=== PATIENT | male | born 1935 | race Caucasian/White ===

== ENCOUNTER 2023-04-05 10:23 | Outpatient (OUT) | payer MEDICARE, SELFPAY ==
[2023-04-05 11:46] LABS: Estimated Average Glucose 177 mg/dL; Glycohemoglobin A1C 7.8 % (4.5-6.2)
== END 2023-04-05 10:24 | disposition home or self-care (01) ==
PROVIDERS: PCP Family Medicine; Visit Provider Family Medicine
DX: E11.29 Type 2 diabetes mellitus with other diabetic kidney complication (principal); E11.65 Type 2 diabetes mellitus with hyperglycemia
CPT/HCPCS: 36415; 83036

== ENCOUNTER 2023-10-09 10:29 | Outpatient (OUT) | payer MEDICARE, SELFPAY ==
--- OUTSIDE RECORDS SUMMARY | 2023-10-09 10:48 | XMS_ITS | CCD ---
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 Name Role Phone HALINA, DR YULY Hancock Admitting Unavailable NADERER, DR YULY Hancock Attending Unavailable NADERER, DR YULY Hancock Consulting Unavailable NADERER, DR YULY Hancock Primary Care Unavailable NADERER, DR YULY Hancock Primary Care Unavailable NADERER, DR YULY Hancock Admitting Unavailable NADERER, DR YULY Hancock Attending Unavailable NADERER, DR YULY Hancock Primary Care Unavailable ADELA, MAMIE Admitting Unavailable WEST, DR MELECIO Seals Consulting Unavailable ADELA, MAMIE Attending Unavailable ADELA, MAMIE Consulting Unavailable FAWWAD, H Attending Unavailable FAWWAZhen, H Admitting Unavailable WEST, DR MELECIO Seals Consulting Unavailable NADERER, DR YULY Hancock Primary Care Unavailable FAWWAD, SHAIKH Nadeen Consulting Unavailable NADERER, DR YULY Hancock Primary Care Unavailable NADERER, DR YULY Hancock Admitting Unavailable NADERER, DR YULY Hancock Attending Unavailable NADERER, DR YULY Hancock Consulting Unavailable NADERER, YULY Attending Unavailable NADERER, YULY Attending Unavailable Problems Active Problems Problem Classification Problem Date Documented Date Episodic/Chronic Abdominal hernia (1 source) Umbilical hernia without obstruction or gangrene; Translations: [UMBILICAL HERNIA W/O OBST/GANGRENE] Onset: 09-29-2021 Episodic Abdominal pain (4 sources) Unspecified abdominal pain; Translations: [UNSPECIFIED ABDOMINAL PAIN] Onset: 09-28-2021 Episodic Biliary tract disease (1 source) Calculus of gallbladder without cholecystitis without obstruction; Translations: [CALCU GB W/O CHOLECYST W/O OBST] Onset: 09-29-2021 Episodic Diabetes mellitus with complications (4 sources) Type 2 diabetes mellitus with hyperglycemia; Translations: [TYPE 2 DM W/HYPERGLYCEMIA] Onset: 09-29-2021 Chronic Disorders of lipid metabolism (1 source) Hyperlipidemia, unspecified; Translations: [HYPERLIPIDEMIA UNSPECIFIED] Onset: 10-06-2021 Chronic Diverticulosis and diverticulitis (1 source) Diverticulosis of intestine, part unspecified, without perforation or abscess without bleeding; Translations: [DVRTCLOS PRT UNS NO PERF/ABSC NO BL] Onset: 09-29-2021 Chronic Nutritional deficiencies (1 source) Vitamin D deficiency, unspecified; Translations: [VITAMIN D DEFICIENCY UNSPECIFIED] Onset: 10-06-2021 Chronic Other aftercare (1 source) 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; Translations: [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 CURRENT USE OF ASPIRIN] Onset: 09-29-2021 Episodic Other aftercare (1 source) 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; Translations: [OTH HALF-WAY CURRENT DRUG THERAPY] Onset: 09-29-2021 Episodic Other connective tissue disease (4 sources) Pain in left leg; Translations: [PAIN IN LEFT LEG] Onset: 08-04-2021 Episodic Other connective tissue disease (1 source) Trochanteric bursitis, left hip; Translations: [TROCHANTERIC BURSITIS LEFT HIP] Onset: 08-04-2021 Episodic Other nervous system disorders (1 source) Other abnormalities of gait and mobility; Translations: [OTHER ABNORMALITIES GAIT AND MOBILITY] Onset: 08-06-2021 Episodic Other nervous system disorders (1 source) Unspecified abnormalities of gait and mobility; Translations: [UNS ABNORMALITIES GAIT AND MOBILITY] Onset: 08-06-2021 Episodic Other nutritional; endocrine; and metabolic disorders (1 source) Obesity, unspecified; Translations: [OBESITY UNSPECIFIED] Onset: 10-06-2021 Chronic Past or Other Problems Problem Classification Problem Date Documented Da te Episodic/Chronic Residual codes; unclassified (1 source) Edema, unspecified; Translations: [EDEMA UNSPECIFIED] Onset: 05-19-2021 Episodic Skin and subcutaneous tissue infections (4 sources) Cellulitis of left upper limb; Translations: [CELLULITIS OF LEFT UPPER LIMB] Onset: 05-17-2021 Episodic Results Test Name Value Interpretation Reference Range Facility GLYCOHEMOGLOBIN A1Con 2021 ADA RECOMMENDATION SEE BELOW Normal [facility] Comment on above: Result Comment: ADA RECOMMENDED LIMIT 4.0 - 6.0 ADA THERAPEUTIC TARGET < 7.0 ACTION SUGGESTED > 7.0 Performed By: #### A 1C #### [facility] [address] [place] [address] Dr. Linda Treviño Glucose [Mass/Vol] 177 mg/dL Normal [facility] Comment on above: Performed By: #### A 1C #### [facility] [address] [address] [address] Linda Treviño HbA1c (Bld) [Mass fraction] 7.8 % Critically high 4.5-6.2 [facility] Comment on above: Performed By: #### A 1C #### [facility] [address] [place] [address] Dr. Linda Treviño LIPID PROFILEon 09-29-2021 CHOL-HDL RATIO NORM SEE BELOW Normal [facility] Comment on above: Result Comment: 3.3 - 4.4 LOW RISK 4.4 - 7.1 AVERAGE RISK 7.1 - 11.0 MODERATE RISK >11.0 HIGH RISK Performed By: #### T SH, LIPID #### [facility] [address] [place] [address] Dr. Linda Treviño Cholesterol [Mass/Vol] 116 mg/dL Normal <=200 [facility] Comment on above: Performed By: #### T SH, LIPID #### [facility] [address] [place] [address] Dr. Linda Treviño Cholesterol in HDL [Mass/Vol] 42 mg/dL Normal 40-60 [facility] Comment on above: Performed By: #### T SH, LIPID #### [facility] [address] [place] [address] Dr. Linda Treviño Cholesterol in LDL [Mass/Vol] 52.4 mg/dL Normal [facility] Comment on above: Performed By: #### T SH, LIPID #### [facility] [address] [place] [address] Dr. Linda Treviño Cholesterol.total/Cho lesterol in HDL [Mass ratio] 2.8 {ratio} Normal [facility] Comment on above: Performed By: #### T SH, LIPID #### [facility] [address] [place] [address] Dr. Linda Treviño HDL NORMAL > or = 60 mg/dl - LO W CARDIOVASCULAR RISK <40 mg/dl - HIGH CARDIOVASCULAR RISK Normal [facility] Comment on above: Performed By: #### T SH, LIPID #### [facility] [address] [place] [address] Dr. Linda Treviño LDL CALC NORMAL SEE BELOW Normal [facility] Comment on above: Result Comment: <100 mg/dl OPTIMAL 100 - 129 mg/dl NEAR OR ABOVE OPTIMAL 130 - 159 mg/dl BORDERLINE HIGH 160 - 189 mg/dl HIGH >190 mg/dl VERY HIGH Performed By: #### T SH, LIPID #### [facility] [address] [place] [address] Dr. Linda Treviño Triglyceride [Mass/Vol] 108 mg/dL Normal <=150 [facility] Comment on above: Performed By: #### T SH, LIPID #### [facility] [address] [place] [address] Dr. Linda Treviño VLDL CALC 21.6 mg/dL Normal [facility] Comment on above: Performed By: #### T SH, LIPID #### [facility] [address] [place] [address] Dr. Linda Treviño MICROALBUMIN, RAND URon 06-0 mALB 4.5 mg/L Normal <=30.0 [facility] Comment on above: Performed By: #### M ALBR #### [facility] [address] [place] [address] Dr. Linda Treviño TSHon 09-29-2021 TSH 1.174 uIU/mL Normal 0.358-3.740 [facility] Comment on above: Performed By: #### T SH, LIPID #### [facility] [address] [place] [address] Dr. Linda Treviño TSH RANGE SEE BELOW Normal [facility] Comment on above: Result Comment: <0.3 4 UIU/ml HYPERTHYROID 0.34-5.60 UIU/ml EUTHYROID >5.60 UIU/ml HYPOTHYROID Performed By: #### T SH, LIPID #### [facility] [address] [place] [address] Dr. Linda Treviño VITAMIN D 25 OHon 09-29-2021 VIT D 25-OH 63.6 ng/mL Normal [facility] Comment on above: Performed By: #### V ITAD #### [facility] [address] [address] [address] Linda Treviño VIT D RANGES SEE BELOW Normal [facility] Comment on above: Result Comment: <20 ng/mL Vit D deficient 20 - <30 ng/mL Vit D insufficient 30 - 100 ng/mL Vit D sufficient >100 ng/mL Potential Toxicity Performed By: #### V ITAD #### [facility] [address] [address] [address] Linda Treviño AMYLASEon 09-28-2021 Amylase [Catalytic activity/Vol] 40 U/L Normal 25-115 [facility] Comment on above: Performed By: #### L IPA, JAXSON, CMP #### [facility] [address] [place] [address] Dr. Linda Treviño CBC AUTO DIFFon 09-28-2021 BASO # 0.0 103/ul Normal 0.0-0.1 [facility] Comment on above: Performed By: #### C BC ####[facility] [address] [address]Dr. Linda Treviño Basophils/100 WBC (Bld) 0.4 % Normal 0.2-2.0 [facility] Comment on above: Performed By: #### C BC ####[facility] [address] [address]DrAron Treviño EO # 0.2 103/ul Normal 0.0-0.7 [facility] Comment on above: Performed By: #### C BC ####[facility] [address] [address]DrAron Treviño Eosinophils/100 WBC (Bld) 1.8 % Normal 0.9-7.0 [facility] Comment on above: Performed By: #### C BC ####[facility] [address] [address]DrAron Treviño Erythrocyte distribution width (RBC) [Ratio] 12.9 % Normal 11.0-15.0 [facility] Comment on above: Performed By: #### C BC ####[facility] [address] [address]Dr. Linda Treviño Hematocrit (Bld) [Volume fraction] 43.0 % Normal 42.0-54.0 [facility] Comment on above: Performed By: #### C BC ####[facility] [address] [address]Dr. Linda Hudson Hemoglobin (Bld) [Mass/Vol] 14.4 g/dL Normal 14.0-18.0 [facility] Comment on above: Performed By: #### C BC ####[facility] [address] [address]Dr. Viviansandi Hudson IG # 0.04 10e3/ul Critically high 0.00-0.03 [facility] Comment on above: Performed By: #### C BC ####[facility] [address] [address]Dr. Linda Treviño IG % 0.5 % Normal 0.0-0.5 [facility] Comment on above: Performed By: #### C BC ####[facility] [address] [address]Dr. Linda Hudson LYMPH # 1.0 103/ul Critically low 1.2-3.8 [facility] Comment on above: Performed By: #### C BC ####[facility] [address] [address]Dr. Viviansandi Treviño Lymphocytes/100 WBC (Bld) 12.3 % Critically low 20.5-60.0 [facility] Comment on above: Performed By: #### C BC ####[facility] [address] [address]Dr. Viviansandi Treviño MANUAL DIFF REQ NO Normal [facility] Comment on above: Performed By: #### C BC ####[facility] [address] [address]DrAron Linda Hudson MCH (RBC) [Entitic mass] 30.1 pg Normal 25.9-34.0 [facility] Comment on above: Performed By: #### C BC ####[facility] [address] [place], [place] [address]Dr. Linda Treviño MCHC (RBC) [Mass/Vol] 33.5 g/dL Normal 29.9-35.2 [facility] Comment on above: Performed By: #### C BC ####[facility] [address] [address]Dr. Linda Treviño MCV (RBC) [Entitic vol] 90.0 fL Normal 80.0-94.0 [facility] Comment on above: Performed By: #### C BC ####[facility] [address] [address]Dr. Linda Treviño MONO # 0.3 103/ul Normal 0.3-0.8 [facility] Comment on above: Performed By: #### C BC ####[facility] [address] [address]Dr. Linda Hudson Monocytes/100 WBC (Bld) 3.9 % Normal 1.7-12.0 [facility] Comment on above: Performed By: #### C BC ####[facility] [address] [address]Dr. Linda Treviño NEUT # 6.6 103/ul Critically high 1.4-6.5 [facility] Comment on above: Performed By: #### C BC ####[facility] [address] [address]Dr. Linda Treviño Neutrophils/100 WBC (Bld) 81.1 % Critically high 43.0-75.0 [facility] Comment on above: Performed By: #### C BC ####[facility] [address] [address]Dr. Linda Treviño Platelet mean volume (Bld) [Entitic vol] 10.9 fL Normal 9.5-13.5 [facility] Comment on above: Performed By: #### C BC ####[facility] [address] [address]Dr. Linda Hudson PLT 232 103/ul Normal 150-450 [facility] Comment on above: Performed By: #### C BC ####[facility] [address] [place], [place] [address]Hn. Linda Treviño RBC 4.78 106/ul Normal 4.70-6.10 [facility] Comment on above: Performed By: #### C BC ####[facility] [address] [place], [place] [address]WaAron Treviño WBC 8.1 103/ul Normal 4.0-11.0 [facility] Comment on above: Performed By: #### C BC ####[facility] [address] [place], [place] [address]Ij. Linda Treviño CT ABD/PELVIS WO CONon 09-28 CT ABD/PELVIS WO CON EXAMINATION: CT ABD/PELVIS WO CON, 09/28/2021 10:48 AM EDT HISTORY: Flank pain COMPARISON: None. TECHNIQUE: CT scan of the abdomen and pelvis was performed without IV contrast. CT dose reduction technique was used, including Automated Exposure Control. FINDINGS: LUNG BASES: Cardiomegaly. Coronary atherosclerosis and aortic calcifications LIVER: No enlargement, atrophy, abnormal density, or significant focal lesion. BILIARY: Cholelithiasis without CT evidence of acute cholecystitis PANCREAS: No lesion, fluid collection, ductal dilatation, or atrophy. SPLEEN: No enlargement or focal lesion. ADRENALS: No mass or enlargement. KIDNEYS: Bilateral atrophy. Bilateral cortical hypodensities, cysts are suspected. Bilateral nonobstructing nephrolithiasis. No hydronephrosis. BOWEL/MESENTERY: Extensive colonic diverticulosis without evidence of acute diverticulitis. Perceived thickening of the sigmoid colon possibly related to underlying diverticular disease and nondistention. Normal appendix. Overall nonobstructive bowel gas pattern. AORTA/VASCULAR: No aortic aneurysm. Moderate atherosclerosis. RETROPERITONEUM: No mass or adenopathy. LYMPH NODES: No adenopathy. URINARY BLADDER: Nondistended urinary bladder PELVIC ORGANS: No visible mass. Pelvic organs appropriate for patient age. ABDOMINAL WALL: 3.9 cm umbilical hernia containing mesentery BONES: Degenerative changes OTHER: Negative. IMPRESSION: Cholelithiasis without evidence of acute cholecystitis Bilateral renal atrophy. Nonobstructing nephrolithiasis. No obstructive uropathy Extensive colonic diverticulosis without evidence of acute diverticulitis 4 cm umbilical hernia containing mesenteric fat Electronically authenticated by: MELECIO RAMIREZ Date: 2021-09-28 11:27 Normal [facility] LIPASEon 09-28-2021 Lipase [Catalytic activity/Vol] 72.0 U/L Critically low 73.0-393.0 [facility] Comment on above: Performed By: #### L IPA JAXSON, CMP #### [facility] [address] [address] [address] Linda Treviño PROF 14(COMP METB)on 022 Albumin [Mass/Vol] 4.1 g/dL Normal 3.4-5.0 [facility] Comment on above: Performed By: #### L IPA JAXSON, CMP #### [facility] [address] [address] [address] Linda Treviño Albumin/Globulin [Mass ratio] 1.1 {ratio} Normal [facility] Comment on above: Performed By: #### L OSCAR JAXSON, CMP #### [facility] [address] [address] [address] Linda Treviño ALP [Catalytic activity/Vol] 56 U/L Normal 46-116 [facility] Comment on above: Performed By: #### L IPA JAXSON, CMP #### [facility] [address] [address] [address] Linda Treviño ALT [Catalytic activity/Vol] 33 U/L Normal 16-63 [facility] Comment on above: Performed By: #### L IPA JAXSON, CMP #### [facility] [address] [address] [address] Linda Treviño Anion gap [Moles/Vol] 12.2 mmol/L Normal [facility] Comment on above: Performed By: #### L IPA, JAXSON, CMP #### [facility] [address] [address] [address] Linda Treviño AST [Catalytic activity/Vol] 22 U/L Normal 15-37 [facility] Comment on above: Performed By: #### L IPA, JAXSON, CMP #### [facility] [address] [address] [address] Linda Treviño Bilirubin [Mass/Vol] 0.7 mg/dL Normal 0.2-1.0 [facility] Comment on above: Performed By: #### L IPA JAXSON, CMP #### [facility] [address] [address] [address] Linda Treviño Calcium [Mass/Vol] 9.4 mg/dL Normal 8.5-10.1 [facility] Comment on above: Performed By: #### L IPA JAXSON, CMP #### [facility] [address] [address] [address] Linda Treviño Chloride [Moles/Vol] 102 mmol/L Normal 98-107 [facility] Comment on above: Performed By: #### L IPA JAXSON, CMP #### [facility] [address] [place] [address] Dr. Linda Treviño CO2 [Moles/Vol] 25.7 mmol/L Normal 21.0-32.0 [facility] Comment on above: Performed By: #### L IPA JAXSON, CMP #### [facility] [address] [place] [address] Dr. Linda Treviño Creatinine [Mass/Vol] 1.74 mg/dL Critically high 0.70-1.30 [facility] Comment on above: Performed By: #### L OSCAR JAXSON, CMP #### [facility] [address] [place] [address] Dr. Linda Treviño EGFR-AF [place] 45 mL/min/1.73m2 Critically low >=60 [facility] Comment on above: Performed By: #### L OSCAR JAXSON, CMP #### [facility] [address] [place] [address] Dr. Linda Treviño EGFR-NON AF [place] 37 mL/min/1.73m2 Critically low >=60 [facility] Comment on above: Performed By: #### L IPA JAXSON, CMP #### [facility] [address] [place] [address] Dr. Linda Treviño Globulin (S) [Mass/Vol] 3.7 g/dL Normal [facility] Comment on above: Performed By: #### L IPA JAXSON, CMP #### [facility] [address] [place] [address] Dr. Linda Treviño Glucose [Mass/Vol] 225 mg/dL Critically high 74-106 [facility] Comment on above: Performed By: #### L JAXSON MOORE, CMP #### [facility] [address] [place] [address] Dr. Linda Treviño Potassium [Moles/Vol] 3.9 mmol/L Normal 3.5-5.1 [facility] Comment on above: Performed By: #### L JAXSON MOORE, CMP #### [facility] [address] [place] [address] Dr. Linda Treviño Protein [Mass/Vol] 7.8 g/dL Normal 6.4-8.2 [facility] Comment on above: Performed By: #### L JAXSON MOORE, CMP #### [facility] [address] [place] [address] Dr. Linda Treviño Sodium [Moles/Vol] 136 mmol/L Normal 136-145 [facility] Comment on above: Performed By: #### L JAXSON MOORE, CMP #### [facility] [address] [place] [address] Dr. Linda Treviño Urea nitrogen [Mass/Vol] 30.0 mg/dL Critically high 7.0-18.0 [facility] Comment on above: Performed By: #### L JAXSON MOORE, CMP #### [facility] [address] [place] [address] Dr. Linda Treviño Urea nitrogen/Creatinine [Mass ratio] 17.2 mg/mg Normal [facility] Comment on above: Performed By: #### L JAXSON MOORE, CMP #### [facility] [address] [place] [address] Dr. Linda Treviño US EXT NON VASC LIMITED LTon 05-17-2021 US EXT NON VASC LIMITED LT EXAMINATION: US EXT NON VASC LIMITED LT HISTORY: Cellulitis of left upper limb COMPARISON: No relevant comparison available. FINDINGS: Ultrasound in the area the patient's patchy spots and swelling demonstrate moderate subcutaneous edema. No focal ultrasound mass. No evidence of a hematoma. IMPRESSION: Subcutaneous edema corresponding to the patient's swelling. No focal mass Electronically authenticated by: MELECIO RAMIREZ Date: 2021-05-17 11:01 Normal [facility] GLYCOHEMOGLOBIN A1Con 2020 ADA RECOMMENDATION ADA THERAPEUTIC TARGET 6.0 - 7.0 ACTION SUGGESTED > 7.0 Normal [facility] Comment on above: Performed By: #### A 1C ####[facility] [address] [place], [place] [address]Hn. Linda Treviño Glucose [Mass/Vol] 174 mg/dL Normal [facility] Comment on above: Performed By: #### A 1C ####[facility] [address] [place], [place] [address]Co. Linda Treviño HbA1c (Bld) [Mass fraction] 7.7 % Critically high <=6.0 [facility] Comment on above: Performed By: #### A 1C ####[facility] [address] [place], [place] [address]Ai. Linda Treviño Encounters Encounter Date Encounter Type Care Provider Facility Start: 10-05-2023 End: 10-05-2023 ambulatory YULY MEADE Not Available Start: 04-05-2023 End: 04-05-2023 ambulatory YULY MEADE Not Available Start: 09-29-2021 End: 09-30-[address] YULY MEADE Facility:[facility] Start: 09-28-2021 End: 09-28-[address] YULY MEADE Facility:[facility] Start: 08-04-2021 End: 08-12-[address] YULY MEADE Facility:[facility] Start: 05-17-2021 End: 05-18-2021 ambulatory SHAIKH Nadeen OQUENDO Facility:[facility] Start: 03-30-2021 End: 03-31-[address] YULY MEADE Facility:[facility] Payers Date Payer Category Payer Medicare [id number] 1958 Unknown [id number] 1935 Unknown [id number] 2.16.84 [id number] 1936 Unknown [id number] 2.16.84 [id number] 1936 Unknown [id number] 2.16.84 [id number] 1936 Unknown [id number] 2.16.84 [id number] 1936 Unknown [id number] 2.16.84 [id number] 1936 Unknown [id number] 2.16.84 [id number] 1936 Unknown [id number] Summary Purpose Family History No Family History Records FoundNo Family History Records Found Advance Directives No Advanced Directives Records FoundNo Advanced Directives Records Found Additional Source Comments (unrecognized sect ion and content) No Status Records FoundNo Status Records Found INFORMATION SOURCE (unrecogn ized section and content) DATE CREATED AUTHOR 10/07/2021 [facility] DATE CREATED AUTHOR AUTHOR'S BLUIZ ATION 10/06/2023 [facility] FOR RECORDS PERTAINING TO PATIENTS WHO ARE OR HAVE BEEN ENROLLED IN A CHEMICAL DEPENDENCY/SUBSTANCEABUSE PROGRAM, SOME INFORMATION MAY BE OMITTED. This clinical summary was aggregated from multiple sources. Caution should be exercised in using it in the provision of clinical care. This summary normalizes information from multiple sources, and as a consequence, information in this document may materially change the coding, format and clinical context of patient data. In addition, data may be omitted in some cases. CLINICAL DECISIONS SHOULD BE BASED ON THE PRIMARY CLINICAL RECORDS. [facility] [employer] provides no warranty or guarantee of the accuracy or completeness of information in this document.
[2023-10-09 11:01] LABS: Basophils Percent Auto 0.6 % (0.2-2.0); Eosinophils Absolute Auto 0.3 10^3/uL (0.0-0.7); Eosinophils Percent Auto 5.3 % (0.9-7.0); Hematocrit 41.7 % (42.0-54.0); Hemoglobin 13.7 g/dL (14.0-18.0); Immature Granulocytes Abs Auto 0.02 10^3/uL (0.00-0.03); Immature Granulocytes Pct Auto 0.3 % (0.0-0.5); Lymphocytes Absolute Auto 1.4 10^3/uL (1.2-3.8); Lymphocytes Percent Auto 21.5 % (20.5-60.0); Mean Corpuscular HGB Conc 32.9 g/dL (29.9-35.2); Mean Corpuscular Hemoglobin 29.2 pg (25.9-34.0); Mean Corpuscular Volume 88.9 fL (80.0-94.0); Mean Platelet Volume 10.9 fL (9.5-13.5); Monocytes Absolute Auto 0.4 10^3/uL (0.3-0.8); Monocytes Percent Auto 6.4 % (1.7-12.0); Neutrophils Absolute Auto 4.2 10^3/uL (1.4-6.5); Neutrophils Percent Auto 65.9 % (43.0-75.0); Platelet Count 181 10^3/uL (150-450); Red Blood Count 4.69 10^6/uL (4.70-6.10); Red Cell Distribution Width 13.4 % (11.0-15.0); White Blood Count 6.4 10^3/uL (4.0-11.0)
[2023-10-09 11:17] LABS: Estimated Average Glucose 169 mg/dL; Glycohemoglobin A1C 7.5 % (4.5-6.2)
[2023-10-09 11:22] LABS: Microalbumin Urine Random <1.3 mg/dL (<=30.0)
[2023-10-09 12:17] LABS: Alanine Aminotransferase 32 U/L (16-63); Albumin Level 3.6 g/dL (3.4-5.0); Alkaline Phosphatase 63 U/L (46-116); Anion Gap 12.3; Aspartate Amino Transferase 23 U/L (15-37); BUN Creatinine Ratio 13.3; Bilirubin Direct 0.2 mg/dL (0.0-0.2); Bilirubin Total 0.6 mg/dL (0.2-1.0); Calcium 8.9 mg/dL (8.5-10.1); Carbon Dioxide 30.3 mmol/L (21.0-32.0); Chloride 102 mmol/L (98-107); Chol HDL Ratio 2.5; Cholesterol 123 mg/dL (<=200); Estimated GFR (African America 48 (>=60); Estimated GFR (Non-African Ame 40 (>=60); Globulin 3.5 g/dL; Glucose 244 mg/dL (74-106); HDL Cholesterol 50 mg/dL (40-60); Potassium 3.6 mmol/L (3.5-5.1); Sodium 141 mmol/L (136-145); Total Protein 7.1 g/dL (6.4-8.2); Triglycerides 100 mg/dL (<=150)
== END 2023-10-09 10:30 | disposition home or self-care (01) ==
LOC: LAB 10:32
PROVIDERS: PCP Family Medicine; Visit Provider Family Medicine
DX: E11.65 Type 2 diabetes mellitus with hyperglycemia (principal); N18.32 Chronic kidney disease, stage 3b; Z79.899 Other long term (current) drug therapy; E78.5 Hyperlipidemia, unspecified; E66.9 Obesity, unspecified; I12.9 Hypertensive chronic kidney disease with stage 1 through stage 4 chronic kidney disease, or unspecified chronic kidney disease
CPT/HCPCS: 36415; 80048; 80061; 80076; 82043; 82306; 83036; 84443; 85025

== ENCOUNTER 2023-12-11 12:19 | Outpatient (RCR) | payer MEDICARE, SELFPAY | END 2023-12-29 13:10 | disposition home or self-care (01) | LOC: PT 12:19 | PROVIDERS: PCP Family Medicine; Visit Provider Family Medicine | DX: R42 Dizziness and giddiness (principal) | CPT/HCPCS: 95992; 97110; 97112; 97162; 97530 ==

== ENCOUNTER 2024-01-27 11:52 | Emergency (ER) | payer MEDICARE, SELFPAY ==
[2024-01-27 11:56] VITALS: BP 121/70; PULSE 79; TEMP 36.5; O2SAT 96; BMI 31.9
--- NOTE | 2024-01-27 12:03 | XR_ITS ---
The [address] [address] Patient Name: MELECIO BARRERA MRN: [id number] date: 1935 Sex: M Assigned Patient Location: ER Current Patient Location: ER Accession/Order Number: [id number] Exam Date: 01/27/2024 12:40 Report Date: 01/27/2024 13:39 At the request of: HARDY ANDERSON Procedure: XR wrist LT min 3V HISTORY: Pain in the left wrist and forearm after a fall. Swelling. XR forearm LT 2V, XR wrist LT min 3V: 01/27/2024 12:40 PM EDT COMPARISON: None. FINDINGS: Left forearm: No fracture or dislocation is seen. There are mild degenerative changes of the ulnotrochlear joint. Left wrist: There is soft tissue swelling along the volar aspect of the wrist. No acute fracture or dislocation is seen. There are severe degenerative changes of the first carpometacarpal joint and there appear to be at least moderate to severe degenerative changes of the radiocarpal joint. There are mild degenerative changes of the distal radial ulnar joint. XR/XR wrist LT min 3V IMPRESSION: 1. No acute fracture or dislocation of the left forearm or wrist is seen. 2. Soft tissue swelling along the volar aspect of the wrist. 3. 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 Electronically authenticated by: WILLIAMS MCCRAY Date: 01/27/2024 13:39
--- NOTE | 2024-01-27 12:03 | XR_ITS ---
The [address] [address] Patient Name: MELECIO BARRERA MRN: [id number] date: 1935 Sex: M Assigned Patient Location: ER Current Patient Location: Accession/Order Number: [id number] Exam Date: 01/27/2024 12:40 Report Date: 01/27/2024 13:39 At the request of: HARDY ANDERSON Procedure: XR forearm LT 2V HISTORY: Pain in the left wrist and forearm after a fall. Swelling. XR forearm LT 2V, XR wrist LT min 3V: 01/27/2024 12:40 PM EDT COMPARISON: None. FINDINGS: Left forearm: No fracture or dislocation is seen. There are mild degenerative changes of the ulnotrochlear joint. Left wrist: There is soft tissue swelling along the volar aspect of the wrist. No acute fracture or dislocation is seen. There are severe degenerative changes of the first carpometacarpal joint and there appear to be at least moderate to severe degenerative changes of the radiocarpal joint. There are mild degenerative changes of the distal radial ulnar joint. XR/XR forearm LT 2V IMPRESSION: 1. No acute fracture or dislocation of the left forearm or wrist is seen. 2. Soft tissue swelling along the volar aspect of the wrist. 3. 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 Electronically authenticated by: WILLIAMS MCCRAY Date: 01/27/2024 13:39
--- OUTSIDE RECORDS SUMMARY | 2024-01-27 12:03 | XMS_ITS | CCD ---
Author Organization [facility] Care Team Providers Care Hospice Art Therapist Name Role Phone HALINA, DR YULY Hancock [...] Attending Unavailable ADELA, MAMIE Consulting Unavailable FAWWAD, SHAIKH Nadeen Attending Unavailable FAWWAZhen, H Admitting Unavailable WEST, DR MELECIO Seals Consulting Unavailable NADERER, DR YULY Hancock Primary Care Unavailable FAWWAD, SHAIKH Nadeen Consulting Unavailable NADERER, DR YULY Hancock Primary Care Unavailable NADERER, DR YULY Hancock Admitting Unavailable NADERER, DR YULY Hancock Attending Unavailable NADERER, DR YULY Hancock Consulting Unavailable RICKETTS, NIMISHA Castaneda Attending Unavailable NADERER, YULY Referring Unavailable NADERER, YULY Primary Care Unavailable NADERER, YULY Attending Unavailable NADERER, YULY Attending Unavailable NADERER, YULY Attending Unavailable RICKETTSNIMISHA Referring Unavailable NADERER, YULY Primary Care Unavailable RICKETTS, NIMISHA Castaneda Referring Unavailable NADERER, YULY Primary Care Unavailable NADERER, YULY Referring Unavailable NADERER, YULY Primary Care Unavailable Allergies Allergy Classification Reported Allergen(s) Allergy Type Date of Onset Reaction(s) Facility (2 sources) HYMENOPTERA ALLERGENIC EXTRACT; Translations: [HYMENOPTERA ALLERGENIC EXTRACT] Drug Allergy 04-05-2016 [facility] Rep[facility] Problems Active Problems Problem Classification Problem Date [...] [TYPE 2 DM W/HYPERGLYCEMIA] Onset: 09-29-2021 Chronic Diabetes mellitus without complication (1 source) Type 2 diabetes mellitus without complications; Translations: [Type 2 diabetes mellitus without complications] Onset: 12-20-2023 Chronic Disorders of lipid metabolism (1 source) Hyperlipidemia, unspecified; Translations: [HYPERLIPIDEMIA UNSPECIFIED] Onset: 10-06-2021 Chronic Diverticulosis and diverticulitis (1 source) Diverticulosis of intestine, part unspecified, without perforation or abscess without bleeding; Translations: [DVRTCLOS PRT UNS NO PERF/ABSC NO BL] Onset: 09-29-2021 Chronic Essential hypertension (1 source) Essential (primary) hypertension; Translations: [Essential (primary) hypertension] Onset: 12-20-2023 Chronic Nutritional deficiencies (1 source) Vitamin D deficiency, unspecified; Translations: [VITAMIN D DEFICIENCY UNSPECIFIED] Onset: 10-06-2021 Chronic Other 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 (1 source) 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; Translations: [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 CURRENT USE OF ASPIRIN] Onset: 09-29-2021 Episodic Other aftercare (1 source) Other 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 therapy; Translations: [OTH HEAD WORKER CURRENT DRUG THERAPY] Onset: 09-29-2021 Episodic Other connective tissue disease (4 sources) Pain in left leg; Translations: [PAIN IN LEFT LEG] Onset: 08-04-2021 Episodic Other connective tissue disease (1 source) Trochanteric bursitis, left hip; Translations: [TROCHANTERIC BURSITIS LEFT HIP] Onset: 08-04-2021 Episodic Other male genital disorders (2 sources) Encysted hydrocele; Translations: [Encysted hydrocele] Onset: 10-18-2023 Episodic Other nervous system disorders (1 source) Other abnormalities of gait and mobility; Translations: [OTHER ABNORMALITIES GAIT AND MOBILITY] Onset: 08-06-2021 Episodic Other nervous system disorders (1 source) Unspecified abnormalities of gait and mobility; Translations: [UNS ABNORMALITIES GAIT AND MOBILITY] Onset: 08-06-2021 Episodic Other nutritional; endocrine; and metabolic disorders (1 source) Obesity, unspecified; Translations: [OBESITY UNSPECIFIED] Onset: 10-06-2021 Chronic Urinary tract infections (1 source) Urinary tract infection, site not specified; Translations: [Urinary tract infection, site not specified] Onset: 12-20-2023 Episodic Past or Other Problems Problem Classification Problem Date Documented Da te Episodic/Chronic Residual codes; unclassified (1 source) Edema, unspecified; Translations: [EDEMA UNSPECIFIED] Onset: 05-19-2021 Episodic Skin and subcutaneous tissue infections (4 sources) Cellulitis of left upper limb; Translations: [CELLULITIS OF LEFT UPPER LIMB] Onset: 05-17-2021 Episodic Results Test Name Value Interpretation Reference Range Facility BASIC METABOLIC PANLon 12-19 Anion gap [Moles/Vol] 12 mmol/L Normal 5-15 [facility] Comment on above: Performed By: #### B MP #### [facility] ([id number]) [address], [address] [place] [address] Calcium [Mass/Vol] 9.6 mg/dL Normal 8.5-10.5 [facility] Comment on above: Performed By: #### B MP #### [facility] ([id number]) [address], [address] [place] [address] Chloride [Moles/Vol] 103 mmol/L Normal 98-109 [facility] Comment on above: Performed By: #### B MP #### [facility] ([id number]) [address], [address] [place] [address] CO2 [Moles/Vol] 26 mmol/L Normal 22-32 [facility] Comment on above: Performed By: #### B MP #### [facility] ([id number]) [address], [address] [place] [address] Creatinine [Mass/Vol] 1.51 mg/dL High 0.60-1.30 [facility] Comment on above: Result Comment: METH OD TRACEABLE TO IDMS STANDARD Performed By: #### B MP #### [facility] ([id number]) [address], [address] [place] [address] GFR/1.73 sq M.predicted among non-blacks MDRD (S/P/Bld) [Vol rate/Area] 44 mL/min/{1.73_m2} Low >59 [facility] Comment on above: Result Comment: Reported eGFR is based on the CKD-EPI 2020 equation that does not use a race coefficient. Performed By: #### B MP #### [facility] ([id number]) [address], [address] [place] [address] Glucose [Mass/Vol] 141 mg/dL High 65-99 [facility] Comment on above: Performed By: #### B MP #### [facility] ([id number]) [address], [address] [place] [address] Potassium [Moles/Vol] 4.3 mmol/L Normal 3.5-5.0 [facility] Comment on above: Performed By: #### B MP #### [facility] ([id number]) [address] [place] [address] Sodium [Moles/Vol] 141 mmol/L Normal 134-146 [facility] Comment on above: Performed By: #### B MP #### [facility] ([id number]) [address], [address] [place] [address] Urea nitrogen [Mass/Vol] 22 mg/dL Normal 5-27 [facility] Comment on above: Performed By: #### B MP #### [facility] ([id number]) [address], [address] [place] [address] URINALYSISon 12-20-2023 Bilirubin Ql (U) Negative Normal NEG [facility] Comment on above: Performed By: #### U A #### [facility] ([id number]) [address], [address] [place] [address] BLOOD/HGB Negative Normal NEG [facility] Comment on above: Performed By: #### U A #### [facility] ([id number]) [address], [address] [place] [address] Color (U) YELLOW Normal YELLOW [facility] Comment on above: Performed By: #### U A #### [facility] ([id number]) [address], [address] [place] [address] Glucose Ql (U) Negative Normal NEG [facility] Comment on above: Performed By: #### U A #### [facility] ([id number]) [address], [address] [place] [address] Ketones Ql (U) Negative Normal NEG [facility] Comment on above: Performed By: #### U A #### [facility] ([id number]) [address] [place] [address] Leukocyte esterase Test strip Ql (U) Negative Normal NEG [facility] Comment on above: Performed By: #### U A #### [facility] ([id number]) [address], [address] [place] [address] Nitrite Ql (U) Negative Normal NEG [facility] Comment on above: Performed By: #### U A #### [facility] ([id number]) [address], [address] [place] [address] pH (U) 5.5 [pH] Normal 5.0-8.5 [facility] Comment on above: Performed By: #### U A #### [facility] ([id number]) [address], [address] [place] [address] Protein Ql (U) Negative Normal NEG [facility] Comment on above: Performed By: #### U A #### [facility] ([id number]) [address], [address] [place] [address] Specific gravity (U) [Rel density] 1.015 Normal 1.003-1.035 [facility] Comment on above: Performed By: #### U A #### [facility] ([id number]) [address], [address] [place] [address] TURBIDITY CLEAR Normal CLEAR [facility] Comment on above: Performed By: #### U A #### [facility] ([id number]) [address], [address] [place] [address] Urobilinogen (U) [Mass/Vol] mg/dL Normal <1.1 [facility] Comment on above: Performed By: #### U A #### [facility] ([id number]) [address], [address] [place] [address] URINE CULTUREon 12-20-2023 Bacteria identified Cx Nom (U) CULTURE RESULTS NO GROWTH AT <1000 CFU/mL Normal [facility] Comment on above: Performed By: #### 6 30-4 #### [facility] ([id number]) [address], [address] [place] [address] GLYCOHEMOGLOBIN A1Con 2021 ADA RECOMMENDATION SEE BELOW Normal [facility] Comment on above: Result Comment: ADA RECOMMENDED LIMIT 4.0 - 6.0 ADA THERAPEUTIC TARGET < 7.0 ACTION SUGGESTED > 7.0 Performed By: #### A 1C #### [facility] [address] [address] [address] Linda Treviño Glucose [Mass/Vol] 177 mg/dL Normal [facility] Comment on above: Performed By: #### A 1C #### [facility] [address] [address] [address] Linda Treviño HbA1c (Bld) [Mass fraction] 7.8 % Critically high 4.5-6.2 [facility] Comment on above: Performed By: #### A 1C #### [facility] [address] [address] [address] Linda Treviño LIPID PROFILEon 09-29-2021 CHOL-HDL RATIO NORM SEE BELOW Normal [facility] Comment on above: Result Comment: 3.3 - 4.4 LOW RISK 4.4 - 7.1 AVERAGE RISK 7.1 - 11.0 MODERATE RISK >11.0 HIGH RISK Performed By: #### T SH, LIPID #### [facility] [address] [address] [address] Linda Treviño Cholesterol [Mass/Vol] 116 mg/dL Normal <=200 [facility] Comment on above: Performed By: #### T SH, LIPID #### [facility] [address] [address] [address] Linda Treviño Cholesterol in HDL [Mass/Vol] 42 mg/dL Normal 40-60 [facility] Comment on above: Performed By: #### T SH, LIPID #### [facility] [address] [address] [address] Linda Treviño Cholesterol in LDL [Mass/Vol] 52.4 mg/dL Normal [facility] Comment on above: Performed By: #### T SH, LIPID #### [facility] [address] [address] [address] Linda Treviño Cholesterol.total/Cho lesterol in HDL [Mass ratio] 2.8 {ratio} Normal [facility] Comment on above: Performed By: #### T SH, LIPID #### [facility] [address] [address] [address] Linda Treviño HDL NORMAL > or = 60 mg/dl - LOW CARDIOVASCULAR RISK <40 mg/dl - HIGH CARDIOVASCULAR RISK Normal [facility] Comment on above: Performed By: #### T SH, LIPID #### [facility] [address] [address] [address] Linda Treviño LDL CALC NORMAL SEE BELOW Normal [facility] Comment on above: Result Comment: <100 mg/dl OPTIMAL 100 - 129 mg/dl NEAR OR ABOVE OPTIMAL 130 - 159 mg/dl BORDERLINE HIGH 160 - 189 mg/dl HIGH >190 mg/dl VERY HIGH Performed By: #### T SH, LIPID #### [facility] [address] [place] [address] Dr. Linda Treviño Triglyceride [Mass/Vol] 108 mg/dL Normal <=150 [facility] Comment on above: Performed By: #### T SH, LIPID #### [facility] [address] [place] [address] Dr. Linda Treviño VLDL CALC 21.6 mg/dL Normal [facility] Comment on above: Performed By: #### T SH, LIPID #### [facility] [address] [place] [address] Dr. Linda Treviño MICROALBUMIN, RAND URon 06-0 mALB 4.5 mg/L Normal <=30.0 [facility] Comment on above: Performed By: #### M ALBR #### [facility] [address] [place] [address] Dr. Linda Treviño TSHon 09-29-2021 TSH 1.174 uIU/mL Normal 0.358-3.740 [facility] Comment on above: Performed By: #### T SH, LIPID #### [facility] [address] [place] [address] Dr. Linda Treviño TSH RANGE SEE BELOW Normal [facility] Comment on above: Result Comment: <0.3 4 UIU/ml HYPERTHYROID 0.34-5.60 UIU/ml EUTHYROID >5.60 UIU/ml HYPOTHYROID Performed By: #### T SH, LIPID #### [facility] [address] [place] [address] Dr. Linda Treviño VITAMIN D 25 OHon 09-29-2021 VIT D 25-OH 63.6 ng/mL Normal [facility] Comment on above: Performed By: #### V ITAD #### [facility] [address] [place] [address] Dr. Linda Treviño VIT D RANGES SEE BELOW Normal [facility] Comment on above: Result Comment: <20 ng/mL Vit D deficient 20 - <30 ng/mL Vit D insufficient 30 - 100 ng/mL Vit D sufficient >100 ng/mL Potential Toxicity Performed By: #### V ITAD #### [facility] [address] [address] [address] Linda Treviño AMYLASEon 09-28-2021 Amylase [Catalytic activity/Vol] 40 U/L Normal 25-115 [facility] Comment on above: Performed By: #### L IPA, JAXSON, CMP #### [facility] [address] [address] [address] Linda Treviño CBC AUTO DIFFon 09-28-2021 BASO # 0.0 103/ul Normal 0.0-0.1 [facility] Comment on above: Performed By: #### C BC ####[facility] [address] [address]DrAron Treviño Basophils/100 WBC (Bld) 0.4 % Normal 0.2-2.0 [facility] Comment on above: Performed By: #### C BC ####[facility] [address] [place], [place] [address]Dr. Linda Treviño EO # 0.2 103/ul Normal 0.0-0.7 [facility] Comment on above: Performed By: #### C BC ####[facility] [address] [place], [place] [address]Dr. Linda Trevioñ Eosinophils/100 WBC (Bld) 1.8 % Normal 0.9-7.0 [facility] Comment on above: Performed By: #### C BC ####[facility] [address] [address]DrAron Treviño Erythrocyte distribution width (RBC) [Ratio] 12.9 % Normal 11.0-15.0 [facility] Comment on above: Performed By: #### C BC ####[facility] [address] [address]DrAron Treviño Hematocrit (Bld) [Volume fraction] 43.0 % Normal 42.0-54.0 [facility] Comment on above: Performed By: #### C BC ####[facility] [address] [address]Dr. Linda Treviño Hemoglobin (Bld) [Mass/Vol] 14.4 g/dL Normal 14.0-18.0 [facility] Comment on above: Performed By: #### C BC ####[facility] [address] [address]DrAron Treviño IG # 0.04 10e3/ul Critically high 0.00-0.03 [facility] Comment on above: Performed By: #### C BC ####[facility] [address] [address]DrAron Treviño IG % 0.5 % Normal 0.0-0.5 [facility] Comment on above: Performed By: #### C BC ####[facility] [address] [place], [place] [address]DrAron Treviño LYMPH # 1.0 103/ul Critically low 1.2-3.8 [facility] Comment on above: Performed By: #### C BC ####[facility] [address] [place], [place] [address]DrAron Treviño Lymphocytes/100 WBC (Bld) 12.3 % Critically low 20.5-60.0 [facility] Comment on above: Performed By: #### C BC ####[facility] [address] [place], [place] [address]DrAron Treviño MANUAL DIFF REQ NO Normal [facility] Comment on above: Performed By: #### C BC ####[facility] [address] [address]DrAron Treviño MCH (RBC) [Entitic mass] 30.1 pg Normal 25.9-34.0 [facility] Comment on above: Performed By: #### C BC ####[facility] [address] [place], [place] [address]DrAron Treviño MCHC (RBC) [Mass/Vol] 33.5 g/dL Normal 29.9-35.2 [facility] Comment on above: Performed By: #### C BC ####[facility] [address] [place], [place] [address]DrAron Treviño MCV (RBC) [Entitic vol] 90.0 fL Normal 80.0-94.0 [facility] Comment on above: Performed By: #### C BC ####[facility] [address] [place], [place] [address]Dr. Linda Treviño MONO # 0.3 103/ul Normal 0.3-0.8 [facility] Comment on above: Performed By: #### C BC ####[facility] [address] [place], [place] [address]Dr. Linda Hudson Monocytes/100 WBC (Bld) 3.9 % Normal 1.7-12.0 [facility] Comment on above: Performed By: #### C BC ####[facility] [address] [place], [place] [address]Dr. Linda Treviño NEUT # 6.6 103/ul Critically high 1.4-6.5 [facility] Comment on above: Performed By: #### C BC ####[facility] [address] [place], [place] [address]Dr. Linda Hudson Neutrophils/100 WBC (Bld) 81.1 % Critically high 43.0-75.0 [facility] Comment on above: Performed By: #### C BC ####[facility] [address] [place], [place] [address]Dr. Linda Hudson Platelet mean volume (Bld) [Entitic vol] 10.9 fL Normal 9.5-13.5 [facility] Comment on above: Performed By: #### C BC ####[facility] [address] [place], [place] [address]Dr. Linda Hudson PLT 232 103/ul Normal 150-450 [facility] Comment on above: Performed By: #### C BC ####[facility] [address] [place], [place] [address]Dr. Linda Hudson RBC 4.78 106/ul Normal 4.70-6.10 [facility] Comment on above: Performed By: #### C BC ####[facility] [address] [place], [place] [address]Dr. Linda Treviño WBC 8.1 103/ul Normal 4.0-11.0 [facility] Comment on above: Performed By: #### C BC ####[facility] [address] [address]. Linda Treviño CT ABD/PELVIS WO CONon 09-28 [...] by: MELECIO RAMIREZ Date: 2021-09-28 11:27 Normal [facility] LIPASEon 09-28-2021 Lipase [Catalytic activity/Vol] 72.0 U/L Critically low 73.0-393.0 [facility] Comment on above: Performed By: #### L IPA, JAXSON, CMP #### [facility] [address] [address] [address] Linda Treviño PROF 14(COMP METB)on 022 Albumin [Mass/Vol] 4.1 g/dL Normal 3.4-5.0 [facility] Comment on above: Performed By: #### L JAXSON MOORE, CMP #### [facility] [address] [address] [address] Linda Treviño Albumin/Globulin [Mass ratio] 1.1 {ratio} Normal [facility] Comment on above: Performed By: #### L JAXSON MOORE, CMP #### [facility] [address] [address] [address] Linda Treviño ALP [Catalytic activity/Vol] 56 U/L Normal 46-116 [facility] Comment on above: Performed By: #### L JAXSON MOORE, CMP #### [facility] [address] [address] [address] Linda Treviño ALT [Catalytic activity/Vol] 33 U/L Normal 16-63 [facility] Comment on above: Performed By: #### L JAXSON MOORE, CMP #### [facility] [address] [address] [address] Linda Treviño Anion gap [Moles/Vol] 12.2 mmol/L Normal [facility] Comment on above: Performed By: #### L JAXSON MOORE, CMP #### [facility] [address] [address] [address] Linda Treviño AST [Catalytic activity/Vol] 22 U/L Normal 15-37 [facility] Comment on above: Performed By: #### L JAXSON MOORE, CMP #### [facility] [address] [address] [address] Linda Treviño Bilirubin [Mass/Vol] 0.7 mg/dL Normal 0.2-1.0 [facility] Comment on above: Performed By: #### L JAXSON MOORE, CMP #### [facility] [address] [address] [address] Linda Treviño Calcium [Mass/Vol] 9.4 mg/dL Normal 8.5-10.1 [facility] Comment on above: Performed By: #### L IPA, JAXSON, CMP #### [facility] [address] [address] [address] Linda Treviño Chloride [Moles/Vol] 102 mmol/L Normal 98-107 [facility] Comment on above: Performed By: #### L IPA, JAXSON, CMP #### [facility] [address] [address] [address] Linda Treviño CO2 [Moles/Vol] 25.7 mmol/L Normal 21.0-32.0 [facility] Comment on above: Performed By: #### L IPA JAXSON, CMP #### [facility] [address] [address] [address] Linda Treviño Creatinine [Mass/Vol] 1.74 mg/dL Critically high 0.70-1.30 [facility] Comment on above: Performed By: #### L IPA JAXSON, CMP #### [facility] [address] [place] [address] Dr. Linda Treviño EGFR-AF TURKS AND [place] ISLANDER 45 mL/min/1.73m2 Critically low >=60 [facility] Comment on above: Performed By: #### L IPA JAXSON, CMP #### [facility] [address] [address] [address] Linda Trveiño EGFR-NON AF TURKS AND [place] IS[place]ER 37 mL/min/1.73m2 Critically low >=60 [facility] Comment on above: Performed By: #### L OSCAR JAXSON, CMP #### [facility] [address] [address] [address] Linda Treviño Globulin (S) [Mass/Vol] 3.7 g/dL Normal [facility] Comment on above: Performed By: #### L IPA JAXSON, CMP #### [facility] [address] [address] [address] Linda Treviño Glucose [Mass/Vol] 225 mg/dL Critically high 74-106 [facility] Comment on above: Performed By: #### L IPA JAXSON, CMP #### [facility] [address] [address] [address] Linda Treviño Potassium [Moles/Vol] 3.9 mmol/L Normal 3.5-5.1 [facility] Comment on above: Performed By: #### L JAXSON MOORE, CMP #### [facility] [address] [place] [address] Dr. Linda Treviño Protein [Mass/Vol] 7.8 g/dL Normal 6.4-8.2 [facility] Comment on above: Performed By: #### L JAXSON MOORE, CMP #### [facility] [address] [place] [address] Dr. Linda Treviño Sodium [Moles/Vol] 136 mmol/L Normal 136-145 [facility] Comment on above: Performed By: #### L JAXSON MOORE, CMP #### [facility] [address] [place] [address] Dr. Linda Treviño Urea nitrogen [Mass/Vol] 30.0 mg/dL Critically high 7.0-18.0 [facility] Comment on above: Performed By: #### L JAXSON MOORE, CMP #### [facility] [address] [place] [address] Dr. Linda Treviño Urea nitrogen/Creatinine [Mass ratio] 17.2 mg/mg Normal [facility] Comment on above: Performed By: #### L JAXSON MOORE, CMP #### [facility] [address] [place] [address] Dr. Linda Treviño US EXT NON VASC [...] by: MELECIO RAMIREZ Date: 2021-05-17 11:01 Normal [facility] GLYCOHEMOGLOBIN A1Con 2020 ADA RECOMMENDATION ADA THERAPEUTIC TARGET 6.0 - 7.0 ACTION SUGGESTED > 7.0 Normal [facility] Comment on above: Performed By: #### A 1C ####[facility] [address] [address]Dr. Linda Treviño Glucose [Mass/Vol] 174 mg/dL Normal [facility] Comment on above: Performed By: #### A 1C ####[facility] [id number] [place], [place] [address]Pe. Linda Treviño HbA1c (Bld) [Mass fraction] 7.7 % Critically high <=6.0 [facility] Comment on above: Performed By: #### A 1C ####[facility] [id number] [place], [place] [address]Ck. Linda Treviño Encounters Encounter Date Encounter Type Care Provider Facility Start: 12-20-2023 End: 12-20-2023 ambulatory YULY MEADE [facility] Start: 12-20-2023 Encounter for other preprocedural examination [facility] Start: 12-07-2023 End: 12-07-2023 ambulatory YULY MEADE Not Available Start: 10-18-2023 End: 10-18-2023 ambulatory NIMISHA RICKETTS [facility] Start: 10-05-2023 End: 10-05-2023 ambulatory YULY MEADE Not Available Start: 04-05-2023 End: 04-05-2023 ambulatory YULY MEADE Not Available Start: 09-29-2021 End: 09-30-[address] YULY MEADE Facility:[facility] Start: 09-28-2021 End: 09-28-[address] YULY MEADE Facility:[facility] Start: 08-04-2021 End: 08-12-[address] YULY MEADE Facility:[facility] Start: 05-17-2021 End: 05-18-2021 ambulatory SHAIKH Nadeen OQUENDO Facility:[facility] Start: 03-30-2021 End: 03-31-[address] YULY MEADE Facility:[facility] Procedures Date Procedure Procedure Detail Performing Clinician Start: 10-18-2023 Follow-up visit Follow-up NIMISHA RICKETTS Payers Date Payer Category Payer Medicare [id number] 1958 Unknown [id number] 1936 Unknown [id number] 2.16.84 [id number] 1936 Unknown [id number] 2.16.84 [id number] 1936 Unknown [id number] 2.16.84 0.1.605384.3.579.2.593 1936 Unknown [id number] 2.16.84 0.1.979483.3.579.2.593 1936 Unknown [id number] 2.16.84 0.1.104622.3.579.2.593 1936 Unknown [id number] 2.16.8 40.1.966007.3.579.2.1286 1936 Unknown [id number] 2.16.84 0.1.614241.3.579.2.1259 1936 Unknown [id number] 2.16.84 0.1.868219.3.579.2.1259 1936 Unknown [id number] 2.16.840 .1.990651.3.579.2.1259 1936 Unknown [id number] 2.16.8 40.1.384196.3.579.2.1286 1936 Unknown [id number] 2.16.8 40.1.493758.3.579.2.1286 1936 Unknown [id number] 2.16.8 [id number] Summary Purpose Family History No Family History Records FoundNo Family History Records FoundNo Family History Records FoundNo Family History Records Found Advance Directives No Advanced Directives Records FoundNo Advanced Directives Records FoundNo Advanced Directives Records FoundNo Advanced Directives Records Found Additional Source Comments (unrecognized sect ion and content) No Status Records FoundNo Status Records FoundNo Status Records FoundNo Status Records Found INFORMATION SOURCE (unrecogn ized section and content) DATE CREATED AUTHOR 10/07/2021 [facility] DATE CREATED AUTHOR AUTHOR'S ORGANIZ ATION 10/20/2023 [facility] DATE CREATED AUTHOR AUTHOR'S ORGANIZ ATION 12/09/2023 [facility] [place] [facility] DATE CREATED AUTHOR AUTHOR'S MIN ATION 12/22/2023 [facility] FOR RECORDS PERTAINING TO PATIENTS WHO ARE [...] BE BASED ON THE PRIMARY CLINICAL RECORDS. [employer] provides no warranty or guarantee of the accuracy or completeness of information in this document.
[2024-01-27] MEDS: KETOROLAC TROMETHAMINE 30 MG/ML VIAL 15 MG IM (12:24)
--- NOTE | 2024-01-27 13:57 | ED.GENADUL1 ---
HPI HPI - General Adult General Chief complaint: Extremity Injury, Upper Stated complaint: UPPER EXTREMITY INJURY, LEFT, FALL Time Seen by Provider: 01/27/24 12:01 Source: patient Mode of arrival: walk-in Limitations: no limitations History of Present Illness HPI narrative: The patient presented to us with a left wrist pain that started after he fell down over his hand while tripping over the dog leash almost to 2 days ago, the patient denies any other injuries he mentioned that the pain has been getting worse for the last few days He denies any other injuries including no head trauma or loss of consciousness Related Data Previous Rx's ?Medication ?Instructions ?Recorded tramadol 50 mg tablet 50 mg PO Q12H PRN pain 3 days #6 01/27/24 tabs Allergies Allergy/AdvReac Type Severity Reaction Status Date / Time bee venom protein (honey bee) Allergy Intermediate Anaphylaxis Verified 01/27/24 12:00 Opioid HPI Opioid Management Most Recent Opioid Data: Last Pain Scale 8 01/27/24 12:24 Last MAR Pain Assessment 01/27/24 12:24 Review of Systems ROS Status of ROS 10 or more systems reviewed and unremarkable except as noted in history and below PFSH PFSH Social History Little interest or pleasure in doing things: not at all Feeling down, depressed, or hopeless: not at all Exam Narrative Exam Narrative: Nurses notes and vital signs reviewed and patient is not hypoxic. Left arm examination: The patient have a significant swelling in the wrist area with tenderness along the radial aspect, the patient have also tenderness upon movement of the thumb General: Well-appearing and in no apparent distress. Skin: Warm, dry, no pallor noted. No rash. Head: Normocephalic, atraumatic. Neck: Supple, non-tender. Eye: Pupils are equal, round and EOMI. No scleral icterus. Ears, Nose, Mouth, and Throat: TM are clear, no nasal mucosal hypertrophy. Oral mucosa is moist, no posterior oropharynx erythema, uvula is mid-line Cardiovascular: Regular Rate and Rhythm without murmur, gallop or rub. Respiratory: No accessory muscle use or respiratory distress. Lungs are clear to auscultation, no wheezing, rales or rhonchi Chest Wall: no tenderness Back: No midline thoracic or lumbar vertebral tenderness. No CVA tenderness GI: Abdomen is soft, non-distended. Normal bowel sounds. No masses appreciated. No tenderness to palpation. No rebound, guarding, or rigidity noted. Neurological: A&O x4. No cranial nerve dysfunction observed. No truncal ataxia. Moves all extremities. Sensation intact. Psychiatric: Cooperative and interactive. Normal mood and affect. Constitutional Vital Signs, click to edit/add: Last Vital Signs Temp 97.7 F 01/27/24 11:56 Pulse 79 01/27/24 11:56 Resp 16 01/27/24 11:56 BP 121/70 01/27/24 11:56 Pulse Ox 96 01/27/24 11:56 O2 Del Method Room Air 01/27/24 11:56 Course Vital Signs Vital signs: Vital Signs Temperature 97.7 F 01/27/24 11:56 Pulse Rate 79 01/27/24 11:56 Respiratory Rate 16 01/27/24 11:56 Blood Pressure 121/70 01/27/24 11:56 Pulse Oximetry 96 01/27/24 11:56 Oxygen Delivery Method Room Air 01/27/24 11:56 Temperature 97.7 F 01/27/24 11:56 Pulse Rate 79 01/27/24 11:56 Respiratory Rate 16 01/27/24 11:56 Blood Pressure 121/70 01/27/24 11:56 Pulse Oximetry 96 01/27/24 11:56 Oxygen Delivery Method Room Air 01/27/24 11:56 Medical Decision Making [facility] Narrative Medical decision making narrative: Right now the patient x-ray of the wrist as well as the forearm showed no acute pathology But with his presentation there could be a possibility of a scaphoid fracture and that while he was placed in a thumb spica splint to keep at least for a week and then repeat x-ray again and follow-up with his primary care Patient provided with tramadol for the pain The patient is to follow up with primary care physician in next 2-3 days or to return to the emergency department should any of the signs or symptoms worsen or new symptoms develop. The patient agrees with the following Diagnosis and Treatment plan and the patient will be discharged home. Discharge Plan Discharge Chief Complaint: Extremity Injury, Upper Clinical Impression: Contusion of left wrist Patient Disposition: Home, Self-Care Time of Disposition Decision: 13:58 Condition: Good Prescriptions / Home Meds: New tramadol 50 mg tablet 50 mg PO Q12H PRN (Reason: pain) 3 Days Qty: 6 0RF Print Language: Welsh Instructions: Contusion in Adults (ED) Referrals: Dillon Yadav MD [Primary Care Provider] - 1 week Jace Hamm MD [Physician] - 1 week
[2024-01-27] MEDS: TRAMADOL HCL 50 MG TABLET PO (14:16)
== END 2024-01-27 14:22 | disposition home or self-care (01) ==
PROVIDERS: Emergency Provider Emergency Medicine; PCP Family Medicine
DX: S60.212A Contusion of left wrist, initial encounter (principal); W19.XXXA Unspecified fall, initial encounter
CPT/HCPCS: 73090; 73110; 96372; 99284; J1885

== ENCOUNTER 2024-07-03 13:50 | Outpatient (OUT) | payer MEDICARE, SELFPAY ==
--- NOTE | 2024-07-03 15:19 | NUTR.NU ---
Pt and in for diet education. Pt has been diabetic for years but current HgbA1c level of 7.4 shows upward trend; previous A1c was 7.1, per pt. 24-hour recall obtained; pt enjoys cooking and eating at restaurants. Discussed portion sizes and limiting sweets, snack foods, and soda pop. Also discussed dietary sodium and fat d/t pt takes medications for HTN and cholesterol. Provided handouts dietitian contact info for further questions or concerns. Mason Villafana showed pt how to use new glucometer and recommended taking BS readings 4x daily (FBS + before each meal), taking the BS log to his appointment next week w/Dr. Yadav.
== END 2024-07-03 13:51 | disposition home or self-care (01) ==
LOC: MN 13:51
PROVIDERS: PCP Family Medicine
DX: E11.8 Type 2 diabetes mellitus with unspecified complications (principal)
CPT/HCPCS: 97802

== ENCOUNTER 2024-11-27 07:43 | Outpatient (OUT) | payer MEDICARE, SELFPAY ==
--- OUTSIDE RECORDS SUMMARY | 2024-11-27 07:46 | XMS_ITS | Encounter Summary ---
Author Organization [facility] Address [address] [place] [address] Care Team Providers Care Restaurant Area Manager Name Role Phone Dillon Yadav MD Primary Care Provider [phone] Encounter Details Date Type Department Care Team ([facility] Contact Info) Description 01/29/2024 Orders Only [facility] [address] [place] [phone] Dillon Yadav MD [address] [place] [address] Social History Tobacco Use Types Packs/Day Years Used Date Smoking Tobacco: Never Smokeless Tobacco: Never Alcohol Use Standard Drinks/Week Comments Never 0 (1 standard drink = 0.6 oz pur e alcohol) Sex and Gender Information Value Date Recorded Sex Assigned at Not on file Legal Sex Male 1:16 PM EDT Gender Identity Not on file Sexual Orientation Not on file documented as of this encounter Plan of Treatment Upcoming Encounters Date Type Department Care Team (Late Contact Info) Description 04/10/2025 10:30 AM EST Office Visit [facility] [address] [place] [address] Dillon Yadav MD [address] [place] [address] documented as of this encounter Procedures Procedure Name Priority Date/Time Associated Diagnosis Comments XR FOREARM 2 VIEWS LEFT Routine 01/27/2024 11:21 AM EDT XR WRIST LT MIN 3V Routine 01/27/2024 11:19 AM EDT documented in this encounter Results * XR forearm 2 views left (01/27/2024 11:21 AM EDT) Anatomical Region Laterality Modality Upper Extremities, Forearm Left Radio graphic Imaging us Dillon Yadav MD IMTonya XR PROCEDURES Final Result * XR WRIST LT MIN 3V (01/27/2024 11:19 AM EDT) Anatomical Region Laterality Modality Radiographic Susan ging us Dillon TONY XR PROCEDURES Final Result documented in this encounter Visit Diagnoses Not on filedocumented in this encounter Care Teams Restaurant Area Manager Relationship Specialty Start Date End Date Dillon Yadav MD [address] [place] [address] PCP - General Family Medicine 10/05/23 documented as of this encounter
--- OUTSIDE RECORDS SUMMARY | 2024-11-27 07:46 | XMS_ITS | Encounter Summary ---
Author Organization [facility] Address [address] [place] [address] Care Team Providers Care Typewriters Functional Tester Name Role Phone Dillon Yadav MD Primary Care Provider [phone] Reason for Visit * Reason Comments Med Refill Encounter Details Date Type Department Care Team (Late Contact Info) Description 07/17/2024 Refill [facility] [address] [place] [phone] Dillon Yadav MD [address] [place] [address] Benign prostatic hyperplasia with urinary obstruction Social History Tobacco Use Types Packs/Day Years Used Date Smoking Tobacco: Never Smokeless Tobacco: Never Alcohol Use Standard Drinks/Week Comments Never 0 (1 standard drink = 0.6 oz pur e alcohol) PHQ-2 Answer Date Recorded Patient Health Questionnaire-2 Score 0 07/09/2024 Sex and Gender Information Value Date Recorded Sex Assigned at Not on file Legal Sex Male 1:16 PM EDT Gender Identity Not on file Sexual Orientation Not on file documented as of this encounter Miscellaneous Notes * Telephone Encounter - ZAY YIP - 07/17/2024 9:28 AM EDT MEDICATION SENT TO [place] documented in this encounter Plan of Treatment Upcoming Encounters Date Type Department Care Team (Late Contact Info) Description 04/10/2025 10:30 AM EST Office Visit [facility] [address] [place] [phone] Dillon Yadav MD [address] [place] [phone] documented as of this encounter Visit Diagnoses Diagnosis Benign prostatic hyperplasia with urinary obstruction documented in this encounter Additional Health Concerns Assessment Noted Time PHQ-9 Depression Total Score: 1 07/10/19 25 2:00 PM EDT documented as of this encounter Care Teams Typewriters Functional Tester Relationship Specialty Start Date End Date Dillon Yadav MD [address] [place] [phone] PCP - General Family Medicine 10/05/23 documented as of this encounter
--- OUTSIDE RECORDS SUMMARY | 2024-11-27 07:46 | XMS_ITS | Encounter Summary ---
Author Organization [facility] Address [address] [place] [address] Care Team Providers Care Histology Aide Name Role Phone Dillon Yadav MD Primary Care Provider [phone] Dillon Yadav MD Primary Care Provider [phone] Encounter Details Date Type Department Care Team ([facility] Contact Info) Description 08/29/2023 Orders Only [facility] [address] [place] [address] Dillon Yadav MD [address] [place] [address] Social History Tobacco Use Types [...] 04/10/2025 10:30 AM EST Office Visit [facility] [address] [place] [address] Dillon Yadav MD [address] [place] [address] documented as of this encounter Visit Diagnoses Not on filedocumented in this encounter Care Teams Histology Aide Relationship Specialty Start Date End Date Dillon Yadav MD PCP - General Family Medicine 12/02/22 10/04/23 Dillon Yadav MD [address] [place] [address] PCP - General Family Medicine 10/05/23 documented as of this encounter
--- OUTSIDE RECORDS SUMMARY | 2024-11-27 07:46 | XMS_ITS | Encounter Summary ---
Author Organization [email or web address] Address [id number] [address] [place] [address] Care Team Providers Care Milk Deliverer Name Role Phone Dillon Yadav MD Primary Care Provider [phone] Encounter Details Date Type Department Care Team (Late st Contact Info) Description 11/26/2024 [facility]phone [facility] [address] [place] [address] [place] [address] [place] [phone] Ervin Brown MD [address] [place] [address] Social History Tobacco Use Types Packs/Day Years Used Date Smoking Tobacco: Former Cigars Smokeless Tobacco: Never Comments:quit Alcohol Use Standard Drinks/Week Comments Yes 0 (1 standard drink = 0.6 oz pur e alcohol) rare Childcare Answer Date Recorded Childcare Unknown 10/10/2018 Employment Answer Date Recorded Employment Unknown 10/10/2018 Hunger Screening Answer Date Recorded Within the past 12 months we worried whether our food would run out before we got money to buy more. Never True 03/25/2024 Within the past 12 months th e food we bought just didn't last and we didn't have money to get more. Never True 03/25/2024 Purpose - Life Answer Date Recorded Purpose and direction in life Unknown Sex and Gender Information Value Date Recorded Sex Assigned at Not on file Legal Sex Male 11:34 AM EDT Gender Identity Not on file Sexual Orientation Not on file documented as of this encounter Miscellaneous Notes * Telephone Encounter - Ginny Bryant - 11/26/2024 8:36 AM EDT 11-26-24 called and spoke with pt and he is ok with 04-02-25 appt r/s 03-24-25 appt anay documented in this encounter Plan of Treatment Upcoming Encounters Date Type Department Care Team (Late st Contact Info) Description 12/11/2024 11:15 AM EDT Office Visit [facility] [address] [place] [phone] Tiera Montgomery MD [address] [place], [place] [phone] Vern Senior MD [address] [place] [address] 04/02/2025 2:15 PM EST Office Visit [facility] [address] [place] [address] [place] [address] [phone] Ervin Brown MD [address] [place] [address] documented as of this encounter Visit Diagnoses Not on filedocumented in this encounter Care Teams Milk Deliverer Relationship Specialty Start Date End Date Dillon Yadav MD PCP - General Family Medicine 10/22/24 documented as of this encounter
--- OUTSIDE RECORDS SUMMARY | 2024-11-27 07:46 | XMS_ITS | Clinical Summary ---
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 Medications dupilumab (Dupixent) 200 MG/1.14ML injection Inject 200 mg under the skin every 14 (fourteen) days Active meclizine (Antivert) 25 MG tabletIndication s:Vertigo Take 1 tablet (25 mg) by mouth 4 (four) times a day as needed for dizziness 60 tablet 2 4 Active hydroCHLOROthiaz angel (HYDRODiuril) 25 MG tabletIndication s:Essential hypertension, benign TAKE 1 TABLET DAILY 90 tablet 3 4 Active losartan (Cozaar) 100 MG tabletIndication s:Essential hypertension, benign TAKE 1 TABLET DAILY 90 tablet 3 4 Active tamsulosin (Flomax) 0.4 MG 24 hr capsuleIndicatio ns:Benign prostatic hyperplasia with urinary obstruction TAKE 1 CAPSULE DAILY 90 capsule 3 5 Active simvastatin (Zocor) 20 MG tabletIndication s:Benign prostatic hyperplasia with urinary obstruction TAKE 1 TABLET AT BEDTIME 90 tablet 3 5 Active apixaban (Eliquis) 2.5 MG tabletIndication s:Paroxysmal atrial fibrillation (HCC) Take 1 tablet (2.5 mg) by mouth in the morning and 1 tablet (2.5 mg) before bedtime. 60 tablet 5 5 Active empagliflozin (Jardiance) 10 MGIndications:CK D (chronic kidney disease) stage 4, GFR 15-29 ml/min (HCC),Type 2 diabetes mellitus with hyperglycemia, without long-term current use of insulin ([facility]) Take 1 tablet (10 mg) by mouth Daily 90 tablet 3 5 Active empagliflozin (Jardiance) 10 MGIndications:CK D (chronic kidney disease) stage 4, GFR 15-29 ml/min ([facility]),Type 2 diabetes mellitus with hyperglycemia, without long-term current use of insulin ([facility]) Take 1 tablet (10 mg) by mouth Daily 30 tablet 5 5 11/15/19 25 Discontin ued(Reord er) Active Problems Problem Noted Date Diagnosed Date Encounter for long-term (current) use of medicat ions 10/09/2024 Medicare annual wellness visit, subsequent 07/09 Assessment & Plan (07/09/2024 2:27 PM EDT): Will be due for labs next visit. Discussed proper diet and regular aerobic exercise. Need aerobic exercise 5-6 days a week for 30 minutes at a time. Smaller portions and limit total calories. Tetanus every 10 years. Advised not to smoke. Type 2 diabetes mellitus wit h stage 3b chronic kidney disease, without long-term current use of insulin 07/09/2024 Paroxysmal atrial fibrillation 04/05/2024 Assessment & Plan (10/09/2024 10:34 AM EDT): In afib and continue Eliquis. Assessment & Plan (06/17/2024 2:03 PM EST): In afib and continue Eliquis. Assessment & Plan (04/05/2024 9:50 AM EST): In afib and add coreg for rate control. Continue Eliquis. Chronic HFrEF (heart failure with reduced ejection fraction) 04/05/2024 Assessment & Plan (10/09/2024 10:34 AM EDT): No edema and monitor. Follow up with cardiology. Assessment & Plan (06/17/2024 2:03 PM EST): No edema and monitor. Follow up with cardiology and will have repeat echo in few months. Assessment & Plan (04/05/2024 9:47 AM EST): Recent Echo showed low EF. Add coreg and continue losartan. Follow up with cardiology and will have repeat echo in few months. Vertigo 12/07/2023 Assessment & Plan (12/07/2023 10:55 AM EDT): C/o worsening vertigo and affecting activity. Start vestibular rehab. Try meclizine PRN. If no improvement may need to stop dupixant. Class 1 obesity due to exces s calories with serious comorbidity and body mass index (BMI) of 30.0 to 30.9 in adult 10/05/2023 Essential hypertension, benign 04/05/2023 Assessment & Plan (10/09/2024 10:34 AM EDT): BP low and stop norvasc. Monitor BP PRN. Assessment & Plan (06/17/2024 2:03 PM EST): BP controlled and monitor PRN. Assessment & Plan (04/05/2024 9:48 AM EST): BP controlled and monitor PRN. Assessment & Plan (10/05/2023 9:59 AM EDT): BP controlled and monitor PRN. Assessment & Plan (04/05/2023 9:50 AM EST): BP controlled and monitor PRN. Bilateral hearing loss 04/05/2023 DDD (degenerative disc disease), lumbar 04/05/20 23 Assessment & Plan (10/05/2023 9:59 AM EDT): Pain stable and use OTC PRN. Assessment & Plan (04/05/2023 9:50 AM EST): Pain stable and use OTC PRN. Dyslipidemia 04/05/2023 Hydrocele, unspecified 04/05/2023 Assessment & Plan (10/05/2023 10:00 AM EDT): Causing discomfort and wants surgery. Able to proceed with upcoming surgery at low risk for complications. DM and HTN controlled with medication. No CAD. Not having chest pain or SOB. Primary osteoarthritis of both knees 04/05/2023 Assessment & Plan (10/05/2023 10:00 AM EDT): Pain stable and use OTC PRN. Assessment & Plan (04/05/2023 9:50 AM EST): Pain stable and use OTC PRN. CKD (chronic kidney disease) stage 4, GFR 15-29 ml/min 04/05/2023 Type 2 diabetes mellitus wit h hyperglycemia, without long-term current use of insulin 04/05/2023 Assessment & Plan (10/09/2024 10:35 AM EDT): Reports BS controlled and due for A1C. Stick to ADA diet and limit carbs. Assessment & Plan (06/17/2024 2:03 PM EST): Not checking BS and due for A1C. Stick to ADA diet and limit carbs. Assessment & Plan (04/05/2024 9:50 AM EST): Not checking BS and due for A1C. Stick to ADA diet and limit carbs. Assessment & Plan (10/05/2023 10:00 AM EDT): Not checking BS and due for A1C. Stick to ADA diet and limit carbs. Assessment & Plan (04/05/2023 9:50 AM EST): Not checking BS and due for A1C. Stick to ADA diet and limit carbs. Encysted hydrocele 03/09/2022 Overview (12/19/2022): ==== 03/09/2022 ==== New problem, additional workup planned. Newer onset hydrocele right side. Full in nature. Cannot palpate testis. Plan: This does not bother patient will get a scrotal ultrasound orders to characterize. Benign prostatic hyperplasia with urinary obstru ction 04/12/2016 Overview (12/19/2022): ==== 03/09/2022 ==== voiding well AUA SS 0/0 ==== 02/26/2020 ==== voiding well. AUA SS 0/0 ==== 05/27/2019 ==== voiding very well. AUA Symptom Score 0/0 +++++++++ 04/12/2016 ALLSCRIPTS SUMMARY +++++++++++ November 2014 and urinary retention after knee replacement. Workup consistent with bladder outlet obstruction delayed sensation and large maximum capacity. Historically patient a granados of urine. ^^^^^^ March 2015 TURP--Path incidental low risk /low volume prostate cancer Post urinating well. May high isc needed. ==== 04/13/2016 ==== PVR 200cc patient did have large volumes prior anyway. This is acceptable. Will monitor. ==== 05/23/2018 ==== PVR less than 200 cc. AUA symptom score excellent 0/0. ==== 11/21/2018 ==== voiding well. A UA symptom score 0/0. Postvoid residual 46 cc. Doing very well. On tamsulosin. May call for refill. Last Assessment & Plan: Prescription drug management performed during today's office visit May refill when necessary Assessment & Plan (04/05/2023 9:49 AM EST): Symptoms controlled with flomax and continue. Follow up with urology. History of prostate cancer 04/12/2016 Overview (12/19/2022): ==== 03/09/2022 ==== psa 0.09 doing well. BENITA is negative. psa in one year ==== 02/22/2021 ==== still voiding well. PSA 0.19. AUA Symptom Score 0/0. Rectal exam benign. PSA 1 year ==== 02/26/2020 ==== PSA 0.11. Digital rectal exam benign feeling prostate. PSA 1 year ==== 05/27/2019 ==== PSA 0.12. Doing well. PSA 1 year +++++++++ 04/12/2016 ALLSCRIPTS SUMMARY +++++++++++ Diagnosis March 2015 incidental Parul 3 + 3 equal 6 2/157 chips from TURP. Less than 5%. PSA August 2015 0.1. Patient comfortable with watchful waiting. PSA 0.11 and 0.12 ==== 11/21/2018 ==== PSA excellent 0.10. BENITA negative. Will continue monitor. PSA 9 months. Last Assessment & Plan: He has done well. No real indication for any surveillance biopsy given patient's advanced age low risk disease as well. Comorbidities Assessment & Plan (10/05/2023 9:59 AM EDT): PSA monitored by urology and follow up as scheduled. Assessment & Plan (04/05/2023 9:50 AM EST): PSA monitored by urology and follow up as scheduled. Encounters Date Type Department Care Team Description 11/14/2024 Refill [facility] [address] [place] [address] Dillon Yadav MD CKD (chronic kidney disease) stage 4, GFR 15-29 ml/min ([facility]); Type 2 diabetes mellitus with hyperglycemia, without long-term current use of insulin ([facility]) 10/23/2024 Telephone [facility] [address] [place] [phone] Dillon Yadav MD 10/22/2024 Results Follow-Up [facility] [address] [place] [address] Dillon Yadav MD CKD (chronic kidney disease) stage 4, GFR 15-29 ml/min ([facility]) (Primary Dx); Type 2 diabetes mellitus with hyperglycemia, without long-term current use of insulin ([facility]) 10/09/2024 10:00 AM EDT Office Visit [facility] [address] [place] [phone] Dillon Yadav MD Type 2 diabetes mellitus with hyperglycemia, without long-term current use of insulin ([facility]) (Primary Dx); Essential hypertension, benign ; Chronic HFrEF (heart failure with reduced ejection fraction) ([facility]); Paroxysmal atrial fibrillation ([facility]); Chronic kidney disease (CKD) stage G3b/A1, moderately decreased glomerular filtration rate (GFR) between 30-44 mL/min/1.73 square meter and albuminuria creatinine ratio less than 30 mg/g (H* ([facility]); Dyslipidemia ; Class 1 obesity due to excess calories with serious comorbidity and body mass index (BMI) of 30.0 to 30.9 in adult; Encounter for long-term (current) use of medications 10/09/2024 Bamboo flowsheet [facility] [address] [address] Dillon Yadav MD 08/30/2024 [facility] [address] [place] [phone] Dillon Yadav MD Essential hypertension, benign from Last 3 Months Immunizations Immunization Administration Dates Next Due Influenza Whole 02/10/2010 Influenza, High Dose Seasonal, Preservative Free 02/15/2019,02/06/2017 Influenza, High-dose Seasona l, Quadrivalent, Preservative Free 02/18/2020 Influenza, Seasonal, Quadrivalent, Adjuvanted Influenza, trivalent, adjuvanted 02/09/2018 Moderna Bivalent Booster Vaccination 01/31/2022 Pneumococcal Conjugate PCV 13 09/05/2014 Zoster, live 09/05/2014 Family History Relation Name Status Comments Father Mother Social History Tobacco Use Types Packs/Day Years Used Date Smoking Tobacco: Never Smokeless Tobacco: Never Tobacco Cessation:Counseling Given: Not Answered Alcohol Use Standard Drinks/Week Comments Never 0 (1 standard drink = 0.6 oz pur e alcohol) PHQ-2 Answer Date Recorded Patient Health Questionnaire-2 Score 0 07/09/2024 Sex and Gender Information Value Date Recorded Sex Assigned at Not on file Legal Sex Male 1:16 PM EDT Gender Identity Not on file Sexual Orientation Not on file Last Filed Vital Signs Vital Sign Reading Time Taken Comments Blood Pressure 92/54 10/09/2024 10:08 AM EDT Pulse 83 10/09/2024 10:08 AM EDT Temperature 36.2 C (97.1 F) 10/09/2024 10:08 AM EDT Respiratory Rate 18 10/09/2024 10:08 AM EDT Oxygen Saturation 97% 10/09/2024 10:08 AM EDT Inhaled Oxygen Concentration - - Weight 91.2 kg (201 lb) 10/09/2024 10:08 AM EDT Height 172.7 cm (5' 8 ) 10/09/2024 10:08 AM EDT Body Mass Index 30.56 10/09/2024 10:08 AM EDT Plan of Treatment Upcoming Encounters Date Type Department Care Team (Late st Contact Info) Description 04/10/2025 10:30 AM EST Office Visit [facility] [address] [place] [address] Dillon Yadav MD [address] [place] [address] Health Maintenance Due Date Last Done Comments Pneumococcal Vaccine: 65+ Ye ars (2 of 2 - PPSV23) 10/31/2014 09/05/2014 Influenza Vaccine (#1) 2024 4, 04/05/2023, 02/23/2021, Additional history exists Diabetes: Hemoglobin A1C 04/23/20252 025, 10/22/2024, 06/18/2024, Additional history exists Medicare Annual Wellness (AWV) 07/09/2025 07/09/2024 Diabetes: Urine Protein Screening 10/22/2025 10/22/2024, 10/22/2024, 10/22/2024, Additional history exists Diabetes: Retinopathy Screening 12/11/2025 4, 01/02/2023 Procedures Procedure Name Priority Date/Time Associated Diagnosis Comments MICROALBUMIN / CREATININE URINE RATIO Routine 10/22/2024 9:41 AM EDT HEPATIC FUNCTION PANEL Routine 10/22/2024 9:41 AM EDT LIPID PANEL Routine 10/22/2024 9:41 AM EDT BASIC METABOLIC PANEL Routine 10/22/2024 9:41 AM EDT HEMOGLOBIN A1C Routine 10/22/2024 9:41 AM EDT TSH ([facility]) Routine 10/22/2024 9:41 AM EDT CBC WITH AUTO DIFFERENTIAL Routine 10/22/2024 9:41 AM EDT from Last 3 Months Results * TSH ([facility]) (10/22/2024 9:41 AM EDT) TSH 1.80 0.49 - 4.67 uIU/mL [facility] Comment: PERFORMED AT [facility] [address],[place] [address] 10/22/2024 9:41 AM EDT 10/22/2024 1:14 PM EDT us Dillon Yadav MD LAB BLOOD ORDERABLES Final Resul t [facility] * CBC auto differential (10/22/2024 9:41 AM EDT) WHITE BLOOD CELL COUNT, WBC 6.6 4 - 11 x10E9/L [facility] RED BLOOD CELL COUNT, RBC 4.36 4.1 - 5.7 X10E12/L [facility] HEMOGLOBIN 13.1 13 - 17 g/dL [facility] HEMATOCRIT 39.2 39 - 50 % [facility] MEAN CELL VOLUME, MCV 90 80 - 100 fL [facility] MEAN CELL HEMOGLOBIN, MCH 30.1 27 - 34 pg [facility] MEAN CELL HEMOGLOGIN CONCENTRATION, MCHC 33.5 32 - 36 g/dL [facility] RED CELL DISTRIBUTION WIDTH, RDW 13.4 11.5 - 15 % [facility] PLATELET COUNT 199 150 - 450 X10E9/L [facility] MEAN PLATELET VOLUME, MPV 9.9 7 - 12 fL [facility] % NEUTROPHILS 69.8 % [facility] % LYMPHOCYTES 19.4 % [facility] % MONOCYTES 5.9 % [facility] % EOSINOPHILS 3.9 % [facility] % BASOPHILS 1.0 % [facility] ABSOLUTE NEUTROPHIL 4.6 1.5 - 6.6 10*3/uL [facility] ABSOLUTE LYMPHOCYTE 1.3 1.0 - 3.5 10*3/uL [facility] ABSOLUTE MONOCYTE 0.4 0.0 - 0.9 10*3/uL [facility] ABSOLUTE EOSINOPHIL 0.3 0.0 - 0.4 10*3/uL [facility] ABSOLUTE BASOPHIL 0.1 0.0 - 0.2 10*3/uL [facility] DIFFERENTIAL TYPE AUTOMATED DIFFERENTIAL [facility] Comment: PERFORMED AT [address], [place] [address] 10/22/2024 9:41 AM EDT 10/22/2024 1:14 PM EDT us Dillon Yadav MD LAB BLOOD ORDERABLES Final Resul t [facility] * Microalbumin / creatinine urine ratio (10/22/2024 9:41 AM EDT) [facility] URINE CREATININE, RDM 94.47 mg/dL [facility] MALB/CREAT RATIO 8.5 0.0 - 30.0 mg/g [facility] MICROALBUMIN, URINE 0.8 0.0 - 1.9 mg/dL [facility] Comment: PERFORMED AT [address], [place] [address] 10/22/2024 9:41 AM EDT 10/22/2024 1:14 PM EDT us Dillon Yadav MD LAB URINE ORDERABLES Final Resul t [facility] * (ABNORMAL) Hemoglobin A1c (10/22/2024 9:41 AM EDT) HEMOGLOBIN A1C 7.5(H) 4.4 - 5.6 % [facility] Comment: ADA Guidelines Result HgbA1c Normal : less than 5.7 % Prediabetes : 5.7 % to 6.4 % Diabetes : > 6.4 % Use with caution in patients with abnormal hemoglobin variants as the half-life of red blood cells and in vivo glycation rates are affected. AVERAGE GLUCOSE 169 mg/dL [facility] Comment: PERFORMED AT [address], [place] [address] 10/22/2024 9:41 AM EDT 10/22/2024 1:14 PM EDT Dillon Yadav MD LAB BLOOD ORDERABLES Final Resul t Performing Organization Address [facility] Co de Phone Number [facility] * Hepatic function panel (10/22/2024 9:41 AM EDT) TOTAL PROTEIN 6.8 6.0 - 8.0 g/dL [facility] ALBUMIN 4.1 3.2 - 5.3 g/dL [facility] TOTAL BILIRUBIN 0.7 0.3 - 1.2 mg/dL [facility] ALKALINE PHOSPHATASE 60 39 - 130 U/L [facility] AST 19 <=41 U/L [facility] ALT 15 <=40 U/L [facility] BILIRUBIN, DIRECT 0.2 <=0.4 mg/dL [facility] Comment: PERFORMED AT [address], [place] [address] 10/22/2024 9:41 AM EDT 10/22/2024 1:14 PM EDT Dillon Yadav MD LAB BLOOD ORDERABLES Final Resul t Performing Organization Address City/[facility] Co de Phone Number [facility] * (ABNORMAL) Lipid panel (10/22/2024 9:41 AM EDT) CHOLESTEROL 120(L) 150 - 200 mg/dL [facility] TRIGLYCERIDE 152(H) 27 - 150 mg/dL [facility] HDL CHOLESTEROL 41 >39 mg/dL [facility] Comment: HDL <40 mg/dL - High Risk HDL > or = 40mg/dL- Desirable HDL >60 mg/dL - Negative Risk LDL (CALC) 49 <130 mg/dL [facility] Comment: LDL <100 mg/dL - Desirable LDL >160 mg/dL - High Risk CHOLESTEROL:HDL 2.9 1.0 - 5.0 NA [facility] VERY LOW LIPOPROTEIN 30 0 - 30 mg/dL [facility] Comment: PERFORMED AT [place] [address],[place] [address] 10/22/2024 9:41 AM EDT 10/22/2024 1:14 PM EDT us Dillon Yadav MD LAB BLOOD ORDERABLES Final Resul t [facility] * (ABNORMAL) Basic metabolic panel (10/22/2024 9:41 AM EDT) [facility] Signature Sodium 140 134 - 146 mmol/L [facility] Potassium, Bld 4.2 3.5 - 5.0 mmol/L [facility] Chloride 107 98 - 109 mmol/L [facility] Carbon Dioxide 23 22 - 32 mmol/L [facility] Anion Gap 10 5 - 15 mmol/L [facility] BUN 39(H) 5 - 27 mg/dL [facility] Creatinine 2.35(H) 0.60 - 1.30 mg/dL [facility] Comment:METHOD TRACEABLE TO IDMS STANDARD Glucose 151(H) 65 - 99 mg/dL [facility] Calcium 9.5 8.5 - 10.5 mg/dL [facility] EGFR 26(L) >=60 ml/min/1.7 3sq.m [facility] Comment: Reported eGFR is based on the CKD-EPI 2020 equation that does not use a race coefficient. PERFORMED AT [address],[place] [address] 10/22/2024 9:41 AM EDT 10/22/2024 1:14 PM EDT Dillon Yadav MD LAB BLOOD ORDERABLES Final Resul t [facility] from Last 3 Months Insurance MEDICARE [facility] Care Teams Pattern Storage Clerk Relationship Specialty Start Date End Date Dillon Yadav MD [address] [place] [address] PCP - General Family Medicine 10/05/23
--- OUTSIDE RECORDS SUMMARY | 2024-11-27 07:46 | XMS_ITS | Encounter Summary ---
Author Organization [facility] Address [address] [place] [address] Care Team Providers Care Oracle Fusion Middleware Architect Name Role Phone Dillon Yadav MD Primary Care Provider Reason for Visit * Reason Onset Date Comments Med Refill 11/14/2024 Encounter Details Date Type Department Care Team (Late st Contact Info) Description 11/14/2024 [facility] [address] [place] [address] Dillon Yadav MD [address] [place] [address] CKD (chronic kidney disease) stage 4, GFR 15-29 ml/min ([facility]); Type 2 diabetes mellitus with hyperglycemia, without long-term current use of insulin ([facility]) Social History Tobacco Use Types Packs/Day Years [...] encounter Miscellaneous Notes * Telephone Encounter - Yoly Russ - 11/14/2024 1:10 PM EDT Insurance is asking for 90 day supply. documented in this encounter Plan of Treatment Upcoming Encounters Date Type Department Care Team (Late st Contact Info) Description 04/10/2025 10:30 AM EST Office Visit [facility] [address] [place] [address] Dillon Yadav MD [address] [place] [phone] documented as of this encounter Visit Diagnoses Diagnosis CKD (chronic kidney disease) stage 4, GFR 15-29 ml/min (HCC) Chronic kidney disease, Stage IV (severe) Type 2 diabetes mellitus with hyperglycemia, without long-term current use of insulin ([facility]) documented in this encounter Additional Health Concerns Assessment Noted Time PHQ-9 Depression Total Score: 1 07/10/19 25 2:00 PM EDT documented as of this encounter Care Teams Oracle Fusion Middleware Architect Relationship Specialty Start Date End Date Dillon Yadav MD [address] [place] [phone] PCP - General Family Medicine 10/05/23 documented as of this encounter
--- OUTSIDE RECORDS SUMMARY | 2024-11-27 07:46 | XMS_ITS | Clinical Summary ---
Author Organization [facility] Address [id number] [address] [place] [address] Care Team Providers Care Fern Gatherer Name Role Phone Dillon Yadav MD Primary Care Provider [phone] Allergies Active Allergy Reactions Criticality Noted Date Comments Bee Venom Protein (Honey Bee) Anaphylaxis High 02/13 Medications amLODIPine (NORVASC) 5 mg tablet Take 1 tablet (5 mg total) by mouth in the morning. Active simvastatin (ZOCOR) 20 mg tablet Take 1 tablet (20 mg total) by mouth nightly. Active tamsulosin (FLOMAX) 0.4 mg capsule,extende d release 24hr Take 1 capsule (0.4 mg total) by mouth nightly. Active cholecalciferol , vitamin D3, 5,000 units tablet Take 1 tablet (5,000 Units total) by mouth in the morning. Active dupilumab (DUPIXENT SYRINGE) 300 mg/2 mL syringe SUBQ injection Inject under the skin every 14 (fourteen) days. Active apixaban (ELIQUIS) 2.5 mg tablet Take 1 tablet (2.5 mg total) by mouth in the morning and 1 tablet (2.5 mg total) before bedtime. 90 tablet 3 02/09/2024 Active hydroCHLOROthia zide (HYDRODIURIL) 25 mg tablet Take 1 tablet (25 mg total) by mouth daily. 01/24/2024 Active losartan (COZAAR) 100 mg tablet Take 1 tablet (100 mg total) by mouth in the morning. 01/27/2024 Active traMADoL (ULTRAM) 50 mg tablet Take 1 tablet (50 mg total) by mouth every 12 (twelve) hours as needed for pain. 01/29/2024 Active metFORMIN XR (GLUCOPHAGE XR) 500 mg 24 hr tablet Take 1 tablet (500 mg total) by mouth in the morning and 1 tablet (500 mg total) before bedtime. Active meclizine (ANTIVERT) 25 mg tablet Take 1 tablet (25 mg total) by mouth 4 (four) times a day as needed for dizziness. 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 About a month ago. Doing well. All swelling is resolved basically accept for typical post surgical changes. This should get better as time goes on. His pathology was benign. ====03/05/2024==== right hydrocelectomy 02/26/2024. Has some moderate right testicular swelling, erythematous and warm to the touch. We will give extended course of Keflex. Return as scheduled with Dr. Brown 03/25/24 ==== 10/18/2023 ==== hydrocele not the point that it has bothersome for the patient not substantially changed but gets in the way. He did have a left hydrocele repair in the past. Examination consistent with hydrocele. Plan: Right hydrocelectomy. Hold ASA ==== 03/13/2023 ==== does have a large right hydrocele based on ultrasound examination today confirm such as well. At this point not yet about the for the patient but certainly conceptually I can see where that could become the case in the future given his size. ==== 03/09/2022 ==== New problem, additional workup planned. Newer onset hydrocele right side. Full in nature. Cannot palpate testis. Plan: This does not bother patient will get a scrotal ultrasound orders to characterize. Assessment & Plan (03/13/2023 2:15 PM EST): Hydroceles unchanged from last year per the patient Prostate cancer 04/12/2016 Overview (03/25/2024): ==== 03/25/2024 ==== PSA looks great 0.10. ==== 03/09/2022 ==== psa 0.09 doing well. [...] negative. Will continue monitor. PSA 9 months. Assessment & Plan (03/25/2024 1:18 PM EST): PSA 1 year Assessment & Plan (02/22/2021 3:22 PM EDT): He has done well. No real indication for any surveillance biopsy given patient's advanced age low risk disease as well. Comorbidities Assessment & Plan (05/23/2018 2:20 PM EST): The the PSA 0.10. Good number. Continue monitor. Assessment & Plan (11/20/2017 1:42 PM EDT): PSA 0.10. Great number. Assessment & Plan (05/22/2017 4:27 PM EST): PSA 0.09 BENITA negative PLAN: PSA 6 months Assessment & Plan (10/12/2016 1:57 PM EDT): PSA 0.12. Essentially the same. 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 On tamsulosin. May call for refill. Assessment & Plan (02/26/2020 1:03 PM EDT): Prescription drug management performed during today's office visit May refill when necessary Assessment & Plan (11/20/2017 1:43 PM EDT): Voiding well. No complaints. Assessment & Plan (05/22/2017 4:26 PM EST): AUA symptom score 0/0 Assessment & Plan (10/12/2016 1:58 PM EDT): Excellent urination. Continue watchful waiting. No need to catheterize. PVR great. Assessment & Plan (04/13/2016 11:26 AM EST): Has not had intermittent catheterize. Doing extremely well. Postvoid residual acceptable. Patient happy. Plan: PSA 6 months Encounters Date Type Department Care Team Description 11/26/2024 Telephone [facility] [address] [place] [address] Ervin Brown MD 10/21/2024 Travel 10/15/2024 9:30 AM EDT - 10/15/2024 11:59 PM EDT Hospital Encounter [facility] - Cardi[facility] [address] [place] [address] Jermaine Katz MD Paroxysmal atrial fibrillation ([facility]) Discharge Disposition: Home 10/15/2024 Travel from Last 3 Months Family History Medical History Relation Name Comments Heart disease Father Hyperlipidemia Father Hypertension Father Heart disease Mother Hyperlipidemia Mother Hypertension Mother Relation Name Status Comments Father Mother Social [...] Sign Reading Time Taken Comments Blood Pressure 113/80 03/25/2024 1:05 PM EST Pulse 46 03/25/2024 1:05 PM EST Temperature 36.5 C (97.7 F) 02/26/2024 6:42 AM EDT Respiratory Rate 15 02/26/2024 10:20 AM EDT Oxygen Saturation 92% 02/26/2024 10:20 AM EDT Inhaled Oxygen Concentration - - Weight 92.5 kg (204 lb) 03/25/2024 1:05 PM EST Height 170.2 cm (5' 7 ) 03/25/2024 1:05 PM EST Body Mass Index 31.95 03/25/2024 1:05 PM EST Plan of Treatment Upcoming Encounters Date Type Department Care Team (Late st Contact Info) Description 12/11/2024 11:15 AM EDT Office Visit [facility] [address] [place] [phone] Tiera Montgomery MD [address] [place], [place] [phone] Vern Senior MD [address] [place], [place] [phone] 04/02/2025 2:15 PM EST Office Visit [facility] [address] [place] [phone] Ervin Brown MD [address], [place] [phone] Health Maintenance Due Date Last Done Comments Depression Screening 1947 DTaP,Tdap and Td Vaccines (1 - Tdap) 01[birth year]03/1954 Fall Risk Screening 01/03/2001 Zoster (Shingles) Vaccine (1 of 2) 10/31/2014 09/05/2014 COVID-19 Vaccine ( - 2023-2 5 season) 2023 01/31/2022, 01/25/2021, 06/11/2020, Additional history exists Influenza Vaccine 12/30/2024 02/05/2024, , 02/23/2021, Additional history exists Tobacco Screening 03/25/2025 03/25/2024 Medical Devices Not on file Procedures Procedure Name Priority Date/Time Associated Diagnosis Comments TSH Routine 10/22/2024 9:41 AM EDT Type 2 diabetes mellitus with hyperglycemia (CMS-HCC) Chronic kidney disease, stage 3b (CMS-HCC) 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 Hyperlipidemia, unspecified Obesity, class 1 Other obesity due to excess calories Body mass index (BMI) 30.0-30.9, adult LIPID PROFILE Routine 10/22/2024 9:41 AM EDT Type 2 diabetes mellitus with hyperglycemia (CMS-HCC) Chronic kidney disease, stage 3b (CMS-HCC) Other intermediate (current) drug therapy Hyperlipidemia, unspecified Obesity, class 1 Other obesity due to excess calories Body mass index (BMI) 30.0-30.9, adult LIVER PANEL Routine 10/22/2024 9:41 AM EDT Type 2 diabetes mellitus with hyperglycemia (CMS-HCC) Chronic kidney disease, stage 3b (CMS-HCC) Other intermediate (current) drug therapy Hyperlipidemia, unspecified Obesity, class 1 Other obesity due to excess calories Body mass index (BMI) 30.0-30.9, adult CBC WITH AUTO DIFFERENTIAL Routine 10/22/2024 9:41 AM EDT Type 2 diabetes mellitus with hyperglycemia (CMS-HCC) Chronic kidney disease, stage 3b (CMS-HCC) 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 Hyperlipidemia, unspecified Obesity, class 1 Other obesity due to excess calories Body mass index (BMI) 30.0-30.9, adult BASIC METABOLIC PANEL Routine 10/22/2024 9:41 AM EDT Type 2 diabetes mellitus with hyperglycemia (CMS-HCC) Chronic kidney disease, stage 3b (CMS-HCC) Other intermediate (current) drug therapy Hyperlipidemia, unspecified Obesity, class 1 Other obesity due to excess calories Body mass index (BMI) 30.0-30.9, adult HEMOGLOBIN A1C Routine 10/22/2024 9:41 AM EDT Type 2 diabetes mellitus with hyperglycemia (CMS-HCC) Chronic kidney disease, stage 3b (CMS-HCC) 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 Hyperlipidemia, unspecified Obesity, class 1 Other obesity due to excess calories Body mass index (BMI) 30.0-30.9, adult MICROALBUMIN / CREATININE URINE RATIO Routine 10/22/2024 9:41 AM EDT Type 2 diabetes mellitus with hyperglycemia ([facility]) Chronic kidney disease, stage 3b ([facility]) Other intermediate (current) drug therapy Hyperlipidemia, unspecified Obesity, class 1 Other obesity due to excess calories Body mass index (BMI) 30.0-30.9, adult ECHO LIMITED WITHOUT CONTRAST Routine 10/15/2024 10:07 AM EDT Paroxysmal atrial fibrillation ([facility]) from Last 3 Months Results * CBC auto differential (10/22/2024 9:41 AM EDT) WBC 6.6 4 - 11 x10E9/L 10/22/2024 1:36 PM EDT [facility] RBC Count 4.36 4.1 - 5.7 X10E12/L 10/22/2024 1:36 PM EDT [facility] Hemoglobin 13.1 13 - 17 g/dL 10/22/2024 1:36 PM EDT [facility] Hematocrit 39.2 39 - 50 % 10/22/2024 1:36 PM EDT [facility] MCV 90 80 - 100 fL 10/22/2024 1:36 PM EDT [facility] MCH 30.1 27 - 34 pg 10/22/2024 1:36 PM EDT [facility] MCHC 33.5 32 - 36 g/dL 10/22/2024 1:36 PM EDT [facility] RDW 13.4 11.5 - 15 % 10/22/2024 1:36 PM EDT [facility] Platelet Count 199 150 - 450 X10E9/L 10/22/2024 1:36 PM EDT [facility] MPV 9.9 7 - 12 fL 10/22/2024 1:36 PM EDT [facility] Neutrophils % 69.8 % 10/22/2024 1:36 PM EDT [facility] Lymphocytes % 19.4 % 10/22/2024 1:36 PM EDT [facility] Monocytes % 5.9 % 10/22/2024 1:36 PM EDT [facility] Eosinophils % 3.9 % 10/22/2024 1:36 PM EDT [facility] Basophils % 1.0 % 10/22/2024 1:36 PM EDT [facility] Neutrophils Absolute (A) 4.6 1.5 - 6.6 10*3/uL 10/22/2024 1:36 PM EDT [facility] Lymphocytes Absolute 1.3 1.0 - 3.5 10*3/uL 10/22/2024 1:36 PM EDT [facility] Monocytes Absolute 0.4 0.0 - 0.9 10*3/uL 10/22/2024 1:36 PM EDT [facility] Eosinophils Absolute 0.3 0.0 - 0.4 10*3/uL 10/22/2024 1:36 PM EDT [facility] Basophils Absolute 0.1 0.0 - 0.2 10*3/uL 10/22/2024 1:36 PM EDT [facility] Differential Type AUTOMATED DIFFERENTIAL 10/22/2024 1:36 PM EDT [facility] Blood Venous blood / Unknown Venipuncture / Unknown 10/22/2024 9:41 AM EDT 10/22/2024 9:41 AM EDT us Dillon Yadav MD LAB BLOOD ORDERABLES Final Resul t [facility] [address] [place] [address], [place] [phone] * Microalbumin - Albumin: Creatinine Urine Ratio (10/22/2024 9:41 AM EDT) URINE CREATININE,RDM 94.47 mg/dL 10/22/2024 2:28 PM EDT [facility] MALB/CREAT RATIO 8.5 0.0 - 30.0 mg/g 10/22/2024 2:28 PM EDT [facility] MICROALBUMIN, URINE 0.8 0.0 - 1.9 mg/dL 10/22/2024 2:28 PM EDT [facility] Urine Urine specimen collection, clean catch / Unknown Collection / Unknown 10/22/2024 9:41 AM EDT 10/22/2024 9:41 AM EDT us Dillon Yadav MD URINE ORDERABLES Final Result Performing Organization Address City/[facility]/ZIP Co de Phone Number [facility] [address] [place] [address], * TSH (10/22/2024 9:41 AM EDT) TSH 1.80 0.49 - 4.67 uIU/mL 10/22/2024 1:59 PM EDT [facility] Blood Venous blood / Unknown Venipuncture / Unknown 10/22/2024 9:41 AM EDT 10/22/2024 9:41 AM EDT us Dillon Yadav MD LAB BLOOD ORDERABLES Final Resul t Performing Organization Address City/[facility] Co de Phone Number [facility] [address] [place] [address], * (ABNORMAL) Hemoglobin A1c (10/22/2024 9:41 AM EDT) HEMOGLOBIN A1C 7.5(H) 4.4 - 5.6 % 10/22/2024 2:02 PM EDT [facility] Comment: ADA Guidelines Result HgbA1c Normal : less than 5.7 % Prediabetes : 5.7 % to 6.4 % Diabetes : > 6.4 % Use with caution in patients with abnormal hemoglobin variants as the half-life of red blood cells and in vivo glycation rates are affected. EST. AVERAGE GLUCOSE 169 mg/dL 10/22/2024 2:02 PM EDT [facility] Blood Venous blood / Unknown Venipuncture / Unknown 10/22/2024 9:41 AM EDT 10/22/2024 9:41 AM EDT us Dillon Yadav MD LAB BLOOD ORDERABLES Final Resul t Performing Organization Address City/[facility]/ZIP Co de Phone Number [facility] [address] [place] [address], * Liver panel (10/22/2024 9:41 AM EDT) TOTAL PROTEIN 6.8 6.0 - 8.0 g/dL 10/22/2024 2:10 PM EDT [facility] ALBUMIN 4.1 3.2 - 5.3 g/dL 10/22/2024 2:10 PM EDT [facility] BILIRUBIN,TOTAL 0.7 0.3 - 1.2 mg/dL 10/22/2024 2:10 PM EDT [facility] ALKALINE PHOSPHATASE 60 39 - 130 U/L 10/22/2024 2:10 PM EDT [facility] AST 19 <=41 U/L 10/22/2024 2:10 PM EDT [facility] ALT 15 <=40 U/L 10/22/2024 2:10 PM EDT [facility] BILIRUBIN,DIRECT 0.2 <=0.4 mg/dL 10/22/2024 2:10 PM EDT [facility] Blood Venous blood / Unknown Venipuncture / Unknown 10/22/2024 9:41 AM EDT 10/22/2024 9:41 AM EDT us Dillon Yadav MD LAB BLOOD ORDERABLES Final Resul t [facility] [address] [place] [address], * (ABNORMAL) Lipid profile (10/22/2024 9:41 AM EDT) CHOLESTEROL 120(L) 150 - 200 mg/dL 10/22/2024 2:10 PM EDT [facility] TRIGLYCERIDE 152(H) 27 - 150 mg/dL 10/22/2024 2:10 PM EDT [facility] HDL CHOLESTEROL 41 >39 mg/dL 2:10 PM EDT [facility] Comment: HDL <40 mg/dL - High Risk HDL > or = 40mg/dL- Desirable HDL >60 mg/dL - Negative Risk LDL (CALC) 49 <130 mg/dL 10/22/2024 2:10 PM EDT [facility] Comment: LDL <100 mg/dL - Desirable LDL >160 mg/dL - High Risk CHOLESTEROL:HDL 2.9 1.0 - 5.0 2:10 PM EDT [facility] VERY LOW LIPOPROTEIN 30 0 - 30 mg/dL 10/22/2024 2:10 PM EDT [facility] Blood Venous blood / Unknown Venipuncture / Unknown 10/22/2024 9:41 AM EDT 10/22/2024 9:41 AM EDT us Dillon Yadav MD LAB BLOOD ORDERABLES Final Resul t [facility] [address] [place] [address], [place] [phone] * (ABNORMAL) Basic Metabolic Panel (10/22/2024 9:41 AM EDT) SODIUM 140 134 - 146 mmol/L 10/22/2024 2:10 PM EDT [facility] POTASSIUM 4.2 3.5 - 5.0 mmol/L 10/22/2024 2:10 PM EDT [facility] CHLORIDE 107 98 - 109 mmol/L 10/22/2024 2:10 PM EDT [facility] CARBON DIOXIDE 23 22 - 32 mmol/L 10/22/2024 2:10 PM EDT [facility] ANION GAP 10 5 - 15 mmol/L 10/22/2024 2:10 PM EDT [facility] BLOOD UREA NITROGEN 39(H) 5 - 27 mg/dL 10/22/2024 2:10 PM EDT [facility] CREATININE 2.35(H) 0.60 - 1.30 mg/dL 10/22/2024 2:10 PM EDT [facility] Comment:METHOD TRACEABLE TO IDMS STANDARD GLUCOSE 151(H) 65 - 99 mg/dL 10/22/2024 2:10 PM EDT [facility] CALCIUM 9.5 8.5 - 10.5 mg/dL 10/22/2024 2:10 PM EDT [facility] EGFR Non-Race Dependent 26(L) >=60 ml/min/1.7 3sq.m 10/22/2024 2:10 PM EDT [facility] Comment: Reported eGFR is based on the CKD-EPI 2020 equation that does not use a race coefficient. Blood Venous blood / Unknown Venipuncture / Unknown 10/22/2024 9:41 AM EDT 10/22/2024 9:41 AM EDT us Dillon Yadav MD LAB BLOOD ORDERABLES Final Resul t [facility] [address] [place] [address], [place] [phone] * Echo limited W/O contrast (10/15/2024 10:07 AM EDT) LV Systolic Volume 55.50 mL XCELERA EF 47 % XCELERA FS 10 28 - 44 % XCELERA LV Diastolic Volume 104.00 mL XCELERA LVIDd 5.10 cm XCELERA LVIDs 4.60 cm XCELERA IVS 1.50 0.6 - 1.1 cm XCELERA PW 1.60 0.6 - 1.1 cm XCELERA RVID d 3.6 cm XCELERA LV RWT 2D 62.75 XCELERA Echo EF Estimated 47 % XCELERA Left Ventricle Mass 348.00378 [id number] 5 g XCELERA Interventricular Septum Diastolic Thickness by 2D 15 cm XCELERA Anatomical Region Laterality Modality Chest N/A Ultrasound Narrative 10/15/2024 5:23 PM EDT Left Ventricle: Left ventricle appears normal in size. There is moderate increased wall thickness/hypertrophy. Systolic function is mildly to moderately decreased with an ejection fraction of 40-45%. See wall score diagram for wall motion abnormalities. Difficult to assess wall motion due to Afib. Pericardium: There is a pytbt-em-dptmbwzr fibrinous pericardial effusion with fluid. Left Ventricle Left ventricle appears normal in size. There is moderate increased wall thickness/hypertrophy. Systolic function is mildly to moderately decreased with an ejection fraction of 40-45%. See wall score diagram for wall motion abnormalities. Difficult to assess wall motion due to Afib. Unable to assess diastolic function due to atrial fibrillation/flutter. Pericardium There is a lvzlk-bn-swftfnux fibrinous pericardial effusion with fluid. Study Details A limited echo was performed using limited 2D and limited left ventricle function/wall motion. Overall the study quality was adequate. Wall Scoring Baseline Score Index: 1.35 The following segments are hypokinetic: basal anteroseptal, basal inferoseptal, basal inferior, mid anteroseptal, mid inferoseptal and mid inferior. All other segments are normal. Difficult to assess due to Afib Jermaine Katz MD CV ECHO ORDERABLES Final Resu lt from Last 3 Months Insurance [facility] MEDICARE Care Teams Fern Gatherer Relationship Specialty Start Date End Date Dillon Yadav MD PCP - General Family Medicine 10/22/24
--- OUTSIDE RECORDS SUMMARY | 2024-11-27 07:46 | XMS_ITS | Encounter Summary ---
Author Organization [facility] Address [address] [place] [address] Care Team Providers Care Building Construction Supervisor Name Role Phone Dillon Yadav MD Primary Care Provider [phone] Dillon Yadav MD Primary Care Provider [phone] Encounter Details Date Type Department Care Team ([facility] Contact Info) Description 04/05/2023 Abstract [facility] [address] [place] [address] Dillon Yadav MD [address] [place] [address] Social History Tobacco Use Types [...] 04/10/2025 10:30 AM EST Office Visit [facility] [address] [place] [address] Dillon Yadav MD [address] [place] [address] documented as of this encounter Visit Diagnoses Not on filedocumented in this encounter Care Teams Building Construction Supervisor Relationship Specialty Start Date End Date Dillon Yadav MD PCP - General Family Medicine 12/02/22 10/04/23 Dillon Yadav MD [address] [place] [address] PCP - General Family Medicine 10/05/23 documented as of this encounter
--- OUTSIDE RECORDS SUMMARY | 2024-11-27 07:46 | XMS_ITS | Encounter Summary ---
Author Organization [facility] Address [address] [place] [address] Care Team Providers Care Manager Of Revenue Name Role Phone Dillon Yadav MD Primary Care Provider [phone] Reason for Referral * Consultation (Routine) - Authorized Specialty Diagnoses / Procedures Referred By Contac t Referred To Contact Nephrology Diagnoses CKD (chronic kidney disease) stage 4, GFR 15-29 ml/min (HCC) Procedures NC OFFICE/OUTPATIENT NEW HIGH MDM 60 MINUTES Dillon Yadav MD [address] [place] [address] Phone: tel: fax: Brittany Breaux MD [facility] [address] Phone: tel: fax: Referral ID Status Reason Start Date Expiration Date Visits Requested Visits Authorized [id number] Authorized Specialty Services Required 10/22/2024 04/20/2025 1 1 Encounter Details Date Type Department Care Team (Late st Contact Info) Description 10/22/2024 Results [facility] [address] [place] [address] Dillon Yadav MD [address] [place] [phone] CKD (chronic kidney disease) stage 4, GFR 15-29 ml/min (HCC) (Primary Dx); Type 2 diabetes mellitus with hyperglycemia, without long-term current use of insulin (HCC) Social History Tobacco Use Types Packs/Day Years [...] Office Visit [facility] [address] [place] [address] Dillon Yadav MD [address] [place] [address] Scheduled Referrals Name Type Priority Associated Diagnoses Order Schedule Ambulatory referral to Nephrology Outpatient Referral Routine CKD (chronic kidney disease) stage 4, GFR 15-29 ml/min (HCC) Expected: 10/22/2024 (Approximate), Expires: 04/23/2025 documented as of this encounter Visit Diagnoses Diagnosis CKD (chronic kidney disease) stage 4, GFR 15-29 ml/min (HCC)- Primary Chronic kidney disease, Stage IV (severe) Type 2 diabetes mellitus with hyperglycemia, without long-term current use of insulin (HCC) documented in this encounter Additional Health Concerns Assessment Noted Time PHQ-9 Depression Total Score: 1 07/10/19 25 2:00 PM EDT documented as of this encounter Care Teams Manager Of Revenue Relationship Specialty Start Date End Date Dillon Yadav MD [address] [place] [phone] PCP - General Family Medicine 10/05/23 documented as of this encounter
--- NOTE | 2024-11-27 07:47 | US_ITS ---
The [address] [address] Patient Name: MELECIO BARRERA MRN: [id number] date: 1935 Sex: M Assigned Patient Location: [place] Current Patient Location: [place] Accession/Order Number: [id number] Exam Date: 11/27/2024 09:24 Report Date: 11/27/2024 09:25 At the request of: MISHEL PEREZ Procedure: US renal BI BILATERAL RENAL AND BLADDER ULTRASOUND CLINICAL HISTORY: Stage 4 chronic kidney disease COMPARISON: None FINDINGS: Estimation of renal size is approximately 9.4 cm on the right and 9.1 cm on the left. Bilateral renal calculi largest measuring 8 mm involving the left kidney and 7 mm involving the right kidney. No hydronephrosis. Cystic changes left kidney. The urinary bladder is partially distended with a volume of 687 ml. No shadowing stone or focal lesion. US/US renal BI IMPRESSION: BILATERAL NEPHROLITHIASIS. NO HYDRONEPHROSIS. Impression dictated by: Michael Sears Jr., D.O. 11/27/2024 9:25 AM Dictation Location: [place] [address] Electronically authenticated by: [id number] Y Date: 11/27/2024 09:25
--- OUTSIDE RECORDS SUMMARY | 2024-11-27 07:47 | XMS_ITS | CCD ---
Author Organization [facility] CliniSyil Care Team Providers Care Supervisor [employer] Name Role Phone HALINA, DR DILLON Hancock Admitting Unavailable NADERER, DR DILLON Hancock Attending Unavailable NADERER, DR DILLON Hancock Consulting Unavailable NADERER, DR DILLON Hancock Primary Care Unavailable NADERER, DR DILLON Hancock Primary Care Unavailable NADERER, DR DILLON Hancock Admitting Unavailable NADERER, DR DILLON Hancock Attending Unavailable NADERER, DR DILLON Hancock Primary Care Unavailable ADELA, MAMIE Admitting Unavailable WEST, DR MELECIO Seals Consulting Unavailable ADELA, MAMIE Attending Unavailable ADELA, MAMIE Consulting Unavailable FAWJOSE, SHAIKH Nadeen Attending Unavailable FAWJOSE, SHAIKH Nadeen Admitting Unavailable WEST, DR MELECIO Seals Consulting Unavailable NADERER, DR DILLON Hancock Primary Care Unavailable FAWWAZhen, SHAIKH Nadeen Consulting Unavailable NADERER, DR DILLON Hancock Primary Care Unavailable NADERER, DR DILLON Hancock Admitting Unavailable NADERER, DR DILLON Hancock Attending Unavailable NADERER, DR DILLON Hancock Consulting Unavailable Naderer , Dillon Primary Care Provider JOSELINE OLEARY Referring Unavailable NADEREAria, DILLON Primary Care Unavailable HIPOLITO DOMINGO JR Attending Unavailable NADEREAria, DILLON Referring Unavailable NADEREAria, DILLON Primary Care Unavailable CARLA TORRES Attending Unavailable NADERER, DILLON Referring Unavailable NADERER, DILLON Primary Care Unavailable NIMISHA RICKETTS Attending Unavailable NADEREAria, DILLON Referring Unavailable NADEREAria, DILLON Primary Care Unavailable NIMISHA RICKETTS Attending Unavailable NADEREAria, DILLON Referring Unavailable NADEREAria, DILLON Primary Care Unavailable Halina GALARZA, Dillon Primary Care Provider Dillon Meade MD Primary Care Provider DILLON MEADE Attending Unavailable NILSAEREAria, DILLON Attending Unavailable NADEREAria, DILLON Attending Unavailable NADEREAria, DILLON Attending Unavailable DEON ROTH Attending Unavailable DEON ROTH Referring Unavailable DEON ROTH Attending Unavailable NADERER, DILLON Attending Unavailable NIMISHA RICKETTS G. Referring Unavailable NADERER, DILLON Primary Care Unavailable RICKETTSNIMISHA MUNOZ G. Referring Unavailable NADERER, DILLON Primary Care Unavailable NADERER, DILLON Referring Unavailable NADERER, DILLON Primary Care Unavailable JOSELINE OLEARY Attending Unavailable NIMISHA RICKETTS GAron Referring Unavailable NADERER, DILLON Primary Care Unavailable RICKETTSNIMISHA G. Referring Unavailable NADERER, DILLON Primary Care Unavailable RICKETTS, NIMISHA G. Referring Unavailable NADERER, DILLON Primary Care Unavailable ABISAI KATZ Attending Unavailable NADERER, DILLON Referring Unavailable NADERER, DILLON Primary Care Unavailable RICKETTS, NIMISHA G. Admitting Unavailable RICKETTSNIMISHA MUNOZ G. Attending Unavailable NADERER, DILLON Primary Care Unavailable VITA ANDERSON Attending Unavailable NADERER, DILLON Primary Care Unavailable RICKETTS, NIMISHA G. Referring Unavailable NADERER, DILLON Primary Care Unavailable NADERER, DILLON Referring Unavailable NADERER, DILLON Primary Care Unavailable ABISAI KATZ Attending Unavailable ABISAI KATZ Referring Unavailable NADERER, DILLON Primary Care Unavailable NADERER, DILLON Referring Unavailable NADERER, DILLON Primary Care Unavailable NADERER, DILLON Referring Unavailable NADERER, DILLON Primary Care Unavailable Saeid GALARZA, Brittany Attending Provider [phone] Dillon Meade MD Primary Care Provider Dillon Meade MD Primary Care Provider Allergies Allergy Classification Reported Allergen(s) Allergy Type Date of Onset Reaction(s) Facility (20 sources) wasp venom Propensity to adverse reactions 6 [facility] Work Phone: (15 sources) BEE VENOM PROTEIN (HONEY BEE); Translations: [BEE VENOM PROTEIN (HONEY BEE)] Propensity to adverse reactions to drug (disorder) 4 Anaphylaxis [facility] (9 sources) HYMENOPTERA ALLERGENIC EXTRACT; Translations: [HYMENOPTERA ALLERGENIC EXTRACT] Drug Allergy 6 [facility] Medications Current Medications Medication Drug Class(es) Dates Sig (Normalized) Sig (Original) amLODIPine 5 mg oral tablet (20 sources) Dihydropyridine Calcium Channel Camelia Start: 07-21-2025 take 1 tablet by mouth once daily Amlodipine 5 mg tablet Active 5 MG PO Daily November 18, 2024 12:00am Complies with drug therapy Start: 09-02-2024 End: 10-09-2024 amLODIPine (Norvasc) 5 MG ta blet Indications: Essential hypertension, benign (CMS/HCC) TAKE 1 TABLET DAILY 90 tablet 3 09/02/2024 10/09/2024 Discontinued Start: 09-12-2023 amLODIPine (No rvasc) 5 MG tablet Indications: Essential hypertension, benign (CMS/HCC) TAKE 1 TABLET DAILY 90 tablet 3 09/12/2023 Active apixaban 2.5 mg oral tablet (20 sources) Factor Xa Inhibitor Start: 11-18-2024 take 1 tablet by mouth twice daily Apixaban (Eliquis) 2.5 mg tablet Active 2.5 MG PO Twice daily November 18, 2024 12:00am Complies with drug therapy Start: 02-09-2024 take 1 tablet by blayne th in the morning apixaban (Eliquis) 2.5 MG tablet Indications: Paroxysmal atrial fibrillation (HCC) Take 1 tablet (2.5 mg) by mouth in the morning and 1 tablet (2.5 mg) before bedtime. 60 tablet 5 08/13/2024 Active aspirin 81 mg delayed release oral tablet (16 sources) Platelet Aggregation Inhibitor, Nonsteroidal Anti-inflammatory Drug End: 04-05-2024 take 1 tablet by mouth once daily aspirin 81 MG EC tablet Take 81 mg by mouth Daily 04/05/2024 Discontinued End: 02-09-2024 aspirin 81 mg chewable table t Chew 1 tablet (81 mg total) and swallow in the morning. 02/09/2024 Discontinued cephalexin 500 mg oral capsule (2 sources) Cephalosporin Antibacterial Start: 03-05-2024 End: 03-19-2024 take 1 capsule by mouth three times daily CEPHalexin (KEFLEX) 500 mg capsule Indications: Encysted hydrocele Take 1 capsule (500 mg total) by mouth 3 (three) times a day for 14 days. 42 capsule 03/05/2024 03/19/2024 Active cholecalciferol 0.125 mg oral tablet (18 sources) Vitamin D take 1 tablet by mouth in the morning cholecalciferol, vitamin D3, 5,000 units tablet Take 1 tablet (5,000 Units total) by mouth in the morning. Active 2 ml dupilumab 150 mg/ml prefilled syringe (18 sources) Interleukin-4 Receptor alpha Antagonist dupilumab (DUPIXENT SYRINGE) 300 mg/2 mL syringe SUBQ injection Inject under the skin every 14 (fourteen) days. Active Dupilumab (1 source) Start: 11-18-2024 Dupilumab (Dupixent Pen) 200 mg/1.14 mL pen injector Active 200 MG SUBCUT EVERY 2 WEEKS November 18, 2024 12:00am Complies with drug therapy dupilumab (Dupixent) 200 MG/1.14ML injection (20 sources) dupilumab (Dupixent) 200 MG/1.14ML injection Inject 200 mg under the skin every 14 (fourteen) days Active empagliflozin 10 mg oral tablet (3 sources) Sodium-Glucose Cotransporter 2 Inhibitor Start: 11-18-2024 take 1 tablet by mouth once daily Empagliflozin (Jardiance) 10 mg tablet Active 10 MG PO Daily November 18, 2024 12:00am Complies with drug therapy Start: 10-22-2024 End: 11-14-2024 empagliflozin (Jardiance) 10 MG Indications: CKD (chronic kidney disease) stage 4, GFR 15-29 ml/min ([facility]) , Type 2 diabetes mellitus with hyperglycemia, without long-term current use of insulin ([facility]) Take 1 tablet (10 mg) by mouth Daily 90 tablet 3 11/14/2024 Active hydroCHLOROthiazide 25 mg oral tablet (20 sources) Thiazide Diuretic Start: 01-24-2024 take 1 tablet by mouth once daily hydroCHLOROthiazide (HYDRODIURIL) 25 mg tablet Take 1 tablet (25 mg total) by mouth daily. 01/24/2024 Active losartan potassium 100 mg oral tablet (20 sources) Angiotensin 2 Receptor Camelia Start: 11-18-2024 take 1 tablet by mouth once daily Losartan 100 mg tablet Active 100 MG PO Daily November 18, 2024 12:00am Complies with drug therapy Start: 05-02-2023 losartan (Coza ar) 100 MG tablet Indications: Essential hypertension, benign TAKE 1 TABLET DAILY 90 tablet 3 04/22/2024 Active meclizine hydrochloride 25 mg oral tablet (20 sources) Antiemetic Start: 12-07-2023 take 1 tablet by mouth four times daily as needed for dizziness meclizine (Antivert) 25 MG tablet Indications: Vertigo Take 1 tablet (25 mg) by mouth 4 (four) times a day as needed for dizziness 60 tablet 2 12/07/2023 Active End: 02-14-2024 meclizine (ANTIVERT) 25 mg t ablet Chew 1 tablet (25 mg total) and swallow 3 (three) times a day as needed for dizziness. 02/14/2024 Discontinued 24 hr metFORMIN hydrochloride 500 mg extended release oral tablet (20 sources) Biguanide Start: 04-25-2024 take 1 tablet by mouth every twenty-four hours in the morning, then take 1 tablet by mouth at bedtime metFORMIN XR (Glucophage-XR) 500 MG 24 hr tablet Indications: Type 2 diabetes mellitus with hyperglycemia, without long-term current use of insulin (CMS/HCC) TAKE 1 TABLET BY MOUTH IN THE MORNING AND 1 AT BEDTIME (DO NOT CRUSH CHEW OR SPLIT) 180 tablet 04/25/2024 Active Start: 10-23-2023 metFORMIN XR ( Glucophage-XR) 500 MG 24 hr tablet Indications: Type 2 diabetes mellitus with hyperglycemia, without long-term current use of insulin (CMS/HCC) TAKE 1 TABLET DAILY 90 tablet 3 10/23/2023 Active End: 02-14-2024 take 1 tablet by mouth three times daily metFORMIN (GLUCOPHAGE) 500 mg tablet Take 1 tablet (500 mg total) by mouth 3 (three) times a day. 02/14/2024 Discontinued simvastatin 20 mg oral tablet (20 sources) HMG-CoA Reductase Inhibitor Start: 11-18-2024 take 1 tablet by mouth once daily Simvastatin 20 mg tablet Active 20 MG PO Daily November 18, 2024 12:00am Complies with drug therapy Start: 07-17-2024 simvastatin (Z ocor) 20 MG tablet Indications: Benign prostatic hyperplasia with urinary obstruction TAKE 1 TABLET AT BEDTIME 90 tablet 3 07/17/2024 Active Start: 07-28-2023 simvastatin (Z ocor) 20 MG tablet Indications: Benign prostatic hyperplasia with urinary obstruction TAKE 1 TABLET AT BEDTIME 90 tablet 3 07/28/2023 Active tamsulosin hydrochloride 0.4 mg oral capsule (20 sources) alpha-Adrenergic Camelia Start: 07-17-2024 tamsu losin (Flomax) 0.4 MG 24 hr capsule Indications: Benign prostatic hyperplasia with urinary obstruction TAKE 1 CAPSULE DAILY 90 capsule 3 07/17/2024 Active Start: 07-28-2023 tamsulosin (Fl omax) 0.4 MG 24 hr capsule Indications: Benign prostatic hyperplasia with urinary obstruction TAKE 1 CAPSULE DAILY 90 capsule 3 07/28/2023 Active traMADol hydrochloride 50 mg oral tablet (11 sources) Opioid Agonist Start: 01-29-2024 take 1 tablet by mouth every twelve hours as needed for pain traMADoL (ULTRAM) 50 mg tablet Take 1 tablet (50 mg total) by mouth every 12 (twelve) hours as needed for pain. 01/29/2024 Active Completed/Discontinued Medications Medication Drug Class(es) Dates Sig (Normalized) Sig (Original) carvedilol 3.125 mg oral tablet (5 sources) alpha-Adrenergic Camelia, beta-Adrenergic Camelia Start: 04-05-2024 End: 06-17-2024 take 1 tablet by mouth in the morning carvedilol (Coreg) 3.125 MG tablet Indications: Chronic HFrEF (heart failure with reduced ejection fraction) (CMS/HCC) , Paroxysmal atrial fibrillation (CMS/HCC) Take 1 tablet (3.125 mg) by mouth in the morning and 1 tablet (3.125 mg) in the evening. Take with meals. 60 tablet 3 04/05/2024 06/17/2024 Discontinued hydroCHLOROthiazide 12.5 mg / lisinopril 10 mg oral tablet (8 sources) Thiazide Diuretic, Angiotensin Converting Enzyme Inhibitor End: 02-14-2024 take 10-12.5 mg by mouth once in the morning lisinopril-hydroc hlorothiazide (PRINZIDE,ZESTORE TIC) 10-12.5 mg per tablet Take 1 tablet by mouth in the morning. 02/14/2024 Discontinued hydroCHLOROthiazide 25 mg / losartan potassium 100 mg oral tablet (8 sources) Thiazide Diuretic, Angiotensin 2 Receptor Camelia Start: 01-18-2016 End: 02-14-2024 take 1 tablet by mouth once in the morning losartan-hydrochl orothiazide (HYZAAR) 100-25 mg per tablet Take 1 tablet by mouth in the morning. 01/18/2016 02/14/2024 Discontinued Problems Active Problems Problem Classification Problem Date Documented Date Episodic/Chronic Abdominal hernia (1 source) Umbilical hernia without obstruction or gangrene; Translations: [UMBILICAL HERNIA W/O OBST/GANGRENE] Onset: 2 Episodic Abdominal pain (4 sources) Unspecified abdominal pain; Translations: [UNSPECIFIED ABDOMINAL PAIN] Onset: 2 Episodic Biliary tract disease (1 source) Calculus of gallbladder without cholecystitis without obstruction; Translations: [CALCU GB W/O CHOLECYST W/O OBST] Onset: 2 Episodic Cancer of prostate (20 sources) Malignant neoplasm of prostate; Translations: [Malignant tumor of prostate] Onset: 6 03-13-2023 Chronic Cardiac dysrhythmias (20 sources) Unspecified atrial fibrillation; Translations: [Paroxysmal atrial fibrillation] Onset: 4 04-05-2024 Chronic Chronic kidney disease (20 sources) Chronic kidney disease stage 3; Translations: [Chronic kidney disease (CKD) stage G3b/A1, moderately decreased glomerular filtration rate (GFR) between 30-44 mL/min/1.73 square meter and albuminuria creatinine ratio less than 30 mg/g (H*] Onset: 3 04-05-2023 Chronic Chronic kidney disease (1 source) Chronic kidney disease; Translations: [Chronic kidney disease, stage 3b] Onset: 5 Congestive heart failure; nonhypertensive (20 sources) Chronic systolic heart failure; Translations: [Chronic systolic (congestive) heart failure] Onset: 4 04-05-2024 Chronic Diabetes mellitus with complications (20 sources) Type 2 diabetes mellitus with hyperglycemia; Translations: [Hyperglycemia due to type 2 diabetes mellitus] Onset: 2 Chronic Diabetes mellitus without complication (3 sources) Type 2 diabetes mellitus without complication; Translations: [Type 2 diabetes mellitus without complications] Onset: 4 12-14-2023 Chronic Disorders of lipid metabolism (20 sources) Hyperlipidemia, unspecified; Translations: [Dyslipidemia] Onset: 2 04-05-2023 Chronic Diverticulosis and diverticulitis (1 source) Diverticulosis of intestine, part unspecified, without perforation or abscess without bleeding; Translations: [DVRTCLOS PRT UNS NO PERF/ABSC NO BL] Onset: 2 Chronic Essential hypertension (20 sources) Benign essential hypertension; Translations: [Essential (primary) hypertension] Onset: 3 04-05-2023 Chronic Hyperplasia of prostate (20 sources) Benign prostatic hypertrophy with outflow obstruction; Translations: [Benign prostatic hyperplasia with lower urinary tract symptoms] Onset: 6 12-19-2022 Chronic Hypertension with complications and secondary hypertension (2 sources) Chronic kidney disease due to hypertension; Translations: [Hypertensive chronic kidney disease with stage 1 through stage 4 chronic kidney disease, or unspecified chronic kidney disease] 11-18-2024 Chronic Nutritional deficiencies (1 source) Vitamin D deficiency, unspecified; Translations: [VITAMIN D DEFICIENCY UNSPECIFIED] Onset: 2 Chronic Osteoarthritis (20 sources) Primary gonarthrosis, bilateral; Translations: [Bilateral primary osteoarthritis of knee] Onset: 3 04-05-2023 Chronic Other aftercare (1 source) 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; Translations: [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] Onset: 2 Episodic Other aftercare (2 sources) Other snf (current) drug therapy; Translations: [OTH DEVELOPMENTAL ELECTRONICS ASSEMBLER CURRENT DRUG THERAPY] Onset: 2 Episodic Other aftercare (5 sources) Long-term current use of drug therapy; Translations: [Other snf (current) drug therapy] Onset: 5 10-09-2024 Episodic Other connective tissue disease (4 sources) Pain in left leg; Translations: [PAIN IN LEFT LEG] Onset: 2 Episodic Other connective tissue disease (1 source) Trochanteric bursitis, left hip; Translations: [TROCHANTERIC BURSITIS LEFT HIP] Onset: 2 Episodic Other diseases of kidney and ureters (2 sources) Secondary hyperparathyroidism; Translations: [Secondary hyperparathyroidism of renal origin] 11-18-2024 Chronic Other ear and sense organ disorders (20 sources) Bilateral hearing loss; Translations: [Unspecified hearing loss, bilateral] Onset: 3 04-05-2023 Chronic Other nervous system disorders (1 source) Other abnormalities of gait and mobility; Translations: [OTHER ABNORMALITIES GAIT AND MOBILITY] Onset: 2 Episodic Other nervous system disorders (1 source) Unspecified abnormalities of gait and mobility; Translations: [UNS ABNORMALITIES GAIT AND MOBILITY] Onset: 2 Episodic Other non-traumatic joint disorders (4 sources) Pain in wrist; Translations: [Pain in left wrist] 01-31-2024 Episodic Other nutritional; endocrine; and metabolic disorders (1 source) Obesity, unspecified; Translations: [OBESITY UNSPECIFIED] Onset: 2 Chronic Other nutritional; endocrine; and metabolic disorders (17 sources) Body mass index 30+ - obesity; Translations: [Obesity, unspecified] Onset: 4 10-05-2023 Chronic Other nutritional; endocrine; and metabolic disorders (5 sources) Obesity caused by energy imbalance; Translations: [Class 1 obesity due to excess calories with serious comorbidity and body mass index (BMI) of 30.0 to 30.9 in adult] Onset: 4 10-09-2024 Chronic Other nutritional; endocrine; and metabolic disorders (1 source) Other obesity due to excess calories; Translations: [Other obesity due to excess calories] Onset: 5 Chronic Other nutritional; endocrine; and metabolic disorders (1 source) Body mass index (BMI) 30.0-30.9, adult; Translations: [Body mass index (BMI) 30.0-30.9, adult] Onset: 5 Chronic Spondylosis; intervertebral disc disorders; other back problems (20 sources) Degeneration of lumbar intervertebral disc; Translations: [DDD (degenerative disc disease), lumbar] Onset: 3 04-05-2023 Chronic Sprains and strains (4 sources) Sprain of left wrist; Translations: [Unspecified sprain of left wrist, initial encounter] 01-31-2024 Episodic Unclassified (1 source) Obesity, class 1; Translations: [Obesity, class 1] Onset: 5 Unclassified (1 source) Pre-op Exam Onset: 4 Unclassified (1 source) New Patient Onset: 4 Past or Other Problems Problem Classification Problem Date Documented Date Episodic/Chronic Cancer of prostate (20 sources) History of malignant neoplasm of prostate; Translations: [Personal history of malignant neoplasm of prostate] Onset: 04-12-2016 04-05-2023 Episodic Conditions associated with dizziness or vertigo (20 sources) Vertigo; Translations: [Dizziness and giddiness] Onset: 12-07-2023 12-07-2023 Episodic Genitourinary symptoms and ill-defined conditions (2 sources) Increased frequency of urination; Translations: [Frequency of micturition] Onset: 02-14-2024 01-15-2024 Episodic Mood disorders (6 sources) Mood disorders Onset: 07-09-2024 07-09-2024 Other male genital disorders (20 sources) Encysted hydrocele of spermatic cord; Translations: [Encysted hydrocele] Onset: 03-09-2022 12-19-2022 Episodic Other male genital disorders (20 sources) Disorder of male genital organ; Translations: [Hydrocele, unspecified] Onset: 04-05-2023 04-05-2023 Episodic Other male genital disorders (3 sources) Encysted hydrocele; Translations: [Encysted hydrocele] Onset: 10-30-2023 Episodic Other male genital disorders (1 source) Encysted hydrocele Onset: 02-26-2024 Episodic Other screening for suspected conditions (not mental disorders or infectious disease) (3 sources) Abnormal electrocardiogram [ECG] [EKG]; Translations: [Electrocardiogram abnormal] Onset: 02-09-2024 02-09-2024 Episodic Residual codes; unclassified (1 source) Edema, unspecified; Translations: [EDEMA UNSPECIFIED] Onset: 05-19-2021 Episodic Skin and subcutaneous tissue infections (4 sources) Cellulitis of left upper limb; Translations: [CELLULITIS OF LEFT UPPER LIMB] Onset: 05-17-2021 Episodic Urinary tract infections (1 source) Urinary tract infection, site not specified; Translations: [Urinary tract infection, site not specified] Onset: 12-20-2023 Episodic Results Test Name Value Interpretation Reference Range Facility BASIC METABOLIC PANELon 09-30 Anion gap [Moles/Vol] 10 mmol/L Normal 5-15 [facility] Comment on above: Performed By: #### B MP #### [facility] ([id number]) [address] [place] [address], [address] [place] [address] Calcium [Mass/Vol] 9.5 mg/dL Normal 8.5-10.5 [facility] Comment on above: Performed By: #### B MP #### [facility] ([id number]) [address] [place] [address], [address] [facility] [address] Chloride [Moles/Vol] 107 mmol/L Normal 98-109 [facility] Comment on above: Performed By: #### B MP #### [facility] ([id number]) [address], [address] [place] [address] CO2 [Moles/Vol] 23 mmol/L Normal 22-32 [facility] Comment on above: Performed By: #### B MP #### [facility] ([id number]) [address] [address] [place] [address] Creatinine [Mass/Vol] 2.35 mg/dL High 0.60-1.30 [facility] Comment on above: Result Comment: METH OD TRACEABLE TO IDMS STANDARD Performed By: #### B MP #### [facility] ([id number]) [address] [address] [place] [address] GFR/1.73 sq M.predicted among non-blacks MDRD (S/P/Bld) [Vol rate/Area] 26 mL/min/{1.73_m2} Low >=60 [facility] Comment on above: Result Comment: Repo rt eGFR is based on the CKD-EPI 2020 equation that does not use a race coefficient. Performed By: #### B MP #### [facility] ([id number]) [address] [address] [place] [address] Glucose [Mass/Vol] 151 mg/dL High 65-99 [facility] Comment on above: Performed By: #### B MP #### [facility] ([id number]) [address] [address] [place] [address] Potassium [Moles/Vol] 4.2 mmol/L Normal 3.5-5.0 [facility] Comment on above: Performed By: #### B MP #### [facility] ([id number]) [address] [address] [place] [address] Sodium [Moles/Vol] 140 mmol/L Normal 134-146 [facility] Comment on above: Performed By: #### B MP #### [facility] ([id number]) [address] [place] [address] Urea nitrogen [Mass/Vol] 39 mg/dL High 5-27 [facility] Comment on above: Performed By: #### B MP #### [facility] ([id number]) [address] [place] [address] CBC WITH AUTO DIFFERENTIALon 10-22-2024 BASOPHILS ABSOLUTE COUNT (10*3/UL) BY AUTOMATED COUNT 0.1 10*3/uL Normal 0.0-0.2 [facility] Comment on above: Performed By: #### C BCA #### [facility] ([facility]) [address] [place] [address] VIR BASOPHILS RELATIVE PERCENT BY AUTOMATED COUNT 1.0 % Normal [facility] Comment on above: Performed By: #### C BCA #### [facility] ([facility]) [address] [place] [address] VIR CELLAVISION DIFFERENTIAL TYPE AUTOMATED DIFFERENTIAL Normal [facility] Comment on above: Performed By: #### C BCA #### [facility] ([facility]) [address] [place] [address] VIR Eosinophils (Bld) [#/Vol] 0.3 10*3/uL Normal 0.0-0.4 [facility] Comment on above: Performed By: #### C BCA #### [facility] ([facility]) [address] [place] [address] VIR EOSINOPHILS RELATIVE PERCENT BY AUTOMATED COUNT 3.9 % Normal [facility] Comment on above: Performed By: #### C BCA #### [facility] ([facility]) [address] [place] [address] VIR Erythrocyte distribution width (RBC) [Ratio] 13.4 % Normal 11.5-15 [facility] Comment on above: Performed By: #### C BCA #### [facility] ([facility]) [address] [place] [address] VIR Hematocrit (Bld) [Volume fraction] 39.2 % Normal 39-50 [facility] Comment on above: Performed By: #### C BCA #### [facility] ([facility]) [address] [place] [address] VIR Hemoglobin (Bld) [Mass/Vol] 13.1 g/dL Normal 13-17 [facility] Comment on above: Performed By: #### C BCA #### [facility] ([facility]) [address] [place] [address] VIR LYMPHOCYTES ABSOLUTE COUNT (10*3/UL) BY AUTOMATED COUNT 1.3 10*3/uL Normal 1.0-3.5 [facility] Comment on above: Performed By: #### C BCA #### [facility] ([facility]) [address] [place] [address] VIR LYMPHOCYTES RELATIVE PERCENT BY AUTOMATED COUNT 19.4 % Normal [facility] Comment on above: Performed By: #### C BCA #### [facility] ([facility]) [address] [place] [address] VIR MCH (RBC) [Entitic mass] 30.1 pg Normal 27-34 [facility] Comment on above: Performed By: #### C BCA #### [facility] ([facility]) [address] [place] [address] VIR MCHC (RBC) [Mass/Vol] 33.5 g/dL Normal 32-36 [facility] Comment on above: Performed By: #### C BCA #### [facility] ([facility]) [address] [place] [address] VIR MCV (RBC) [Entitic vol] 90 fL Normal 80-100 [facility] Comment on above: Performed By: #### C BCA #### [facility] ([facility]) [address] [place] [address] VIR MONOCYTES ABSOLUTE COUNT (10*3/UL) BY AUTOMATED COUNT 0.4 10*3/uL Normal 0.0-0.9 [facility] Comment on above: Performed By: #### C BCA #### [facility] ([facility]) [address] [place] [address] VIR MONOCYTES RELATIVE PERCENT BY AUTOMATED COUNT 5.9 % Normal [facility] Comment on above: Performed By: #### C BCA #### [facility] ([facility]) [address] [place] [address] VIR NEUTROPHILS ABSOLUTE COUNT BY AUTOMATED COUNT 4.6 10*3/uL Normal 1.5-6.6 [facility] Comment on above: Performed By: #### C BCA #### [facility] ([facility]) [address] [place] [address] VIR NEUTROPHILS RELATIVE PERCENT BY AUTOMATED COUNT 69.8 % Normal [facility] Comment on above: Performed By: #### C BCA #### [facility] ([facility]) [address] [place] [address] VIR Platelet mean volume (Bld) [Entitic vol] 9.9 fL Normal 7-12 [facility] Comment on above: Performed By: #### C BCA #### [facility] ([facility]) [address] [place] [address] VIR Platelets (Bld) [#/Vol] 199 10*3/uL Normal 150-450 [facility] Comment on above: Performed By: #### C BCA #### [facility] ([facility]) [address] [place] [address] VIR RBC COUNT 4.36 X10E12/L Normal 4.1-5.7 [facility] Comment on above: Performed By: #### C BCA #### [facility] ([facility]) [address] [place] [address] VIR WBC (Bld) [#/Vol] 6.6 10*3/uL Normal 4-11 [facility] Comment on above: Performed By: #### C BCA #### [facility] ([facility]) [address] [place] [address] VIR HEMOGLOBIN A1Con 10-22-2024 Glucose [Mass/Vol] 169 mg/dL Normal [facility] Comment on above: Performed By: #### B MP #### [facility] ([id number]) [address] [place] [address] HbA1c (Bld) [Mass fraction] 7.5 % High 4.4-5.6 [facility] Comment on above: Result Comment: ADA Guidelines Result HgbA1c Normal : less than 5.7 % Prediabetes : 5.7 % to 6.4 % Diabetes : > 6.4 % Use with caution in patients with abnormal hemoglobin variants as the half-life of red blood cells and in vivo glycation rates are affected. Performed By: #### B MP #### [facility] ([id number]) [address] [place] [address] LIPID PROFILEon 10-22-2024 Cholesterol [Mass/Vol] 120 mg/dL Low 150-200 [facility] Comment on above: Performed By: #### B MP #### [facility] ([id number]) [address] [place] [address] Cholesterol in HDL [Mass/Vol] 41 mg/dL Normal >39 [facility] Comment on above: Result Comment: HDL <40 mg/dL - High Risk HDL > or = 40mg/dL- Desirable HDL >60 mg/dL - Negative Risk Performed By: #### B MP #### [facility] ([id number]) [address] [place] [address] Cholesterol in LDL [Mass/Vol] 49 mg/dL Normal <130 [facility] Comment on above: Result Comment: LDL <100 mg/dL - Desirable LDL >160 mg/dL - High Risk Performed By: #### B MP #### [facility] ([id number]) [address] [place] [address] CHOLESTEROL:HDL 2.9 Normal 1.0-5.0 [facility] Comment on above: Performed By: #### B MP #### [facility] ([id number]) [address] [place] [address] Triglyceride [Mass/Vol] 152 mg/dL High 27-150 [facility] Comment on above: Performed By: #### B MP #### [facility] ([id number]) [address] [place] [address] VERY LOW LIPOPROTEIN 30 mg/dL Normal 0-30 [facility] Comment on above: Performed By: #### B MP #### [facility] ([id number]) [address] [place] [address] LIVER PANELon 10-22-2024 Albumin [Mass/Vol] 4.1 g/dL Normal 3.2-5.3 [facility] Comment on above: Performed By: #### B MP #### [facility] ([id number]) [address] [place] [address] ALP [Catalytic activity/Vol] 60 U/L Normal 39-130 [facility] Comment on above: Performed By: #### B MP #### [facility] ([id number]) [address] [place] [address] ALT [Catalytic activity/Vol] 15 U/L Normal <=40 [facility] Comment on above: Performed By: #### B MP #### [facility] ([id number]) [address] [place] [address] AST [Catalytic activity/Vol] 19 U/L Normal <=41 [facility] Comment on above: Performed By: #### B MP #### [facility] ([id number]) [address], [address] [place] [address] Bilirubin [Mass/Vol] 0.7 mg/dL Normal 0.3-1.2 [facility] Comment on above: Performed By: #### B MP #### [facility] ([id number]) [address], [address] [place] [address] Bilirubin.indirect [Mass/Vol] 0.2 mg/dL Normal <=0.4 [facility] Comment on above: Performed By: #### B MP #### [facility] ([id number]) [address], [address] [place] [address] Protein [Mass/Vol] 6.8 g/dL Normal 6.0-8.0 [facility] Comment on above: Performed By: #### B MP #### [facility] ([id number]) [address], [address] [place] [address] MICROALBUMIN / CREATININE UR INE RATIOon 10-22-2024 Albumin DL <= 20 mg/L (U) [Mass/Vol] 0.8 mg/dL Normal 0.0-1.9 [facility] Comment on above: Performed By: #### B MP #### [facility] ([id number]) [address], [address] [place] [address] MALB/CREAT RATIO 8.5 mg/g Normal 0.0-30.0 [facility] Comment on above: Performed By: #### B MP #### [facility] ([id number]) [address], [address] [place] [address] URINE CREATININE,RDM 94.47 mg/dL Normal [facility] Comment on above: Performed By: #### B MP #### [facility] ([id number]) [address] [address] TSHon 10-22-2024 TSH 1.80 uIU/mL Normal 0.49-4.67 [facility] Comment on above: Performed By: #### B MP #### [facility] ([id number]) [facility] [address] [address] HGB A1C (GLYCO-HGB)on 2024 Glucose [Mass/Vol] 166 mg/dL Normal [facility] Comment on above: Performed By: #### H A1C #### [facility] ([id number]) [facility] [address] [address] HbA1c (Bld) [Mass fraction] 7.4 % High 4.4-5.6 [facility] Comment on above: Result Comment: NOTE ADA Guidelines Result HgbA1c Normal : less than 5.7 % Prediabetes : 5.7 % to 6.4 % Diabetes : > 6.4 % Use with caution in patients with abnormal hemoglobin variants as the half-life of red blood cells and in vivo glycation rates are affected. Performed By: #### H A1C #### [facility] ([id number]) [address] [address] HbA1c (Bld) [Mass fraction]o n 06-18-2024 Average glucose Estimated from glycated hemoglobin (Bld) [Mass/Vol] 166 mg/dL [facility] Comment on above: PERFORMED AT [address] [address] Interpretation and review of laboratory results Abnormal [facility] Hemoglobin A1con 06-18-2024 HbA1c (Bld) [Mass fraction] 7.4 % High 4.4 - 5.6 % [facility] Comment on above: NOTE ADA Guidelines Result HgbA1c Normal : less than 5.7 % Prediabetes : 5.7 % to 6.4 % Diabetes : > 6.4 % Use with caution in patients with abnormal hemoglobin variants as the half-life of red blood cells and in vivo glycation rates are affected. Prostate specific Ag [Mass/V ol]on 03-22-2024 PROSTATIC SPEC ANT 0.10 ng/mL Normal 0.00-4.00 [facility] Comment on above: Result Comment: The method used for this test is Silvana Corous360 DXI chemiluminescent immunoassay. Values obtained by different assay methods cannot be used interchangeably. Performed By: #### 2 857-1 #### [facility] ([id number]) [address] [place] [address] [address] [place] [address] Surgical Pathologyon 024 Surgical Pathology Normal [facility] Comment on above: Result Comment: [facility] [address] [place] [address] Surgical Pathology Consultation Patient Name:MELECIO JACKSON:1935 (Age: 89)Gender:MTaken:02/26/2024eported:03/01/2024hysician(s):Nimisha Ricketts M.D. ([phone])Copy To: Rec. #:[id number]: #[id number] Final Pathologic Diagnosis Right hydrocele sac; hydrocelectomy: Membranous fibrovascular tissue consistent with hydrocele sac, with portion of epididymis. Report Electronically Signed Out wahugo/03/01/2024Edmund Card MD [place] [address], License number: [id number]. 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 Gross Description Received in formalin labeled, BRUCE, right hydrocele sac are 3 durant-galo portions of membranous tissue 2.5 x 2 x 0.4 cm, 3.5 x 1.7 x 0.4 cm, and 6.5 x 3 x 0.2 cm. The portions are each serially sectioned and exhibits a durant-galo uniform grossly unremarkable cut surface. Chief Of Surgery sections are submitted in a single cassette. (1, ss, [id number], m1) [facility]/02/27/2024GR Specimen(s) Received Right hydrocele sac Fee Codes(s): 1; 39373 Bacteria identified Cx Nom ( U)on 02-15-2024 Service comment (Unsp spec) [Interp] <10,000 ORGANISMS/ML NORMAL URO GENITAL VLAD [facility] BASIC METABOLIC PANLon 02-13 Anion gap [Moles/Vol] 11 mmol/L Normal 5-15 [facility] Comment on above: Performed By: #### B MP #### [facility] ([id number]) [address] [place] [address] Calcium [Mass/Vol] 9.4 mg/dL Normal 8.5-10.5 [facility] Comment on above: Performed By: #### B MP #### [facility] ([id number]) [address] [place] [address] Chloride [Moles/Vol] 100 mmol/L Normal 98-109 [facility] Comment on above: Performed By: #### B MP #### [facility] ([id number]) [address] [place] [address] CO2 [Moles/Vol] 28 mmol/L Normal 22-32 [facility] Comment on above: Performed By: #### B MP #### [facility] ([id number]) [address] [place] [address] Creatinine [Mass/Vol] 1.60 mg/dL High 0.60-1.30 [facility] Comment on above: Result Comment: METH OD TRACEABLE TO IDMS STANDARD Performed By: #### B MP #### [facility] ([id number]) [address] [place] [address] GFR/1.73 sq M.predicted among non-blacks MDRD (S/P/Bld) [Vol rate/Area] 41 mL/min/{1.73_m2} Low >59 [facility] Comment on above: Result Comment: Reported eGFR is based on the CKD-EPI 2020 equation that does not use a race coefficient. Performed By: #### B MP #### [facility] ([id number]) [address] [place] [address] Glucose [Mass/Vol] 155 mg/dL High 65-99 [facility] Comment on above: Performed By: #### B MP #### [facility] ([id number]) [address] [address] [place] [address] Potassium [Moles/Vol] 4.0 mmol/L Normal 3.5-5.0 [facility] Comment on above: Performed By: #### B MP #### [facility] ([id number]) [address] [address] [place] [address] Sodium [Moles/Vol] 139 mmol/L Normal 134-146 [facility] Comment on above: Performed By: #### B MP #### [facility] ([id number]) [address] [address] [place] [address] Urea nitrogen [Mass/Vol] 27 mg/dL Normal 5-27 [facility] Comment on above: Performed By: #### B MP #### [facility] ([id number]) [address] [address] [place] [address] Basic Metabolic Panelon 10- Anion gap [Moles/Vol] 11 mmol/L 5 - 15 mmol/L [facility] Calcium [Mass/Vol] 9.4 mg/dL 8.5 - 10. 5 mg/dL [facility] Chloride [Moles/Vol] 100 mmol/L 98 - 109 mmol/L [facility] CO2 [Moles/Vol] 28 mmol/L 22 - 32 mmol/L [facility] Creatinine [Mass/Vol] 1.6 mg/dL High 0.60 - 1.30 mg/dL [facility] Comment on above: METHOD TRACEABLE TO [facility] STANDARD eGFR (CKD-EPI)non-race dependent 41 Low - PINF [facility] Comment on above: Reported eGFR is based on the CKD-EPI 2020 equation that does not use a race coefficient. Glucose [Mass/Vol] 155 mg/dL High 65 - 99 mg/dL [facility] Interpretation and review of laboratory results Abnormal [facility] Potassium [Moles/Vol] 4 mmol/L 3.5 - 5.0 mmol/L [facility] Sodium [Moles/Vol] 139 mmol/L 134 - 146 mmol/L [facility] Urea nitrogen [Mass/Vol] 27 mg/dL 5 - 27 mg/dL [facility] URINALYSISon 02-14-2024 Bilirubin Ql (U) Negative Normal NEG [facility] Comment on above: Performed By: #### U A #### [facility] ([id number]) [address] [place] [address] BLOOD/HGB Negative Normal NEG [facility] Comment on above: Performed By: #### U A #### [facility] ([id number]) [address] [place] [address] Color (U) YELLOW Normal YELLOW [facility] Comment on above: Performed By: #### U A #### [facility] ([id number]) [address] [place] [address] Glucose Ql (U) Negative Normal NEG [facility] Comment on above: Performed By: #### U A #### [facility] ([id number]) [address] [place] [address] Ketones Ql (U) Negative Normal NEG [facility] Comment on above: Performed By: #### U A #### [facility] ([id number]) [address] [place] [address] Leukocyte esterase Test strip Ql (U) Negative Normal NEG [facility] Comment on above: Performed By: #### U A #### [facility] ([id number]) [address] [place] [address] Nitrite Ql (U) Negative Normal NEG [facility] Comment on above: Performed By: #### U A #### [facility] ([id number]) [address] [place] [address] pH (U) 6.0 [pH] Normal 5.0-8.5 [facility] Comment on above: Performed By: #### U A #### [facility] ([id number]) [address] [place] [address] Protein Ql (U) Negative Normal NEG [facility] Comment on above: Performed By: #### U A #### [facility] ([id number]) [address] [place] [address] Specific gravity (U) [Rel density] 1.016 Normal 1.003-1.035 [facility] Comment on above: Performed By: #### U A #### [facility] ([id number]) [address] [place] [address] TURBIDITY CLEAR Normal CLEAR [facility] Comment on above: Performed By: #### U A #### [facility] ([id number]) [address] [place] [address] Urobilinogen (U) [Mass/Vol] mg/dL Normal <1.1 [facility] Comment on above: Performed By: #### U A #### [facility] ([id number]) [address] [place] [address] URINE CULTUREon 02-14-2024 Bacteria identified Cx Nom (U) CULTURE RESULTS <10,000 ORGANISMS/ML NORMAL URO GENITAL VLAD Normal [facility] Comment on above: Performed By: #### 6 30-4 #### [facility] ([id number]) [address] [place] [address] Urinalysison 02-14-2024 Bilirubin Ql (U) Negative Negative^Ne ga tive [facility] Color (U) YELLOW YELLOW^YELLOW [facility] Glucose (U) [Mass/Vol] Negative Negative^Nega tive mg/dL [facility] Hemoglobin Auto test strip Ql (U) Negative Negative^Nega tive [facility] Ketones (U) [Mass/Vol] Negative Negative^Nega tive mg/dL [facility] Leukocyte esterase Auto test strip Ql (U) Negative Negative^Nega tive [facility] Nitrite Auto test strip Ql (U) Negative Negative^Nega tive [facility] pH (U) 6 [pH] 5.0 - 8.5 [facility] Protein (U) [Mass/Vol] Negative Negative^Nega tive mg/dL [facility] Specific gravity Refractometry automated (U) [Rel density] 1.016 1.003 - 1.035 [facility] Turbidity Ql (U) CLEAR CLEAR^CLEAR [facility] Urobilinogen Qn (U) NINF [facility] POCT EKGon 02-09-2024 [facility] BASIC METABOLIC PANLon 12-19 Anion gap [Moles/Vol] 12 mmol/L Normal 5-15 [facility] Comment on above: Performed By: #### B MP #### [facility] ([id number]) [address] [place] [address] Calcium [Mass/Vol] 9.6 mg/dL Normal 8.5-10.5 [facility] Comment on above: Performed By: #### B MP #### [facility] ([id number]) [address] [place] [address] Chloride [Moles/Vol] 103 mmol/L Normal 98-109 [facility] Comment on above: Performed By: #### B MP #### [facility] ([id number]) [address] [place] [address] CO2 [Moles/Vol] 26 mmol/L Normal 22-32 [facility] Comment on above: Performed By: #### B MP #### [facility] ([id number]) [address] [place] [address] Creatinine [Mass/Vol] 1.51 mg/dL High 0.60-1.30 [facility] Comment on above: Result Comment: METH OD TRACEABLE TO IDMS STANDARD Performed By: #### B MP #### [facility] ([id number]) [address] [place] [address] GFR/1.73 sq M.predicted among non-blacks MDRD (S/P/Bld) [Vol rate/Area] 44 mL/min/{1.73_m2} Low >59 [facility] Comment on above: Result Comment: Reported eGFR is based on the CKD-EPI 2020 equation that does not use a race coefficient. Performed By: #### B MP #### [facility] ([id number]) [address] [place] [address] Glucose [Mass/Vol] 141 mg/dL High 65-99 [facility] Comment on above: Performed By: #### B MP #### [facility] ([id number]) [address] [address] [place] [address] Potassium [Moles/Vol] 4.3 mmol/L Normal 3.5-5.0 [facility] Comment on above: Performed By: #### B MP #### [facility] ([id number]) [address] [place] [address] Sodium [Moles/Vol] 141 mmol/L Normal 134-146 [facility] Comment on above: Performed By: #### B MP #### [facility] ([id number]) [address] [place] [address] Urea nitrogen [Mass/Vol] 22 mg/dL Normal 5-27 [facility] Comment on above: Performed By: #### B MP #### [facility] ([id number]) [address] [place] [address] Basic Metabolic Panelon 11-30 Anion gap [Moles/Vol] 12 mmol/L 5 - 15 mmol/L [facility] Calcium [Mass/Vol] 9.6 mg/dL 8.5 - 10. 5 mg/dL [facility] Chloride [Moles/Vol] 103 mmol/L 98 - 109 mmol/L [facility] CO2 [Moles/Vol] 26 mmol/L 22 - 32 mmol/L [facility] Creatinine [Mass/Vol] 1.51 mg/dL High 0.60 - 1.30 mg/dL [facility] Comment on above: METHOD TRACEABLE TO [facility] STANDARD eGFR (CKD-EPI)non-race dependent 44 Low - PINF [facility] Comment on above: Reported eGFR is based on the CKD-EPI 2020 equation that does not use a race coefficient. Glucose [Mass/Vol] 141 mg/dL High 65 - 99 mg/dL [facility] Interpretation and review of laboratory results Abnormal [facility] Potassium [Moles/Vol] 4.3 mmol/L 3.5 - 5.0 mmol/L [facility] Sodium [Moles/Vol] 141 mmol/L 134 - 146 mmol/L [facility] Urea nitrogen [Mass/Vol] 22 mg/dL 5 - 27 mg/dL [facility] ECG 12 leadon 12-20-2023 TRACEMASTERVUE [facility] URINALYSISon 12-20-2023 Bilirubin Ql (U) Negative Normal NEG [facility] Comment on above: Performed By: #### U A #### [facility] ([id number]) [address] [place] [address] BLOOD/HGB Negative Normal NEG [facility] [facility] Comment on above: Performed By: #### U A #### [facility] ([id number]) [address], [address] [place] [address] Color (U) YELLOW Normal YELLOW [facility] Comment on above: Performed By: #### U A #### [facility] ([id number]) [address] [place] [address] Glucose Ql (U) Negative Normal NEG [facility] Comment on above: Performed By: #### U A #### [facility] ([id number]) [address] [place] [address] Ketones Ql (U) Negative Normal NEG [facility] Comment on above: Performed By: #### U A #### [facility] ([id number]) [address], [address] [place] [address] Leukocyte esterase Test strip Ql (U) Negative Normal NEG [facility] Comment on above: Performed By: #### U A #### [facility] ([id number]) [address] [place] [address] Nitrite Ql (U) Negative Normal NEG [facility] Comment on above: Performed By: #### U A #### [facility] ([id number]) [address] [place] [address] pH (U) 5.5 [pH] Normal 5.0-8.5 [facility] Comment on above: Performed By: #### U A #### [facility] ([id number]) [address] [place] [address] Protein Ql (U) Negative Normal NEG [facility] Comment on above: Performed By: #### U A #### [facility] ([id number]) [address] [place] [address] Specific gravity (U) [Rel density] 1.015 Normal 1.003-1.035 [facility] Comment on above: Performed By: #### U A #### [facility] ([id number]) [address], [facility] [address] [place] [address] TURBIDITY CLEAR Normal CLEAR [facility] Comment on above: Performed By: #### U A #### [facility] ([id number]) [address] [place] [address] Urobilinogen (U) [Mass/Vol] mg/dL Normal <1.1 [facility] Comment on above: Performed By: #### U A #### [facility] ([id number]) [address], [facility] [address] [place] [address] URINE CULTUREon 12-20-2023 Bacteria identified Cx Nom (U) CULTURE RESULTS NO GROWTH AT <1000 CFU/mL Normal [facility] Comment on above: Performed By: #### 6 30-4 #### [facility] ([id number]) [address] [place] [address] GLYCOHEMOGLOBIN A1Con 2021 ADA RECOMMENDATION SEE BELOW Normal [facility] Comment on above: Result Comment: ADA RECOMMENDED LIMIT 4.0 - 6.0 ADA THERAPEUTIC TARGET < 7.0 ACTION SUGGESTED > 7.0 Performed By: #### A 1C #### [facility] [address] [place] [address] Dr. Linda Treviño Glucose [Mass/Vol] 177 mg/dL Normal [facility] Comment on above: Performed By: #### A 1C #### [facility] [address] [address] [address] Linda Treviño HbA1c (Bld) [Mass fraction] 7.8 % Critically high 4.5-6.2 [facility] Comment on above: Performed By: #### A 1C #### [facility] [address] [address] [address] Linda Treviño LIPID PROFILEon 09-29-2021 CHOL-HDL RATIO NORM SEE BELOW Normal [facility] Comment on above: Result Comment: 3.3 - 4.4 LOW RISK 4.4 - 7.1 AVERAGE RISK 7.1 - 11.0 MODERATE RISK >11.0 HIGH RISK Performed By: #### T SH, LIPID #### [facility] [address] [place], [place] [address] Dr. Linda Treviño Cholesterol [Mass/Vol] 116 mg/dL Normal <=200 [facility] Comment on above: Performed By: #### T SH, LIPID #### [facility] [address] [address] [address] Linda Treviño Cholesterol in HDL [Mass/Vol] 42 mg/dL Normal 40-60 [facility] Comment on above: Performed By: #### T SH, LIPID #### [facility] [address] [place], [place] [address] Dr. Linda Treviño Cholesterol in LDL [Mass/Vol] 52.4 mg/dL Normal [facility] Comment on above: Performed By: #### T SH, LIPID #### [facility] [address] [place], [place] [address] Dr. Linda Treviño Cholesterol.total/C holesterol in HDL [Mass ratio] 2.8 {ratio} Normal [facility] Comment on above: Performed By: #### T SH, LIPID #### [facility] [address] [place], [place] [address] Dr. Linda Treviño HDL NORMAL > or = 60 mg/dl - LOW CARDIOVASCULAR RISK <40 mg/dl - HIGH CARDIOVASCULAR RISK Normal [facility] Comment on above: Performed By: #### T SH, LIPID #### [facility] [address] [place], [place] [address] Dr. Linda Treviño LDL CALC NORMAL SEE BELOW Normal [facility] Comment on above: Result Comment: <100 mg/dl OPTIMAL 100 - 129 mg/dl NEAR OR ABOVE OPTIMAL 130 - 159 mg/dl BORDERLINE HIGH 160 - 189 mg/dl HIGH >190 mg/dl VERY HIGH Performed By: #### T SH, LIPID #### [facility] [address] [place] [address] Dr. Linda Treviño Triglyceride [Mass/Vol] 108 mg/dL Normal <=150 [facility] Comment on above: Performed By: #### T SH, LIPID #### [facility] [address] [place] [address] Dr. Linda Treviño VLDL CALC 21.6 mg/dL Normal [facility] Comment on above: Performed By: #### T SH, LIPID #### [facility] [address] [place] [address] Dr. Linda Treviño MICROALBUMIN, RAND URon 06-0 mALB 4.5 mg/L Normal <=30.0 [facility] Comment on above: Performed By: #### M ALBR #### [facility] [address] [place] [address] Dr. Linda Treviño TSHon 09-29-2021 TSH 1.174 uIU/mL Normal 0.358-3.740 [facility] Comment on above: Performed By: #### T SH, LIPID #### [facility] [address] [place] [address] Dr. Linda Treviño TSH RANGE SEE BELOW Normal [facility] Comment on above: Result Comment: <0.3 4 UIU/ml HYPERTHYROID 0.34-5.60 UIU/ml EUTHYROID >5.60 UIU/ml HYPOTHYROID Performed By: #### T SH, LIPID #### [facility] [address] [place] [address] Dr. Linda Treviño VITAMIN D 25 OHon 09-29-2021 VIT D 25-OH 63.6 ng/mL Normal [facility] Comment on above: Performed By: #### V ITAD #### [facility] [address] [place] [address] Dr. Linda Treviño VIT D RANGES SEE BELOW Normal [facility] Comment on above: Result Comment: <20 ng/mL Vit D deficient 20 - <30 ng/mL Vit D insufficient 30 - 100 ng/mL Vit D sufficient >100 ng/mL Potential Toxicity Performed By: #### V ITAD #### [facility] [address] [place] [address] Dr. Linda Treviño AMYLASEon 09-28-2021 Amylase [Catalytic activity/Vol] 40 U/L Normal 25-115 [facility] Comment on above: Performed By: #### L IPA, JAXSON, CMP #### [facility] [address] [place] [address] Dr. Linda Treviño CBC AUTO DIFFon 09-28-2021 BASO # 0.0 103/ul Normal 0.0-0.1 [facility] Comment on above: Performed By: #### C BC ####[facility] [address] [address]DrAron Treviño Basophils/100 WBC (Bld) 0.4 % Normal 0.2-2.0 [facility] Comment on above: Performed By: #### C BC ####[facility] [address] [place], [place] [address]DrAron Treviño EO # 0.2 103/ul Normal 0.0-0.7 [facility] Comment on above: Performed By: #### C BC ####[facility] [address] [address]DrAron Treviño Eosinophils/100 WBC (Bld) 1.8 % Normal 0.9-7.0 [facility] Comment on above: Performed By: #### C BC ####[facility] [address] [address]DrAron Treviño Erythrocyte distribution width (RBC) [Ratio] 12.9 % Normal 11.0-15.0 [facility] Comment on above: Performed By: #### C BC ####[facility] [address] [address]DrAron Treviño Hematocrit (Bld) [Volume fraction] 43.0 % Normal 42.0-54.0 [facility] Comment on above: Performed By: #### C BC ####[facility] [address] [address]Dr. Linda Treviño Hemoglobin (Bld) [Mass/Vol] 14.4 g/dL Normal 14.0-18.0 [facility] Comment on above: Performed By: #### C BC ####[facility] [address] [address]Dr. Linda Treviño IG # 0.04 10e3/ul Critically high 0.00-0.03 [facility] Comment on above: Performed By: #### C BC ####[facility] [address] [address]Dr. Linda Treviño IG % 0.5 % Normal 0.0-0.5 [facility] Comment on above: Performed By: #### C BC ####[facility] [address] [address]Dr. Linda Treviño LYMPH # 1.0 103/ul Critically low 1.2-3.8 [facility] Comment on above: Performed By: #### C BC ####[facility] [address] [address]Dr. Linda Treviño Lymphocytes/100 WBC (Bld) 12.3 % Critically low 20.5-60.0 [facility] Comment on above: Performed By: #### C BC ####[facility] [address] [address]Dr. Linda Treviño MANUAL DIFF REQ NO Normal [facility] Comment on above: Performed By: #### C BC ####[facility] [address] [address]Dr. Linda Treviño MCH (RBC) [Entitic mass] 30.1 pg Normal 25.9-34.0 [facility] Comment on above: Performed By: #### C BC ####[facility] [address] [place], [place] [address]Dr. Linda Treviño MCHC (RBC) [Mass/Vol] 33.5 g/dL Normal 29.9-35.2 [facility] Comment on above: Performed By: #### C BC ####[facility] [address] [address]Dr. Linda Treviño MCV (RBC) [Entitic vol] 90.0 fL Normal 80.0-94.0 [facility] Comment on above: Performed By: #### C BC ####[facility] [address] [address]Dr. Linda Treviño MONO # 0.3 103/ul Normal 0.3-0.8 [facility] Comment on above: Performed By: #### C BC ####[facility] [address] [address]Dr. Linda Treviño Monocytes/100 WBC (Bld) 3.9 % Normal 1.7-12.0 [facility] Comment on above: Performed By: #### C BC ####[facility] [address] [address]Dr. Linda Treviño NEUT # 6.6 103/ul Critically high 1.4-6.5 [facility] Comment on above: Performed By: #### C BC ####[facility] [address] [place], [place] [address]Dr. Linda Treviño Neutrophils/100 WBC (Bld) 81.1 % Critically high 43.0-75.0 [facility] Comment on above: Performed By: #### C BC ####[facility] [address] [place], [place] [address]Dr. Linda Treviño Platelet mean volume (Bld) [Entitic vol] 10.9 fL Normal 9.5-13.5 [facility] Comment on above: Performed By: #### C BC ####[facility] [address] [place], [place] [address]Dr. Linda Hudson PLT 232 103/ul Normal 150-450 [facility] Comment on above: Performed By: #### C BC ####[facility] [address] [place], [place] [address]Dr. Linda Hudson RBC 4.78 106/ul Normal 4.70-6.10 [facility] Comment on above: Performed By: #### C BC ####[facility] [address] [place], [place] [address]DrAron Treviño WBC 8.1 103/ul Normal 4.0-11.0 [facility] Comment on above: Performed By: #### C BC ####[facility] [address] [place], [place] [address]Ov[address] Tre[address]ño CT ABD/PELVIS WO CONon 09-28 CT [...] MELECIO RAMIREZ Date: 2021-09-28 11:27 Normal [facility] LIPASEon 09-28-2021 Lipase [Catalytic activity/Vol] 72.0 U/L Critically low 73.0-393.0 [facility] Comment on above: Performed By: #### L IPA, JAXSON, CMP #### [facility] [address] [address] [address] Linda Treviño PROF 14(COMP METB)on 022 Albumin [Mass/Vol] 4.1 g/dL Normal 3.4-5.[address] [facility] Comment on above: Performed By: #### L IPA, JAXSON, CMP #### [facility] [address] [address] [address] Linda Treviño Albumin/Globulin [Mass ratio] 1.1 {ratio} Normal [facility] Comment on above: Performed By: #### L IPA, JAXSON, CMP #### [facility] [address] [address] [address] Linda Treviño ALP [Catalytic activity/Vol] 56 U/L Normal 46-116 [facility] Comment on above: Performed By: #### L IPA, JAXSON, CMP #### [facility] [address] [address] [address] Linda Treviño ALT [Catalytic activity/Vol] 33 U/L Normal 16-63 [facility] Comment on above: Performed By: #### L IPA, JAXSON, CMP #### [facility] [address] [address] [address] Linda Treviño Anion gap [Moles/Vol] 12.2 mmol/L Normal [facility] Comment on above: Performed By: #### L IPA, JAXSON, CMP #### [facility] [address] [address] [address] Linda Treviño AST [Catalytic activity/Vol] 22 U/L Normal 15-37 [facility] Comment on above: Performed By: #### L IPA, JAXSON, CMP #### [facility] [address] [address] [address] Linda Treviño Bilirubin [Mass/Vol] 0.7 mg/dL Normal 0.2-1.0 [facility] Comment on above: Performed By: #### L IPA, JAXSON, CMP #### [facility] [address] [address] [address] Linda Treviño Calcium [Mass/Vol] 9.4 mg/dL Normal 8.5-10.[address] [facility] Comment on above: Performed By: #### L IPA JAXSON, CMP #### [facility] [address] [address] [address] Linda Treviño Chloride [Moles/Vol] 102 mmol/L Normal 98-107 [facility] Comment on above: Performed By: #### L IPA JAXSON, CMP #### [facility] [address] [place] [address] Dr. Linda Treviño CO2 [Moles/Vol] 25.7 mmol/L Normal 21.0-32.0 [facility] Comment on above: Performed By: #### L IPA JAXSON, CMP #### [facility] [address] [place] [address] Dr. Linda Treviño Creatinine [Mass/Vol] 1.74 mg/dL Critically high 0.70-1.30 [facility] Comment on above: Performed By: #### L OSCAR JAXSON, CMP #### [facility] [address] [place] [address] Dr. Linda Treviño EGFR-AF VINCENTIAN 45 mL/min/1.73m2 Critically low >=60 [facility] Comment on above: Performed By: #### L JAXSON MOORE, CMP #### [facility] [address] [place] [address] Dr. Linda Treviño EGFR-NON AF VINCENTIAN 37 mL/min/1.73m2 Critically low >=60 [facility] Comment on above: Performed By: #### L OSCAR JAXSON, CMP #### [facility] [address] [place] [address] Dr. Linda Treviño Globulin (S) [Mass/Vol] 3.7 g/dL Normal [facility] Comment on above: Performed By: #### L IPA JAXSON, CMP #### [facility] [address] [place] [address] Dr. Linda Treviño Glucose [Mass/Vol] 225 mg/dL Critically high 74-106 T [facility] Comment on above: Performed By: #### L IPA JAXSON, CMP #### [facility] [address] [place] [address] Dr. Linda Treviño Potassium [Moles/Vol] 3.9 mmol/L Normal 3.5-5.1 [facility] Comment on above: Performed By: #### L JAXSON MOORE, CMP #### [facility] [address] [address] [address] Linda Treviño Protein [Mass/Vol] 7.8 g/dL Normal 6.4-8.[address] [facility] Comment on above: Performed By: #### L JAXSON MOORE, CMP #### [facility] [address] [address] [address] Linda Treviño Sodium [Moles/Vol] 136 mmol/L Normal 136-[address] [facility] Comment on above: Performed By: #### L JAXSON MOORE, CMP #### [facility] [address] [address] [address] Linda Treviño Urea nitrogen [Mass/Vol] 30.0 mg/dL Critically high 7.0-18.0 [facility] Comment on above: Performed By: #### L JAXSON MOORE, CMP #### [facility] [address] [address] [address] Linda Treviño Urea nitrogen/Creatinine [Mass ratio] 17.2 mg/mg Normal [facility] Comment on above: Performed By: #### L JAXSON MOORE, CMP #### [facility] [address] [place] [address] Dr. Linda Treviño Superficial Wound Cultureon 05-18-2021 Superficial Wound Culture LEG AND TRUNK, IMPETIGO No Growth 2 Days PERFORMED BY: [place] [address] PATHOLOGIST SALES OFFICER EMILEE ROD M.D. Normal [facility] Comment on above: Performed By: #### C USUP #### [address] US EXT NON VASC LIMITED LTon 05-17-2021 [...] MELECIO RAMIREZ Date: 2021-05-17 11:01 Normal [facility] GLYCOHEMOGLOBIN A1Con 2020 ADA RECOMMENDATION ADA THERAPEUTIC TARGET 6.0 - 7.0 ACTION SUGGESTED > 7.0 Normal [facility] Comment on above: Performed By: #### A 1C ####[facility] [address] [place] [address]Dr. Linda Treviño Glucose [Mass/Vol] 174 mg/dL Normal [facility] Comment on above: Performed By: #### A 1C ####[facility] [address] [place] [address]Dr. Linda Treviño HbA1c (Bld) [Mass fraction] 7.7 % Critically high <=6.0 [facility] Comment on above: Performed By: #### A 1C ####[facility] [address] [place] [address]Dr. Linda Treviño Vital Signs Date Time Vital Sign Value Performing Clinician Facility 11-18-2024 08:50-0400 Body height 172.72 cm Dillon Meade MD Work Phone: [facility] 11-18-2024 08:50-0400 Body mass index (BMI) [Ratio] 29.9 kg/m2 Dillon Meade MD Work Phone: [facility] 11-18-2024 08:50-0400 Body weight 89.52 kg Dillon Meade MD Work Phone: [facility] 11-18-2024 08:50-0400 Diastolic blood pressure 85 mm[Hg] Dillon Meade MD Work Phone: [facility] 11-18-2024 08:50-0400 Heart rate 72 /min Dillon Meade MD Work Phone: [facility] 11-18-2024 08:50-0400 Respiratory rate 16 /min Dillon Meade MD Work Phone: [facility] 11-18-2024 08:50-0400 SaO2% (BldA) [Mass fraction] 96 % Dillon Meade MD Work Phone: [facility] 11-18-2024 08:50-0400 Systolic blood pressure 127 mm[Hg] Dillon Meade MD Work Phone: [facility] 10-09-2024 10:08-0400 Body height 172.7 cm Dillon Meade MD Work Phone: [facility] 10-09-2024 10:08-0400 Body mass index (BMI) [Ratio] 30.56 kg/m2 Dillon Meade MD Work Phone: [facility] 10-09-2024 10:08-0400 Body temperature 97.11 [degF] Dillon Meade MD Work Phone: [facility] 10-09-2024 10:08-0400 Body weight 91.17 kg Dillon Meade MD Work Phone: [facility] 10-09-2024 10:08-0400 Diastolic blood pressure 54 mm[Hg] Dillon Meade MD Work Phone: [facility] 10-09-2024 10:08-0400 Heart rate 83 /min Dillon Meade MD Work Phone: [facility] 10-09-2024 10:08-0400 Respiratory rate 18 /min Dillon Meade MD Work Phone: [facility] 10-09-2024 10:08-0400 SaO2% (BldA) [Mass fraction] 97 % Dillon Meade MD Work Phone: [facility] 10-09-2024 10:08-0400 Systolic blood pressure 92 mm[Hg] Dillon Meade MD Work Phone: [facility] 07-09-2024 13:58-0400 Body height 172.7 cm Dillon Meade MD Work Phone: [facility] 03-11-2025 13:58-0400 Body mass index (BMI) [Ratio] 30.41 kg/m2 Dillon Meade MD Work Phone: [facility] 07-09-2024 13:58-0400 Body temperature 97.11 [degF] Dillon Meade MD Work Phone: [facility] 07-09-2024 13:58-0400 Body weight 90.72 kg Dillon Meade MD Work Phone: [facility] 07-09-2024 13:58-0400 Diastolic blood pressure 92 mm[Hg] Dillon Meade MD Work Phone: [facility] 07-09-2024 13:58-0400 Heart rate 80 /min Dillon Meade MD Work Phone: [facility] 07-09-2024 13:58-0400 Respiratory rate 18 /min Dillon Meade MD Work Phone: [facility] 07-09-2024 13:58-0400 SaO2% (BldA) [Mass fraction] 97 % Dillon Meade MD Work Phone: [facility] 07-09-2024 13:58-0400 Systolic blood pressure 140 mm[Hg] Dillon Meade MD Work Phone: [facility] 06-17-2024 13:28-0500 Body height 172.7 cm Dillon Meade MD Work Phone: [facility] 06-17-2024 13:28-0500 Body mass index (BMI) [Ratio] 31.02 kg/m2 Dillon Meade MD Work Phone: [facility] 06-17-2024 13:28-0500 Body temperature 97.11 [degF] Dillon Meade MD Work Phone: [facility] 06-17-2024 13:28-0500 Body weight 92.53 kg Dillon Meade MD Work Phone: [facility] 06-17-2024 13:28-0500 Diastolic blood pressure 56 mm[Hg] Dillon Meade MD Work Phone: [facility] 06-17-2024 13:28-0500 Heart rate 84 /min Dillon Meade MD Work Phone: [facility] 06-17-2024 13:28-0500 Respiratory rate 18 /min Dillon Meade MD Work Phone: [facility] 06-17-2024 13:28-0500 SaO2% (BldA) [Mass fraction] 97 % Dillon Meade MD Work Phone: [facility] 06-17-2024 13:28-0500 Systolic blood pressure 104 mm[Hg] Dillon Meade MD Work Phone: [facility] 04-05-2024 09:10-0500 Body height 172.7 cm Dillon Meade MD Work Phone: [facility] 04-05-2024 09:10-0500 Body mass index (BMI) [Ratio] 29.65 kg/m2 Dillon Meade MD Work Phone: [facility] 04-05-2024 09:10-0500 Body temperature 97.11 [degF] Dillon Meade MD Work Phone: [facility] 04-05-2024 09:10-0500 Body weight 88.45 kg Dillon Meade MD Work Phone: [facility] 04-05-2024 09:10-0500 Diastolic blood pressure 62 mm[Hg] Dillon Meade MD Work Phone: [facility] 04-05-2024 09:10-0500 Heart rate 71 /min Dillon Meade MD Work Phone: [facility] 04-05-2024 09:10-0500 Respiratory rate 18 /min Dillon Meade MD Work Phone: [facility] 04-05-2024 09:10-0500 SaO2% (BldA) [Mass fraction] 99 % Dillon Meade MD Work Phone: [facility] 04-05-2024 09:10-0500 Systolic blood pressure 118 mm[Hg] Dillon Meade MD Work Phone: [facility] 03-25-2024 13:05-0500 Body height 170.2 cm Nimisha Ricketts MD Work Phone: [facility] 03-25-2024 13:05-0500 Body mass index (BMI) [Ratio] 31.95 kg/m2 Nimisha Ricketts MD Work Phone: [facility] 03-25-2024 13:05-0500 Body weight 92.53 kg Nimisha Ricketts MD Work Phone: [facility] 03-25-2024 13:05-0500 Diastolic blood pressure 80 mm[Hg] Nimisha Ricketts MD Work Phone: [facility] 03-25-2024 13:05-0500 Heart rate 46 /min Nimisha Ricketts MD Work Phone: [facility] 03-25-2024 13:05-0500 Systolic blood pressure 113 mm[Hg] Nimisha Ricketts MD Work Phone: [facility] 03-05-2024 11:32-0500 Body height 170.2 cm 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 Work Phone: [facility] 03-05-2024 11:32-0500 Body mass index (BMI) [Ratio] 31.94 kg/m2 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 Work Phone: [facility] 03-05-2024 11:32-0500 Body weight 92.53 kg 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 Work Phone: [facility] 03-05-2024 11:32-0500 Diastolic blood pressure 71 mm[Hg] 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 Work Phone: [facility] 03-05-2024 11:32-0500 Heart rate 87 /min 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 Work Phone: [facility] 03-05-2024 11:32-0500 Systolic blood pressure 116 mm[Hg] 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 OSMAR Work Phone: [facility] 02-23-2024 09:22-0400 Body height 170.2 cm Abisai Katz MD Work Phone: [facility] 02-23-2024 09:22-0400 Body mass index (BMI) [Ratio] 31.98 kg/m2 Abisai Katz MD Work Phone: [facility] 02-23-2024 09:22-0400 Body weight 92.63 kg Abisai Katz MD Work Phone: [facility] 02-23-2024 09:22-0400 Diastolic blood pressure 96 mm[Hg] Abisai Katz MD Work Phone: [facility] 02-23-2024 09:22-0400 Heart rate 70 /min Abisai Katz MD Work Phone: [facility] 02-23-2024 09:22-0400 SaO2% (BldA) [Mass fraction] 99 % Abisai Katz MD Work Phone: [facility] 02-23-2024 09:22-0400 Systolic blood pressure 140 mm[Hg] Abisai Katz MD Work Phone: [facility] 02-14-2024 08:52-0400 Body height 170.2 cm P[facility] 1 [facility] 02-14-2024 08:52-0400 Body mass index (BMI) [Ratio] 32.11 kg/m2 P[facility] 1 [facility] 02-14-2024 08:52-0400 Body weight 92.99 kg Pmh 1 [facility] 02-09-2024 13:32-0400 Heart rate 90 /min Joseline Oleary MD Work Phone: [facility] 02-09-2024 13:32-0400 SaO2% (BldA) [Mass fraction] 98 % Joseline Oleary MD Work Phone: [facility] 02-09-2024 13:23-0400 Body height 172.7 cm Joseline Oleary MD Work Phone: [facility] 02-09-2024 13:23-0400 Body mass index (BMI) [Ratio] 31.18 kg/m2 Joseline Oleary MD Work Phone: [facility] 02-09-2024 13:23-0400 Body weight 92.99 kg Joseline Oleary MD Work Phone: [facility] 02-09-2024 13:23-0400 Diastolic blood pressure 82 mm[Hg] Joseline Oleary MD Work Phone: [facility] 02-09-2024 13:23-0400 Systolic blood pressure 132 mm[Hg] Joseline Oleary MD Work Phone: [facility] 01-31-2024 09:47-0400 Body height 172.7 cm Deon RODRIGUEZ Work Phone: [facility] 01-31-2024 09:47-0400 Body mass index (BMI) [Ratio] 31.93 kg/m2 Deon RODRIGUEZ Work Phone: [facility] 01-31-2024 09:47-0400 Body weight 95.25 kg Deon RODRIGUEZ Work Phone: [facility] 12-20-2023 09:59-0400 Body height 172.7 cm Pmh 2 [facility] 12-20-2023 09:59-0400 Body mass index (BMI) [Ratio] 31.17 kg/m2 Pmh 2 [facility] 12-20-2023 09:59-0400 Body weight 92.99 kg Pmh 2 [facility] 10-18-2023 12:48-0400 Body height 172.7 cm Nimisha Ricketts MD Work Phone: [facility] 10-18-2023 12:48-0400 Body mass index (BMI) [Ratio] 31.63 kg/m2 Nimisha Ricketts MD Work Phone: [facility] 10-18-2023 12:48-0400 Body weight 94.35 kg Nimisha Ricketts MD Work Phone: [facility] 10-18-2023 12:48-0400 Diastolic blood pressure 74 mm[Hg] Nimisha Ricketts MD Work Phone: [facility] 10-18-2023 12:48-0400 Heart rate 48 /min Nimisha Ricketts MD Work Phone: [facility] 10-18-2023 12:48-0400 Systolic blood pressure 105 mm[Hg] Nimisha Ricketts MD Work Phone: [facility] Encounters Encounter Date Encounter Type Care Provider Facility Start: 11-26-2024 End: 11-26-2024 Telephone encounter Nimisha Ricketts MD Work Phone: [facility] Start: 11-18-2024 End: 11-18-2024 ambulatory Dillon Meade MD Work Phone: [facility] Work Phone: Start: 11-18-2024 End: 11-18-2024 Patient encounter procedure Brittany Breaux MD -[facility] Work Phone: Start: 11-14-2024 End: 11-14-2024 Refill Dillon Meade MD Work Phone: [facility] Comment on above: CKD (chronic kidney disease) stage 4, GFR 15-29 ml/min ([facility]); Type 2 diabetes mellitus with hyperglycemia, without long-term current use of insulin ([facility]) Start: 10-22-2024 ambulatory DILLON MEADE [facility] Start: 10-21-2024 ambulatory DILLON MEADE [facility] Start: 10-15-2024 End: 10-15-2024 ambulatory ABISAI KATZ [facility] Start: 10-09-2024 End: 10-09-2024 Bamboo flowsheet Dillon Meade MD Work Phone: [facility] Start: 10-09-2024 End: 10-09-2024 Bamboo flowsheet Dillon Meade MD Work Phone: [facility] Start: 10-09-2024 End: 10-09-2024 Office outpatient visit 25 minutes Dillon Meade MD Work Phone: [facility] Comment on above: Type 2 diabetes lalitha itus with hyperglycemia, without long-term current use of insulin (CMS/HCC) (Primary Dx); Essential hypertension, benign (CMS/HCC); Chronic HFrEF (heart failure with reduced ejection fraction) (CMS/HCC); Paroxysmal atrial fibrillation (CMS/HCC); Chronic kidney disease (CKD) stage G3b/A1, moderately decreased glomerular filtration rate (GFR) between 30-44 mL/min/1.73 square meter and albuminuria creatinine ratio less than 30 mg/g (H*; Dyslipidemia (CMS/HCC); Class 1 obesity due to excess calories with serious comorbidity and body mass index (BMI) of 30.0 to 30.9 in adult; Encounter for long-term (current) use of medications Start: 10-09-2024 End: 10-09-2024 ambulatory DILLON MEADE Not Available Start: 07-09-2024 End: 07-09-2024 Bamboo flowsheet Dillon Meade MD Work Phone: [facility] Start: 07-09-2024 End: 07-09-2024 Bamboo flowsheet Dillon Meade MD Work Phone: [facility] Start: 07-09-2024 End: 07-09-2024 Patient encounter procedure Dillon Meade MD Work Phone: [facility] Work Phone: Start: 07-09-2024 End: 07-09-2024 Postop follow up visit related to original px Dillon Meade MD Work Phone: [facility] Comment on above: Medicare annual well ness visit, subsequent (Primary Dx); Type 2 diabetes mellitus with stage 3b chronic kidney disease, without long-term current use of insulin (HCC) (CMS/HCC); Chronic kidney disease (CKD) stage G3b/A1, moderately decreased glomerular filtration rate (GFR) between 30-44 mL/min/1.73 square meter and albuminuria creatinine ratio less than 30 mg/g (H* (CMS/HCC) Start: 07-09-2024 End: 07-09-2024 ambulatory DILLON MEADE Not Available Start: 06-18-2024 End: 06-18-2024 External Result Encounter Dillon Meade MD Work Phone: [facility] Unsolicited Start: 06-18-2024 End: 06-18-2024 External Result Encounter Dillon Meade MD Work Phone: [facility] Unsolicited Start: 06-18-2024 End: 06-18-2024 ambulatory DILLON MEADE [facility] Start: 06-17-2024 End: 06-17-2024 Bamboo flowsheet Dillon Meade MD Work Phone: [facility] Start: 06-17-2024 End: 06-17-2024 Bamboo flowsheet Dillon Meade MD Work Phone: [facility] Start: 06-17-2024 End: 06-17-2024 Office outpatient visit 25 minutes Dillon Meade MD Work Phone: [facility] Comment on above: Type 2 diabetes lalitha itus with hyperglycemia, without long-term current use of insulin (CMS/HCC) (Primary Dx); Essential hypertension, benign (CMS/HCC); Paroxysmal atrial fibrillation (CMS/HCC); Chronic HFrEF (heart failure with reduced ejection fraction) (CMS/HCC) Start: 06-17-2024 End: 06-17-2024 ambulatory DILLON MEADE Not Available Start: 04-05-2024 End: 04-05-2024 Bamboo flowsheet Dillon Meade MD Work Phone: [facility] Start: 04-05-2024 End: 04-05-2024 Bamboo flowsheet Dillon Meade MD Work Phone: [facility] Start: 04-05-2024 End: 04-05-2024 Office outpatient visit 25 minutes Dillon Meade MD Work Phone: [facility] Comment on above: Type 2 diabetes lalitha itus with hyperglycemia, without long-term current use of insulin (CMS/HCC) (Primary Dx); Essential hypertension, benign ([facility]/HCC); Chronic HFrEF (heart failure with reduced ejection fraction) ([facility]/HCC); Paroxysmal atrial fibrillation ([facility]/HCC) Start: 04-05-2024 End: 04-05-2024 ambulatory DILLON MEADE Not Available Start: 03-25-2024 End: 03-25-2024 Postop follow up visit related to original px Nimisha Ricketts MD Work Phone: [facility] Comment on above: Encysted hydrocele ( Primary Dx); Prostate cancer ([facility]-HCC) Start: 03-25-2024 End: 03-25-2024 [facility] Start: 03-22-2024 End: 03-22-2024 ambulatory NIMISHA Forman [facility] Start: 03-22-2024 End: 03-22-2024 Telephone encounter Rachel Harkins LPN [facility] Start: 03-05-2024 End: 03-05-2024 Telephone encounter 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 APRN-CALEB Work Phone: [facility] Start: 03-05-2024 End: 03-06-2024 Postop follow up visit related to original px 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 [facility] Comment on above: Encysted hydrocele ( Primary Dx) Start: 03-05-2024 End: 03-06-2024 ambulatory CARLA L [facility] Start: 03-04-2024 End: 03-04-2024 Telephone encounter Cedrick Martines CMA [facility] Start: 02-29-2024 End: 02-29-2024 Clinical Support Hipolito Domingo MD Work Phone: [facility] Comment on above: Encysted hydrocele ( Primary Dx) Start: 02-29-2024 End: 02-29-2024 ambulatory HIPOLITO DOMNIGO [facility] Start: 02-26-2024 End: 02-26-2024 Telephone encounter Nimisha Ricketts MD Work Phone: [facility] Start: 02-26-2024 End: 02-26-2024 Evaluation and management of inpatient VITA Zhen ANDERSON [facility] Start: 02-26-2024 End: 02-26-2024 Evaluation and management of inpatient NIMISHA RICKETTS [facility] Start: 02-23-2024 End: 02-23-2024 Office outpatient visit 15 minutes Bar Noble MD Work Phone: [facility] Comment on above: Prostate cancer (CMS -HCC) (Primary Dx); Paroxysmal atrial fibrillation (CMS-HCC) Start: 02-23-2024 End: 02-23-2024 ambulatory ABISAI Parrish [facility] Start: 02-22-2024 End: 02-22-2024 Telephone encounter Mahnaz Sky RN [facility] Start: 02-22-2024 End: 02-22-2024 ambulatory [facility] Start: 02-22-2024 Encounter for preprocedural cardiovascular examination [facility] Start: 02-16-2024 End: 02-16-2024 Bamboo flowsheet Deon RODRIGUEZ Work Phone: [facility] Start: 02-16-2024 End: 02-16-2024 Bamboo flowsheet Deon RODRIGUEZ Work Phone: [facility] Start: 02-16-2024 End: 02-16-2024 Office outpatient visit 10 minutes Deon RODRIGUEZ Work Phone: [facility] Comment on above: Acute pain of left w rist (Primary Dx); Sprain of left wrist, subsequent encounter Start: 02-16-2024 End: 02-16-2024 ambulatory DEON ROTH Not Available Start: 02-14-2024 End: 02-14-2024 Patient encounter procedure [facility] Pre-Admission Testing 1 [facility] Comment on above: Preop examination (P rimary Dx); Hypertension, unspecified type; Type 2 diabetes mellitus without complication, without long-term current use of insulin (CMS-HCC); Urinary frequency Start: 02-14-2024 End: 02-14-2024 Preprocedural examination done [facility] 1 [facility] Start: 02-14-2024 End: 02-14-2024 ambulatory NIMISHA RICKETTS [facility] Start: 02-09-2024 End: 02-09-2024 Office outpatient new 45 minutes Nimisha Ricketts MD Work Phone: [facility] Comment on above: Encounter for pre-op erative cardiovascular clearance (Primary Dx); Atrial fibrillation, unspecified type ([facility]-HCC); Primary hypertension; Hyperlipidemia, unspecified hyperlipidemia type; Abnormal EKG Start: 02-09-2024 End: 02-09-2024 Preoperative state Nimisha Ricketts MD Work Phone: [facility] Work Phone: Start: 02-09-2024 End: 02-09-2024 ambulatory [facility] Start: 02-09-2024 Encounter for preprocedural cardiovascular examination [facility] Start: 02-08-2024 End: 02-08-2024 Telephone encounter Yoly Gama CMA [facility] Start: 02-02-2024 End: 02-02-2024 Chart abstracting Joseline Oleary MD Work Phone: [facility] Start: 01-31-2024 End: 01-31-2024 Bamboo flowsheet Deon Roth PA Work Phone: [facility] Start: 01-31-2024 End: 01-31-2024 Bamboo flowsheet Deon RODRIGUEZ Work Phone: [facility] Start: 01-31-2024 End: 01-31-2024 Office outpatient new 30 minutes Deon RODRIGUEZ Work Phone: [facility] Comment on above: Acute pain of left w rist (Primary Dx); Left wrist sprain, initial encounter; Arthritis of left wrist Start: 01-31-2024 End: 01-31-2024 ambulatory DEON ROTH Not Available Start: 12-21-2023 End: 12-21-2023 Telephone encounter Kareen Browne [facility] Start: 12-20-2023 End: 12-20-2023 Patient encounter procedure [facility] Pre-Admission Testing 2 [facility] Comment on above: Preop examination (P rimary Dx); Hypertension, unspecified type; Type 2 diabetes mellitus without complication, without long-term current use of insulin ([facility]) Start: 12-20-2023 End: 12-20-2023 Preprocedural examination done [facility] 2 [facility] Start: 12-20-2023 End: 12-20-2023 ambulatory DILLON MEADE [facility] Start: 12-20-2023 Encounter for other preprocedural examination [facility] Start: 12-07-2023 End: 12-07-2023 ambulatory DILLON MEADE Not Available Start: 10-18-2023 End: 10-18-2023 Telephone encounter Nimisha Ricketts MD Work Phone: [facility] Start: 10-18-2023 End: 10-18-2023 Office outpatient visit 15 minutes Nimisha Ricketts MD Work Phone: [facility] Comment on above: Encysted hydrocele ( Primary Dx) Start: 10-18-2023 End: 10-18-2023 ambulatory NIMISHA RICKETTS [facility] Start: 09-29-2021 End: 09-30-[address] DILLON MEADE Facility:[facility] Start: 09-28-2021 End: 09-28-[address] DILLON MEADE Facility:[facility] Start: 08-04-2021 End: 08-12-[address] DILLON MEADE Facility:[facility] Start: 05-17-2021 End: 05-18-2021 ambulatory SHAIKH Nadeen OQUENDO Facility:[facility] Start: 03-30-2021 End: 03-31-[address] DILLON MEADE Facility:[facility] Procedures Date Procedure Procedure Detail Performing Clinician Start: 06-18-2024 Hemoglobin glycosyla willard a1c Dillon Meade MD Work Phone: Start: 03-05-2024 Follow-up visit Follow-up CARLA Maty TORRES Start: 02-09-2024 Ecg routine ecg w/le ast 12 lds w/i&r Joseline Oleary MD Work Phone: Start: 02-09-2024 Follow-up visit Follow-up COLLIN OLEARY Start: 10-18-2023 Follow-up visit Follow-up NIMISHA RICKETTS Plan of Treatment Date Care Activity Detail Author Start: 12-11-2025 Glaucoma screening Diabetes: Retinopathy Screening [facility] Start: 10-22-2025 Urine screening for protein Diabetes: Urine Protein Screening [facility] Start: 07-09-2025 Medicare Annual Wellness (AWV) Medicare Annual Wellness (AWV) [facility] Start: 04-23-2025 Hemoglobin A1c measurement Diabetes: Hemoglobin A1C [facility] Start: 04-10-2025 End: 04-10-2025 Patient encounter procedure 04/10/2025 10:30 AM EST Office Visit [facility] [address] [place] [address] Dillon Meade MD [address] [place] [phone] [facility] Start: 04-02-2025 End: 04-02-2025 Patient encounter procedure 04/02/2025 2:15 PM EST Office Visit [facility] [address] [place], [place] [address], [place] [phone] Nimisha Ricketts MD [address] [place] [address] [facility] Start: 03-25-2025 Tobacco Screening Tobacco Screening [facility] Start: 03-24-2025 End: 03-24-2025 Patient encounter procedure 03/24/2025 1:15 PM EST Office Visit [facility] [address] [place] [address] [address] [facility] [place] [phone] Nimisha Ricketts MD [address] [place] [address] [facility] Start: 03-05-2025 Tobacco Screening Tobacco Screening [facility] Start: 02-25-2025 Adult BMI Screening Adult BMI Screening [facility] Start: 02-25-2025 Tobacco Screening Tobacco Screening [facility] Start: 02-22-2025 Adult BMI Screening Adult BMI Screening [facility] Start: 02-22-2025 Tobacco Screening Tobacco Screening [facility] Start: 02-21-2025 Adult BMI Screening Adult BMI Screening [facility] Start: 02-13-2025 Adult BMI Screening Adult BMI Screening [facility] Start: 02-13-2025 Tobacco Screening Tobacco Screening [facility] Start: 02-08-2025 Adult BMI Screening Adult BMI Screening [facility] Start: 02-08-2025 Tobacco Screening Tobacco Screening [facility] Start: 01-24-2025 Tobacco Screening Tobacco Screening [facility] Start: 12-30-2024 Influenza vaccination [facility] Start: 12-19-2024 Adult BMI Screening Adult BMI Screening [facility] Start: 12-19-2024 Tobacco Screening Tobacco Screening [facility] Start: 12-16-2024 Hemoglobin A1c measurement Diabetes: Hemoglobin A1C [facility] Start: 12-11-2024 End: 12-11-2024 Patient encounter procedure 12/11/2024 11:15 AM EDT Office Visit [facility] [address] [place] [phone] Tiera Montgomery MD [address] [place] [address] Vern Senior MD [address] [place] [address] [facility] Start: 10-17-2024 Adult BMI Screening Adult BMI Screening [facility] Start: 10-17-2024 Tobacco Screening Tobacco Screening [facility] Start: 10-09-2024 End: 10-09-2025 Basic metabolic 1998 panel - Serum or Plasma Basic metabolic panel Lab Routine Chronic kidney disease (CKD) stage G3b/A1, moderately decreased glomerular filtration rate (GFR) between 30-44 mL/min/1.73 square meter and albuminuria creatinine ratio less than 30 mg/g (H* Expected: 10/09/2024 (Approximate), Expires: 10/09/2025 [facility] Comment on above: Expected: 10/09/2024 (Approximate), Expi res: 10/09/2025 Start: 10-09-2024 End: 10-09-2025 CBC W Auto Differential panel - Blood CBC and differential Lab Routine Encounter for long-term (current) use of medications Expected: 10/09/2024 (Approximate), Expires: 10/09/2025 [facility] Comment on above: Expected: 10/09/2024 (Approximate), Expi res: 10/09/2025 Start: 10-09-2024 End: 10-09-2025 Hemoglobin A1c/Hemoglobin.total in Blood Hemoglobin A1c Lab Routine Type 2 diabetes mellitus with hyperglycemia, without long-term current use of insulin ([facility]) Expected: 10/09/2024 (Approximate), Expires: 10/09/2025 [facility] Comment on above: Expected: 10/09/2024 (Approximate), Expi res: 10/09/2025 Start: 10-09-2024 End: 10-09-2025 Hepatic function 2000 panel - Serum or Plasma Hepatic function panel Lab Routine Encounter for long-term (current) use of medications Expected: 10/09/2024 (Approximate), Expires: 10/09/2025 [facility] Healthcare Comment on above: Expected: 10/09/2024 (Approximate), Expi res: 10/09/2025 Start: 10-09-2024 End: 10-09-2025 Lipid 1996 panel - Serum or Plasma Lipid panel Lab Routine Dyslipidemia ([facility]) Expected: 10/09/2024 (Approximate), Expires: 10/09/2025 [facility] Comment on above: Expected: 10/09/2024 (Approximate), Expi res: 10/09/2025 Start: 10-09-2024 End: 10-09-2025 Microalbumin/Creatinine panel in random Urine Microalbumin / creatinine, urine ratio Lab Routine Type 2 diabetes mellitus with hyperglycemia, without long-term current use of insulin ([facility]) Expected: 10/09/2024 (Approximate), Expires: 10/09/2025 [facility] Work Phone: Comment on above: Expected: 10/09/2024 (Approximate), Expi res: 10/09/2025 Start: 10-09-2024 End: 10-09-2025 Thyrotropin [Units/volume] in Serum or Plasma TSH Lab Routine Class 1 obesity due to excess calories with serious comorbidity and body mass index (BMI) of 30.0 to 30.9 in adult Expected: 10/09/2024 (Approximate), Expires: 10/09/2025 [facility] Comment on above: Expected: 10/09/2024 (Approximate), Expi res: 10/09/2025 Start: 10-09-2024 End: 10-09-2024 Patient encounter procedure [facility] Comment on above: Arrived Start: 10-08-2024 Urine screening for protein Diabetes: Urine Protein Screening [facility] Start: 07-09-2024 End: 07-09-2024 Patient encounter procedure [facility] Comment on above: Arrived Start: 07-08-2024 End: 07-08-2024 Patient encounter procedure 07/08/2024 11:30 AM EDT Office Visit [facility] [address] [place] [phone] Dillon Meade MD [address] [place] [phone] [facility] Start: 06-17-2024 End: 06-17-2024 Patient encounter procedure 06/17/2024 1:15 PM EST Office Visit [facility] [address] [place] [phone] Dillon Meade MD [address] [place] [phone] Arrived [facility] Comment on above: Arrived Start: 05-27-2024 End: 05-27-2024 Patient encounter procedure 05/27/2024 9:30 AM EST Appointment [facility] [address] [place] [address] Abisai Katz MD [address] [place] [facility] [place] [phone] [facility] Start: 05-25-2024 End: 02-22-2025 Echo limited W/O contrast Echo limited W/O contrast Echocardiography Routine Paroxysmal atrial fibrillation ([facility]-HCC) Expected: 05/25/2024 (Approximate), Expires: 02/22/2025 [facility] Work Phone: Comment on above: Expected: 05/25/2024 (Approximate), Expi res: 02/22/2025 Start: 04-09-2024 Hemoglobin A1c measurement Diabetes: Hemoglobin A1C [facility] Start: 04-05-2024 End: 04-05-2025 Hemoglobin A1c/Hemoglobin.total in Blood Hemoglobin A1c Lab Routine Type 2 diabetes mellitus with hyperglycemia, without long-term current use of insulin ([facility]) Expected: 04/05/2024 (Approximate), Expires: 04/05/2025 [facility] Work Phone: Comment on above: Expected: 04/05/2024 (Approximate), Expi res: 04/05/2025 Start: 04-05-2024 End: 04-05-2024 Patient encounter procedure [facility] Comment on above: Arrived Start: 03-25-2024 End: 03-25-2024 Patient encounter procedure 03/25/2024 1:00 PM EST Office Visit [facility] [address] [place] [phone] Nimisha Ricketts MD [address] [place] [phone] [facility] Start: 03-20-2024 End: 03-20-2024 Patient encounter procedure 03/20/2024 1:45 PM EST Office Visit [facility] [address] [place] [phone] Nimisha Ricketts MD [address] [place] [phone] [facility] Start: 03-05-2024 End: 03-05-2024 Patient encounter procedure 03/05/2024 11:30 AM EST Office Visit [facility] [address] [place] [phone] 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, 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[employer] [address] [place] [phone] [facility] Start: 02-26-2024 End: 02-26-2024 Admission to same day surgery center 02/26/2024 8:30 AM EDT - 02/26/2024 10:00 AM EDT Surgery [facility] - Surgery [address] [place] [phone] Nimisha Ricketts MD [address] [place] [id number] [facility]DROCE[facility]OMY [facility] Comment on above: HYDROCELECTOMY Start: 02-26-2024 End: 02-26-2024 Anesthesia consultation 02/26/2024 8:30 AM EDT Anesthesia Event [facility] [address] [place] [phone] Vita Anderson, DO [address] [place] [address] [facility] Start: 02-26-2024 Subsequent hospital visit by physician 02/26/2024 8:30 AM EDT Hospital Encounter [facility] [address] [facility] [place] [phone] Nimisha Ricketts MD [address] [place] [phone] [facility] Start: 02-26-2024 End: 02-26-2024 HYDROCELECTOMY [facility] Start: 02-23-2024 End: 02-23-2024 Patient encounter procedure 02/23/2024 1:15 PM EDT Office Visit [facility] [address] [place] [phone] Bar Noble MD [address] [place], [place] [phone] [facility] Start: 02-22-2024 End: 02-22-2024 Patient encounter procedure 02/22/2024 9:00 AM EDT Appointment [facility] [address] [place] [phone] [facility] Start: 02-16-2024 End: 02-16-2024 Patient encounter procedure [facility] Comment on above: Acute pain of left wrist (Primary Dx); Sprain of left wrist, subsequent encounter Start: 02-14-2024 End: 02-14-2024 Patient encounter procedure 02/14/2024 9:00 AM EDT Procedure visit [facility] - Pre Admit [address] [place] [phone] [facility] - Pre Admit Start: 02-09-2024 End: 02-08-2025 Echo complete W/O contrast Echo complete W/O contrast Echocardiography Routine Encounter for pre-operative cardiovascular clearance Atrial fibrillation, unspecified type ([facility]-HCC) Primary hypertension Abnormal EKG Expected: 02/09/2024, Expires: 02/08/2025 [facility] Work Phone: Comment on above: Expected: 02/09/2024, Expires: Start: 02-09-2024 End: 02-09-2024 Patient encounter procedure 02/09/2024 1:30 PM EDT Office Visit [facility] [address] [place] [phone] Nimisha Ricketts MD [address] [place] [address] Joseline Oleary MD [address] [place] [address] [facility] Start: 01-31-2024 End: 01-31-2024 Patient encounter procedure 01/31/2024 10:00 AM EDT Office Visit [facility] [address] [place] [phone] Deon Roth PA [address] [place] [address] Acute pain of left wrist (Primary Dx) [facility] Comment on above: Acute pain of left wrist (Primary Dx) Start: 12-31-2023 COVID-19 Vaccine () COVID-19 Vaccine () [facility] Start: 12-31-2023 COVID-19 Vaccine ( season) COVID-19 Vaccine () [facility] Start: 12-31-2023 Influenza vaccination [facility] Start: 10-01-2023 Urine screening for protein Diabetes: Urine Protein Screening [facility] Start: 12-30-2022 COVID-19 Vaccine ( season) COVID-19 Vaccine ( season) [facility] Start: 10-31-2014 Administration of varicella zoster vaccine Zoster (Shingles) Vaccine (1 of 2) [facility] Start: 10-31-2014 Pneumococcal Vaccine: 65+ Years (2 of 2 - PPSV23 or PCV20) Pneumococcal Vaccine: 65+ Years (2 of 2 - PPSV23 or PCV20) [facility] Start: 10-31-2014 Pneumococcal Vaccine: 65+ Years (2 of 2 - PPSV23) Pneumococcal Vaccine: 65+ Years (2 of 2 - PPSV23) [facility] Start: 01-03-2001 Fall Risk Screening Fall Risk Screening [facility] Start: 01-03-1955 DTaP,Tdap and Td Vaccines (1 - Tdap) DTaP,Tdap and Td Vaccines (1 - Tdap) [facility] Start: 01-03-1954 Adult BMI Follow Up Plan Adult BMI Follow Up Plan [facility] Start: 1948 Depression Screening Depression Screening [facility] Start: 1936 Hemoglobin A1c measurement Diabetes: Hemoglobin A1C [facility] Start: 1936 Medicare Annual Wellness (AWV) Medicare Annual Wellness (AWV) [facility] Start: 1936 Medicare Annual Wellness Visit Medicare Annual Wellness Visit [facility] Renal function 2000 panel - Serum or Plasma [facility] US Kidney - bilateral [facility] XR Wrist - left 3 Views XR wrist 3+ views left Imaging Routine Acute pain of left wrist 01/31/2024 10:02 AM EDT [facility] Work Phone: [facility] Immunizations Immunization Date Immunization Notes Care Provider Fa cililanden 02-05-2024 influenza virus vaccine, unspecified formulation Deon RODRIGUEZ Work Phone: [facility] 04-05-2023 influenza virus vaccine, unspecified formulation Nimisha Ricketts MD Work Phone: [facility] 01-31-2022 Moderna Bivalent Booster Vaccination Deon Roth PA Work Phone: [facility] 02-23-2021 Influenza, Seasonal, Quadrivalent, Adjuvanted Deon RODRIGUEZ Work Phone: [facility] 02-18-2020 Influenza, High-dose Seasonal, Quadrivalent, Preservative Free Deon Roth PA Work Phone: [facility] 02-15-2019 influenza, high dose seasonal, preservative-free Deon Roth PA Work Phone: [facility] 02-09-2018 Seasonal trivalent influenza vaccine, adjuvanted, preservative free Deon RODRIGUEZ Work Phone: [facility] 02-06-2017 influenza, high dose seasonal, preservative-free Deon Roth PA Work Phone: [facility] 09-05-2014 pneumococcal conjuga te vaccine, 13 valent Deon RODRIGUEZ Work Phone: [facility] 09-05-2014 zoster vaccine, live Deon RODRIGUEZ Work Phone: [facility] 09-05-2014 zoster vaccine, unspecified formulation Nimisha Ricketts MD Work Phone: [facility] 02-10-2010 influenza virus vaccine, whole virus Deon RODRIGUEZ Work Phone: [facility] Payers Date Payer Category Payer Unknown AARP AARP [phone] [id number]- [address] [place] [address] [id number] 2015 Managed Care Other (unspecified) [facility] [id number] 2015 Private Health Insurance [id number] .[id number] 2000 Medicare [id number]. 1.13.693.2 .[id number] 1959 Medicare [id number] 1959 Unknown [id number] 1936 Unknown [id number] 2.16.840.1.429849.3.579.2 .593 1936 Unknown [id number] 2.16.840.1.265236.3.579.2 .593 1936 Unknown [id number] 2.16.840.1.567284.3.579.2 .593 1936 Unknown [id number] 2.16.840.1.341779.3.579.2 .593 1936 Unknown [id number] 2.16.840.1.436579.3.579.2 .593 1936 Unknown [id number] 2.16.840.1.087753.3.579.2 .1286 1936 Unknown [id number] 2.16.840.1.076756.3.579.2 .128 1936 Unknown [id number] 2.16.840.1.310212.3.579.2 .1286 1936 Unknown [id number] 2.16.840.1.213856.3.579.2 .128 1936 Unknown [id number] 2.16.840.1.790584.3.579.2 .1285 1936 Unknown [id number] 2.16.840.1.511329.3.579.2 .1258 1936 Unknown [id number] 2.16.840.1.307841.3.579.2 .1258 1936 Unknown [id number] 2.16.840.1.290295.3.579.2 .1258 1936 Unknown [id number] 2.16.840.1.553127.3.579.2 .1258 1936 Unknown [id number] 2.16.840.1.206500.3.579.2 .1258 1936 Unknown [id number] 2.16.840.1.617354.3.579.2 .1258 1936 Unknown [id number] 2.16.840.1.850288.3.579.2 .1258 1936 Unknown [id number] 2.16.840.1.954785.3.579.2 .1258 1936 Unknown [id number] 2.16.840.1.350399.3.579.2 .1285 1936 Unknown [id number] 2.16.840.1.208026.3.579.2 .1285 1936 Unknown [id number] 2.16.840.1.750811.3.579.2 .1285 1936 Unknown [id number] 2.16.840.1.172888.3.579.2 .1285 1936 Unknown [id number] 2.16.840.1.171568.3.579.2 .1285 1936 Unknown [id number] 2.16.840.1.872776.3.579.2 .1285 1936 Unknown [id number] 2.16.840.1.509845.3.579.2 .1285 1936 Unknown [id number] 2.16.840.1.436664.3.579.2 .1285 1936 Unknown [id number] 2.16.840.1.866188.3.579.2 .1285 1936 Unknown [id number] 2.16.840.1.916142.3.579.2 .1285 1936 Unknown [id number] 2.16.840.1.676180.3.579.2 .1285 1936 Unknown [id number] 2.16.840.1.629185.3.579.2 .1285 1936 Unknown [id number] 2.16840.1.177621.3.579.2 .1285 1936 Unknown [id number] 2.16840.1.612039.3.579.2 .1285 1936 Unknown [id number] 2.16.840.1.968137.3.579.2 .1286 Social History Date Type Detail Facility Start: 04-05-2023 Tobacco smoking stat us IDIS Never smoked tobacco [facility] Start: 04-05-2023 End: 10-18-2023 Tobacco use and exposure Smokeless tobacco non-user [facility] Start: 12-07-2023 End: 10-09-2024 Alcoholic beverage intake Lifetime non-drinker (finding) [facility] Start: 06-11-2020 End: 12-07-2023 History of Social function [facility] Start: 06-11-2020 End: 12-07-2023 Tobacco use panel [facility] Start: 1935 Sex assigned at Not on file [facility] Start: 10-18-2023 End: 11-18-2024 Tobacco smoking status IDIS Ex-smoker [facility] History of tobacco use Current smoker [facility] History of tobacco use Cigar Smoker [facility] Start: 10-18-2023 End: 03-25-2024 Alcoholic beverage intake Current drinker of alcohol (finding) [facility] Childcare Unknown [facility] Start: 10-18-2023 Tobacco Comment quit [facility] Start: 05-22-2017 Alcohol Comment rare [facility] Start: 12-04-2014 Sex Male (finding) [facility] Start: 1935 Sex Assigned At Male F [facility] Clinical Notes 10-18-2023 to 11-26-2024 Telephone Encounter - Ginny Bryant - 11/26/2024 8:36 AM EDTTelephone Encounter - Ginny Bryant - 11/26/2024 8:36 AM EDTTelephone Encounter - Yoly Russ - 11/14/2024 1:10 PM EDTPatient Instructions Note Date & Type Note Facility 11-26-2024 Miscellaneous Notes 11-26-24 called and spoke with pt and he is ok with 04-02-25 appt r/s 03-24-25 appt anay documented in this encounter [facility] 11-26-2024 Telephone encounter Note 11-26-24 called and spoke with pt and he is ok with 04-02-25 appt r/s 03-24-25 appt anay [facility] 11-14-2024 Telephone encounter Note Insurance is asking for 90 day supply. [facility] 11-14-2024 Miscellaneous Notes Insurance is asking for 90 day supply. documented in this encounter [facility] 10-09-2024 History of Presen t illness Narrative Associated Problem(s): Type 2 diabetes mellitus with hyperglycemia, without long-term current use of insulin (CMS/HCC) Reports BS controlled and due for A1C. Stick to ADA diet and limit carbs. Associated Problem(s): Paroxysmal atrial fibrillation (CMS/HCC) In afib and continue Eliquis. Associated Problem(s): Essential hypertension, benign (CMS/HCC) BP low and stop norvasc. Monitor BP PRN. Associated Problem(s): Chronic HFrEF (heart failure with reduced ejection fraction) ([facility]) No edema and monitor. Follow up with cardiology. Images from the original note were not included. Subjective Patient ID: Melecio Jackson is a 89 y.o. male who presents for Follow-up (3 m). Follow up DM, HTN, CHF, and afib. Reports BS controlled around 110-120. Tries to eat well and stick to ADA diet. Denies signs of elevated BS such as polyuria, polyphagia or polydipsia. Checking BP PRN and typically controlled. BP low today. Taking medication daily but starting to feel lightheaded when up and moving. Edema controlled with medication. Mild swelling at end of day and if on feet a lot. Edema improved in am and with elevation. Afib stable. No palpitations or heart racing. Not lightheaded or dizzy. Review of Systems Constitutional: Negative for fatigue. Respiratory: Negative for cough, shortness of breath and wheezing. Cardiovascular: Negative for chest pain and palpitations. Gastrointestinal: Negative for abdominal pain, diarrhea, nausea and vomiting. Genitourinary: Negative for dysuria. Objective Physical Exam Constitutional: General: He is not in acute distress. Appearance: Normal appearance. HENT: Head: Normocephalic. Right Ear: Tympanic membrane and ear canal normal. Left Ear: Tympanic membrane and ear canal normal. Eyes: Extraocular Movements: Extraocular movements intact. Pupils: Pupils are equal, round, and reactive to light. Cardiovascular: Rate and Rhythm: Normal rate and regular rhythm. Heart sounds: No murmur heard. No friction rub. No gallop. Pulmonary: Breath sounds: Normal breath sounds. No wheezing, rhonchi or rales. Abdominal: General: Bowel sounds are normal. There is no distension. Palpations: Abdomen is soft. Tenderness: There is no abdominal tenderness. There is no guarding or rebound. Musculoskeletal: Left lower leg: No edema. Neurological: Mental Status: He is alert. Assessment/Plan Problem List Items Addressed This Visit Essential hypertension, benign (CMS/HCC) BP low and stop norvasc. Monitor BP PRN. Dyslipidemia ([facility]/HCC) Relevant Orders Lipid panel Chronic kidney disease (CKD) stage G3b/A1, moderately decreased glomerular filtration rate (GFR) between 30-44 mL/min/1.73 square meter and albuminuria creatinine ratio less than 30 mg/g (H* Relevant Orders Basic metabolic panel Type 2 diabetes mellitus with hyperglycemia, without long-term current use of insulin (CMS/HCC) - Primary Reports BS controlled and due for A1C. Stick to ADA diet and limit carbs. Relevant Orders Microalbumin / creatinine, urine ratio Hemoglobin A1c Class 1 obesity due to excess calories with serious comorbidity and body mass index (BMI) of 30.0 to 30.9 in adult Relevant Orders TSH Paroxysmal atrial fibrillation (CMS/HCC) In afib and continue Eliquis. Chronic HFrEF (heart failure with reduced ejection fraction) (CMS/HCC) No edema and monitor. Follow up with cardiology. Encounter for long-term (current) use of medications Relevant Orders CBC and differential Hepatic function panel documented in this encounter [facility] 07-09-2024 History of Presen t illness Narrative Associated Problem(s): Medicare annual wellness visit, subsequent Will be due for labs next visit. Discussed proper diet and regular aerobic exercise. Need aerobic exercise 5-6 days a week for 30 minutes at a time. Smaller portions and limit total calories. Tetanus every 10 years. Advised not to smoke. Images from the original note were not included. Subjective Patient ID: Melecio Jackson is a 89 y.o. male who presents for Medicare Annual Wellness Visit Subsequent (wellness). Presents for medicare annual wellness visit. Patient feels well today. Weight unchanged over the past year. Tries to stay active around house but no regular exercise. Tries to watch diet and eat healthy. Increased fruits and vegetables. Smaller portions and limits snacking. Tries to limit total daily calories. Review of Systems Constitutional: Negative for fatigue. Respiratory: Negative for cough, shortness of breath and wheezing. Cardiovascular: Negative for chest pain and palpitations. Gastrointestinal: Negative for abdominal pain, diarrhea, nausea and vomiting. Genitourinary: Negative for dysuria. Objective Physical Exam Constitutional: General: He is not in acute distress. Appearance: Normal appearance. HENT: Head: Normocephalic. Right Ear: Tympanic membrane and ear canal normal. Left Ear: Tympanic membrane and ear canal normal. Eyes: Extraocular Movements: Extraocular movements intact. Pupils: Pupils are equal, round, and reactive to light. Cardiovascular: Rate and Rhythm: Normal rate and regular rhythm. Heart sounds: No murmur heard. No friction rub. No gallop. Pulmonary: Breath sounds: Normal breath sounds. No wheezing, rhonchi or rales. Abdominal: General: Bowel sounds are normal. There is no distension. Palpations: Abdomen is soft. Tenderness: There is no abdominal tenderness. There is no guarding or rebound. Musculoskeletal: Left lower leg: No edema. Neurological: Mental Status: He is alert. Assessment/Plan Problem List Items Addressed This Visit Chronic kidney disease (CKD) stage G3b/A1, moderately decreased glomerular filtration rate (GFR) between 30-44 mL/min/1.73 square meter and albuminuria creatinine ratio less than 30 mg/g (H* ([facility]) Medicare annual wellness visit, subsequent - Primary Will be due for labs next visit. Discussed proper diet and regular aerobic exercise. Need aerobic exercise 5-6 days a week for 30 minutes at a time. Smaller portions and limit total calories. Tetanus every 10 years. Advised not to smoke. Type 2 diabetes mellitus with stage 3b chronic kidney disease, without long-term current use of insulin (HCC) (CMS/HCC) documented in this encounter [facility] 06-17-2024 History of Presen t illness Narrative Associated Problem(s): Type 2 diabetes mellitus with hyperglycemia, without long-term current use of insulin (CMS/HCC) Not checking BS and due for A1C. Stick to ADA diet and limit carbs. Associated Problem(s): Paroxysmal atrial fibrillation (CMS/HCC) In afib and continue Eliquis. Associated Problem(s): Essential hypertension, benign (CMS/HCC) BP controlled and monitor PRN. Associated Problem(s): Chronic HFrEF (heart failure with reduced ejection fraction) (CMS/HCC) No edema and monitor. Follow up with cardiology and will have repeat echo in few months. Images from the original note were not included. Subjective Patient ID: Melecio Jackson is a 89 y.o. male who presents for Follow-up (Medication questions). Follow up DM, HTN, CHF, and afib. Not checking BS away from office and did not have A1C. Tries to eat well and stick to ADA diet. Denies signs of elevated BS such as polyuria, polyphagia or polydipsia. Checking BP PRN and typically controlled. BP normal today. Taking medication daily and tolerating without side effects. Edema controlled with medication. Mild swelling at end of day and if on feet a lot. Edema improved in am and with elevation. Afib stable. No palpitations or heart racing. Not lightheaded or dizzy. Review of Systems Constitutional: Negative for fatigue. Respiratory: Negative for cough, shortness of breath and wheezing. Cardiovascular: Negative for chest pain and palpitations. Gastrointestinal: Negative for abdominal pain, diarrhea, nausea and vomiting. Genitourinary: Negative for dysuria. Objective Physical Exam Constitutional: General: He is not in acute distress. Appearance: Normal appearance. HENT: Head: Normocephalic. Right Ear: Tympanic membrane and ear canal normal. Left Ear: Tympanic membrane and ear canal normal. Eyes: Extraocular Movements: Extraocular movements intact. Pupils: Pupils are equal, round, and reactive to light. Cardiovascular: Rate and Rhythm: Normal rate. Rhythm irregular. Heart sounds: No murmur heard. No friction rub. No gallop. Pulmonary: Breath sounds: Normal breath sounds. No wheezing, rhonchi or rales. Abdominal: General: Bowel sounds are normal. There is no distension. Palpations: Abdomen is soft. Tenderness: There is no abdominal tenderness. There is no guarding or rebound. Musculoskeletal: Left lower leg: No edema. Neurological: Mental Status: He is alert. Assessment/Plan Problem List Items Addressed This Visit Essential hypertension, benign (CMS/HCC) BP controlled and monitor PRN. Type 2 diabetes mellitus with hyperglycemia, without long-term current use of insulin (CMS/HCC) - Primary Not checking BS and due for A1C. Stick to ADA diet and limit carbs. Paroxysmal atrial fibrillation (CMS/HCC) In afib and continue Eliquis. Chronic HFrEF (heart failure with reduced ejection fraction) (CMS/HCC) No edema and monitor. Follow up with cardiology and will have repeat echo in few months. documented in this encounter [facility] 04-05-2024 History of Presen t illness Narrative Associated Problem(s): Type 2 diabetes mellitus with hyperglycemia, without long-term current use of insulin (CMS/HCC) Not checking BS and due for A1C. Stick to ADA diet and limit carbs. Associated Problem(s): Paroxysmal atrial fibrillation (CMS/HCC) In afib and add coreg for rate control. Continue Eliquis. Associated Problem(s): Essential hypertension, benign (CMS/HCC) BP controlled and monitor PRN. Associated Problem(s): Chronic HFrEF (heart failure with reduced ejection fraction) (CMS/HCC) Recent Echo showed low EF. Add coreg and continue losartan. Follow up with cardiology and will have repeat echo in few months. Images from the original note were not included. Subjective Patient ID: Melecio Jackson is a 89 y.o. male who presents for Follow-up (6m f/u). Follow up DM, HTN, CHF, afib, and back pain. Patient feels well today. Diagnosed with afib several months ago. Seen by cardiology and added Eliquis. Not on medication for rate. No palpitations or heart racing. Not lightheaded or dizzy. Echo showed EF 25-30%. Cardiology reviewed and felt more like 45-50%. No additional medication added and remains on ARB. Denies swelling of feet or ankles. Not checking BS away from office and due for A1C. Tries to eat well and stick to ADA diet but reports occasional splurges. Denies signs of elevated BS such as polyuria, polyphagia or polydipsia. Checking BP PRN and typically controlled. BP normal today. Taking medication daily and tolerating without side effects. Back pain stable. Mild pain in low back and across top hips. Pain worse with walking and standing. Using OTC PRN and helps. Review of Systems Constitutional: Negative for fatigue. Respiratory: Negative for cough, shortness of breath and wheezing. Cardiovascular: Negative for chest pain and palpitations. Gastrointestinal: Negative for abdominal pain, diarrhea, nausea and vomiting. Genitourinary: Negative for dysuria. Objective Physical Exam Constitutional: General: He is not in acute distress. Appearance: Normal appearance. HENT: Head: Normocephalic. Right Ear: Tympanic membrane and ear canal normal. Left Ear: Tympanic membrane and ear canal normal. Eyes: Extraocular Movements: Extraocular movements intact. Pupils: Pupils are equal, round, and reactive to light. Cardiovascular: Rate and Rhythm: Normal rate. Rhythm irregular. Heart sounds: No murmur heard. No friction rub. No gallop. Pulmonary: Breath sounds: Normal breath sounds. No wheezing, rhonchi or rales. Abdominal: General: Bowel sounds are normal. There is no distension. Palpations: Abdomen is soft. Tenderness: There is no abdominal tenderness. There is no guarding or rebound. Musculoskeletal: Left lower leg: No edema. Neurological: Mental Status: He is alert. Assessment/Plan Problem List Items Addressed This Visit Essential hypertension, benign ([facility]/HCC) BP controlled and monitor PRN. Type 2 diabetes mellitus with hyperglycemia, without long-term current use of insulin ([facility]) - Primary Not checking BS and due for A1C. Stick to ADA diet and limit carbs. Relevant Orders Hemoglobin A1c Paroxysmal atrial fibrillation ([facility]) In afib and add coreg for rate control. Continue Eliquis. Relevant Medications carvedilol (Coreg) 3.125 MG tablet Chronic HFrEF (heart failure with reduced ejection fraction) (CMS/HCC) Recent Echo showed low EF. Add coreg and continue losartan. Follow up with cardiology and will have repeat echo in few months. Relevant Medications carvedilol (Coreg) 3.125 MG tablet documented in this encounter [facility] 03-25-2024 Evaluation + Plan note Associated Problem(s): Prostate cancer (CMS-HCC) PSA 1 year [facility] 03-25-2024 Miscellaneous Notes Associated Problem(s): Prostate cancer ([facility]-HCC) PSA 1 year documented in this encounter [facility] 03-25-2024 History of Presen t illness Narrative Images from the original note were not included. [address] [place] [address] [address] [facility] [id number] Patient: Melecio Jackson Date of : 1935 Encounter Date: 03/25/2024 History of Present Illness: The patient is a 89 y.o. male, an established patient, and is here for status post right hydrocelectomy. Doing well. So my mid level provider. Took a course of antibiotics. All the swelling or concern has resolved. Physical exam as below. Still has some typical post hydrocelectomy changes. Pathology benign. PSA looks very good 0.10.. Urinalysis today: No results for input(s): EXTPOCURCO , EXTPOCURCH , EXTPOCAPP , EXTPOCURBS , EXTPOCURBIL , EXTPOCUKET , EXTPOCUSPG , EXTPOCUHGB , EXTPOCUPRO , EXTPOCUURO , EXTPOCULEU , EXTPOCUNIT , EXTPOCUWBC , EXTPOCUBLD , EXTPOCURBC , EXTPOCUCRY , EXTPOCUBAC , EXTPOCUTREP , EXTPOCUPH in the last 72 hours. Last BUN and creatinine: Lab Results Component Value Date BUN 27 02/14/2024 Lab Results Component Value Date CREATININE 1.60 (H) 02/14/2024 Last PSA: Lab Results Component Value Date PSA 0.10 03/22/2024 PSA 0.07 03/09/2023 PSA 0.09 03/08/2022 PSA 0.19 02/17/2021 PSA 0.11 02/24/2020 No results found for: PROSTATICSP Past Medical, Family, and Social History Update: The following portions of the patient's history were reviewed and updated as appropriate: allergies, current medications, past family history, past medical history, past social history, past surgical history and problem list. Past Medical History: Diagnosis Date Atrial fibrillation ([facility]) Cataract Dental disease upper and lower partials Diabetes mellitus type 2, controlled ([facility]) Dizziness Eczema HL (hearing loss) bilateral aids Hydrocele Hyperlipidemia Hypertension Obesity Prostate cancer ([facility]) Urinary frequency Visual impairment Past Surgical History: Procedure Laterality Date FINGER AMPUTATION Left HYDROCELECTOMY Left HYDROCELECTOMY Right 02/26/2024 Performed by Nimisha Ricketts MD at [facility] Bilateral knee TRANSURETHRAL RESECTION OF PROSTATE 03/23/2015 Family History Problem Relation Age of Onset Hypertension Mother Hyperlipidemia Mother Heart disease Mother Hypertension Father Hyperlipidemia Father Heart disease Father Current Outpatient Medications Medication Sig Dispense Refill amLODIPine (NORVASC) 5 mg tablet Take 1 tablet (5 mg total) by mouth in the morning. apixaban (ELIQUIS) 2.5 mg tablet Take 1 tablet (2.5 mg total) by mouth in the morning and 1 tablet (2.5 mg total) before bedtime. 90 tablet 3 cholecalciferol, vitamin D3, 5,000 units tablet Take 1 tablet (5,000 Units total) by mouth in the morning. dupilumab (DUPIXENT SYRINGE) 300 mg/2 mL syringe SUBQ injection Inject under the skin every 14 (fourteen) days. hydroCHLOROthiazide (HYDRODIURIL) 25 mg tablet Take 1 tablet (25 mg total) by mouth daily. losartan (COZAAR) 100 mg tablet Take 1 tablet (100 mg total) by mouth in the morning. meclizine (ANTIVERT) 25 mg tablet Take 1 tablet (25 mg total) by mouth 4 (four) times a day as needed for dizziness. metFORMIN XR (GLUCOPHAGE XR) 500 mg 24 hr tablet Take 1 tablet (500 mg total) by mouth in the morning and 1 tablet (500 mg total) before bedtime. simvastatin (ZOCOR) 20 mg tablet Take 1 tablet (20 mg total) by mouth nightly. tamsulosin (FLOMAX) 0.4 mg capsule,extended release 24hr Take 1 capsule (0.4 mg total) by mouth nightly. traMADoL (ULTRAM) 50 mg tablet Take 1 tablet (50 mg total) by mouth every 12 (twelve) hours as needed for pain. No current facility-administered medications for this visit. (All medications reviewed and updated by provider since last office visit or hospitalization) Allergies: Bee venom protein (honey bee) Tobacco History: Social History Tobacco Use Smoking Status Former Types: Cigars Smokeless Tobacco Never Tobacco Comments quit (If patient a smoker, smoking cessation counseling offered) Social History: Social History Substance and Sexual Activity Alcohol Use Yes Comment: rare Review of Systems: General: Negative for chills and fever. Cardiovascular: Negative for chest pain and shortness of breath. Gastrointestinal: Negative for constipation, diarrhea, nausea, and vomitting. Physical Exam: BP 113/80 Pulse (!) 46 Ht 170.2 cm (5' 7 ) Wt 92.5 kg (204 lb) BMI 31.95 kg/m General Alert., Cooperative. Not in acute distress. Non-toxic. Orientation - Oriented X3. Head and Neck Normocephalic, atraumatic with no lesions. No abnormal movements. Trachea - midline. Integumentary Normal coloration of skin. Skin Moisture - normal skin moisture. Chest and Lung Exam Quiet, even and easy respiratory effort with no use of accessory muscles. Neurologic NON-focal Standard right hemiscrotal swelling after hydrocelectomy. No evidence of any cellulitis. Lower extremities no calf pain edema or tenderness. Incisions clean dry and intact. Assessment and Plan: Melecio was seen today for follow-up. Diagnoses and all orders for this visit: Encysted hydrocele Prostate cancer ([facility]) Problem List High Prostate cancer ([facility]) Overview ==== 03/25/2024 ==== PSA looks great 0.10. [...] ALLSCRIPTS SUMMARY +++++++++++ Diagnosis March 2015 incidental [place] 3 + 3 equal 6 2/157 chips from TURP. Less than 5%. PSA August 2015 0.1. Patient comfortable with watchful waiting. PSA 0.11 and 0.12 ==== 11/21/2018 ==== PSA excellent 0.10. BENITA negative. Will continue monitor. PSA 9 months. Current Assessment & Plan PSA 1 year Encysted hydrocele - Primary Overview ==== 03/25/2024 ==== ##### status post hydrocelectomy. [...] of Keflex. Return as scheduled with Dr. Ricketts 03/25/24 ==== 10/18/2023 ==== hydrocele not the [...] get a scrotal ultrasound orders to characterize. Follow-up: Return clinic 1 year with psa Nimisha Ricketts MD This note was created with the assistance of a speech recognition program. While intending to generate a timely document that accurately reflects the content of the visit, no guarantee can be provided that every grammatical or spelling mistake has been or will be identified or corrected. Thank you for your understanding. documented in this encounter [facility] 03-22-2024 Miscellaneous Notes Pt. Was contacted to remind him to get his PSA drawn for his appt on Monday with Dr Ana MD. Pt. Stated he would go get it done right now. Nothing more at this time. documented in this encounter [facility] 03-22-2024 Telephone encounter Note Pt. Was contacted to remind him to get his PSA drawn for his appt on Monday with Dr Ana MD. Pt. Stated he would go get it done right now. Nothing more at this time. [facility] 03-05-2024 Miscellaneous Notes Just wanted to follow up with you. I saw him today (right hydrocelectomy 02/26/24) He does have some significant swelling to right side of scrotum. No pain. No fevers. No drainage from incision. Was slightly erythematous and warm to the touch. I did put him on an extended course of Keflex. He restarted Eliquis day after surgery. He is already scheduled with you 03/25. Anything additional? Nothing additional documented in this encounter [facility] 03-05-2024 Telephone encounter Note Just wanted to follow up with you. I saw him today (right hydrocelectomy 02/26/24) He does have some significant swelling to right side of scrotum. No pain. No fevers. No drainage from incision. Was slightly erythematous and warm to the touch. I did put him on an extended course of Keflex. He restarted Eliquis day after surgery. He is already scheduled with you 03/25. Anything additional? [facility] 03-05-2024 Telephone encounter Note Nothing additional [facility] 03-05-2024 History of Presen t illness Narrative Images from the original note were not included. [id number] [facility] [place] [id number] Patient: Melecio Jackson Date of : 1935 Encounter Date: 03/05/2024 History of Present Illness: The patient is a 89 y.o. male, an established patient, and is here for testicle swelling. Patient has history of right hydrocelectomy on 02/26/[address] Ricketts. To notice increasing testicular swelling a few days ago. He states he has not very minimal pain. He has required Tylenol 2 times since surgery. He is icing and elevating scrotum. He stopped wearing the jockstrap yesterday. He is currently on Eliquis for AFib which he restarted the day after surgery. On exam, he has some moderate right testicular swelling with erythema. It is warm to the touch. Incision intact. Minimal serosanguineous drainage. Summary of old records: Reviewed operative note 02/26/2024 Urinalysis today: No results for input(s): EXTPOCURCO , EXTPOCURCH , EXTPOCAPP , EXTPOCURBS , EXTPOCURBIL , EXTPOCUKET , EXTPOCUSPG , EXTPOCUHGB , EXTPOCUPRO , EXTPOCUURO , EXTPOCULEU , EXTPOCUNIT , EXTPOCUWBC , EXTPOCUBLD , EXTPOCURBC , EXTPOCUCRY , EXTPOCUBAC , EXTPOCUTREP , EXTPOCUPH in the last 72 hours. Last BUN and creatinine: Lab Results Component Value Date BUN 27 02/14/2024 Lab Results Component Value Date CREATININE 1.60 (H) 02/14/2024 Last PSA: Lab Results Component Value Date PSA 0.07 03/09/2023 PSA 0.09 03/08/2022 PSA 0.19 02/17/2021 PSA 0.11 02/24/2020 PSA 0.12 05/23/2019 No results found for: PROSTATICSP Additional Lab/Culture results: None Imaging Reviewed during this Office Visit: None (Results were independently reviewed by physician and radiology report verified) Past Medical, Family, and Social History Update: The following portions of the patient's history were reviewed and updated as appropriate: allergies, current medications, past family history, past medical history, past social history, past surgical history and problem list. Past Medical History: Diagnosis Date Atrial fibrillation ([facility]) Cataract Dental disease upper and lower partials Diabetes mellitus type 2, controlled ([facility]) Dizziness Eczema HL (hearing loss) bilateral aids Hydrocele Hyperlipidemia Hypertension Obesity Prostate cancer ([facility]) Urinary frequency Visual impairment Past Surgical History: Procedure Laterality Date FINGER AMPUTATION Left HYDROCELECTOMY Left HYDROCELECTOMY Right 02/26/2024 Performed by Nimisha Ricketts MD at [facility] Bilateral knee TRANSURETHRAL RESECTION OF PROSTATE 03/23/2015 Family History Problem Relation Age of Onset Hypertension Mother Hyperlipidemia Mother Heart disease Mother Hypertension Father Hyperlipidemia Father Heart disease Father Current Outpatient Medications Medication Sig Dispense Refill amLODIPine (NORVASC) 5 mg tablet Take 1 tablet (5 mg total) by mouth in the morning. apixaban (ELIQUIS) 2.5 mg tablet Take 1 tablet (2.5 mg total) by mouth in the morning and 1 tablet (2.5 mg total) before bedtime. 90 tablet 3 cholecalciferol, vitamin D3, 5,000 units tablet Take 1 tablet (5,000 Units total) by mouth in the morning. dupilumab (DUPIXENT SYRINGE) 300 mg/2 mL syringe SUBQ injection Inject under the skin every 14 (fourteen) days. hydroCHLOROthiazide (HYDRODIURIL) 25 mg tablet Take 1 tablet (25 mg total) by mouth daily. losartan (COZAAR) 100 mg tablet Take 1 tablet (100 mg total) by mouth in the morning. meclizine (ANTIVERT) 25 mg tablet Take 1 tablet (25 mg total) by mouth 4 (four) times a day as needed for dizziness. metFORMIN XR (GLUCOPHAGE XR) 500 mg 24 hr tablet Take 1 tablet (500 mg total) by mouth in the morning and 1 tablet (500 mg total) before bedtime. simvastatin (ZOCOR) 20 mg tablet Take 1 tablet (20 mg total) by mouth nightly. tamsulosin (FLOMAX) 0.4 mg capsule,extended release 24hr Take 1 capsule (0.4 mg total) by mouth nightly. traMADoL (ULTRAM) 50 mg tablet Take 1 tablet (50 mg total) by mouth every 12 (twelve) hours as needed for pain. CEPHalexin (KEFLEX) 500 mg capsule Take 1 capsule (500 mg total) by mouth 3 (three) times a day for 14 days. 42 capsule 0 No current facility-administered medications for this visit. (All medications reviewed and updated by provider since last office visit or hospitalization) Allergies: Bee venom protein (honey bee) Tobacco History: Social History Tobacco Use Smoking Status Former Types: Cigars Smokeless Tobacco Never Tobacco Comments quit (If patient a smoker, smoking cessation counseling offered) Social History: Social History Substance and Sexual Activity Alcohol Use Yes Comment: rare Review of Systems: General: Negative for chills and fever. Cardiovascular: Negative for chest pain and shortness of breath. Gastrointestinal: Negative for constipation, diarrhea, nausea, and vomitting. Physical Exam: BP 116/71 (BP Site: Left Arm, BP Postition: Sitting) Pulse 87 Ht 170.2 cm (5' 7.01 ) Wt 92.5 kg (204 lb) BMI 31.94 kg/m Constitutional: He appears well-developed. No distress. Pulmonary/Chest: Effort normal. No respiratory distress. Neurological: He is alert and oriented for age. Gait normal. Nursing note and vitals reviewed. Assessment and Plan: Melecio was seen today for follow-up. Diagnoses and all orders for this visit: Encysted hydrocele - CEPHalexin (KEFLEX) 500 mg capsule; Take 1 capsule (500 mg total) by mouth 3 (three) times a day for 14 days. Problem List Encysted hydrocele - Primary Overview ====03/05/2024==== right hydrocelectomy 02/26/2024. Has some moderate right testicular swelling, erythematous and warm to the touch. We will give extended course of Keflex. Return as scheduled with Dr. Ricketts 03/25/24 ==== 10/18/2023 ==== hydrocele not the [...] get a scrotal ultrasound orders to characterize. Relevant Medications CEPHalexin (KEFLEX) 500 mg capsule Follow-up: OSMAR SPAIN This note was created with the assistance of a speech recognition program. While intending to generate a timely document that accurately reflects the content of the visit, no guarantee can be provided that every grammatical or spelling mistake has been or will be identified or corrected. Thank you for your understanding. OSM[facility] Leo 03/06/24 1035 documented in this encounter [facility] 03-04-2024 Miscellaneous Notes Patient said he had procedure on 02/25 and he said today that he is having horrible swelling in his testicles and surrounding area. He said everything is just bad and he does not know what to do? Please advise Midlevel provider appointment or patient go to urgent care Patient is scheduled for tomorrow documented in this encounter [facility] 03-04-2024 Telephone encounter Note Patient said he had procedure on 02/25 and he said today that he is having horrible swelling in his testicles and surrounding area. He said everything is just bad and he does not know what to do? Please advise [facility] 03-04-2024 Telephone encounter Note Midlevel provider appointment or patient go to urgent care [facility] 03-04-2024 Telephone encounter Note Patient is scheduled for tomorrow [facility] 02-29-2024 History of Presen t illness Narrative Pt. Arrives at this office for a post-op drain removal. Pt. States he is sore, but doing good. This nurse had the Pt. Lay on the treatment bed. A single suture was cut and the pen reginaldo drain. After the drain was removed, the incision was measured at aproximately 1 cm long. Incision is clean, dry and shows no signs of infection - no redness, swelling or drainage. Incision did not bleed after removal. No gauze needed to be placed on the incision. No other questions or concerns at this time. Pt. Was informed to call if he did have any before his follow up appointment. Rachel Harkins LPN Ordering Physician: Dr Ana MD Supervising Physician: Dr. Thelma MD documented in this encounter [facility] 02-26-2024 Miscellaneous Notes Have patient return to [facility] on Monday or for drain removal hemiscrotum. And then in 3 weeks follow up with midlevel provider. documented in this encounter [facility] 02-26-2024 Telephone encounter Note Have patient return to [facility] on Monday or for drain removal hemiscrotum. And then in 3 weeks follow up with midlevel provider. [facility] 02-23-2024 History of Presen t illness Narrative Melecio Jackson Date of visit: 02/23/2024 Date of : 1935 Age: 89 y.o. 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 apixaban (ELIQUIS) 2.5 mg tablet Take 1 tablet (2.5 mg total) by mouth in the morning and 1 tablet (2.5 mg total) before bedtime. 90 tablet 3 cholecalciferol, vitamin D3, 5,000 units tablet Take 1 tablet (5,000 Units total) by mouth in the morning. dupilumab (DUPIXENT SYRINGE) 300 mg/2 mL syringe SUBQ injection Inject under the skin every 14 (fourteen) days. hydroCHLOROthiazide (HYDRODIURIL) 25 mg tablet Take 1 tablet (25 mg total) by mouth daily. losartan (COZAAR) 100 mg tablet Take 1 tablet (100 mg total) by mouth in the morning. meclizine (ANTIVERT) 25 mg tablet Take 1 tablet (25 mg total) by mouth 4 (four) times a day as needed for dizziness. metFORMIN XR (GLUCOPHAGE XR) 500 mg 24 hr tablet Take 1 tablet (500 mg total) by mouth in the morning and 1 tablet (500 mg total) before bedtime. simvastatin (ZOCOR) 20 mg tablet Take 1 tablet (20 mg total) by mouth nightly. tamsulosin (FLOMAX) 0.4 mg capsule,extended release 24hr Take 1 capsule (0.4 mg total) by mouth nightly. traMADoL (ULTRAM) 50 mg tablet Take 1 tablet (50 mg total) by mouth every 12 (twelve) hours as needed for pain. No current facility-administered medications for this visit. Chief Complaint Patient presents with Pre-op Exam EST PT F/U EARLY PRE OP W/ DR RICKETTS FAX [phone] ECHO DONE SCHED W/P History of Present Illness Patient presents for follow-up for his echocardiogram. He was recently diagnosed with atrial fibrillation. The echo report says his EF is 25-30%. I reviewed the port I do not agree with this. To my eye the EF appears to be 45-50% he has no pericardial effusion no major valvular disease. I think he continues to be cleared for his hydrocele of his left testicle and I would continue with the surgery at this point at [id number] risk as was graded before Past Medical History: Diagnosis Date Atrial fibrillation ([facility]) Cataract Dental disease upper and lower partials Diabetes mellitus type 2, controlled ([facility]) Dizziness Eczema HL (hearing loss) bilateral aids Hydrocele Hyperlipidemia Hypertension Obesity Prostate cancer ([facility]) Urinary frequency Visual impairment No data recorded No data recorded No data recorded Past Surgical History: Procedure Laterality Date FINGER AMPUTATION Left HYDROCELECTOMY Left JOINT REPLACEMENT Bilateral knee TRANSURETHRAL RESECTION OF PROSTATE 03/23/2015 Family History Problem Relation Age of Onset Hypertension Mother Hyperlipidemia Mother Heart disease Mother Hypertension Father Hyperlipidemia Father Heart disease Father Social History Socioeconomic History Marital status: Spouse name: Not on file Number of children: Not on file Years of education: Not on file Highest education level: Not on file Occupational History Not on file Tobacco Use Smoking status: Former Types: Cigars Smokeless tobacco: Never Tobacco comments: quit Vaping Use Vaping status: Never Used Substance and Sexual Activity Alcohol use: Yes Comment: rare Drug use: No Sexual activity: Defer Partners: Female Other Topics Concern Caffeine Use Yes Social History Narrative Not on file Social Drivers of Health Financial Resource Strain: Not on file Food Insecurity: No Food Insecurity (02/23/2024) Hunger Screening Food Insecurity - Worry: Never True Food Insecurity - Inability: Never True Transportation Needs: Not on file Physical Activity: Not on file Stress: Not on file Social Connections: Not on file Interpersonal Safety: Not on file Housing Instability: Not on file Review of Systems Review of Systems Constitutional: Negative. HENT: Negative. Eyes: Negative. Cardiovascular: Negative. Respiratory: Negative. Endocrine: Negative. Hematologic/Lymphatic: Negative. Skin: Negative. Musculoskeletal: Negative. Gastrointestinal: Negative. Genitourinary: Negative. Neurological: Negative. Psychiatric/Behavioral: Negative. Allergic/Immunologic: Negative. Vascular: Negative. CARDIOVASCULAR: Please review HPI. Physical Examination General appearance: Alert, oriented and cooperative. In no acute distress. Skin: Warm and dry to touch. Head: Normocephalic, without obvious abnormality, atraumatic. Ears, Nose, Mouth, Throat: Throat clear without erythema or exudate. Dentition intact. Eyes: Conjunctivae unremarkable, EOM intact. Neck: No JVD, No carotid bruit. Neck supple, trachea midline. Respiratory: Clear to auscultation bilaterally, no use of accessory muscles. Cardiovascular: RRR with normal S1 and S2 with no murmurs. Gastrointestinal: Soft, non-tender. Bowel sounds normal. Musculoskeletal: No peripheral edema. Neurologic: Oriented to time, person and place, affect appropriate. No focal/major motor defects noted. Psychiatric: Appropriate mood, memory and judgement. VITAL SIGNS: BP (!) 140/96 (BP Site: Left Arm, BP Postition: Sitting) Pulse 70 Ht 170.2 cm (5' 7 ) Wt 92.6 kg (204 lb 3.2 oz) SpO2 99% BMI 31.98 kg/m No orders of the defined types were placed in this encounter. There are no discontinued medications. IMPRESSIONS/PLAN There are no diagnoses linked to this encounter. Preoperative cardiovascular risk assessment Atrial fibrillation Hypertension Hyperlipidemia - 09/2022: Total cholesterol 117, HDL 37, LDL 50, triglycerides 144 Diabetes mellitus CKD Echo shows LV dysfunction by do not agree with the interpretation I think the EF is closer to mildly reduced and will recheck the echo in 3 months when he comes back but I would proceed with the surgery given the need at this time without further cardiac workup TODAYS ORDERS No orders of the defined types were placed in this encounter. FOLLOW UP No follow-ups on file. PCP: DILLON MEADE MD Referring Physician: Dillon Meade MD [address] [place] [facility] [place] [address] documented in this encounter [facility] 02-22-2024 Miscellaneous Notes ----- Message from Dr. Joseline Oleary MD sent at 02/22/2024 3:04 PM EDT ----- Reviewed. Patient at moderate risk for perioperative cardiovascular complications. Risk non prohibitive undergoing low risk procedure hydrocelectomy. Needs to come in his soon as possible to discuss results, optimizing GDMT. Thank you Results called to pt. Appt available in [place] tomorrow but not again for several weeks. Pt agreeable to be seen in [place] office. documented in this encounter [facility] 02-22-2024 Telephone encounter Note ----- Message from Dr. Joseline Oleary MD sent at 02/22/2024 3:04 PM EDT ----- Reviewed. Patient at moderate risk for perioperative cardiovascular complications. Risk non prohibitive undergoing low risk procedure hydrocelectomy. Needs to come in his soon as possible to discuss results, optimizing GDMT. Thank you [facility] 02-22-2024 Telephone encounter Note Results called to pt. Appt available in [place] tomorrow but not again for several weeks. Pt agreeable to be seen in [place] office. [facility] 02-16-2024 History of Presen t illness Narrative Images from the original note were not included. HISTORY OF PRESENT ILLNESS: EST PT Melecio Jackson is an 89 y.o. @ male. 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- NO PAIN MEDS- DISCONTINUED SPLINT- NO COMPLAINTS MELISSA: PT FELL OVER HIS DOG WHILE MOVING A BED PT RECENTLY STARTED ELIQUIS ALLERGIES: Allergies Allergen Reactions Wasp Venom Protein HOME MEDICATIONS: Current Outpatient Medications Medication Instructions amLODIPine (NORVASC) 5 mg, Oral, Daily apixaban (ELIQUIS) 2.5 mg, Oral, 2 times daily aspirin 81 mg, Oral, Daily dupilumab (DUPIXENT) 200 mg, Subcutaneous, Every 14 days hydroCHLOROthiazide (HYDRODIURIL) 25 mg, Oral, Daily losartan (COZAAR) 100 mg, Oral, Daily meclizine (ANTIVERT) 25 mg, Oral, 4 times daily PRN metFORMIN XR (GLUCOPHAGE-XR) 500 mg, Oral, Daily simvastatin (ZOCOR) 20 mg, Oral, Nightly tamsulosin (FLOMAX) 0.4 mg, Oral, Daily PHYSICAL EXAM: Hand/Wrist Musculoskeletal Exam Inspection Left Left hand/wrist inspection is normal. Erythema: none Ecchymosis: none Edema: none (mild effusion) Deformity: mild Palpation Left Left wrist palpation is normal. Wrist tenderness to palpation comment: DENIES PAIN TO SNUFF BOX OR SCAPHO-LUNATE. Range of Motion Left Wrist Left wrist range of motion is normal. Active Extension: 70 Passive Extension: 70 Active Flexion: 70 Passive Flexion: 70 Active Pronation: 90 Passive Pronation: 90 Active Supination: 90 Passive Supination: 90 Strength Left Hand Left hand strength is normal. Left Wrist Left wrist strength is normal. Extension: 5/5. Flexion: 5/5. Radial deviation: 5/5. Ulnar deviation: 5/5. Pronation: 5/5. Supination: 5/5. Neurovascular Left Left neurovascular exam is normal. Radial pulse: normal and 2+ Capillary refill: brisk and <3 sec Ulnar nerve sensory distribution: normal Median nerve sensory distribution: normal Superficial radial nerve sensory distribution: normal Special Tests Left DRUJ instability: negative CMC grind test: negative TFCC load test: negative General Constitutional: appears stated age Labored breathing: no Neurological: alert and oriented x3 Skin: intact Lymphadenopathy: none Vitals: There is no height or weight on file to calculate BMI. Tobacco Use: Low Risk (02/16/2024) Patient History Smoking Tobacco Use: Never Smokeless Tobacco Use: Never Passive Exposure: Not on file Recent Concern: Tobacco Use - Medium Risk (02/14/2024) Received from [employer] Patient History Smoking Tobacco Use: Former Smokeless Tobacco Use: Never Passive Exposure: Not on file Alcohol Use: Not on file IMAGING: Procedures No orders of the defined types were placed in this encounter. ASSESSMENT: ICD-10-CM 1. Acute pain of left wrist M25.532 2. 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 Minimal swelling. Consider IA Injection if symptoms worsen. Pt functioning too well for Injection. Questions answered in laymen terms at the bedside. The diagnosis, home exercise plan and any ongoing restrictions/ recommendations reviewed. If unable to be reached in office, I recommend evaluation at nearest Emergency Room if any symptoms worsened or new symptoms develop for requiring urgent evaluation. documented in this encounter [facility] 02-14-2024 Instructions Mariah Duval RN - 02/14/2024 9:00 AM EDT Preoperative Education Checklist- General Surgery date: 02/26/24 Surgery time: 830a Arrival time: 630a 1. Bring a photo ID and your insurance card with you the day of surgery. You will check in at the main lobby of the [facility]- registration desk is straight ahead as soon as you walk in. Tell them you are here for surgery. 2. If you have a Living Will/Durable Power of Foaming Machine Operator for Health Care that is not on file here, please bring a copy the day of surgery. 3. Please shower/bathe the night before surgery with the provided soap or wipes. Do not shower the morning of surgery- you will do use wipes when you arrive here at the hospital before getting into your surgical gown. Do not shave the area of your procedure for 2 days prior to your surgery. 4. NO powder, lotion, perfume/cologne, aftershave, make-up, deodorant, or hair products after you have bathed. 5. NO nail bruneian/acrylic on at least one finger. If you are having a hand, wrist or foot surgery then all nail bruneian and artificial/acrylic nails must be removed from that hand or foot. 6. Avoid ALL Aspirin and non-steroidal anti-inflammatory drugs and certain vitamins (Ibuprofen, Advil, Aleve, Excedrin, Meloxicam, Celebrex, fish/krill oil, etc.) for 7 days prior to surgery as instructed by your surgeon and/or your prescribing doctor. Tylenol IS ALLOWED. If you are on Ticlid, Xarelto, Eliquis, Pradaxa, Plavix or Coumadin, please check with your prescribing doctor for instructions for when to stop them. 7. If you use an inhaler, continue to use it routinely. 8. Nothing to eat or drink (not even water, gum, mints, or hard candy!) AFTER midnight prior to your surgery. 9. Take only medications that you are instructed to on the morning of surgery with a TINY SIP OF WATER. 10. Choose a responsible adult that will be able to drive you home when you are discharged from your hospital stay for your surgery and can stay with you in your home for 24 hours after your procedure. You must NOT drive any vehicle or operate any machinery for 24 hours after surgery. 11. When you dress for your appointment, please wear loose fitting clothing that is appropriate to accommodate your surgical area procedure. BRING WITH YOU ANY DEVICES YOU MAY NEED: WILLARD hose, ice machine, sling/swath, brace or special shoe, oversized zip-up or button up shirt, CPAP machine if staying overnight. 12. Do NOT wear jewelry, watches, or any piercings or metal for surgery- leave these valuables and money at home. 13. Do NOT wear contact lenses for surgery- glasses are okay if needed. 14. The anesthesiologist will talk with you the day of surgery and will ask you to sign a Consent Form. 15. Refrain from smoking or any type of tobacco use for at least 8 hours and marijuana for 24 hours prior to arrival for your surgery. 16. If a GREEN BLOOD band is given to you, please bring it with you for the day of surgery. 17. Notify your surgeon if you develop any illness before your surgery. 18. If you are staying overnight, please DO NOT BRING your home medications with you. 19. If you have any questions prior to surgery, please call the [facility] office at [phone], Mon.-Fri. 7 a.m.-3 p.m. Leave a voicemail if needed. Pre-Surgery Instructions: Medication Instructions hydroCHLOROthiazide (HYDRODIURIL) 25 mg tablet Stop taking 0 days prior to procedure losartan (COZAAR) 100 mg tablet Take morning of procedure traMADoL (ULTRAM) 50 mg tablet Stop taking 0 days prior to procedure amLODIPine (NORVASC) 5 mg tablet Take morning of procedure apixaban (ELIQUIS) 2.5 mg tablet Check with prescribing doctor for instructions cholecalciferol, vitamin D3, 5,000 units tablet Stop taking 0 days prior to procedure dupilumab (DUPIXENT SYRINGE) 300 mg/2 mL syringe SUBQ injection Stop taking 0 days prior to procedure meclizine (ANTIVERT) 25 mg tablet Stop taking 0 days prior to procedure metFORMIN XR (GLUCOPHAGE XR) 500 mg 24 hr tablet Stop taking 0 days prior to procedure simvastatin (ZOCOR) 20 mg tablet Stop taking 0 days prior to procedure tamsulosin (FLOMAX) 0.4 mg capsule,extended release 24hr Stop taking 0 days prior to procedure How to Avoid an Infection after Your Surgery Your doctor will give you specific instructions, but remember: -ALWAYS wash hands before caring for your catheter and/or after using the restroom. -ALWAYS wipe from front to back. -No make creams, lotion, powder, rubbing alcohol or hydrogen peroxide on surgical area (can harm the tissue and slow healing). -Your doctor will give you specific instructions for what type of dressing or equipment you will need and how often it will need changed for infection purposes. -Do not allow anyone to touch your surgical area unless they are cleaning, checking, or redressing it (be sure they wash their hands first). -No contact of your surgical area with pets or pet hair; avoid sleeping with pets. -Take full course of antibiotic if prescribed for you after surgery- do not stop unless directed to by your physician. You may also be given an antibiotic prior to your surgery to help prevent surgical site infections. -Eat a healthy and varied diet including proteins, fruits, and vegetables to help promote wound healing and keep blood sugars under control if you are diabetic. -Smoking slows the healing process by decreasing the amount of oxygen in your blood that is needed for tissue healing. Try to avoid or stop smoking if possible. CALL your doctor if you notice any of the following: -Increased redness or hardening around the surgical area. -Increased pain or increased blood in your urine. -If urine becomes increasingly cloudy, you notice sediment or particles in your urine, or you notice a foul odor or yellow or green discharge. -Fever higher than 101 degrees Fahrenheit for more than 4 hours. If you have a question, call your doctor s office. Go to the follow-up appointment with your doctor. documented in this encounter [facility] 02-09-2024 History of Presen t illness Narrative Melecio Jackson Date of visit: 02/09/2024 Date of : 1935 Age: 89 y.o. 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 aspirin 81 mg chewable tablet Chew 1 tablet (81 mg total) and swallow in the morning. cholecalciferol, vitamin D3, 5,000 units tablet Take 1 tablet (5,000 Units total) by mouth in the morning. dupilumab (DUPIXENT SYRINGE) 300 mg/2 mL syringe SUBQ injection Inject under the skin every 14 (fourteen) days. lisinopril-hydrochlorothiazide (PRINZIDE,ZESTORETIC) 10-12.5 mg per tablet Take 1 tablet by mouth in the morning. losartan-hydrochlorothiazide (HYZAAR) 100-25 mg per tablet meclizine (ANTIVERT) 25 mg tablet Chew 1 tablet (25 mg total) and swallow 3 (three) times a day as needed for dizziness. metFORMIN (GLUCOPHAGE) 500 mg tablet Take 1 tablet (500 mg total) by mouth 3 (three) times a day. simvastatin (ZOCOR) 20 mg tablet Take 1 tablet (20 mg total) by mouth nightly. tamsulosin (FLOMAX) 0.4 mg capsule,extended release 24hr Take 1 capsule (0.4 mg total) by mouth nightly. No current facility-administered medications for this visit. No chief complaint on file. History of Present Illness 89 year old with history of atrial fibrillation, hypertension, hyperlipidemia, type 2 diabetes mellitus. New to our practice. Here for preoperative cardiovascular risk, planned hydrocelectomy procedure. Patient stated that he has been feeling well. Active at home. No solid exercise routine. Stated that he can pushes lawn more for half an hour with no difficulty. Denies any episodes of chest pain or shortness of breath or palpitations or orthopnea, or edema. Reported occasional lightheadedness. No syncope or presyncope. Patient stated that he is not aware that he is in atrial fibrillation. Denied any previous cardiac problems. Monitor his blood pressure and heart rate at home regularly. No issues. Denied any stroke or stroke-like symptoms. 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 Tobacco: Former smoker. Quit 10 yrs ago, smoked cigars for about 30 years, average 2 cigars per day, did not inhale. Alcohol: Occasional 1-2 glass of wine per week. Recreational drugs: None. EKG 12/20/23: Atrial fibrillation. EKG in the office today showing patient in atrial fibrillation. Rate controlled. Past Medical History: Diagnosis Date Cataract Dental disease upper and lower partials Diabetes mellitus ([facility]) Diabetes mellitus type 2, controlled ([facility]) Dizziness Eczema HL (hearing loss) bilateral aids Hydrocele Hyperlipidemia Hypertension Obesity Prostate cancer ([facility]) Urinary frequency Visual impairment No data recorded No data recorded No data recorded Past Surgical History: Procedure Laterality Date FINGER AMPUTATION Left HYDROCELECTOMY JOINT REPLACEMENT Bilateral knee TRANSURETHRAL RESECTION OF PROSTATE 03/23/2015 Family History Problem Relation Age of Onset Hypertension Mother Hyperlipidemia Mother Heart disease Mother Hypertension Father Hyperlipidemia Father Heart disease Father Social History Socioeconomic History Marital status: Spouse name: Not on file Number of children: Not on file Years of education: Not on file Highest education level: Not on file Occupational History Not on file Tobacco Use Smoking status: Former Types: Cigars Smokeless tobacco: Never Tobacco comments: quit Vaping Use Vaping status: Never Used Substance and Sexual Activity Alcohol use: Yes Comment: rare Drug use: No Sexual activity: Defer Partners: Female Other Topics Concern Not on file Social History Narrative Not on file Social Determinants of Health Financial Resource Strain: Not on file Food Insecurity: No Food Insecurity (10/18/2023) Hunger Screening Food Insecurity - Worry: Never True Food Insecurity - Inability: Never True Transportation Needs: Not on file Physical Activity: Not on file Stress: Not on file Social Connections: Not on file Interpersonal Safety: Not on file Housing Instability: Not on file Review of Systems Review of Systems Respiratory: Negative for cough, hemoptysis and wheezing. Gastrointestinal: Negative for abdominal pain, change in bowel habit and hematochezia. Genitourinary: Negative for dysuria and hematuria. Neurological: Negative for focal weakness, headaches and paresthesias. CARDIOVASCULAR: Please review HPI. Physical Examination General appearance: Alert, oriented and cooperative. In no acute distress. Skin: Warm and dry to touch. Head: Normocephalic, without obvious abnormality, atraumatic. Ears, Nose, Mouth, Throat: Throat clear without erythema or exudate. Dentition intact. Eyes: Conjunctivae unremarkable, EOM intact. Neck: No JVD, No carotid bruit. Neck supple, trachea midline. Respiratory: Clear to auscultation bilaterally, no use of accessory muscles. Cardiovascular: RRR with normal S1 and S2 with no murmurs. Gastrointestinal: Soft, non-tender. Bowel sounds normal. Musculoskeletal: No peripheral edema. Neurologic: Oriented to time, person and place, affect appropriate. No focal/major motor defects noted. Psychiatric: Appropriate mood, memory and judgement. VITAL SIGNS: There were no vitals taken for this visit. No orders of the defined types were placed in this encounter. There are no discontinued medications. IMPRESSIONS/PLAN 1. Encounter for pre-operative cardiovascular clearance 2. Atrial fibrillation, unspecified type (CMS-HCC) 3. Primary hypertension 4. Hyperlipidemia, unspecified hyperlipidemia type Previous cardiac related labs and test results were reviewed and discussed with the patient. Preoperative cardiovascular risk assessment Atrial fibrillation Hypertension Hyperlipidemia - 09/2022: Total cholesterol 117, HDL 37, LDL 50, triglycerides 144 Diabetes mellitus CKD Patient new to our practice. Here for preoperative cardiovascular risk assessment for planned hydrocelectomy. Patient at low to moderate risk for perioperative cardiovascular complications although will obtain echocardiogram to assess baseline cardiac function prior to final clearance. Patient in atrial fibrillation, not known to him. I started him on Eliquis 2.5 mg b.i.d. given his renal failure and age. When cleared, can hold Eliquis for 2-3 days prior to procedure and resume when cleared afterwards. Patient will continue to monitor blood pressure at home and heart rate and let us know if any issues. Will discontinued baby aspirin. No change in his made in the rest of his cardiac meds. Follow-up in 6 months or sooner if needed. Patient to call us with any cardiac questions or concerns. TODAYS ORDERS No orders of the defined types were placed in this encounter. FOLLOW UP No follow-ups on file. PCP: DILLON MEADE MD Referring Physician: Nimisha Ricketts MD [address] [place] [address] [facility] Miscellaneous Notes Called patient to remind them to bring their most current copy of their medication list with them to their appt. Patient verbalizes understanding. [facility] [facility] Telephone encounter Note Called patient to remind them to bring their most current copy of their medication list with them to their appt. Patient verbalizes understanding. [facility] History of Presen t illness Narrative Images from the original note were not included. HISTORY OF PRESENT ILLNESS: EST PT Melecio Jackson is an 89 y.o. @ male. EST PT WITH NEW C/O LT WRIST INJURY SUSTAINED 6DAYS AGO (01/25/24)- PT FELL OVER HIS DOG WHILE MOVING A BED- PT WENT TO [facility] ER TX; XRAY/TRAMADOL XRAY LT WRIST WITH SCAPHOID TODAY EPIC 01/31/24 XRAY LT WRIST/LT FOREARM 01/27/24 [facility] (PUSHED THRU TO CHANGE) PT STATES HE HAD SWELLING AND PAIN RADIAL ASPECT- PT DOES HAVE A WOUND ULNAR ASPECT FROM HIS WATCH- PT STATES SYMPTOM HAVE RESOLVED ALLERGIES: Allergies Allergen Reactions Wasp Venom Protein HOME MEDICATIONS: Current Outpatient Medications Medication Instructions amLODIPine (NORVASC) 5 mg, Oral, Daily aspirin 81 mg, Oral, Daily dupilumab (DUPIXENT) 200 mg, Subcutaneous, Every 14 days hydroCHLOROthiazide (HYDRODIURIL) 25 mg, Oral, Daily losartan (COZAAR) 100 mg, Oral, Daily meclizine (ANTIVERT) 25 mg, Oral, 4 times daily PRN metFORMIN XR (GLUCOPHAGE-XR) 500 mg, Oral, Daily simvastatin (ZOCOR) 20 mg, Oral, Nightly tamsulosin (FLOMAX) 0.4 mg, Oral, Daily PHYSICAL EXAM: Hand/Wrist Musculoskeletal Exam Inspection Left Erythema: none Ecchymosis: none Edema: mild Palpation Left Wrist tenderness to palpation: radial snuffbox Wrist tenderness to palpation comment: + tenderness distal radius, compartments soft Range of Motion Right Wrist Active Extension: 70 Passive Extension: 70 Left Wrist Active Extension: 30 Passive Extension: 70 Active Flexion: 80 Passive Flexion: 80 Range of motion additional comments: + PAIN WITH MOTION , Mostly wrist extension. NO EVIDENCE OF WRIST DROP, MAKES FULL FIST Strength Left Wrist Left wrist strength is normal. Extension is affected by pain. Strength additional comments: MOTORS HAND AND WRIST Neurovascular Left Left neurovascular exam is normal. Radial pulse: normal and 2+ Capillary refill: brisk and <3 sec Neurovascular additional comments: NO FOCAL DEFICITS Special Tests Left DRUJ instability: negative TFCC load test: negative General Constitutional: appears stated age Labored breathing: no Neurological: alert and oriented x3 Skin: intact Lymphadenopathy: none Vitals: Body mass index is 31.93 kg/m . Tobacco Use: Low Risk (01/31/2024) Patient History Smoking Tobacco Use: Never Smokeless Tobacco Use: Never Passive Exposure: Not on file Recent Concern: Tobacco Use - Medium Risk (01/25/2024) Received from [employer] Patient History Smoking Tobacco Use: Former Smokeless Tobacco Use: Never Passive Exposure: Not on file Alcohol Use: Not on file IMAGING: Procedures Orders Placed This Encounter Procedures XR wrist 3+ views left Order Specific Question: Reason for exam: Answer: PAIN ASSESSMENT: ICD-10-CM 1. Acute pain of left wrist M25.532 XR wrist 3+ views left 2. Left wrist sprain, initial encounter S63.502A 3. 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 + DJD at wrist more appreciated. Pt reports remote fall of [employer] building during working years.. ? Rom my be chronically limited.. 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 May remove to shower, gentle rom.. recheck in 2 wks. Questions answered in laymen terms at the bedside. The diagnosis, home exercise plan and any ongoing restrictions/ recommendations reviewed. If unable to be reached in office, I recommend evaluation at nearest Emergency Room if any symptoms worsened or new symptoms develop for requiring urgent evaluation. documented in this encounter [facility] 12-21-2023 Miscellaneous Notes LMOM for the patient to call and schedule their new pt appointment with [facility]. documented in this encounter [facility] 12-21-2023 Telephone encounter Note LMOM for the patient to call and schedule their new pt appointment with [facility]. [facility] 12-20-2023 Instructions Josi Miranda RN - 12/20/2023 9:45 AM EDT Preoperative Education Checklist- General Surgery date: 01/03/24 Surgery time: 0830 a.m. Arrival time: 0630 a.m. 1. Bring a photo ID and your insurance card with you the day of surgery. You will check in at the main lobby of the [facility]- registration desk is straight ahead as soon as you walk in. Tell them you are here for surgery. 2. If you have a Living Will/Durable Power of Foaming Machine Operator for Health Care that is not on file here, please bring a copy the day of surgery. 3. Please shower/bathe the night before surgery with the provided soap or wipes. Do not shower the morning of surgery- you will do use wipes when you arrive here at the hospital before getting into your surgical gown. Do not shave the area of your procedure for 2 days prior to your surgery. 4. NO powder, lotion, perfume/cologne, aftershave, make-up, deodorant, or hair products after you have bathed. 5. NO nail bruneian/acrylic on at least one finger. If you are having a hand, wrist or foot surgery then all nail bruneian and artificial/acrylic nails must be removed from that hand or foot. 6. Avoid ALL Aspirin and non-steroidal anti-inflammatory drugs and certain vitamins (Ibuprofen, Advil, Aleve, Excedrin, Meloxicam, Celebrex, fish/krill oil, etc.) for 7 days prior to surgery as instructed by your surgeon and/or your prescribing doctor. Tylenol IS ALLOWED. If you are on Ticlid, Xarelto, Eliquis, Pradaxa, Plavix or Coumadin, please check with your prescribing doctor for instructions for when to stop them. 7. If you use an inhaler, continue to use it routinely. 8. Nothing to eat or drink (not even water, gum, mints, or hard candy!) AFTER midnight prior to your surgery. 9. Take only medications that you are instructed to on the morning of surgery with a TINY SIP OF WATER. 10. Choose a responsible adult that will be able to drive you home when you are discharged from your hospital stay for your surgery and can stay with you in your home for 24 hours after your procedure. You must NOT drive any vehicle or operate any machinery for 24 hours after surgery. 11. When you dress for your appointment, please wear loose fitting clothing that is appropriate to accommodate your surgical area procedure. BRING WITH YOU ANY DEVICES YOU MAY NEED: WILLARD hose, ice machine, sling/swath, brace or special shoe, oversized zip-up or button up shirt, CPAP machine if staying overnight. 12. Do NOT wear jewelry, watches, or any piercings or metal for surgery- leave these valuables and money at home. 13. Do NOT wear contact lenses for surgery- glasses are okay if needed. 14. The anesthesiologist will talk with you the day of surgery and will ask you to sign a Consent Form. 15. Refrain from smoking or any type of tobacco use for at least 8 hours and marijuana for 24 hours prior to arrival for your surgery. 16. If a GREEN BLOOD band is given to you, please bring it with you for the day of surgery. 17. Notify your surgeon if you develop any illness before your surgery. 18. If you are staying overnight, please DO NOT BRING your home medications with you. 19. If you have any questions prior to surgery, please call the Preadmission Testing office at [phone], Mon.-Fri. 7 a.m.-3 p.m. Leave a voicemail if needed. Pre-Surgery Instructions: Medication Instructions amLODIPine (NORVASC) 5 mg tablet Stop taking 0 days prior to procedure aspirin 81 mg chewable tablet Stop taking 1 week prior to procedure cholecalciferol, vitamin D3, 5,000 units tablet Stop taking 0 days prior to procedure dupilumab (DUPIXENT SYRINGE) 300 mg/2 mL syringe SUBQ injection Stop taking 0 days prior to procedure lisinopril-hydrochlorothiazide (PRINZIDE,ZESTORETIC) 10-12.5 mg per tablet Stop taking 0 days prior to procedure losartan-hydrochlorothiazide (HYZAAR) 100-25 mg per tablet Stop taking 0 days prior to procedure meclizine (ANTIVERT) 25 mg tablet Stop taking 0 days prior to procedure metFORMIN (GLUCOPHAGE) 500 mg tablet Stop taking 0 days prior to procedure simvastatin (ZOCOR) 20 mg tablet Stop taking 0 days prior to procedure tamsulosin (FLOMAX) 0.4 mg capsule,extended release 24hr Stop taking 0 days prior to procedure How to Avoid an Infection after Your Surgery Your doctor will give you specific instructions, but remember: -ALWAYS wash hands before caring for your catheter and/or after using the restroom. -ALWAYS wipe from front to back. -No make creams, lotion, powder, rubbing alcohol or hydrogen peroxide on surgical area (can harm the tissue and slow healing). -Your doctor will give you specific instructions for what type of dressing or equipment you will need and how often it will need changed for infection purposes. -Do not allow anyone to touch your surgical area unless they are cleaning, checking, or redressing it (be sure they wash their hands first). -No contact of your surgical area with pets or pet hair; avoid sleeping with pets. -Take full course of antibiotic if prescribed for you after surgery- do not stop unless directed to by your physician. You may also be given an antibiotic prior to your surgery to help prevent surgical site infections. -Eat a healthy and varied diet including proteins, fruits, and vegetables to help promote wound healing and keep blood sugars under control if you are diabetic. -Smoking slows the healing process by decreasing the amount of oxygen in your blood that is needed for tissue healing. Try to avoid or stop smoking if possible. CALL your doctor if you notice any of the following: -Increased redness or hardening around the surgical area. -Increased pain or increased blood in your urine. -If urine becomes increasingly cloudy, you notice sediment or particles in your urine, or you notice a foul odor or yellow or green discharge. -Fever higher than 101 degrees Fahrenheit for more than 4 hours. If you have a question, call your doctor s office. Go to the follow-up appointment with your doctor. [facility] Miscellaneous Notes Preoperative Education Checklist- General Surgery date: 01/03/24 Surgery time: 0830 a.m. Arrival time: 0630 a.m. 1. Bring a photo ID and your insurance card with you the day of surgery. You will check in at the main lobby of the [facility]- registration desk is straight ahead as soon as you walk in. Tell them you are here for surgery. 2. If you have a Living Will/Durable Power of Foaming Machine Operator for Health Care that is not on file here, please bring a copy the day of surgery. 3. Please shower/bathe the night before surgery with the provided soap or wipes. Do not shower the morning of surgery- you will do use wipes when you arrive here at the hospital before getting into your surgical gown. Do not shave the area of your procedure for 2 days prior to your surgery. 4. NO powder, lotion, perfume/cologne, aftershave, make-up, deodorant, or hair products after you have bathed. 5. NO nail bruneian/acrylic on at least one finger. If you are having a hand, wrist or foot surgery then all nail bruneian and artificial/acrylic nails must be removed from that hand or foot. 6. Avoid ALL Aspirin and non-steroidal anti-inflammatory drugs and certain vitamins (Ibuprofen, Advil, Aleve, Excedrin, Meloxicam, Celebrex, fish/krill oil, etc.) for 7 days prior to surgery as instructed by your surgeon and/or your prescribing doctor. Tylenol IS ALLOWED. If you are on Ticlid, Xarelto, Eliquis, Pradaxa, Plavix or Coumadin, please check with your prescribing doctor for instructions for when to stop them. 7. If you use an inhaler, continue to use it routinely. 8. Nothing to eat or drink (not even water, gum, mints, or hard candy!) AFTER midnight prior to your surgery. 9. Take only medications that you are instructed to on the morning of surgery with a TINY SIP OF WATER. 10. Choose a responsible adult that will be able to drive you home when you are discharged from your hospital stay for your surgery and can stay with you in your home for 24 hours after your procedure. You must NOT drive any vehicle or operate any machinery for 24 hours after surgery. 11. When you dress for your appointment, please wear loose fitting clothing that is appropriate to accommodate your surgical area procedure. BRING WITH YOU ANY DEVICES YOU MAY NEED: WILLARD hose, ice machine, sling/swath, brace or special shoe, oversized zip-up or button up shirt, CPAP machine if staying overnight. 12. Do NOT wear jewelry, watches, or any piercings or metal for surgery- leave these valuables and money at home. 13. Do NOT wear contact lenses for surgery- glasses are okay if needed. 14. The anesthesiologist will talk with you the day of surgery and will ask you to sign a Consent Form. 15. Refrain from smoking or any type of tobacco use for at least 8 hours and marijuana for 24 hours prior to arrival for your surgery. 16. If a GREEN BLOOD band is given to you, please bring it with you for the day of surgery. 17. Notify your surgeon if you develop any illness before your surgery. 18. If you are staying overnight, please DO NOT BRING your home medications with you. 19. If you have any questions prior to surgery, please call the Preadmission Testing office at [phone], Mon.-Fri. 7 a.m.-3 p.m. Leave a voicemail if needed. Pre-Surgery Instructions: Medication Instructions amLODIPine (NORVASC) 5 mg tablet Stop taking 0 days prior to procedure aspirin 81 mg chewable tablet Stop taking 1 week prior to procedure cholecalciferol, vitamin D3, 5,000 units tablet Stop taking 0 days prior to procedure dupilumab (DUPIXENT SYRINGE) 300 mg/2 mL syringe SUBQ injection Stop taking 0 days prior to procedure lisinopril-hydrochlorothiazide (PRINZIDE,ZESTORETIC) 10-12.5 mg per tablet Stop taking 0 days prior to procedure losartan-hydrochlorothiazide (HYZAAR) 100-25 mg per tablet Stop taking 0 days prior to procedure meclizine (ANTIVERT) 25 mg tablet Stop taking 0 days prior to procedure metFORMIN (GLUCOPHAGE) 500 mg tablet Stop taking 0 days prior to procedure simvastatin (ZOCOR) 20 mg tablet Stop taking 0 days prior to procedure tamsulosin (FLOMAX) 0.4 mg capsule,extended release 24hr Stop taking 0 days prior to procedure How to Avoid an Infection after Your Surgery Your doctor will give you specific instructions, but remember: -ALWAYS wash hands before caring for your catheter and/or after using the restroom. -ALWAYS wipe from front to back. -No make creams, lotion, powder, rubbing alcohol or hydrogen peroxide on surgical area (can harm the tissue and slow healing). -Your doctor will give you specific instructions for what type of dressing or equipment you will need and how often it will need changed for infection purposes. -Do not allow anyone to touch your surgical area unless they are cleaning, checking, or redressing it (be sure they wash their hands first). -No contact of your surgical area with pets or pet hair; avoid sleeping with pets. -Take full course of antibiotic if prescribed for you after surgery- do not stop unless directed to by your physician. You may also be given an antibiotic prior to your surgery to help prevent surgical site infections. -Eat a healthy and varied diet including proteins, fruits, and vegetables to help promote wound healing and keep blood sugars under control if you are diabetic. -Smoking slows the healing process by decreasing the amount of oxygen in your blood that is needed for tissue healing. Try to avoid or stop smoking if possible. CALL your doctor if you notice any of the following: -Increased redness or hardening around the surgical area. -Increased pain or increased blood in your urine. -If urine becomes increasingly cloudy, you notice sediment or particles in your urine, or you notice a foul odor or yellow or green discharge. -Fever higher than 101 degrees Fahrenheit for more than 4 hours. If you have a question, call your doctor s office. Go to the follow-up appointment with your doctor. Surgical instructions reviewed. Patient verbalized understanding. Preliminary EKG shows new onset Afib. Gilda at Dr Ricketts's office notified that patient will need cardio clearance if confirmed as Afib once read by physician. documented in this encounter [facility] 12-20-2023 Nurse Note Preoperative Education Checklist- General Surgery date: 01/03/24 Surgery time: 0830 a.m. Arrival time: 0630 a.m. 1. Bring a photo ID and your insurance card with you the day of surgery. You will check in at the main lobby of the [facility]- registration desk is straight ahead as soon as you walk in. Tell them you are here for surgery. 2. If you have a Living Will/Durable Power of Foaming Machine Operator for Health Care that is not on file here, please bring a copy the day of surgery. 3. Please shower/bathe the night before surgery with the provided soap or wipes. Do not shower the morning of surgery- you will do use wipes when you arrive here at the hospital before getting into your surgical gown. Do not shave the area of your procedure for 2 days prior to your surgery. 4. NO powder, lotion, perfume/cologne, aftershave, make-up, deodorant, or hair products after you have bathed. 5. NO nail bruneian/acrylic on at least one finger. If you are having a hand, wrist or foot surgery then all nail bruneian and artificial/acrylic nails must be removed from that hand or foot. 6. Avoid ALL Aspirin and non-steroidal anti-inflammatory drugs and certain vitamins (Ibuprofen, Advil, Aleve, Excedrin, Meloxicam, Celebrex, fish/krill oil, etc.) for 7 days prior to surgery as instructed by your surgeon and/or your prescribing doctor. Tylenol IS ALLOWED. If you are on Ticlid, Xarelto, Eliquis, Pradaxa, Plavix or Coumadin, please check with your prescribing doctor for instructions for when to stop them. 7. If you use an inhaler, continue to use it routinely. 8. Nothing to eat or drink (not even water, gum, mints, or hard candy!) AFTER midnight prior to your surgery. 9. Take only medications that you are instructed to on the morning of surgery with a TINY SIP OF WATER. 10. Choose a responsible adult that will be able to drive you home when you are discharged from your hospital stay for your surgery and can stay with you in your home for 24 hours after your procedure. You must NOT drive any vehicle or operate any machinery for 24 hours after surgery. 11. When you dress for your appointment, please wear loose fitting clothing that is appropriate to accommodate your surgical area procedure. BRING WITH YOU ANY DEVICES YOU MAY NEED: WILLARD hose, ice machine, sling/swath, brace or special shoe, oversized zip-up or button up shirt, CPAP machine if staying overnight. 12. Do NOT wear jewelry, watches, or any piercings or metal for surgery- leave these valuables and money at home. 13. Do NOT wear contact lenses for surgery- glasses are okay if needed. 14. The anesthesiologist will talk with you the day of surgery and will ask you to sign a Consent Form. 15. Refrain from smoking or any type of tobacco use for at least 8 hours and marijuana for 24 hours prior to arrival for your surgery. 16. If a GREEN BLOOD band is given to you, please bring it with you for the day of surgery. 17. Notify your surgeon if you develop any illness before your surgery. 18. If you are staying overnight, please DO NOT BRING your home medications with you. 19. If you have any questions prior to surgery, please call the Preadmission Testing office at [phone], Mon.-Fri. 7 a.m.-3 p.m. Leave a voicemail if needed. Pre-Surgery Instructions: Medication Instructions amLODIPine (NORVASC) 5 mg tablet Stop taking 0 days prior to procedure aspirin 81 mg chewable tablet Stop taking 1 week prior to procedure cholecalciferol, vitamin D3, 5,000 units tablet Stop taking 0 days prior to procedure dupilumab (DUPIXENT SYRINGE) 300 mg/2 mL syringe SUBQ injection Stop taking 0 days prior to procedure lisinopril-hydrochlorothiazide (PRINZIDE,ZESTORETIC) 10-12.5 mg per tablet Stop taking 0 days prior to procedure losartan-hydrochlorothiazide (HYZAAR) 100-25 mg per tablet Stop taking 0 days prior to procedure meclizine (ANTIVERT) 25 mg tablet Stop taking 0 days prior to procedure metFORMIN (GLUCOPHAGE) 500 mg tablet Stop taking 0 days prior to procedure simvastatin (ZOCOR) 20 mg tablet Stop taking 0 days prior to procedure tamsulosin (FLOMAX) 0.4 mg capsule,extended release 24hr Stop taking 0 days prior to procedure How to Avoid an Infection after Your Surgery Your doctor will give you specific instructions, but remember: -ALWAYS wash hands before caring for your catheter and/or after using the restroom. -ALWAYS wipe from front to back. -No make creams, lotion, powder, rubbing alcohol or hydrogen peroxide on surgical area (can harm the tissue and slow healing). -Your doctor will give you specific instructions for what type of dressing or equipment you will need and how often it will need changed for infection purposes. -Do not allow anyone to touch your surgical area unless they are cleaning, checking, or redressing it (be sure they wash their hands first). -No contact of your surgical area with pets or pet hair; avoid sleeping with pets. -Take full course of antibiotic if prescribed for you after surgery- do not stop unless directed to by your physician. You may also be given an antibiotic prior to your surgery to help prevent surgical site infections. -Eat a healthy and varied diet including proteins, fruits, and vegetables to help promote wound healing and keep blood sugars under control if you are diabetic. -Smoking slows the healing process by decreasing the amount of oxygen in your blood that is needed for tissue healing. Try to avoid or stop smoking if possible. CALL your doctor if you notice any of the following: -Increased redness or hardening around the surgical area. -Increased pain or increased blood in your urine. -If urine becomes increasingly cloudy, you notice sediment or particles in your urine, or you notice a foul odor or yellow or green discharge. -Fever higher than 101 degrees Fahrenheit for more than 4 hours. If you have a question, call your doctor s office. Go to the follow-up appointment with your doctor. [facility] 12-20-2023 Nurse Note Surgical instructions reviewed. Patient verbalized understanding. Preliminary EKG shows new onset Afib. Gilda at Dr Ricketts's office notified that patient will need cardio clearance if confirmed as Afib once read by physician. [facility] 10-18-2023 Miscellaneous Notes Right hydrocelectomy. Hold his aspirin. General anesthesia. Oliver. Diagnosis bothersome right hydrocele. documented in this encounter [facility] 10-18-2023 Telephone encounter Note Right hydrocelectomy. Hold his aspirin. General anesthesia. Oliver. Diagnosis bothersome right hydrocele. [facility] 10-18-2023 History of Presen t illness Narrative Images from the original note were not included. [address] [place] [address] A [facility] [address] Patient: Melecio Jackson Date of : 1935 Encounter Date: 10/18/2023 History of Present Illness: The patient is a 88 y.o. male, an established patient, and is here for hydrocele. Right side. Bothersome enough for the patient now to pursue treatment. Has not substantially change since last imaging study that confirmed normal testicles in right-sided hydrocele. Full discussion of the procedures talked patient. He did have a left hydrocelectomy in the past.. Summary of old records: Urinalysis today: No results for input(s): EXTPOCURCO , EXTPOCURCH , EXTPOCAPP , EXTPOCURBS , EXTPOCURBIL , EXTPOCUKET , EXTPOCUSPG , EXTPOCUHGB , EXTPOCUPRO , EXTPOCUURO , EXTPOCULEU , EXTPOCUNIT , EXTPOCUWBC , EXTPOCUBLD , EXTPOCURBC , EXTPOCUCRY , EXTPOCUBAC , EXTPOCUTREP , EXTPOCUPH , EXTPOCULEE in the last 72 hours. Last BUN and creatinine: Lab Results Component Value Date BUN 31 (H) 09/30/2022 Lab Results Component Value Date CREATININE 1.61 (H) 09/30/2022 Last PSA: Lab Results Component Value Date PSA 0.07 03/09/2023 PSA 0.09 03/08/2022 PSA 0.19 02/17/2021 PSA 0.11 02/24/2020 PSA 0.12 05/23/2019 No results found for: PROSTATICSP Past Medical, Family, and Social History Update: The following portions of the patient's history were reviewed and updated as appropriate: allergies, current medications, past family history, past medical history, past social history, past surgical history and problem list. 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 No pertinent family history. Current Outpatient Medications Medication Sig Dispense Refill amLODIPine (NORVASC) 5 mg tablet Take 1 tablet (5 mg total) by mouth in the morning. aspirin 81 mg chewable tablet Chew 1 tablet (81 mg total) and swallow in the morning. losartan-hydrochlorothiazide (HYZAAR) 100-25 mg per tablet metFORMIN (GLUCOPHAGE) 500 mg tablet Take 1 tablet (500 mg total) by mouth 3 (three) times a day. simvastatin (ZOCOR) 20 mg tablet Take 1 tablet (20 mg total) by mouth nightly. cholecalciferol, vitamin D3, 5,000 units tablet Take 1 tablet (5,000 Units total) by mouth in the morning. (Patient not taking: Reported on 10/18/2023) dupilumab (DUPIXENT SYRINGE) 300 mg/2 mL syringe SUBQ injection Inject under the skin once. lisinopril-hydrochlorothiazide (PRINZIDE,ZESTORETIC) 10-12.5 mg per tablet Take 1 tablet by mouth in the morning. (Patient not taking: Reported on 10/18/2023) tamsulosin (FLOMAX) 0.4 mg capsule,extended release 24hr Take 1 capsule (0.4 mg total) by mouth nightly. (Patient not taking: Reported on 10/18/2023) No current facility-administered medications for this visit. (All medications reviewed and updated by provider since last office visit or hospitalization) Allergies: Bee sting [hymenoptera allergenic extract] Tobacco History: Social History Tobacco Use Smoking Status Former Types: Cigars Smokeless Tobacco Never Tobacco Comments quit (If patient a smoker, smoking cessation counseling offered) Social History: Social History Substance and Sexual Activity Alcohol Use Yes Comment: rare Review of Systems: General: Negative for chills and fever. Cardiovascular: Negative for chest pain and shortness of breath. Gastrointestinal: Negative for constipation, diarrhea, nausea, and vomitting. -per HPI Physical Exam: BP 105/74 Pulse (!) 48 Ht 172.7 cm (5' 8 ) Wt 94.3 kg (208 lb) BMI 31.63 kg/m General Alert., Cooperative. Not in acute distress. Non-toxic. Orientation - Oriented X3. Head and Neck Normocephalic, atraumatic with no lesions. No abnormal movements. Trachea - midline. Integumentary Normal coloration of skin. Skin Moisture - normal skin moisture. Chest and Lung Exam Quiet, even and easy respiratory effort with no use of accessory muscles. Neurologic NON-focal Right-sided hydrocele. Large size. No evidence of cellulitis. Assessment and Plan: Melecio was seen today for follow-up. 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 Follow-up: Set up OR Nimisha Ricketts MD This note was created with the assistance of a speech recognition program. While intending to generate a timely document that accurately reflects the content of the visit, no guarantee can be provided that every grammatical or spelling mistake has been or will be identified or corrected. Thank you for your understanding. documented in this encounter [facility] Evaluation note Diagnosis Acute pain of left wrist- Primary Left wrist sprain, initial encounter Arthritis of left wrist documented in this encounter [facility] HealthcareEvaluation note* Diagnosis Type II or unspecified type diabetes mellitus with renal manifestations, uncontrolled(250.42) (CMS/HCC)- Primary Type II or unspecified type diabetes mellitus with renal manifestations, uncontrolled Essential hypertension, benign (CMS/HCC) Essential hypertension, benign DDD (degenerative disc disease), lumbar Degeneration of lumbar or lumbosacral intervertebral disc 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 History of prostate cancer Personal history of malignant neoplasm of prostate Type 2 diabetes mellitus with hyperglycemia, without long-term current use of insulin (CMS/HCC)- Primary Essential hypertension, benign (CMS/HCC) Essential hypertension, benign Hydrocele, unspecified hydrocele type DDD (degenerative disc disease), lumbar Degeneration of lumbar or lumbosacral intervertebral disc Primary osteoarthritis of both knees Dyslipidemia (CMS/HCC) Other and unspecified hyperlipidemia Chronic kidney disease (CKD) stage G3b/A1, moderately decreased glomerular filtration rate (GFR) between 30-44 mL/min/1.73 square meter and albuminuria creatinine ratio less than 30 mg/g (H* (CMS/HCC) History of prostate cancer Personal history of malignant neoplasm of prostate Obesity (BMI 30-39.9) Encounter for long-term (current) use of medications Encounter for long-term (current) use of other medications Type 2 diabetes mellitus with stage 3b chronic kidney disease, without long-term current use of insulin (HCC) (CMS/HCC) Vertigo- Primary Dizziness and giddiness Acute pain of left wrist- Primary Sprain of left wrist, subsequent encounter documented in this encounter [facility] HealthcareEvaluation note* Diagnosis Type II or unspecified type diabetes mellitus with renal manifestations, uncontrolled(250.42) (CMS/HCC)- Primary Type II or unspecified type diabetes mellitus with renal manifestations, uncontrolled Essential hypertension, benign (CMS/HCC) Essential hypertension, benign DDD (degenerative disc disease), lumbar Degeneration of lumbar or lumbosacral intervertebral disc 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 History of prostate cancer Personal history of malignant neoplasm of prostate Type 2 diabetes mellitus with hyperglycemia, without long-term current use of insulin (CMS/HCC)- Primary Essential hypertension, benign (CMS/HCC) Essential hypertension, benign Hydrocele, unspecified hydrocele type DDD (degenerative disc disease), lumbar Degeneration of lumbar or lumbosacral intervertebral disc Primary osteoarthritis of both knees Dyslipidemia (CMS/HCC) Other and unspecified hyperlipidemia Chronic kidney disease (CKD) stage G3b/A1, moderately decreased glomerular filtration rate (GFR) between 30-44 mL/min/1.73 square meter and albuminuria creatinine ratio less than 30 mg/g (H* (CMS/HCC) History of prostate cancer Personal history of malignant neoplasm of prostate Obesity (BMI 30-39.9) Encounter for long-term (current) use of medications Encounter for long-term (current) use of other medications Type 2 diabetes mellitus with stage 3b chronic kidney disease, without long-term current use of insulin (HCC) (CMS/HCC) Vertigo- Primary Dizziness and giddiness Type 2 diabetes mellitus with hyperglycemia, without long-term current use of insulin (CMS/HCC)- Primary Essential hypertension, benign (CMS/HCC) Essential hypertension, benign Chronic HFrEF (heart failure with reduced ejection fraction) (CMS/HCC) Paroxysmal atrial fibrillation (CMS/HCC) [facility] Diagnosis Encysted hydrocele- Primary [facility] Diagnosis Encysted hydrocele- Primary Preop examination- Primary Unspecified pre-operative examination Hypertension, unspecified type Type 2 diabetes mellitus without complication, without long-term current use of insulin (CMS-HCC) Preop examination Unspecified pre-operative examination Hypertension, unspecified type Type 2 diabetes mellitus without complication, without long-term current use of insulin (CMS-HCC) Encysted hydrocele documented [facility] Diagnosis Encysted hydrocele- Primary Encounter for pre-operative cardiovascular clearance- Primary Atrial fibrillation, unspecified type (CMS-HCC) Primary hypertension Unspecified essential hypertension Hyperlipidemia, unspecified hyperlipidemia type Abnormal EKG Nonspecific abnormal electrocardiogram (ECG) (EKG) Preop examination- Primary Unspecified pre-operative examination Hypertension, unspecified type Type 2 diabetes mellitus without complication, without long-term current use of insulin (CMS-HCC) Urinary frequency Encysted hydrocele [facility] Diagnosis BPH (benign prostatic hypertrophy) with urinary obstruction- Primary Hypertrophy of prostate with urinary obstruction and other lower urinary tract symptoms (LUTS) Prostate cancer (CMS-HCC) Malignant neoplasm of prostate Benign non-nodular prostatic hyperplasia, presence of lower urinary tract symptoms unspecified- Primary Prostate cancer (CMS-HCC) Malignant neoplasm of prostate BPH (benign prostatic hypertrophy) with urinary obstruction Hypertrophy of prostate with urinary obstruction and other lower urinary tract symptoms (LUTS) Prostate cancer (CMS-HCC)- Primary Malignant neoplasm of prostate Benign prostatic hyperplasia with urinary obstruction Prostate cancer (CMS-HCC)- Primary Malignant neoplasm of prostate Benign prostatic hyperplasia with urinary obstruction Benign prostatic hyperplasia without lower urinary tract symptoms- Primary Prostate cancer (CMS-HCC) Malignant neoplasm of prostate Benign prostatic hyperplasia with urinary obstruction Prostate cancer (CMS-HCC)- Primary Malignant neoplasm of prostate Benign prostatic hyperplasia with urinary obstruction Prostate cancer (CMS-HCC)- Primary Malignant neoplasm of prostate Prostate cancer (CMS-HCC)- Primary Malignant neoplasm of prostate 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- Primary Preop examination- Primary Unspecified pre-operative examination Hypertension, unspecified type Type 2 diabetes mellitus without complication, without long-term current use of insulin (CMS-HCC) Urinary frequency Encysted hydrocele documented [facility] Diagnosis BPH (benign prostatic hypertrophy) with urinary obstruction- Primary Hypertrophy of prostate with urinary obstruction and other lower urinary tract symptoms (LUTS) Prostate cancer (CMS-HCC) Malignant neoplasm of prostate Benign non-nodular prostatic hyperplasia, presence of lower urinary tract symptoms unspecified- Primary Prostate cancer (CMS-HCC) Malignant neoplasm of prostate BPH (benign prostatic hypertrophy) with urinary obstruction Hypertrophy of prostate with urinary obstruction and other lower urinary tract symptoms (LUTS) Prostate cancer (CMS-HCC)- Primary Malignant neoplasm of prostate Benign prostatic hyperplasia with urinary obstruction Prostate cancer (CMS-HCC)- Primary Malignant neoplasm of prostate Benign prostatic hyperplasia with urinary obstruction Benign prostatic hyperplasia without lower urinary tract symptoms- Primary Prostate cancer (CMS-HCC) Malignant neoplasm of prostate Benign prostatic hyperplasia with urinary obstruction Prostate cancer (CMS-HCC)- Primary Malignant neoplasm of prostate Benign prostatic hyperplasia with urinary obstruction Prostate cancer (CMS-HCC)- Primary Malignant neoplasm of prostate Prostate cancer (CMS-HCC)- Primary Malignant neoplasm of prostate 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- Primary Prostate cancer (CMS-HCC)- Primary Malignant neoplasm of prostate Paroxysmal atrial fibrillation (CMS-HCC) Atrial fibrillation Encysted hydrocele documented in this encounter [facility] Diagnosis BPH (benign prostatic hypertrophy) with urinary obstruction- Primary Hypertrophy of prostate with urinary obstruction and other lower urinary tract symptoms (LUTS) Prostate cancer (CMS-HCC) Malignant neoplasm of prostate Benign non-nodular prostatic hyperplasia, presence of lower urinary tract symptoms unspecified- Primary Prostate cancer (CMS-HCC) Malignant neoplasm of prostate BPH (benign prostatic hypertrophy) with urinary obstruction Hypertrophy of prostate with urinary obstruction and other lower urinary tract symptoms (LUTS) Prostate cancer (CMS-HCC)- Primary Malignant neoplasm of prostate Benign prostatic hyperplasia with urinary obstruction Prostate cancer (CMS-HCC)- Primary Malignant neoplasm of prostate Benign prostatic hyperplasia with urinary obstruction Benign prostatic hyperplasia without lower urinary tract symptoms- Primary Prostate cancer (CMS-HCC) Malignant neoplasm of prostate Benign prostatic hyperplasia with urinary obstruction Prostate cancer (CMS-HCC)- Primary Malignant neoplasm of prostate Benign prostatic hyperplasia with urinary obstruction Prostate cancer (CMS-HCC)- Primary Malignant neoplasm of prostate Prostate cancer (CMS-HCC)- Primary Malignant neoplasm of prostate 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- Primary documented in this encounter [facility] Diagnosis BPH (benign prostatic hypertrophy) with urinary obstruction- Primary Hypertrophy of prostate with urinary obstruction and other lower urinary tract symptoms (LUTS) Prostate cancer (CMS-HCC) Malignant neoplasm of prostate Benign non-nodular prostatic hyperplasia, presence of lower urinary tract symptoms unspecified- Primary Prostate cancer (CMS-HCC) Malignant neoplasm of prostate BPH (benign prostatic hypertrophy) with urinary obstruction Hypertrophy of prostate with urinary obstruction and other lower urinary tract symptoms (LUTS) Prostate cancer (CMS-HCC)- Primary Malignant neoplasm of prostate Benign prostatic hyperplasia with urinary obstruction Prostate cancer (CMS-HCC)- Primary Malignant neoplasm of prostate Benign prostatic hyperplasia with urinary obstruction Benign prostatic hyperplasia without lower urinary tract symptoms- Primary Prostate cancer (CMS-HCC) Malignant neoplasm of prostate Benign prostatic hyperplasia with urinary obstruction Prostate cancer (CMS-HCC)- Primary Malignant neoplasm of prostate Benign prostatic hyperplasia with urinary obstruction Prostate cancer (CMS-HCC)- Primary Malignant neoplasm of prostate Prostate cancer (CMS-HCC)- Primary Malignant neoplasm of prostate 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- Primary documented in this encounter [facility] Diagnosis BPH (benign prostatic hypertrophy) with urinary obstruction- Primary Hypertrophy of prostate with urinary obstruction and other lower urinary tract symptoms (LUTS) Prostate cancer (CMS-HCC) Malignant neoplasm of prostate Benign non-nodular prostatic hyperplasia, presence of lower urinary tract symptoms unspecified- Primary Prostate cancer (CMS-HCC) Malignant neoplasm of prostate BPH (benign prostatic hypertrophy) with urinary obstruction Hypertrophy of prostate with urinary obstruction and other lower urinary tract symptoms (LUTS) Prostate cancer (CMS-HCC)- Primary Malignant neoplasm of prostate Benign prostatic hyperplasia with urinary obstruction Prostate cancer (CMS-HCC)- Primary Malignant neoplasm of prostate Benign prostatic hyperplasia with urinary obstruction Benign prostatic hyperplasia without lower urinary tract symptoms- Primary Prostate cancer (CMS-HCC) Malignant neoplasm of prostate Benign prostatic hyperplasia with urinary obstruction Prostate cancer (CMS-HCC)- Primary Malignant neoplasm of prostate Benign prostatic hyperplasia with urinary obstruction Prostate cancer (CMS-HCC)- Primary Malignant neoplasm of prostate Prostate cancer (CMS-HCC)- Primary Malignant neoplasm of prostate 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- Primary Prostate cancer ([facility]-HCC) Malignant neoplasm of prostate documented in this encounter [facility] Diagnosis Type II or unspecified type diabetes mellitus with renal manifestations, uncontrolled(250.42) (CMS/HCC)- Primary Type II or unspecified type diabetes mellitus with renal manifestations, uncontrolled Essential hypertension, benign (CMS/HCC) Essential hypertension, benign DDD (degenerative disc disease), lumbar Degeneration of lumbar or lumbosacral intervertebral disc 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 History of prostate cancer Personal history of malignant neoplasm of prostate Type 2 diabetes mellitus with hyperglycemia, without long-term current use of insulin (CMS/HCC)- Primary Essential hypertension, benign (CMS/HCC) Essential hypertension, benign Hydrocele, unspecified hydrocele type DDD (degenerative disc disease), lumbar Degeneration of lumbar or lumbosacral intervertebral disc Primary osteoarthritis of both knees Dyslipidemia (CMS/HCC) Other and unspecified hyperlipidemia Chronic kidney disease (CKD) stage G3b/A1, moderately decreased glomerular filtration rate (GFR) between 30-44 mL/min/1.73 square meter and albuminuria creatinine ratio less than 30 mg/g (H* (CMS/HCC) History of prostate cancer Personal history of malignant neoplasm of prostate Obesity (BMI 30-39.9) Encounter for long-term (current) use of medications Encounter for long-term (current) use of other medications Type 2 diabetes mellitus with stage 3b chronic kidney disease, without long-term current use of insulin (HCC) (CMS/HCC) Vertigo- Primary Dizziness and giddiness Type 2 diabetes mellitus with hyperglycemia, without long-term current use of insulin (CMS/HCC)- Primary Essential hypertension, benign (CMS/HCC) Essential hypertension, benign Chronic HFrEF (heart failure with reduced ejection fraction) (CMS/HCC) Paroxysmal atrial fibrillation (CMS/HCC) Atrial fibrillation Type 2 diabetes mellitus with hyperglycemia, without long-term current use of insulin (CMS/HCC)- Primary Essential hypertension, benign (CMS/HCC) Essential hypertension, benign Paroxysmal atrial fibrillation (CMS/HCC) Atrial fibrillation Chronic HFrEF (heart failure with reduced ejection fraction) (CMS/HCC) documented in this encounter [facility]* Diagnosis Type II or unspecified type diabetes mellitus with renal manifestations, uncontrolled(250.42) (CMS/HCC)- Primary Type II or unspecified type diabetes mellitus with renal manifestations, uncontrolled Essential hypertension, benign (CMS/HCC) Essential hypertension, benign DDD (degenerative disc disease), lumbar Degeneration of lumbar or lumbosacral intervertebral disc 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 History of prostate cancer Personal history of malignant neoplasm of prostate Type 2 diabetes mellitus with hyperglycemia, without long-term current use of insulin (CMS/HCC)- Primary Essential hypertension, benign (CMS/HCC) Essential hypertension, benign Hydrocele, unspecified hydrocele type DDD (degenerative disc disease), lumbar Degeneration of lumbar or lumbosacral intervertebral disc Primary osteoarthritis of both knees Dyslipidemia (CMS/HCC) Other and unspecified hyperlipidemia Chronic kidney disease (CKD) stage G3b/A1, moderately decreased glomerular filtration rate (GFR) between 30-44 mL/min/1.73 square meter and albuminuria creatinine ratio less than 30 mg/g (H* (CMS/HCC) History of prostate cancer Personal history of malignant neoplasm of prostate Obesity (BMI 30-39.9) Encounter for long-term (current) use of medications Encounter for long-term (current) use of other medications Type 2 diabetes mellitus with stage 3b chronic kidney disease, without long-term current use of insulin (HCC) (CMS/[facility]) Vertigo- Primary Dizziness and giddiness Type 2 diabetes mellitus with hyperglycemia, without long-term current use of insulin ([facility]/HCC)- Primary Essential hypertension, benign (CMS/HCC) Essential hypertension, benign Chronic HFrEF (heart failure with reduced ejection fraction) (CMS/HCC) Paroxysmal atrial fibrillation (CMS/HCC) Atrial fibrillation Type 2 diabetes mellitus with hyperglycemia, without long-term current use of insulin ([facility]/HCC)- Primary Essential hypertension, benign (CMS/HCC) Essential hypertension, benign Paroxysmal atrial fibrillation (CMS/HCC) Atrial fibrillation Chronic HFrEF (heart failure with reduced ejection fraction) ([facility]) Medicare annual wellness visit, subsequent- Primary Type 2 diabetes mellitus with stage 3b chronic kidney disease, without long-term current use of insulin (HCC) ([facility]) Chronic kidney disease (CKD) stage G3b/A1, moderately decreased glomerular filtration rate (GFR) between 30-44 mL/min/1.73 square meter and albuminuria creatinine ratio less than 30 mg/g (H* (CMS/HCC) documented in this encounter [facility]* Diagnosis Type II or unspecified type diabetes mellitus with renal manifestations, uncontrolled(250.42) ([facility])- Primary Type II or unspecified type diabetes mellitus with renal manifestations, uncontrolled Essential hypertension, benign ([facility]) Essential hypertension, benign DDD (degenerative disc disease), lumbar Degeneration of lumbar or lumbosacral intervertebral disc 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 History of prostate cancer Personal history of malignant neoplasm of prostate Type 2 diabetes mellitus with hyperglycemia, without long-term current use of insulin ([facility])- Primary Essential hypertension, benign ([facility]/HCC) Essential hypertension, benign Hydrocele, unspecified hydrocele type DDD (degenerative disc disease), lumbar Degeneration of lumbar or lumbosacral intervertebral disc Primary osteoarthritis of both knees Dyslipidemia ([facility]) Other and unspecified hyperlipidemia Chronic kidney disease (CKD) stage G3b/A1, moderately decreased glomerular filtration rate (GFR) between 30-44 mL/min/1.73 square meter and albuminuria creatinine ratio less than 30 mg/g (H* History of prostate cancer Personal history of malignant neoplasm of prostate Obesity (BMI 30-39.9) Encounter for long-term (current) use of medications Encounter for long-term (current) use of other medications Type 2 diabetes mellitus with stage 3b chronic kidney disease, without long-term current use of insulin (HCC) ([facility]) Vertigo- Primary Dizziness and giddiness Type 2 diabetes mellitus with hyperglycemia, without long-term current use of insulin ([facility])- Primary Essential hypertension, benign ([facility]) Essential hypertension, benign Chronic HFrEF (heart failure with reduced ejection fraction) ([facility]) Paroxysmal atrial fibrillation ([facility]) Atrial fibrillation Type 2 diabetes mellitus with hyperglycemia, without long-term current use of insulin ([facility])- Primary Essential hypertension, benign ([facility]) Essential hypertension, benign Paroxysmal atrial fibrillation ([facility]) Atrial fibrillation Chronic HFrEF (heart failure with reduced ejection fraction) ([facility]) Medicare annual wellness visit, subsequent- Primary Type 2 diabetes mellitus with stage 3b chronic kidney disease, without long-term current use of insulin (HCC) ([facility]) Chronic kidney disease (CKD) stage G3b/A1, moderately decreased glomerular filtration rate (GFR) between 30-44 mL/min/1.73 square meter and albuminuria creatinine ratio less than 30 mg/g (H* Type 2 diabetes mellitus with hyperglycemia, without long-term current use of insulin ([facility])- Primary Essential hypertension, benign (CMS/HCC) Essential hypertension, benign Chronic HFrEF (heart failure with reduced ejection fraction) ([facility]) Paroxysmal atrial fibrillation ([facility]) Atrial fibrillation Chronic kidney disease (CKD) stage G3b/A1, moderately decreased glomerular filtration rate (GFR) between 30-44 mL/min/1.73 square meter and albuminuria creatinine ratio less than 30 mg/g (H* Dyslipidemia ([facility]) Other and unspecified hyperlipidemia Class 1 obesity due to excess calories with serious comorbidity and body mass index (BMI) of 30.0 to 30.9 in adult Encounter for long-term (current) use of medications Encounter for long-term (current) use of other medications documented in this encounter [facility]* Diagnosis Type II or unspecified type diabetes mellitus with renal manifestations, uncontrolled(250.42) ([facility])- Primary Type II or unspecified type diabetes mellitus with renal manifestations, uncontrolled Essential hypertension, benign Essential hypertension, benign DDD (degenerative disc disease), lumbar Degeneration of lumbar or lumbosacral intervertebral disc 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 History of prostate cancer Personal history of malignant neoplasm of prostate Type 2 diabetes mellitus with hyperglycemia, without long-term current use of insulin ([facility])- Primary Essential hypertension, benign Essential hypertension, benign Hydrocele, unspecified hydrocele type DDD (degenerative disc disease), lumbar Degeneration of lumbar or lumbosacral intervertebral disc Primary osteoarthritis of both knees Dyslipidemia Other and unspecified hyperlipidemia Chronic kidney disease (CKD) stage G3b/A1, moderately decreased glomerular filtration rate (GFR) between 30-44 mL/min/1.73 square meter and albuminuria creatinine ratio less than 30 mg/g (H* ([facility]) History of prostate cancer Personal history of malignant neoplasm of prostate Obesity (BMI 30-39.9) Encounter for long-term (current) use of medications Encounter for long-term (current) use of other medications Type 2 diabetes mellitus with stage 3b chronic kidney disease, without long-term current use of insulin ([facility]) Vertigo- Primary Dizziness and giddiness Type 2 diabetes mellitus with hyperglycemia, without long-term current use of insulin ([facility])- Primary Essential hypertension, benign Essential hypertension, benign Chronic HFrEF (heart failure with reduced ejection fraction) ([facility]) Paroxysmal atrial fibrillation (HCC) Atrial fibrillation Type 2 diabetes mellitus with hyperglycemia, without long-term current use of insulin (HCC)- Primary Essential hypertension, benign Essential hypertension, benign Paroxysmal atrial fibrillation (HCC) Atrial fibrillation Chronic HFrEF (heart failure with reduced ejection fraction) ([facility]) Medicare annual wellness visit, subsequent- Primary Type 2 diabetes mellitus with stage 3b chronic kidney disease, without long-term current use of insulin ([facility]) Chronic kidney disease (CKD) stage G3b/A1, moderately decreased glomerular filtration rate (GFR) between 30-44 mL/min/1.73 square meter and albuminuria creatinine ratio less than 30 mg/g (H* ([facility]) Type 2 diabetes mellitus with hyperglycemia, without long-term current use of insulin ([facility])- Primary Essential hypertension, benign Essential hypertension, benign Chronic HFrEF (heart failure with reduced ejection fraction) ([facility]) Paroxysmal atrial fibrillation ([facility]) Atrial fibrillation Chronic kidney disease (CKD) stage G3b/A1, moderately decreased glomerular filtration rate (GFR) between 30-44 mL/min/1.73 square meter and albuminuria creatinine ratio less than 30 mg/g (H* ([facility]) Dyslipidemia Other and unspecified hyperlipidemia Class 1 obesity due to excess calories with serious comorbidity and body mass index (BMI) of 30.0 to 30.9 in adult Encounter for long-term (current) use of medications Encounter for long-term (current) use of other medications CKD (chronic kidney disease) stage 4, GFR 15-29 ml/min ([facility]) Chronic kidney disease, Stage IV (severe) Type 2 diabetes mellitus with hyperglycemia, without long-term current use of insulin ([facility]) documented in this encounter [facility]* Diagnosis Onset Date Resolution Status Admit Date CKD (chronic kidney disease) stage 4, GFR 15-29 ml/min acute November 18, 2 025 8:35am HFrEF (heart failure with re duced ejection fraction) acute November 18 8:35am Hyperlipidemia acute November 18, 2024 8:35am Hypertensive chronic kidney disease with stage 1 through stage 4 chronic ki acute November 18, 2024 8:35am Secondary hyperparathyroidism acute November 18, 2024 8:35am Type 2 diabetes mellitus wit h diabetic chronic kidney disease acute November 18, 2024 8:35am [facility] Work Phone: InstructionsNot on filedocumented in this encounter [facility] SystemInstructionsNot on filedocumented in this encounter [facility] filed[facility] in this encounter [facility] on filedocumented in this encounter [facility]Not on filedocumented in this encounter [facility]Not on filedocumented in this encounter [facility] on filedocumented in this encounter [facility]ructionsNot on filedocumented in this encounter [facility]ructionsNot on filedocumented in this encounter [facility] SystemInstructionsNot on filedocumented in this encounter [facility] SystemReason for referral (narrative)No reason for referral information availableAv[facility] Work Phone: Summary Purpose Family History No Family History Records FoundNo Family History Records FoundNo Family History Records FoundNo Family History Records FoundNo Family History Records FoundNo Family History Records FoundNo Family History Records Found Advance Directives Advance Directive Response Recorded Date/ Time Advance Directives No May 21, 2021 5:16pm Reason for Referral Specialty Diagnoses / Procedures Referred By Jorge garrison Referred To Contact Diagnoses Preop examination Hypertension, unspecified type Type 2 diabetes mellitus without complication, without long-term current use of insulin ([facility]) Procedures ECG 12 lead Melecio Arellano MD [address] [place] [address] Referral ID Status Reason Start Date Expiration Date V isits Requested Visits Authorized [id number] Pending Review 12/14/2023 12/13/2024 1 1 Specialty Diagnoses / Procedures Referred By Jorge garrison Referred To Contact Diagnoses Encounter for pre-operative cardiovascular clearance Atrial fibrillation, unspecified type ([facility]) Primary hypertension Abnormal EKG Procedures Echo complete W/O contrast Joseline Oleary MD [address] [place] [address] [address] Phone: [phone] Referral ID Status Reason Start Date Expiration Date V isits Requested Visits Authorized [id number] Pending Review 02/09/2024 02/08/2025 1 1 Chief Complaint and Reason for Visit Chief Complaint Admit Date EGFR 26, hgb 13.1, sod 140, pot 4.2, CO2 =23, BUN 3 November 18, 2024 8:35am Reason for Visit Admit Date CKD (chronic kidney disease) stage 4, GF R 15-29 ml/min November 18, 2024 8:35am 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) November 18, 2024 8:35am Hyperlipidemia November 18, 2024 8:35 am Hypertensive chronic kidney disease with stage 1 through stage 4 chronic ki November 18, 2024 8:35am Secondary hyperparathyroidism November 18, 2024 8:35am Type 2 diabetes mellitus with diabetic c hronic kidney disease November 18, 2024 8:35am Additional Source Comments (unrecognized sect ion and content) No Status Records FoundNo Status Records FoundNo Status Records FoundNo Status Records FoundNo Status Records FoundNo Status Records FoundNo Status Records Found INFORMATION SOURCE (unrecogn ized section and content) DATE CREATED AUTHOR 07/19/2021 [facility] DATE CREATED AUTHOR AUTHOR'S ORGANIZ ATION 10/07/[address] [facility] DATE CREATED AUTHOR AUTHOR'S ORGANIZ ATION 03/02/2024 [facility] DATE CREATED AUTHOR AUTHOR'S ORGANIZ ATION 03/06/2024 [facility] DATE CREATED AUTHOR AUTHOR'S ORGANIZ ATION 03/27/2024 [facility] DATE CREATED AUTHOR AUTHOR'S ORGANIZ ATION 10/11/2024 [facility] EPIC DATE CREATED AUTHOR AUTHOR'S ORGANIZ ATION 10/23/2024 [facility] Care Teams (unrecognized sec tion and content) Supervisor [employer] Relationship Specialty Start Date End Date Dillon Meade MD [address] [place] [address] PCP - General Family Medicine 10/05/23 Supervisor [employer] Relationship Specialty Start Date End Date Dillon Meade MD [address] [place] [address] PCP - General Family Medicine 10/05/23 Supervisor [employer] Relationship Specialty Start Date End Date Dillon Meade MD [address] [place] [address] PCP - General Family Medicine 10/05/23 Supervisor [employer] Relationship Specialty Start Date End Date Dillon Meade MD [address] [place] [address] PCP - General Family Medicine 10/05/23 Supervisor [employer] Relationship Specialty Start Date End Date Dillon Meade MD [address] [place] [address] PCP - General Family Medicine 10/05/23 Supervisor [employer] Relationship Specialty Start Date End Date Dillon Meade MD [address] [place] [address] PCP - General [facility] Medicine 10/05/23 Supervisor [employer] Relationship Specialty Start Date End Date Dillon Meade MD [address] [place] [address] PCP - General 10/12/16 Supervisor [employer] Relationship Specialty Start Date End Date Dillon Meade MD [address] [place] [place] [address] PCP - General 10/12/16 Supervisor [employer] Relationship Specialty Start Date End Date Dillon Meade MD PCP - General 10/12/16 Supervisor [employer] Relationship Specialty Start Date End Date Dillon Meade MD PCP - General 10/12/16 Supervisor [employer] Relationship Specialty Start Date End Date Dillon Meade MD PCP - General 10/12/16 Supervisor [employer] Relationship Specialty Start Date End Date Dillon Meade MD PCP - General 10/12/16 Supervisor [employer] Relationship Specialty Start Date End Date Dillon Meade MD PCP - General 10/12/16 Supervisor [employer] Relationship Specialty Start Date End Date Dillon Meade MD PCP - General 10/12/16 Supervisor [employer] Relationship Specialty Start Date End Date Dillon Meade MD PCP - General 10/12/16 Supervisor [employer] Relationship Specialty Start Date End Date Dillon Meade MD PCP - General 10/12/16 Supervisor [employer] Relationship Specialty Start Date End Date Dillon Meade MD PCP - General 10/12/16 Supervisor [employer] Relationship Specialty Start Date End Date Dillon Meade MD PCP - General 10/12/16 Supervisor [employer] Relationship Specialty Start Date End Date Dillon Meade MD PCP - General 10/12/16 Supervisor [employer] Relationship Specialty Start Date End Date Dillon Meade MD PCP - General 10/12/16 Supervisor [employer] Relationship Specialty Start Date End Date Dillon Meade MD PCP - General 10/12/16 Supervisor [employer] Relationship Specialty Start Date End Date Dillon Meade MD [address] [place] [address] PCP - General Family Medicine 10/05/23 Supervisor [employer] Relationship Specialty Start Date End Date Dillon Meade MD [address] [place] [address] PCP - General Family Medicine 10/05/23 Supervisor [employer] Relationship Specialty Start Date End Date Dillno Meade MD [address] [place] [address] PCP - General Family Medicine 10/05/23 Supervisor [employer] Relationship Specialty Start Date End Date Dillon Meade MD [address] [place] [address] PCP - General Family Medicine 10/05/23 Supervisor [employer] Relationship Specialty Start Date End Date Dillon Meade MD [address] [place] [address] PCP - General Family Medicine 10/05/23 Supervisor [employer] Relationship Specialty Start Date End Date Dillon Meade MD [address] [place] [address] PCP - General Family Medicine 10/05/23 Supervisor [employer] Relationship Specialty Start Date End Date Dillon Meade MD [address] [place] [address] PCP - General Family Medicine 10/05/23 Team Status: Active Member Role Status Dates Dillon Meade MD Primary Care Provider Active Team Status: Inactive Member Role Status Dates Brittany Breaux MD Attending Provider Active Start : November 18, 2024 End: November 18, 2024 Dillon Meade MD Primary Care Provider Active S tart: November 18, 2024 End: November 18, 2024 Supervisor [employer] Relationship Specialty Start Date End Date Dillon Meade MD PCP - General Family Medicine 10/22/24 Reason for Visit (unrecogniz ed section and content) Reason Comments Pain Reason Comments Follow-up 6m f/u Reason Comments Follow-up procedure discussion Reason Comments Follow-up FIRST ASSISTANT PRE OP DR RICKETTS RT HYDROCELECTOMY SCHED W/ PT TESTS AT [facility] PT WANTS TO PUSH BACK SURG DATE AT WAIT FOR [facility] ONLY APPT New Patient Specialty Diagnoses / Procedures Referred By Jorge t Referred To Contact Cardiology Diagnoses Atrial fibrillation, unspecified type ([facility]) Nimisha Ricketts MD [facility] [place] [address] [facility] [address] [address] Referral ID Status Reason Start Date Expiration Date Visits Requested Visits Authorized [id number] Pending Review Specialty Services Required 12/21/2023 12/20/2024 1 1 Reason Comments Pre-op Exam EST PT F/U EARLY PRE OP W/ DR RICKETTS FAX [phone] ECHO DONE SCHED W/P Reason Comments Post-Op Drain Removal Reason Comments Follow-up Reason Comments Follow-up Medication questions Reason Comments Medicare Annual Wellness Visit Subsequen t wellness Reason Comments Follow-up 3 m Reason Onset Date Comments Med Refill 11/14/2024 Goals (unrecognized section and content) Goals may be documented in a n alternate section FOR RECORDS PERTAINING TO PATIENTS WHO ARE [...] BE BASED ON THE PRIMARY CLINICAL RECORDS. [employer]. provides no warranty or guarantee of the accuracy or completeness of information in this document.
== END 2024-11-27 07:44 | disposition home or self-care (01) ==
LOC: US 07:43
PROVIDERS: PCP Family Medicine; Visit Provider Internal Medicine
DX: N20.0 Calculus of kidney (principal); I50.20 Unspecified systolic (congestive) heart failure; N25.81 Secondary hyperparathyroidism of renal origin; E78.5 Hyperlipidemia, unspecified; I12.9 Hypertensive chronic kidney disease with stage 1 through stage 4 chronic kidney disease, or unspecified chronic kidney disease; E11.22 Type 2 diabetes mellitus with diabetic chronic kidney disease; N18.4 Chronic kidney disease, stage 4 (severe)
CPT/HCPCS: 76775

== ENCOUNTER 2025-01-13 09:10 | Outpatient (OUT) | payer MEDICARE, SELFPAY ==
--- OUTSIDE RECORDS SUMMARY | 2025-01-13 09:15 | XMS_ITS | Clinical Summary ---
Author Organization [facility] Healthcare Address [address] [place] [address] Care Team Providers Care Switchboard Operator Receptionist Name Role Phone Dillon Yadav MD Primary Care Provider [phone] Allergies Active Allergy Reactions Criticality Noted Date Comments Wasp Venom Protein 04/05/2016 Medications dupilumab (Dupixent) 200 MG/1.14ML injection Inject 200 mg under the skin every 14 (fourteen) days Active meclizine (Antivert) 25 MG tabletIndications :Vertigo Take 1 tablet (25 mg) by mouth 4 (four) times a day as needed for dizziness 60 tablet 2 4 Active hydroCHLOROthiazi de (HYDRODiuril) 25 MG tabletIndications :Essential hypertension, benign TAKE 1 TABLET DAILY 90 tablet 3 4 Active losartan (Cozaar) 100 MG tabletIndications :Essential hypertension, benign TAKE 1 TABLET DAILY 90 tablet 3 4 Active tamsulosin (Flomax) 0.4 MG 24 hr capsuleIndication s:Benign prostatic hyperplasia with urinary obstruction TAKE 1 CAPSULE DAILY 90 capsule 3 5 Active simvastatin (Zocor) 20 MG tabletIndications :Benign prostatic hyperplasia with urinary obstruction TAKE 1 TABLET AT BEDTIME 90 tablet 3 5 Active apixaban (Eliquis) 2.5 MG tabletIndications :Paroxysmal atrial fibrillation (HCC) Take 1 tablet (2.5 mg) by mouth in the morning and 1 tablet (2.5 mg) before bedtime. 60 tablet 5 5 Active empagliflozin (Jardiance) 10 MGIndications:CKD (chronic kidney disease) stage 4, GFR 15-29 ml/min ([facility]),Type 2 diabetes mellitus with hyperglycemia, without long-term current use of insulin (HCC) Take 1 tablet (10 mg) by mouth Daily 90 tablet 3 Active Active Problems Problem Noted Date Diagnosed [...] Encounters Date Type Department Care Team Description 11/27/2024 Clinisync Result Encounter [facility] External Department Unsolicited Provider, Generic External Data 11/14/2024 Refill [facility] [address] [place] [address] Dillon Yadav MD CKD (chronic kidney disease) stage 4, GFR 15-29 ml/min ([facility]); Type 2 diabetes mellitus with hyperglycemia, without long-term current use of insulin ([facility]) 10/23/2024 Telephone [facility] [address] [place] [address] Dillon Yadav MD 10/22/2024 Results Follow-Up [facility] [address] [place] [address] Dillon Yadav MD CBC auto differential, TSH ([facility]), Hemoglobin A1c, Additional followed-up results: 4 from Last 3 Months Immunizations Immunization Administration [...] 10/09/2024 10:08 AM EDT Plan of Treatment Health Maintenance Due Date Last Done Comments Pneumococcal Vaccine: 65+ Ye ars (2 of 2 - PPSV23) 10/31/2014 09/05/2014 Influenza Vaccine (#1) 2024 4, 04/05/2023, 02/23/2021, Additional history exists Diabetes: Hemoglobin A1C 04/23/2025 025, 10/22/2024, 06/18/2024, Additional history exists Medicare Annual Wellness (AWV) 07/09/2025 07/09/2024 Diabetes: Urine Protein Screening 10/22/2025 10/22/2024, 10/22/2024, 10/22/2024, Additional history exists Diabetes: Retinopathy Screening 12/11/2025 4, 01/02/2023 Procedures Procedure Name Priority Date/Time Associated Diagnosis Comments US RENAL BI 11/27/2024 9:25 AM EDT MICROALBUMIN / CREATININE URINE RATIO Routine 10/22/2024 9:41 AM EDT HEPATIC FUNCTION PANEL Routine 10/22/2024 9:41 AM EDT LIPID PANEL Routine 10/22/2024 9:41 AM EDT BASIC METABOLIC PANEL Routine 10/22/2024 9:41 AM EDT HEMOGLOBIN A1C Routine 10/22/2024 9:41 AM EDT TSH ([facility]) Routine 10/22/2024 9:41 AM EDT CBC WITH AUTO DIFFERENTIAL Routine 10/22/2024 9:41 AM EDT from Last 3 Months Results * US RENAL BI (11/27/2024 9:25 AM EDT) Anatomical Region Laterality Modality Other 11/27/2024 9:25 AM EDT Narrative 11/27/2024 9:28 [place] [address] Ultrasound Report Signed Patient: MELECIO JACKSON MR#: [id number] : 1935 Acct:[id number] Age/Sex: 89 / M ADM Date: 11/27/24 Loc: US Attending Dr: MISHEL PEREZ Ordering Physician: MISHEL PEREZ Date of Service: 11/27/24 Procedure(s): US renal BI Accession Number(s): [id number] cc: Dillon Yadav M.D.; MISHEL PEREZ [place] [id number] Patient Name: MELECIO JACKSON MRN: [id number] date: 1935 Sex: M Assigned Patient Location: US Current Patient Location: US Accession/Order Number: [id number] Exam Date: 11/27/2024 09:24 Report Date: 11/27/2024 09:25 At the request of: MISHEL PEREZ Procedure: US renal BI BILATERAL RENAL AND BLADDER ULTRASOUND CLINICAL HISTORY: Stage 4 chronic kidney disease COMPARISON: None FINDINGS: Estimation of renal size is approximately 9.4 cm on the right and 9.1 cm on the left. Bilateral renal calculi largest measuring 8 mm involving the left kidney and 7 mm involving the right kidney. No hydronephrosis. Cystic changes left kidney. The urinary bladder is partially distended with a volume of 687 ml. No shadowing stone or focal lesion. US/US renal BI IMPRESSION: BILATERAL NEPHROLITHIASIS. NO HYDRONEPHROSIS. Impression dictated by: Michael Sears Jr., D.O. 11/27/2024 9:25 AM Dictation Location: [place] [address] Electronically authenticated by: [id number] Y Date: 11/27/2024 09:25 Dictated By: Michael Sears M.D. Signed By: 11/27/24927 DD/ 4 TD/TT: Internet Specialist: Procedure Note Radiology, Radiologist, MD - 11/27/2024 [place] [address] Ultrasound Report Signed Patient: MELECIO JACKSON LMR#: [id number] : 1935cct:[id number] Age/Sex: 89 / MADM Date: 11/27/24 Loc: US Attending Dr: MISHEL PEREZ Ordering Physician: MISHEL PEREZ Date of Service: 11/27/24 Procedure(s): US renal BI Accession Number(s): [id number] cc: Dillon Yadav M.D.; MISHEL PEREZ [place] [id number] Patient Name: MELECIO JACKSON MRN: [id number] date: 1935 Sex: M Assigned Patient Location: US Current Patient Location: US Accession/Order Number: [id number] Exam Date: 11/27/2024 09:24 Report Date: 11/27/2024 09:25 At the request of: MISHEL PEREZ Procedure: US renal BI BILATERAL RENAL AND BLADDER ULTRASOUND CLINICAL HISTORY: Stage 4 chronic kidney disease COMPARISON: None FINDINGS: Estimation of renal size is approximately 9.4 cm on the right and 9.1 cmon the left. Bilateral renal calculi largest measuring 8 mm involving theleft kidney and 7 mm involving the right kidney. No hydronephrosis. Cystic changes left kidney. The urinary bladder is partially distended with a volume of 687 ml. No shadowing stone or focal lesion. US/US renal BI IMPRESSION: BILATERAL NEPHROLITHIASIS. NO HYDRONEPHROSIS. Impression dictated by: Michael Sears Jr., D.O. 11/27/2024 9:25 AM Dictation Location: [place] [address] Electronically authenticated by: [id number] Y Date: 9:25 Dictated By: Michael Sears M.D. Signed By:11/27/2428 DD/ 4 TD/TT: Internet Specialist: Generic External Data Provider [facility] Final Result * TSH ([facility]) (10/22/2024 9:41 AM EDT) TSH 1.80 0.49 - 4.67 uIU/mL [facility] Comment: PERFORMED AT [facility] [address],[place] [address] 10/22/2024 9:41 AM EDT 10/22/2024 1:14 PM [...] TYPE AUTOMATED DIFFERENTIAL [facility] Comment: PERFORMED AT [address], [place] [address] 10/22/2024 9:41 AM EDT 10/22/2024 1:14 PM EDT us Dillon Yadav MD LAB BLOOD ORDERABLES Final Resul t [facility] * Microalbumin / creatinine urine ratio (10/22/2024 9:41 AM EDT) [facility] URINE CREATININE, RDM 94.47 mg/dL [facility] MALB/CREAT RATIO 8.5 0.0 - 30.0 mg/g [facility] MICROALBUMIN, URINE 0.8 0.0 - 1.9 mg/dL [facility] Comment: PERFORMED AT [address],[place] [address] 10/22/2024 9:41 AM EDT 10/22/2024 1:14 PM EDT Dillon Yadav MD LAB URINE ORDERABLES Final Resul t Performing Organization Address [facility] Phone Number [facility] * (ABNORMAL) Hemoglobin A1c (10/22/2024 9:41 [...] GLUCOSE 169 mg/dL [facility] Comment: PERFORMED AT [address], [place] [address] 10/22/2024 9:41 AM EDT 10/22/2024 1:14 PM EDT Dillon Yadav MD LAB BLOOD ORDERABLES Final Resul t Performing Organization Address [facility] Phone Number [facility] * Hepatic function panel (10/22/2024 9:41 AM EDT) TOTAL PROTEIN 6.8 6.0 - 8.0 g/dL [facility] ALBUMIN 4.1 3.2 - 5.3 g/dL [facility] TOTAL BILIRUBIN 0.7 0.3 - 1.2 mg/dL [facility] ALKALINE PHOSPHATASE 60 39 - 130 U/L [facility] AST 19 <=41 U/L [facility] ALT 15 <=40 U/L [facility] BILIRUBIN, DIRECT 0.2 <=0.4 mg/dL [facility] Comment: PERFORMED AT [address], [place] [address] 10/22/2024 9:41 AM EDT 10/22/2024 1:14 PM EDT Dillon Yadav MD LAB BLOOD ORDERABLES Final Resul t [facility] * (ABNORMAL) Lipid panel (10/22/2024 9:41 [...] - 30 mg/dL [facility] Comment: PERFORMED AT [facility] [address],[place] [address] 10/22/2024 9:41 AM EDT 10/22/2024 1:14 PM EDT Dillon Yadav MD LAB BLOOD ORDERABLES Final Resul t [facility] * (ABNORMAL) Basic metabolic panel (10/22/2024 9:41 AM EDT) Sodium 140 134 - 146 mmol/L [facility] [...] not use a race coefficient. PERFORMED AT [facility] [address],[place] [address] 10/22/2024 9:41 AM EDT 10/22/2024 1:14 PM EDT us Dillon Yadav MD LAB BLOOD ORDERABLES Final Resul t [facility] from Last 3 Months Insurance MEDICARE [facility] Care Teams Switchboard Operator Receptionist Relationship Specialty Start Date End Date Dillon Yadav MD PCP - General Family Medicine 10/05/23
--- OUTSIDE RECORDS SUMMARY | 2025-01-13 09:15 | XMS_ITS | Encounter Summary ---
Author Organization [facility] Address [address] [place] [address] Care Team Providers Care Radar Repairer Name Role Phone Dillon Yadav MD Primary Care Provider [phone] Dillon Yadav MD Primary Care Provider [phone] Encounter Details Date Type Department Care Team (Late st Contact Info) Description 04/05/2023 Abstract [facility] [address] [place] [address] Dillon Yadav MD [address] [place] [address] Social History Tobacco Use Types Packs/Day Years [...] as of this encounter Plan of Treatment Not on file documented as of this encounter Visit Diagnoses Not on filedocumented in this encounter Care Teams Radar Repairer Relationship Specialty Start Date End Date Dillon Yadav MD PCP - General Family Medicine 12/02/22 10/04/23 Dillon Yadav MD PCP - General Family Medicine 10/05/23 documented as of this encounter
--- OUTSIDE RECORDS SUMMARY | 2025-01-13 09:15 | XMS_ITS | Encounter Summary ---
Author Organization [facility] Address [address] [place] [address] Care Team Providers Care Supply Chain Intern Name Role Phone Dillon Yadav MD Primary Care Provider [phone] Dillon Yadav MD Primary Care Provider [phone] Encounter Details Date Type Department Care Team (Late st Contact Info) Description 08/29/2023 Orders Only [facility] [address] [place] [address] Dillon Yadav MD [address] [place] [address] Social History Tobacco Use Types Packs/Day Years [...] on filedocumented in this encounter Care Teams Supply Chain Intern Relationship Specialty Start Date End Date Dillon Yadav MD PCP - General Family Medicine 12/02/22 10/04/23 Dillon Yadav MD PCP - General Family Medicine 10/05/23 documented as of this encounter
--- OUTSIDE RECORDS SUMMARY | 2025-01-13 09:15 | XMS_ITS | Encounter Summary ---
Author Organization [facility] Healthcare Address [address] [place] [address] Care Team Providers Care Multimedia Assistant Name Role Phone Dillon Yadav MD Primary Care Provider [phone] Reason for Referral * Consultation (Routine) - Closed Specialty Diagnoses / Procedures Referred By Contdevendra t Referred To Contact Nephrology Diagnoses CKD (chronic kidney disease) stage 4, GFR 15-29 ml/min (HCC) Procedures [place] OFFICE/OUTPATIENT NEW HIGH MDM 60 MINUTES Dillon Yadav MD Phone: tel: fax: Brittany Breaux MD [address] [place] [address] Phone: tel: fax: Referral ID Status Reason Start Date Expiration Date V isits Requested Visits Authorized [id number] Closed Specialty Services Required 10/22/2024 04/20/2025 1 1 Encounter Details Date Type Department Care Team (Late st Contact Info) Description 10/22/2024 Results Follow-[facility] [address] [place] [address] Dillon Yadav MD [address] [place] [address] CBC auto differential, TSH ([facility]), Hemoglobin A1c, Additional followed-up results: 4 Social History Tobacco Use Types Packs/Day Years [...] as of this encounter Plan of Treatment Scheduled Referrals Name Type Priority Associated Diagnoses [...] documented as of this encounter Care Teams Multimedia Assistant Relationship Specialty Start Date End Date Dillon Yadav MD PCP - General Family Medicine 10/05/23 documented as of this encounter
--- OUTSIDE RECORDS SUMMARY | 2025-01-13 09:15 | XMS_ITS | Encounter Summary ---
Author Organization [facility] Address [address] [place] [address] Care Team Providers Care Commercial Development Manager Name Role Phone Dillon Yadav MD Primary Care Provider [phone] Reason for Visit * Reason Comments Med Refill Encounter Details Date Type Department Care Team (Late st Contact Info) Description 07/17/[address] [facility] [address] [place] [address] Dillon Yadav MD [address] [place] [address] Benign prostatic hyperplasia with urinary obstruction Social [...] encounter Miscellaneous Notes * Telephone Encounter - Kaelyn Roth MA - 07/17/2024 9:28 AM EDT MEDICATION SENT TO [facility] documented in this encounter Plan of Treatment Not on file documented as of this encounter Visit Diagnoses Diagnosis Benign prostatic hyperplasia with urinary obstruction documented in this encounter Additional Health Concerns Assessment Noted Time PHQ-9 Depression Total Score: 1 07/10/19 25 2:00 PM EDT documented as of this encounter Care Teams Commercial Development Manager Relationship Specialty Start Date End Date Dillon Yadav MD PCP - General Family Medicine 10/05/23 documented as of this encounter
--- OUTSIDE RECORDS SUMMARY | 2025-01-13 09:16 | XMS_ITS | Clinical Summary ---
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 Active simvastatin (ZOCOR) 20 mg tablet Take 1 tablet (20 mg total) by mouth nightly. Active tamsulosin (FLOMAX) 0.4 mg capsule,extended release 24hr Take 1 capsule (0.4 mg total) by mouth nightly. Active cholecalciferol, vitamin D3, 5,000 units tablet Take 1 tablet (5,000 Units total) by mouth in the morning. Active dupilumab (DUPIXENT SYRINGE) 300 mg/2 mL syringe SUBQ injection Inject under the skin every 14 (fourteen) days. Active apixaban (ELIQUIS) 2.5 mg tablet Take 1 tablet (2.5 mg total) by mouth in the morning and 1 tablet (2.5 mg total) before bedtime. 90 tablet 3 4 Active hydroCHLOROthiazi de (HYDRODIURIL) 25 mg tablet Take 1 tablet (25 mg total) by mouth daily. 4 Active traMADoL (ULTRAM) 50 mg tablet Take 1 tablet (50 mg total) by mouth every 12 (twelve) hours as needed for pain. 4 Active metFORMIN XR (GLUCOPHAGE XR) 500 mg 24 hr tablet Take 1 tablet (500 mg total) by mouth in the morning and 1 tablet (500 mg total) before bedtime. Active meclizine (ANTIVERT) 25 mg tablet Take 1 tablet (25 mg total) by mouth as needed in the morning and 1 tablet (25 mg total) as needed at noon and 1 tablet (25 mg total) as needed in the evening and 1 tablet (25 mg total) as needed before bedtime for dizziness. Active JARDIANCE 10 mg tablet tablet Take 1 tablet (10 mg total) by mouth in the morning. 5 Active losartan (COZAAR) 50 mg tabletIndications :Paroxysmal atrial fibrillation (CMS-HCC) Take 1 tablet (50 mg total) by mouth in the morning. 30 tablet 2 5 Active carvediloL (COREG) 6.25 mg tabletIndications :Primary hypertension Take 1 tablet (6.25 mg total) by mouth in the morning and 1 tablet (6.25 mg total) before bedtime. 180 tablet 3 5 Active Active Problems Problem Noted Date Diagnosed [...] ALLSCRIPTS SUMMARY +++++++++++ Diagnosis March 2015 incidental [place] 3 + 3 equal 6 2/157 chips [...] Plan (05/22/2017 4:27 PM EST): PSA 0.09 BNEITA negative PLAN: PSA 6 months Assessment & [...] Encounters Date Type Department Care Team Description 12/11/2024 11:15 AM EDT Office Visit [facility] [address] [place] [phone] Tiera Montgomery MD Boumegouas, Manel, MD Paroxysmal atrial fibrillation ([facility]) (Primary Dx); Primary hypertension 12/11/2024 Travel 12/10/2024 Telephone [facility] [address] [place] [id number] Jayne Russell CMA 11/26/2024 Telephone [facility] [address] [address] Ervin Brown MD 10/21/2024 Travel 10/15/2024 9:30 AM EDT - 10/15/2024 11:59 PM EDT Hospital Encounter [facility] [address] [place] [address] Jermaine Katz MD Paroxysmal atrial fibrillation ([facility]) Discharge Disposition: Home 10/15/2024 Travel from Last [...] got money to buy more. Never True 12/11/2024 Within the past 12 months th e food we bought just didn't last and we didn't have money to get more. Never True 12/11/2024 Purpose - Life Answer Date Recorded Purpose and direction in life Unknown Sex and Gender Information Value Date Recorded Sex Assigned at Not on file Legal Sex Male 11:34 AM EDT Gender Identity Not on file Sexual Orientation Not on file Last Filed Vital Signs Vital Sign Reading Time Taken Comments Blood Pressure 126/80 12/11/2024 11:04 AM EDT Pulse 60 12/11/2024 11:04 AM EDT Temperature 36.5 C (97.7 F) 02/26/2024 6:42 AM EDT Respiratory Rate 15 02/26/2024 10:20 AM EDT Oxygen Saturation 95% 12/11/2024 11:04 AM EDT Inhaled Oxygen Concentration - - Weight 88.5 kg (195 lb) 12/11/2024 11:04 AM EDT Height 170.2 cm (5' 7 ) 12/11/2024 11:04 AM EDT Body Mass Index 30.54 12/11/2024 11:04 AM EDT Plan of Treatment Upcoming Encounters Date Type Department Care Team (Late st Contact Info) Description 04/02/2025 2:15 PM EST Office Visit [facility] [address] [place] [address] [place] [address] Ervin Brown MD [address] [place] [address] Health Maintenance Due Date Last Done Comments Depression Screening 1947 DTaP,Tdap and Td Vaccines (1 - Tdap) 01/03/1954 Fall Risk Screening 01/03/2001 Zoster (Shingles) Vaccine (1 of 2) 10/31/2014 09/05/2014 COVID-19 Vaccine (5 - 2023-2 5 season) 2023 01/31/2022, 01/25/2021, 06/11/2020, Additional history exists Influenza Vaccine 12/30/2024 02/05/2024, , 02/23/2021, Additional history exists Tobacco Screening 12/11/2025 12/11/2024 Medical Devices Not on file Procedures Procedure Name Priority Date/Time Associated Diagnosis Comments TSH Routine 10/22/2024 9:41 AM EDT Type 2 diabetes mellitus with hyperglycemia (CMS-HCC) Chronic kidney disease, stage 3b (CMS-HCC) 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 Hyperlipidemia, unspecified Obesity, class 1 Other obesity due to excess calories Body mass index (BMI) 30.0-30.9, adult LIPID PROFILE Routine 10/22/2024 9:41 AM EDT Type 2 diabetes mellitus with hyperglycemia (CMS-HCC) Chronic kidney disease, stage 3b (CMS-HCC) 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 Hyperlipidemia, unspecified Obesity, class 1 Other obesity due to excess calories Body mass index (BMI) 30.0-30.9, adult LIVER PANEL Routine 10/22/2024 9:41 AM EDT Type 2 diabetes mellitus with hyperglycemia (CMS-HCC) Chronic kidney disease, stage 3b (CMS-HCC) 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 Hyperlipidemia, unspecified Obesity, class 1 Other obesity due to excess calories Body mass index (BMI) 30.0-30.9, adult CBC WITH AUTO DIFFERENTIAL Routine 10/22/2024 9:41 AM EDT Type 2 diabetes mellitus with hyperglycemia (CMS-HCC) Chronic kidney disease, stage 3b (CMS-HCC) 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 Hyperlipidemia, unspecified Obesity, class 1 Other obesity due to excess calories Body mass index (BMI) 30.0-30.9, adult BASIC METABOLIC PANEL Routine 10/22/2024 9:41 AM EDT Type 2 diabetes mellitus with hyperglycemia (CMS-HCC) Chronic kidney disease, stage 3b (CMS-HCC) 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 Hyperlipidemia, unspecified Obesity, class 1 Other obesity due to excess calories Body mass index (BMI) 30.0-30.9, adult HEMOGLOBIN A1C Routine 10/22/2024 9:41 AM EDT Type 2 diabetes mellitus with hyperglycemia ([facility]) Chronic kidney disease, stage 3b ([facility]) 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 Hyperlipidemia, unspecified Obesity, class 1 Other obesity due to excess calories Body mass index (BMI) 30.0-30.9, adult MICROALBUMIN / CREATININE URINE RATIO Routine 10/22/2024 9:41 AM EDT Type 2 diabetes mellitus with hyperglycemia ([facility]) Chronic kidney disease, stage 3b ([facility]) 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 Hyperlipidemia, unspecified Obesity, class 1 Other obesity due to excess calories Body mass index (BMI) 30.0-30.9, adult ECHO LIMITED WITHOUT CONTRAST Routine 10/15/2024 10:07 AM EDT Paroxysmal atrial fibrillation ([facility]) from Last 3 Months Results * CBC auto differential (10/22/2024 9:41 AM EDT) WBC 6.6 4 - 11 x10E9/L 10/22/2024 1:36 PM EDT [facility] RBC Count 4.36 4.1 - 5.7 X10E12/L 10/22/2024 1:36 PM EDT [facility] Hemoglobin 13.1 13 - 17 g/dL 10/22/2024 1:36 PM EDT [facility] Hematocrit 39.2 39 - 50 % 10/22/2024 1:36 PM EDT [facility] MCV 90 80 - 100 fL 10/22/2024 1:36 PM EDT [facility] MCH 30.1 27 - 34 pg 10/22/2024 1:36 PM EDT [facility] MCHC 33.5 32 - 36 g/dL 10/22/2024 1:36 PM EDT [facility] RDW 13.4 11.5 - 15 % 10/22/2024 1:36 PM EDT [facility] Platelet Count 199 150 - 450 X10E9/L 10/22/2024 1:36 PM EDT [facility] MPV 9.9 7 - 12 fL 10/22/2024 1:36 PM EDT [facility] Neutrophils % 69.8 % 10/22/2024 1:36 PM EDT [facility] Lymphocytes % 19.4 % 10/22/2024 1:36 PM EDT [facility] Monocytes % 5.9 % 10/22/2024 1:36 PM EDT [facility] Eosinophils % 3.9 % 10/22/2024 1:36 PM EDT [facility] Basophils % 1.0 % 10/22/2024 1:36 PM EDT [facility] Neutrophils Absolute (A) 4.6 1.5 - 6.6 10*3/uL 10/22/2024 1:36 PM EDT [facility] Lymphocytes Absolute 1.3 1.0 - 3.5 10*3/uL 10/22/2024 1:36 PM EDT [facility] Monocytes Absolute 0.4 0.0 - 0.9 10*3/uL 10/22/2024 1:36 PM EDT [facility] Eosinophils Absolute 0.3 0.0 - 0.4 10*3/uL 10/22/2024 1:36 PM EDT [facility] Basophils Absolute 0.1 0.0 - 0.2 10*3/uL 10/22/2024 1:36 PM EDT [facility] Differential Type AUTOMATED DIFFERENTIAL 10/22/2024 1:36 PM EDT [facility] Blood Venous blood / Unknown Venipuncture / Unknown 10/22/2024 9:41 AM EDT 10/22/2024 9:41 AM EDT us Dillon Yadav MD LAB BLOOD ORDERABLES Final Resul t [facility] [address] [place] [address], * Microalbumin - Albumin: Creatinine Urine Ratio (10/22/2024 9:41 AM EDT) Pathologist [facility] URINE CREATININE,RDM 94.47 mg/dL 10/22/2024 2:28 PM EDT [facility] MALB/CREAT RATIO 8.5 0.0 - 30.0 mg/g 10/22/2024 2:28 PM EDT [facility] MICROALBUMIN, URINE 0.8 0.0 - 1.9 mg/dL 10/22/2024 2:28 PM EDT [facility] Urine Urine specimen collection, clean catch / Unknown Collection / Unknown 10/22/2024 9:41 AM EDT 10/22/2024 9:41 AM EDT us Dillon Yadav MD URINE ORDERABLES Final Result [facility] [address] [place] [address], [place] [phone] * TSH (10/22/2024 9:41 AM EDT) [facility] TSH 1.80 0.49 - 4.67 uIU/mL 10/22/2024 1:59 PM EDT [facility] Blood Venous blood / Unknown Venipuncture / Unknown 10/22/2024 9:41 AM EDT 10/22/2024 9:41 AM EDT us Dillon Yadav MD LAB BLOOD ORDERABLES Final Resul t [facility] [address] [place] [address], [place] [phone] * (ABNORMAL) Hemoglobin A1c (10/22/2024 9:41 AM EDT) [facility] HEMOGLOBIN A1C 7.5(H) 4.4 - 5.6 % 10/22/2024 2:02 PM EDT [facility] Comment: ADA Guidelines Result HgbA1c Normal : less than 5.7 % Prediabetes : 5.7 % to 6.4 % Diabetes : > 6.4 % Use with caution in patients with abnormal hemoglobin variants as the half-life of red blood cells and in vivo glycation rates are affected. EST. AVERAGE GLUCOSE 169 mg/dL 10/22/2024 2:02 PM EDT [facility] Blood Venous blood / Unknown Venipuncture / Unknown 10/22/2024 9:41 AM EDT 10/22/2024 9:41 AM EDT us Dillon Yadav MD LAB BLOOD ORDERABLES Final Resul t [facility] [address] [place] [address], * Liver panel (10/22/2024 9:41 AM EDT) TOTAL PROTEIN 6.8 6.0 - 8.0 g/dL 10/22/2024 2:10 PM EDT [facility] ALBUMIN 4.1 3.2 - 5.3 g/dL 10/22/2024 2:10 PM EDT [facility] BILIRUBIN,TOTAL 0.7 0.3 - 1.2 mg/dL 10/22/2024 2:10 PM EDT [facility] ALKALINE PHOSPHATASE 60 39 - 130 U/L 10/22/2024 2:10 PM EDT [facility] AST 19 <=41 U/L 10/22/2024 2:10 PM EDT [facility] ALT 15 <=40 U/L 10/22/2024 2:10 PM EDT [facility] BILIRUBIN,DIRECT 0.2 <=0.4 mg/dL 10/22/2024 2:10 PM EDT [facility] Blood Venous blood / Unknown Venipuncture / Unknown 10/22/2024 9:41 AM EDT 10/22/2024 9:41 AM EDT us Dillon Yadav MD LAB BLOOD ORDERABLES Final Resul t Performing Organization Address City/[facility]/ZIP Co de Phone Number [facility] [address] [place] [address], * (ABNORMAL) Lipid profile (10/22/2024 9:41 AM EDT) CHOLESTEROL 120(L) 150 - 200 mg/dL 10/22/2024 2:10 PM EDT [facility] TRIGLYCERIDE 152(H) 27 - 150 mg/dL 10/22/2024 2:10 PM EDT [facility] HDL CHOLESTEROL 41 >39 mg/dL 2:10 PM EDT [facility] Comment: HDL <40 mg/dL - High Risk HDL > or = 40mg/dL- Desirable HDL >60 mg/dL - Negative Risk LDL (CALC) 49 <130 mg/dL 10/22/2024 2:10 PM EDT [facility] Comment: LDL <100 mg/dL - Desirable LDL >160 mg/dL - High Risk CHOLESTEROL:HDL 2.9 1.0 - 5.0 2:10 PM EDT [facility] VERY LOW LIPOPROTEIN 30 0 - 30 mg/dL 10/22/2024 2:10 PM EDT [facility] Blood Venous blood / Unknown Venipuncture / Unknown 10/22/2024 9:41 AM EDT 10/22/2024 9:41 AM EDT us Dillon Yadav MD LAB BLOOD ORDERABLES Final Resul t [facility] [address] [place] [address], * (ABNORMAL) Basic Metabolic Panel (10/22/2024 9:41 AM EDT) SODIUM 140 134 - 146 mmol/L 10/22/2024 2:10 PM EDT [facility] POTASSIUM 4.2 3.5 - 5.0 mmol/L 10/22/2024 2:10 PM EDT [facility] CHLORIDE 107 98 - 109 mmol/L 10/22/2024 2:10 PM EDT [facility] CARBON DIOXIDE 23 22 - 32 mmol/L 10/22/2024 2:10 PM EDT [facility] ANION GAP 10 5 - 15 mmol/L 10/22/2024 2:10 PM EDT [facility] BLOOD UREA NITROGEN 39(H) 5 - 27 mg/dL 10/22/2024 2:10 PM EDT [facility] CREATININE 2.35(H) 0.60 - 1.30 mg/dL 10/22/2024 2:10 PM EDT [facility] Comment:METHOD TRACEABLE TO IDMS STANDARD GLUCOSE 151(H) 65 - 99 mg/dL 10/22/2024 2:10 PM EDT [facility] CALCIUM 9.5 8.5 - 10.5 mg/dL 10/22/2024 2:10 PM EDT [facility] EGFR Non-Race Dependent 26(L) >=60 ml/min/1.7 3sq.m 10/22/2024 2:10 PM EDT [facility] Comment: Reported eGFR is based on the CKD-EPI 2020 equation that does not use a race coefficient. Blood Venous blood / Unknown Venipuncture / Unknown 10/22/2024 9:41 AM EDT 10/22/2024 9:41 AM EDT us Dillon Yadav MD LAB BLOOD ORDERABLES Final Resul t [facility] [address] [place] [address], [place] [phone] * Echo limited W/O contrast (10/15/2024 10:07 [...] Estimated 47 % XCELERA Left Ventricle Mass 348.76083 [id number] 5 g XCELERA Interventricular Septum Diastolic Thickness [...] due to Afib. Pericardium: There is a [id number] fibrinous pericardial effusion with fluid. Left Ventricle Left ventricle appears normal in size. There is moderate increased wall thickness/hypertrophy. Systolic function is mildly to moderately decreased with an ejection fraction of 40-45%. See wall score diagram for wall motion abnormalities. Difficult to assess wall motion due to Afib. Unable to assess diastolic function due to atrial fibrillation/flutter. Pericardium There is a [id number] fibrinous pericardial effusion with fluid. Study Details A limited echo was performed using limited 2D and limited left ventricle function/wall motion. Overall the study quality was adequate. Wall Scoring Baseline Score Index: 1.35 The following segments are hypokinetic: basal anteroseptal, basal inferoseptal, basal inferior, mid anteroseptal, mid inferoseptal and mid inferior. All other segments are normal. Difficult to assess due to Afib us Jermaine Katz MD CV ECHO ORDERABLES Final Resu lt from Last 3 Months Insurance [facility] MEDICARE Care Teams Property Clerk Relationship Specialty Start Date End Date Dillon Yadav MD PCP - General Family Medicine 10/22/24
--- OUTSIDE RECORDS SUMMARY | 2025-01-13 09:19 | XMS_ITS | CCD ---
Author Organization [facility] [employer] Care Team Providers Care Elderly Sitter Name Role Phone HALINA, DR DILLON Hancock [...] Unavailable Halina GALARZA, Dillon Primary Care Provider [phone] Dillon Meade MD Primary Care Provider [phone] DILOLN MEADE Attending Unavailable NILSAEREAria, DILLON Attending Unavailable NADEREAria, DILLON Attending Unavailable NADEREAria, DILLON Attending Unavailable DEON ROTH Attending Unavailable DEON ROTH Referring Unavailable DEON ROTH Attending Unavailable NADERER, DILLON Attending Unavailable Brittany Perez MD Attending Provider Halina GALARZA, Dillon Primary Care Provider [phone] Halina GALARZA, Dillon Primary Care Provider [phone] NIMISHA RICKETTS Referring Unavailable NADERER, DILLON Primary Care Unavailable NIMISHA RICKETTS Referring Unavailable NADERER, DILLON Primary Care Unavailable NADERER, DILLON Referring Unavailable NADERER, DILLON Primary Care Unavailable ANIRUDHJOSELINE NGUYEN Attending Unavailable NIMISHA RICKETTS GAron Referring Unavailable NADERER, DILLON Primary Care Unavailable NIMISHA RICKETTS GAron Referring Unavailable NADERER, DILLON Primary Care Unavailable NIMISHA RICKETTS GAron Referring Unavailable NADERER, DILLON Primary Care Unavailable SILVINAABISAI Diane Attending Unavailable NADERER, DILLON Referring Unavailable NADERER, DILLON Primary Care Unavailable NIMISHA RICKETTS GAron Admitting Unavailable NIMISHA RICKETTS Attending Unavailable NADERER, DILLON Primary Care Unavailable VITA ANDERSON Attending Unavailable NADERER, DILLON Primary Care Unavailable RICKETTSNIMISHA MUNOZ G. Referring Unavailable NADERER, DILLON Primary Care Unavailable NADERER, DILLON Referring Unavailable NADERER, DILLON Primary Care Unavailable SILVINAABISAI ALVAREZ Attending Unavailable ABISAI KATZ Referring Unavailable NADERER, DILLON Primary Care Unavailable NADERER, DILLON Referring Unavailable NADERER, DILLON Primary Care Unavailable NADERER, DILLON Referring Unavailable NADERER, DILLON Primary Care Unavailable VERN LITTLEJOHN Attending Unavailable NADERER, DILLON Referring Unavailable NADERER, DILLON Primary Care Unavailable Allergies Allergy Classification Reported Allergen(s) Allergy Type Date of Onset Reaction(s) Facility (20 sources) wasp venom Propensity to adverse reactions 6 [facility] Work Phone: (17 sources) BEE VENOM PROTEIN (HONEY BEE); Translations: [BEE VENOM PROTEIN (HONEY BEE)] Propensity to adverse reactions to drug (disorder) 4 Anaphylaxis [facility] (9 sources) HYMENOPTERA ALLERGENIC EXTRACT; Translations: [HYMENOPTERA ALLERGENIC EXTRACT] Drug Allergy 6 [facility] Medications Current Medications Medication Drug Class(es) Dates Sig (Normalized) Sig (Original) amLODIPine 5 mg oral tablet (20 sources) Dihydropyridine Calcium Channel Tamara Start: 11-18-2024 take 1 tablet by mouth once daily Amlodipine 5 mg tablet Active 5 MG PO Daily November 18, 2024 12:00am Complies with drug therapy Start: 09-12-2023 End: 10-09-2024 amLODIPine (Norvasc) 5 MG ta blet Indications: Essential hypertension, benign (CMS/HCC) TAKE 1 TABLET DAILY 90 tablet 3 09/02/2024 10/09/2024 Discontinued apixaban 2.5 mg oral tablet (20 sources) Factor Xa Inhibitor Start: 02-09-2024 take 1 tablet by mouth in the morning, then take 1 tablet by mouth at bedtime apixaban (ELIQUIS) 2.5 mg tablet Take 1 tablet (2.5 mg total) by mouth in the morning and 1 tablet (2.5 mg total) before bedtime. 90 tablet 3 02/09/2024 Active aspirin 81 mg delayed release oral tablet (16 sources) Platelet Aggregation Inhibitor, Nonsteroidal Anti-inflammatory Drug End: 04-05-2024 take 1 tablet by mouth once daily aspirin 81 MG EC tablet Take 81 mg by mouth Daily 04/05/2024 Discontinued End: 02-09-2024 aspirin 81 mg chewable table t Chew 1 tablet (81 mg total) and swallow in the morning. 02/09/2024 Discontinued carvedilol 6.25 mg oral tablet (6 sources) alpha-Adrenergic Tamara, beta-Adrenergic Tamara Start: 12-11-2024 take 1 tablet by mouth in the morning, then take 1 tablet by mouth at bedtime carvediloL (COREG) 6.25 mg tablet Indications: Primary hypertension Take 1 tablet (6.25 mg total) by mouth in the morning and 1 tablet (6.25 mg total) before bedtime. 180 tablet 3 12/11/2024 Active Start: 04-05-2024 End: 06-17-2024 take 1 tablet by mouth in the morning carvedilol (Coreg) 3.125 MG tablet Indications: Chronic HFrEF (heart failure with reduced ejection fraction) (CMS/HCC) , Paroxysmal atrial fibrillation (CMS/HCC) Take 1 tablet (3.125 mg) by mouth in the morning and 1 tablet (3.125 mg) in the evening. Take with meals. 60 tablet 3 04/05/2024 06/17/2024 Discontinued cephalexin 500 mg oral capsule (2 sources) Cephalosporin Antibacterial Start: 03-05-2024 End: 03-19-2024 take 1 capsule by mouth three times daily CEPHalexin (KEFLEX) 500 mg capsule Indications: Encysted hydrocele Take 1 capsule (500 mg total) by mouth 3 (three) times a day for 14 days. 42 capsule 03/05/2024 03/19/2024 Active cholecalciferol 0.125 mg oral tablet (20 sources) Vitamin D take 1 tablet by mouth in the morning cholecalciferol, vitamin D3, 5,000 units tablet Take 1 tablet (5,000 Units total) by mouth in the morning. Active 2 ml dupilumab 150 mg/ml prefilled syringe (20 sources) Interleukin-4 Receptor alpha Antagonist dupilumab (DUPIXENT SYRINGE) 300 mg/2 mL syringe SUBQ injection Inject under the skin every 14 (fourteen) days. Active Dupilumab (1 source) Start: 11-18-2024 Dupilumab (Dupixent Pen) 200 mg/1.14 mL pen injector Active 200 MG SUBCUT EVERY 2 WEEKS November 18, 2024 12:00am Complies with drug therapy dupilumab (Dupixent) 200 MG/1.14ML injection (20 sources) dupilumab (Dupix ent) 200 MG/1.14ML injection Inject 200 mg under the skin every 14 (fourteen) days Active empagliflozin 10 mg oral tablet (5 sources) Sodium-Glucose Cotransporter 2 Inhibitor Start: 10-22-2024 End: 11-14-2024 take 1 tablet by mouth in the morning JARDIANCE 10 mg tablet tablet Take 1 tablet (10 mg total) by mouth in the morning. 10/23/2024 Active hydroCHLOROthiazide 25 mg oral tablet (20 sources) Thiazide Diuretic Start: 01-24-2024 take 1 tablet by mouth once daily hydroCHLOROthiazide (HYDRODIURIL) 25 mg tablet Take 1 tablet (25 mg total) by mouth daily. 01/24/2024 Active losartan potassium 50 mg oral tablet (20 sources) Angiotensin 2 Receptor Tamara Start: 01-27-2024 End: 12-11-2024 take 1 tablet by mouth in the morning losartan (COZAAR) 50 mg tablet Indications: Paroxysmal atrial fibrillation (CMS-HCC) Take 1 tablet (50 mg total) by mouth in the morning. 30 tablet 2 12/11/2024 Active Start: 05-02-2023 take 1 tablet by blayne th in the morning losartan (COZAAR) 100 mg tablet Take 1 tablet (100 mg total) by mouth in the morning. 01/27/2024 Active meclizine hydrochloride 25 mg oral tablet [...] tablet (20 sources) HMG-CoA Reductase Inhibitor Start: 07-28-2023 take 1 tablet by mouth once daily Simvastatin 20 mg tablet Active 20 MG PO Daily November 18, 2024 12:00am Complies with drug therapy tamsulosin hydrochloride 0.4 mg oral capsule (20 sources) alpha-Adrenergic Tamara Start: 07-28-2023 tamsulosin (Flomax) 0.4 MG 24 hr capsule Indications: Benign prostatic hyperplasia with urinary obstruction TAKE 1 CAPSULE DAILY 90 capsule 3 07/17/2024 Active traMADol hydrochloride 50 mg oral tablet (13 sources) Opioid Agonist Start: 01-29-2024 take 1 tablet by mouth every twelve hours as needed for pain traMADoL (ULTRAM) 50 mg tablet Take 1 tablet (50 mg total) by mouth every 12 (twelve) hours as needed for pain. 01/29/2024 Active Completed/Discontinued Medications Medication Drug Class(es) Dates Sig (Normalized) Sig (Original) hydroCHLOROthiazide 12.5 mg / lisinopril 10 mg oral tablet (8 sources) Thiazide Diuretic, Angiotensin Converting Enzyme Inhibitor End: 02-14-2024 take 10-12.5 mg by mouth once in the morning lisinopril-hydroc hlorothiazide (PRINZIDE,ZESTORE TIC) 10-12.5 mg per tablet Take 1 tablet by mouth in the morning. 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; Translations: [NURSING HOME CURRENT USE OF ASPIRIN] Onset: 2 Episodic Other aftercare (2 sources) 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; Translations: [OTH NURSING HOME CURRENT DRUG THERAPY] Onset: 2 Episodic Other aftercare (6 sources) Long-term current use of drug therapy; Translations: [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] Onset: 5 10-09-2024 Episodic [...] Chronic Other nutritional; endocrine; and metabolic disorders (6 sources) Obesity caused by energy imbalance; Translations: [...] micturition] Onset: 02-14-2024 01-15-2024 Episodic Mood disorders (7 sources) Mood disorders Onset: 07-09-2024 07-09-2024 Other [...] Test Name Value Interpretation Reference Range Facility RENAL BIon 11-27-2024 [place] [address] Ultrasound Report Signed Patient: MELECIO JACKSON MR#: [id number] : 1935 Acct:[id number] Age/Sex: 89 / M ADM Date: 11/27/24 Loc: US Attending Dr: BRITTANY PEREZ Ordering Physician: BRITTANY PEREZ Date of Service: 11/27/24 Procedure(s): US renal BI Accession Number(s): [id number] cc: Dillon Meade M.D.; BRITTANY PEREZ [address] [address] Patient Name: MELECIO JACKSON MRN: [id number] date: 1935 Sex: M Assigned Patient Location: US Current Patient Location: US Accession/Order Number: [id number] Exam Date: 11/27/2024 09:24 Report Date: 11/27/2024 09:25 At the request of: BRITTANY PEREZ Procedure: US renal BI BILATERAL RENAL [...] Jr., D.O. 11/27/2024 9:25 AM Dictation Location: [place] [address] Electronically authenticated by: [id number] Y Date: 11/27/2024 09:25 Dictated By: Michael Sears M.D. Signed By: 11/27/24927 DD/ 4 TD/TT: Vmware Engineer: [facility] Radiology, Radiologist, MD - 11/27/2024 [place] [address] Ultrasound Report Signed Patient: MELECIO JACKSON MR#: [id number] : 1935 Acct:[id number] Age/Sex: 89 / M ADM Date: 11/27/24 Loc: US Attending Dr: BRITTANY PEREZ Ordering Physician: BRITTANY PEREZ Date of Service: 11/27/24 Procedure(s): US renal BI Accession Number(s): [id number] cc: Dillon Meade M.D.; BRITTANY PEREZ [place] [id number] Patient Name: MELECIO JACKSON MRN: [facility]:[id number] date: 1935 Sex: M Assigned Patient Location: Current Patient Location: US Accession/Order Number: [id number] Exam Date: 11/27/2024 09:24 Report Date: 11/27/2024 09:25 At the request of: BRITTANY PEREZ Procedure: US renal BI BILATERAL RENAL [...] Jr., D.O. 11/27/2024 9:25 AM Dictation Location: [place] [address] Electronically authenticated by: [id number] Y Date: 11/27/2024 09:25 Dictated By: Michael Sears M.D. Signed By: 11/27/24927 DD/ 4 TD/TT: Vmware Engineer: [facility] Radiology Study observation (narrative) [facility] RENAL BIOrdered By: [facility] Radiology on 11-27-2024 [facility] [employer] Work Phone: BASIC METABOLIC PANELon 09-30 Anion gap [Moles/Vol] 10 mmol/L Normal 5-15 [facility] Comment on above: Performed By: #### B MP #### [facility] ([id number]) [address], [address] [place] [address] Calcium [Mass/Vol] 9.5 mg/dL Normal 8.5-10.5 [facility] Comment on above: Performed By: #### B MP #### [facility] ([id number]) [address], [address] [place] [address] Chloride [Moles/Vol] 107 mmol/L Normal 98-109 [facility] Comment on above: Performed By: #### B MP #### [facility] ([id number]) [address], [address] [place] [address] CO2 [Moles/Vol] 23 mmol/L Normal 22-32 [facility] Comment on above: Performed By: #### B MP #### [facility] ([id number]) [address], [address] [place] [address] Creatinine [Mass/Vol] 2.35 mg/dL High 0.60-1.30 [facility] Comment on above: Result Comment: METH OD TRACEABLE TO IDMS STANDARD Performed By: #### B MP #### [facility] ([id number]) [address], [address] [place] [address] GFR/1.73 sq M.predicted among non-blacks MDRD (S/P/Bld) [Vol rate/Area] 26 mL/min/{1.73_m2} Low >=60 [facility] Comment on above: Result Comment: Repo rted eGFR is based on the CKD-EPI 2020 equation that does not use a race coefficient. Performed By: #### B MP #### [facility] ([id number]) [address], [address] [place] [address] Glucose [Mass/Vol] 151 mg/dL High 65-99 [facility] Comment on above: Performed By: #### B MP #### [facility] ([id number]) [address], [address] [place] [address] Potassium [Moles/Vol] 4.2 mmol/L Normal 3.5-5.0 [facility] Comment on above: Performed By: #### B MP #### [facility] ([id number]) [address], [address] [place] [address] Sodium [Moles/Vol] 140 mmol/L Normal 134-146 [facility] Comment on above: Performed By: #### B MP #### [facility] ([id number]) [address], [address] [place] [address] Urea nitrogen [Mass/Vol] 39 mg/dL High 5-27 [facility] Comment on above: Performed By: #### B MP #### [facility] ([id number]) [address], [address] [place] [address] CBC WITH AUTO DIFFERENTIALon 10-22-2024 BASOPHILS ABSOLUTE COUNT (10*3/UL) BY AUTOMATED COUNT 0.1 10*3/uL Normal 0.0-0.2 [facility] Comment on above: Performed By: #### C BCA #### [facility] ([facility]) [address] [place] [address] VIR BASOPHILS RELATIVE PERCENT BY AUTOMATED COUNT 1.0 % Normal [facility] Comment on above: Performed By: #### C BCA #### [facility] ([facility]) [address] [place] [address] VIR CELLAVISION DIFFERENTIAL TYPE AUTOMATED DIFFERENTIAL Normal [facility] Comment on above: Performed By: #### C BCA #### [facility] ([facility]) [address] [place] [address] VIR Eosinophils (Bld) [#/Vol] 0.3 10*3/uL Normal 0.0-0.4 [facility] Comment on above: Performed By: #### C BCA #### [facility] ([facility]) [address] [place] [address] VIR EOSINOPHILS RELATIVE PERCENT BY AUTOMATED COUNT 3.9 % Normal [facility] Comment on above: Performed By: #### C BCA #### [facility] ([facility]) [address] [place] [address] VIR Erythrocyte distribution width (RBC) [Ratio] 13.4 % Normal 11.5-15 [facility] Comment on above: Performed By: #### C BCA #### [facility] ([facility]) [address] [place] [address] VIR Hematocrit (Bld) [Volume fraction] 39.2 % Normal 39-50 [facility] Comment on above: Performed By: #### C BCA #### [facility] ([facility]) [address] [place] [address] VIR Hemoglobin (Bld) [Mass/Vol] 13.1 g/dL Normal 13-17 [facility] Comment on above: Performed By: #### C BCA #### [facility] ([facility]) [address] [place] [address] VIR LYMPHOCYTES ABSOLUTE COUNT (10*3/UL) BY AUTOMATED COUNT 1.3 10*3/uL Normal 1.0-3.5 [facility] Comment on above: Performed By: #### C BCA #### [facility] ([facility]) [address] [place] [address] VIR LYMPHOCYTES RELATIVE PERCENT BY AUTOMATED COUNT 19.4 % Normal [facility] Comment on above: Performed By: #### C BCA #### [facility] ([facility]) [address] [place] [address] VIR MCH (RBC) [Entitic mass] 30.1 pg Normal 27-34 [facility] Comment on above: Performed By: #### C BCA #### [facility] ([facility]) [address] [place] [address] VIR MCHC (RBC) [Mass/Vol] 33.5 g/dL Normal 32-36 [facility] Comment on above: Performed By: #### C BCA #### [facility] ([facility]) [address] [place] [address] VIR MCV (RBC) [Entitic vol] 90 fL Normal 80-100 [facility] Comment on above: Performed By: #### C BCA #### [facility] ([facility]) [address] [place] [address] VIR MONOCYTES ABSOLUTE COUNT (10*3/UL) BY AUTOMATED COUNT 0.4 10*3/uL Normal 0.0-0.9 [facility] Comment on above: Performed By: #### C BCA #### [facility] ([facility]) [address] [place] [address] VIR MONOCYTES RELATIVE PERCENT BY AUTOMATED COUNT 5.9 % Normal [facility] Comment on above: Performed By: #### C BCA #### [facility] ([facility]) [address] [place] [address] VIR NEUTROPHILS ABSOLUTE COUNT BY AUTOMATED COUNT 4.6 10*3/uL Normal 1.5-6.6 [facility] Comment on above: Performed By: #### C BCA #### [facility] ([facility]) [address] [place] [address] VIR NEUTROPHILS RELATIVE PERCENT BY AUTOMATED COUNT 69.8 % Normal [facility] Comment on above: Performed By: #### C BCA #### [facility] ([facility]) [address] [place] [address] VIR Platelet mean volume (Bld) [Entitic vol] 9.9 fL Normal 7-12 [facility] Comment on above: Performed By: #### C BCA #### [facility] ([facility]) [address] [place] [address] VIR Platelets (Bld) [#/Vol] 199 10*3/uL Normal 150-450 [facility] Comment on above: Performed By: #### C BCA #### [facility] ([facility]) [address] [place] [address] VIR RBC COUNT 4.36 X10E12/L Normal 4.1-5.7 [facility] Comment on above: Performed By: #### C BCA #### [facility] ([facility]) [address] [place] [address] VIR WBC (Bld) [#/Vol] 6.6 10*3/uL Normal 4-11 [facility] Comment on above: Performed By: #### C BCA #### [facility] ([facility]) [address] [place] [address] VIR HEMOGLOBIN A1Con 10-22-2024 Glucose [Mass/Vol] 169 mg/dL Normal [facility] Comment on above: Performed By: #### B MP #### [facility] ([id number]) [address] [place] [address] HbA1c (Bld) [Mass fraction] 7.5 % High 4.4-5.6 [facility] Comment on above: Result Comment: ADA Guidelines Result HgbA1c Normal : less than 5.7 % Prediabetes : 5.7 % to 6.4 % Diabetes : > 6.4 % Use with caution in patients with abnormal hemoglobin variants as the half-life of red blood cells and in vivo glycation rates are affected. Performed By: #### B MP #### [facility] ([id number]) [address] [facility], [address] [address] LIPID PROFILEon 10-22-2024 Cholesterol [Mass/Vol] 120 mg/dL Low 150-200 [facility] Comment on above: Performed By: #### B MP #### [facility] ([id number]) [address] [facility], [address] [address] Cholesterol in HDL [Mass/Vol] 41 mg/dL Normal >39 [facility] Comment on above: Result Comment: HDL <40 mg/dL - High Risk HDL > or = 40mg/dL- Desirable HDL >60 mg/dL - Negative Risk Performed By: #### B MP #### [facility] ([id number]) [address] [address] Cholesterol in LDL [Mass/Vol] 49 mg/dL Normal <130 [facility] Comment on above: Result Comment: LDL <100 mg/dL - Desirable LDL >160 mg/dL - High Risk Performed By: #### B MP #### [facility] ([id number]) [address] [address] CHOLESTEROL:HDL 2.9 Normal 1.0-5.0 [facility] Comment on above: Performed By: #### B MP #### [facility] ([id number]) [address] [place] [place] [address] Triglyceride [Mass/Vol] 152 mg/dL High 27-150 [facility] Comment on above: Performed By: #### B MP #### [facility] ([id number]) [address], [address] [place] [address] VERY LOW LIPOPROTEIN 30 mg/dL Normal 0-30 [facility] Comment on above: Performed By: #### B MP #### [facility] ([id number]) [address], [address] [place] [address] LIVER PANELon 10-22-2024 Albumin [Mass/Vol] 4.1 g/dL Normal 3.2-5.3 [facility] Comment on above: Performed By: #### B MP #### [facility] ([id number]) [address], [address] [place] [address] ALP [Catalytic activity/Vol] 60 U/L Normal 39-130 [facility] Comment on above: Performed By: #### B MP #### [facility] ([id number]) [address] [place] [address] ALT [Catalytic activity/Vol] 15 U/L Normal <=40 [facility] Comment on above: Performed By: #### B MP #### [facility] ([id number]) [address], [address] [place] [address] AST [Catalytic activity/Vol] 19 U/L Normal <=41 [facility] Comment on above: Performed By: #### B MP #### [facility] ([id number]) [address], [address] [place] [address] Bilirubin [Mass/Vol] 0.7 mg/dL Normal 0.3-1.2 [facility] Comment on above: Performed By: #### B MP #### [facility] ([id number]) [address] [facility] [place] [address] Bilirubin.indirect [Mass/Vol] 0.2 mg/dL Normal <=0.4 [facility] Comment on above: Performed By: #### B MP #### [facility] ([id number]) [address] [place] [address] Protein [Mass/Vol] 6.8 g/dL Normal 6.0-8.0 [facility] Comment on above: Performed By: #### B MP #### [facility] ([id number]) [address] [place] [address] MICROALBUMIN / CREATININE UR INE RATIOon 10-22-2024 Albumin DL <= 20 mg/L (U) [Mass/Vol] 0.8 mg/dL Normal 0.0-1.9 [facility] Comment on above: Performed By: #### B MP #### [facility] ([id number]) [address] [place] [address] MALB/CREAT RATIO 8.5 mg/g Normal 0.0-30.0 [facility] Comment on above: Performed By: #### B MP #### [facility] ([id number]) [address] [place] [address] URINE CREATININE,RDM 94.47 mg/dL Normal [facility] Comment on above: Performed By: #### B MP #### [facility] ([id number]) [address] [place] [address] TSHon 10-22-2024 TSH 1.80 uIU/mL Normal 0.49-4.[address] [facility] Comment on above: Performed By: #### B MP #### [facility] ([id number]) [address], [address] [place] [address] HGB A1C (GLYCO-HGB)on 2024 Glucose [Mass/Vol] 166 mg/dL Normal [facility] Comment on above: Performed By: #### H A1C #### [facility] ([id number]) [address], [address] [place] [address] HbA1c (Bld) [Mass fraction] 7.4 % High 4.4-5.6 [facility] Comment on above: Result Comment: NOTE ADA Guidelines Result HgbA1c Normal : less than 5.7 % Prediabetes : 5.7 % to 6.4 % Diabetes : > 6.4 % Use with caution in patients with abnormal hemoglobin variants as the half-life of red blood cells and in vivo glycation rates are affected. Performed By: #### H A1C #### [facility] ([id number]) [facility] [facility], [address] [place] [address] HbA1c (Bld) [Mass fraction]o n 06-18-2024 Average glucose Estimated from glycated hemoglobin (Bld) [Mass/Vol] 166 mg/dL [facility] Comment on above: PERFORMED AT [address],[place] [address] Interpretation and review of laboratory results Abnormal [facility] Hemoglobin A1con 06-18-2024 HbA1c (Bld) [Mass fraction] 7.4 % High 4.4 - 5.6 % [facility] Comment on above: NOTE ADA Guidelines Result HgbA1c Normal : less than 5.7 % Prediabetes : 5.7 % to 6.4 % Diabetes : > 6.4 % Use with caution in patients with abnormal hemoglobin variants as the half-life of red blood cells and in vivo glycation rates are affected. Prostate specific Ag [Mass/V ol]on 03-22-2024 PROSTATIC SPEC ANT 0.10 ng/mL Normal 0.00-4.00 [facility] Comment on above: Result Comment: The method used for this test is Silvana Interviu Me DXI chemiluminescent immunoassay. Values obtained by different assay methods cannot be used interchangeably. Performed By: #### 2 857-1 #### [facility] ([id number]) [address] [place] [address], [address] [place] [address] Surgical Pathologyon 024 Surgical Pathology Normal [facility] Comment on above: Result Comment: [facility] [address] [place] [address] Surgical Pathology Consultation Patient Name:MELECIO JACKSON:1935 (Age: 89)Gender:MTaken:02/26/2024eported:03/01/2024hysician(s):Nimisha Ricketts M.D. ([phone])Copy To: Rec. #:[id number]: #[id number] Final Pathologic Diagnosis Right hydrocele sac; hydrocelectomy: Membranous fibrovascular tissue consistent with hydrocele sac, with portion of epididymis. Report Electronically Signed Out wak/03/01/2024Edmund Card MD Interpretation performed at [facility], [address] [place] [address], License number: [id number]. 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 Gross Description Received in formalin labeled, BRUCE, right hydrocele sac are 3 durant-galo portions of membranous tissue 2.5 x 2 x 0.4 cm, 3.5 x 1.7 x 0.4 cm, and 6.5 x 3 x 0.2 cm. The portions are each serially sectioned and exhibits a durant-galo uniform grossly unremarkable cut surface. Zipper Setter Lockstitch sections are submitted in a single cassette. (1, ss, [id number], m1) [facility]/02/27/2024GR Specimen(s) Received Right hydrocele sac Fee Codes(s): 1; 54680 Bacteria identified Cx Nom ( U)on 02-15-2024 Service comment (Unsp spec) [Interp] <10,000 ORGANISMS/ML NORMAL URO GENITAL VLAD [facility] BASIC METABOLIC PANLon 02-13 Anion gap [Moles/Vol] 11 mmol/L Normal 5-15 [facility] Comment on above: Performed By: #### B MP #### [facility] ([id number]) [address], [address] [place] [address] Calcium [Mass/Vol] 9.4 mg/dL Normal 8.5-10.5 [facility] Comment on above: Performed By: #### B MP #### [facility] ([id number]) [address], [address] [place] [address] Chloride [Moles/Vol] 100 mmol/L Normal 98-109 [facility] Comment on above: Performed By: #### B MP #### [facility] ([id number]) [address], [address] [place] [address] CO2 [Moles/Vol] 28 mmol/L Normal 22-32 [facility] Comment on above: Performed By: #### B MP #### [facility] ([id number]) [address], [address] [place] [address] Creatinine [Mass/Vol] 1.60 mg/dL High 0.60-1.30 [facility] Comment on above: Result Comment: METH OD TRACEABLE TO IDMS STANDARD Performed By: #### B MP #### [facility] ([id number]) [address], [address] [place] [address] GFR/1.73 sq M.predicted among non-blacks MDRD (S/P/Bld) [Vol rate/Area] 41 mL/min/{1.73_m2} Low >59 [facility] Comment on above: Result Comment: Reported eGFR is based on the CKD-EPI 2020 equation that does not use a race coefficient. Performed By: #### B MP #### [facility] ([id number]) [address], [address] [place] [address] Glucose [Mass/Vol] 155 mg/dL High 65-99 [facility] Comment on above: Performed By: #### B MP #### [facility] ([id number]) [address], [address] [place] [address] Potassium [Moles/Vol] 4.0 mmol/L Normal 3.5-5.0 [facility] Comment on above: Performed By: #### B MP #### [facility] ([id number]) [address], [address] [place] [address] Sodium [Moles/Vol] 139 mmol/L Normal 134-146 [facility] Comment on above: Performed By: #### B MP #### [facility] ([id number]) [address], [address] [place] [address] Urea nitrogen [Mass/Vol] 27 mg/dL Normal 5-27 [facility] Comment on above: Performed By: #### B MP #### [facility] ([id number]) [address], [address] [place] [address] Basic Metabolic Panelon 10-1 Anion gap [Moles/Vol] 11 mmol/L 5 - 15 mmol/L [facility] Calcium [Mass/Vol] 9.4 mg/dL 8.5 - 10. 5 mg/dL [facility] Chloride [Moles/Vol] 100 mmol/L 98 - 109 mmol/L [facility] CO2 [Moles/Vol] 28 mmol/L 22 - 32 mmol/L [facility] Creatinine [Mass/Vol] 1.6 mg/dL High 0.60 - 1.30 mg/dL [facility] Comment on above: METHOD TRACEABLE TO IDMS STANDARD eGFR (CKD-EPI)non-race dependent 41 Low - PINF [facility] Comment on above: Reported eGFR is based on the CKD-EPI 2020 equation that does not use a race coefficient. Glucose [Mass/Vol] 155 mg/dL High 65 - 99 mg/dL [facility] Interpretation and review of laboratory results Abnormal [facility] Potassium [Moles/Vol] 4 mmol/L 3.5 - 5.0 mmol/L [facility] Sodium [Moles/Vol] 139 mmol/L 134 - 146 mmol/L [facility] Urea nitrogen [Mass/Vol] 27 mg/dL 5 - 27 mg/dL [facility] URINALYSISon 02-14-2024 Bilirubin Ql (U) Negative Normal NEG [facility] Comment on above: Performed By: #### U A #### [facility] ([id number]) [address], [address] [place] [address] BLOOD/HGB Negative Normal NEG [facility] Comment on above: Performed By: #### U A #### [facility] ([id number]) [address], [address] [place] [address] Color (U) YELLOW Normal YELLOW [facility] Comment on above: Performed By: #### U A #### [facility] ([id number]) [address], [address] [place] [address] Glucose Ql (U) Negative Normal NEG [facility] Comment on above: Performed By: #### U A #### [facility] ([id number]) [address], [address] [place] [address] Ketones Ql (U) Negative Normal NEG [facility] Comment on above: Performed By: #### U A #### [facility] ([id number]) [address], [address] [place] [address] Leukocyte esterase Test strip Ql (U) Negative Normal NEG [facility] Comment on above: Performed By: #### U A #### [facility] ([id number]) [address], [address] [place] [address] Nitrite Ql (U) Negative Normal NEG [facility] Comment on above: Performed By: #### U A #### [facility] ([id number]) [address], [address] [place] [address] pH (U) 6.0 [pH] Normal 5.0-8.5 [facility] Comment on above: Performed By: #### U A #### [facility] ([id number]) [address], [address] [place] [address] Protein Ql (U) Negative Normal NEG [facility] Comment on above: Performed By: #### U A #### [facility] ([id number]) [address], [address] [place] [address] Specific gravity (U) [Rel density] 1.016 Normal 1.003-1.035 [facility] Comment on above: Performed By: #### U A #### [facility] ([id number]) [address] [address] [place] [address] TURBIDITY CLEAR Normal CLEAR [facility] Comment on above: Performed By: #### U A #### [facility] ([id number]) [address], [address] [place] [address] Urobilinogen (U) [Mass/Vol] mg/dL Normal <1.1 [facility] Comment on above: Performed By: #### U A #### [facility] ([id number]) [address] [address] [place] [address] URINE CULTUREon 02-14-2024 Bacteria identified Cx Nom (U) CULTURE RESULTS <10,000 ORGANISMS/ML NORMAL URO GENITAL VLAD Normal [facility] Comment on above: Performed By: #### 6 30-4 #### [facility] ([id number]) [address], [address] [place] [address] Urinalysison 02-14-2024 Bilirubin Ql (U) Negative Negative^Ne ga tive [facility] Color (U) YELLOW YELLOW^YELLOW [facility] Glucose (U) [Mass/Vol] Negative Negative^Nega tive mg/dL [facility] Hemoglobin Auto test strip Ql (U) Negative Negative^Nega tive [facility] Ketones (U) [Mass/Vol] Negative Negative^Nega tive mg/dL [facility] Leukocyte esterase Auto test strip Ql (U) Negative Negative^Nega tive [facility] Nitrite Auto test strip Ql (U) Negative Negative^Nega tive [facility] pH (U) 6 [pH] 5.0 - 8.5 [facility] Protein (U) [Mass/Vol] Negative Negative^Nega tive mg/dL [facility] Specific gravity Refractometry automated (U) [Rel density] 1.016 1.003 - 1.035 [facility] Turbidity Ql (U) CLEAR CLEAR^CLEAR [facility] Urobilinogen Qn (U) NINF [facility] POCT EKGon 02-09-2024 [facility] BASIC METABOLIC PANLon 12-19 Anion gap [Moles/Vol] 12 mmol/L Normal 5-15 [facility] Comment on above: Performed By: #### B MP #### [facility] ([id number]) [address] [facility], [address] [place] [address] Calcium [Mass/Vol] 9.6 mg/dL Normal 8.5-10.5 [facility] Comment on above: Performed By: #### B MP #### [facility] ([id number]) [address] [facility], [address] [place] [address] Chloride [Moles/Vol] 103 mmol/L Normal 98-109 [facility] Comment on above: Performed By: #### B MP #### [facility] ([id number]) [address] [facility], [address] [place] [address] CO2 [Moles/Vol] 26 mmol/L Normal 22-32 [facility] Comment on above: Performed By: #### B MP #### [facility] ([id number]) [address], [address] [place] [address] Creatinine [Mass/Vol] 1.51 mg/dL High 0.60-1.30 [facility] Comment on above: Result Comment: METH OD TRACEABLE TO IDMS STANDARD Performed By: #### B MP #### [facility] ([id number]) [address], [address] [place] [address] GFR/1.73 sq M.predicted among non-blacks MDRD (S/P/Bld) [Vol rate/Area] 44 mL/min/{1.73_m2} Low >59 [facility] Comment on above: Result Comment: Reported eGFR is based on the CKD-EPI 2020 equation that does not use a race coefficient. Performed By: #### B MP #### [facility] ([id number]) [address], [address] [place] [address] Glucose [Mass/Vol] 141 mg/dL High 65-99 [facility] Comment on above: Performed By: #### B MP #### [facility] ([id number]) [address] [address] [place] [address] Potassium [Moles/Vol] 4.3 mmol/L Normal 3.5-5.0 [facility] Comment on above: Performed By: #### B MP #### [facility] ([id number]) [address], [address] [place] [address] Sodium [Moles/Vol] 141 mmol/L Normal 134-146 [facility] Comment on above: Performed By: #### B MP #### [facility] ([id number]) [address] [address] [place] [address] Urea nitrogen [Mass/Vol] 22 mg/dL Normal 5-27 [facility] Comment on above: Performed By: #### B MP #### [facility] ([id number]) [address], [address] [place] [address] Basic Metabolic Panelon 08-2 Anion gap [Moles/Vol] 12 mmol/L 5 - 15 mmol/L [facility] Calcium [Mass/Vol] 9.6 mg/dL 8.5 - 10. 5 mg/dL [facility] Chloride [Moles/Vol] 103 mmol/L 98 - 109 mmol/L [facility] CO2 [Moles/Vol] 26 mmol/L 22 - 32 mmol/L [facility] Creatinine [Mass/Vol] 1.51 mg/dL High 0.60 - 1.30 mg/dL [facility] Comment on above: METHOD TRACEABLE TO [facility] STANDARD eGFR (CKD-EPI)non-race dependent 44 Low - PINF [facility] Comment on above: Reported eGFR is based on the CKD-EPI 2020 equation that does not use a race coefficient. Glucose [Mass/Vol] 141 mg/dL High 65 - 99 mg/dL [facility] Interpretation and review of laboratory results Abnormal [facility] Potassium [Moles/Vol] 4.3 mmol/L 3.5 - 5.0 mmol/L [facility] Sodium [Moles/Vol] 141 mmol/L 134 - 146 mmol/L [facility] Urea nitrogen [Mass/Vol] 22 mg/dL 5 - 27 mg/dL [facility] ECG 12 leadon 12-20-2023 TRACEMASTERVUE [facility] URINALYSISon 12-20-2023 Bilirubin Ql (U) Negative Normal NEG [facility] Comment on above: Performed By: #### U A #### [facility] ([id number]) [address], [address] [place] [address] BLOOD/HGB Negative Normal NEG [facility] Comment on above: Performed By: #### U A #### [facility] ([id number]) [address], [address] [place] [address] Color (U) YELLOW Normal YELLOW [facility] Comment on above: Performed By: #### U A #### [facility] ([id number]) [address], [address] [place] [address] Glucose Ql (U) Negative Normal NEG [facility] Comment on above: Performed By: #### U A #### [facility] ([id number]) [address], [address] [place] [address] Ketones Ql (U) Negative Normal NEG [facility] Comment on above: Performed By: #### U A #### [facility] ([id number]) [address] [place] [address] Leukocyte esterase Test strip Ql (U) Negative Normal NEG [facility] Comment on above: Performed By: #### U A #### [facility] ([id number]) [address], [address] [place] [address] Nitrite Ql (U) Negative Normal NEG [facility] Comment on above: Performed By: #### U A #### [facility] ([id number]) [address], [address] [place] [address] pH (U) 5.5 [pH] Normal 5.0-8.5 [facility] Comment on above: Performed By: #### U A #### [facility] ([id number]) [address], [address] [place] [address] Protein Ql (U) Negative Normal NEG [facility] Comment on above: Performed By: #### U A #### [facility] ([id number]) [address], [address] [place] [address] Specific gravity (U) [Rel density] 1.015 Normal 1.003-1.035 [facility] Comment on above: Performed By: #### U A #### [facility] ([id number]) [address], [address] [place] [address] TURBIDITY CLEAR Normal CLEAR [facility] Comment on above: Performed By: #### U A #### [facility] ([id number]) [address], [address] [place] [address] Urobilinogen (U) [Mass/Vol] mg/dL Normal <1.1 [facility] Comment on above: Performed By: #### U A #### [facility] ([id number]) [address], [address] [place] [address] URINE CULTUREon 12-20-2023 Bacteria identified Cx Nom (U) CULTURE RESULTS NO GROWTH AT <1000 CFU/mL Normal [facility] Comment on above: Performed By: #### 6 30-4 #### [facility] ([id number]) [address], [address] [place] [address] GLYCOHEMOGLOBIN A1Con 2021 ADA RECOMMENDATION SEE BELOW Normal [facility] Comment on above: Result Comment: ADA RECOMMENDED LIMIT 4.0 - 6.0 ADA THERAPEUTIC TARGET < 7.0 ACTION SUGGESTED > 7.0 Performed By: #### A 1C #### [facility] [address] [place] [address] Dr. Linda Treviño Glucose [Mass/Vol] 177 mg/dL Normal [facility] Comment on above: Performed By: #### A 1C #### [facility] [address] [address] [address] Linda Treviño HbA1c (Bld) [Mass fraction] 7.8 % Critically high 4.5-6.2 [facility] Comment on above: Performed By: #### A 1C #### [facility] [address] [address] [address] Linda Treviño LIPID PROFILEon 09-29-2021 CHOL-HDL RATIO NORM SEE BELOW Normal [facility] Comment on above: Result Comment: 3.3 - 4.4 LOW RISK 4.4 - 7.1 AVERAGE RISK 7.1 - 11.0 MODERATE RISK >11.0 HIGH RISK Performed By: #### T SH, LIPID #### [facility] [address] [address] [address] Linda Treviño Cholesterol [Mass/Vol] 116 mg/dL Normal <=200 [facility] Comment on above: Performed By: #### T SH, LIPID #### [facility] [address] [address] [address] Linda Treviño Cholesterol in HDL [Mass/Vol] 42 mg/dL Normal 40-60 [facility] Comment on above: Performed By: #### T SH, LIPID #### [facility] [address] [address] [address] Linda Treviño Cholesterol in LDL [Mass/Vol] 52.4 mg/dL Normal [facility] Comment on above: Performed By: #### T SH, LIPID #### [facility] [address] [address] [address] Linda Treviño Cholesterol.total/C holesterol in HDL [Mass ratio] 2.8 {ratio} Normal [facility] Comment on above: Performed By: #### T SH, LIPID #### [facility] [address] [address] [address] Linda Treviño HDL NORMAL > or = 60 mg/dl - LOW CARDIOVASCULAR RISK <40 mg/dl - HIGH CARDIOVASCULAR RISK Normal [facility] Comment on above: Performed By: #### T SH, LIPID #### [facility] [address] [address] [address] Linda Treviño LDL CALC NORMAL SEE BELOW Normal [facility] Comment on above: Result Comment: <100 mg/dl OPTIMAL 100 - 129 mg/dl NEAR OR ABOVE OPTIMAL 130 - 159 mg/dl BORDERLINE HIGH 160 - 189 mg/dl HIGH >190 mg/dl VERY HIGH Performed By: #### T SH, LIPID #### [facility] [address] [address] [address] Linda Treviño Triglyceride [Mass/Vol] 108 mg/dL Normal <=150 [facility] Comment on above: Performed By: #### T SH, LIPID #### [facility] [address] [address] [address] Linda Treviño VLDL CALC 21.6 mg/dL Normal [facility] Comment on above: Performed By: #### T SH, LIPID #### [facility] [address] [place] [address] Dr. Linda Treviño MICROALBUMIN, RAND URon 06-0 mALB 4.5 mg/L Normal <=30.0 [facility] Comment on above: Performed By: #### M ALBR #### [facility] [address] [place] [address] Dr. Linda Treviño TSHon 09-29-2021 TSH 1.174 uIU/mL Normal 0.358-3.[address] [facility] Comment on above: Performed By: #### T SH, LIPID #### [facility] [address] [place] [address] Dr. Linda Treviño TSH RANGE SEE BELOW Normal [facility] Comment on above: Result Comment: <0.3 4 UIU/ml HYPERTHYROID 0.34-5.60 UIU/ml EUTHYROID >5.60 UIU/ml HYPOTHYROID Performed By: #### T SH, LIPID #### [facility] [address] [place] [address] Dr. Linda Treviño VITAMIN D 25 OHon 09-29-2021 VIT D 25-OH 63.6 ng/mL Normal [facility] Comment on above: Performed By: #### V ITAD #### [facility] [address] [place] [address] Dr. Linda Treviño VIT D RANGES SEE BELOW Normal [facility] Comment on above: Result Comment: <20 ng/mL Vit D deficient 20 - <30 ng/mL Vit D insufficient 30 - 100 ng/mL Vit D sufficient >100 ng/mL Potential Toxicity Performed By: #### V ITAD #### [facility] [address] [place] [address] Dr. Linda Treviño AMYLASEon 09-28-2021 Amylase [Catalytic activity/Vol] 40 U/L Normal 25-115 [facility] Comment on above: Performed By: #### L IPA, JAXSON, CMP #### [facility] [address] [place] [address] Dr. Linda Treviño CBC AUTO DIFFon 09-28-2021 BASO # 0.0 103/ul Normal 0.0-0.1 [facility] Comment on above: Performed By: #### C BC ####[facility] [address] [address]Dr. Linda Treviño Basophils/100 WBC (Bld) 0.4 % Normal 0.2-2.0 [facility] Comment on above: Performed By: #### C BC ####[facility] [address] [address]Dr. Linda Hudson EO # 0.2 103/ul Normal 0.0-0.7 [facility] Comment on above: Performed By: #### C BC ####[facility] [address] [place], [place] [address]Dr. Linad Hudson Eosinophils/100 WBC (Bld) 1.8 % Normal 0.9-7.0 [facility] Comment on above: Performed By: #### C BC ####[facility] [address] [place], [place] [address]Dr. Linda Treviño Erythrocyte distribution width (RBC) [Ratio] 12.9 % Normal 11.0-15.0 [facility] Comment on above: Performed By: #### C BC ####[facility] [address] [place], [place] [address]Dr. Linda Treviño Hematocrit (Bld) [Volume fraction] 43.0 % Normal 42.0-54.0 [facility] Comment on above: Performed By: #### C BC ####[facility] [address] [place], [place] [address]Dr. Linda Treviño Hemoglobin (Bld) [Mass/Vol] 14.4 g/dL Normal 14.0-18.0 [facility] Comment on above: Performed By: #### C BC ####[facility] [address] [place], [place] [address]Dr. Linda Hudson IG # 0.04 10e3/ul Critically high 0.00-0.03 [facility] Comment on above: Performed By: #### C BC ####[facility] [address] [place], [place] [address]Dr. Linda Treviño IG % 0.5 % Normal 0.0-0.5 [facility] Comment on above: Performed By: #### C BC ####[facility] [address] [address]Dr. Linda Hudson LYMPH # 1.0 103/ul Critically low 1.2-3.8 [facility] Comment on above: Performed By: #### C BC ####[facility] [address] [address]Dr. Vivinasandi Treviño Lymphocytes/100 WBC (Bld) 12.3 % Critically low 20.5-60.0 [facility] Comment on above: Performed By: #### C BC ####[facility] [address] [place], [place] [address]Dr. Linda Treviño MANUAL DIFF REQ NO Normal [facility] Comment on above: Performed By: #### C BC ####[facility] [address] [place], [place] [address]Dr. Linda Treviño MCH (RBC) [Entitic mass] 30.1 pg Normal 25.9-34.0 [facility] Comment on above: Performed By: #### C BC ####[facility] [address] [place], [place] [address]Dr. Linda Hudson MCHC (RBC) [Mass/Vol] 33.5 g/dL Normal 29.9-35.2 [facility] Comment on above: Performed By: #### C BC ####[facility] [address] [place], [place] [address]Dr. Linda Treviño MCV (RBC) [Entitic vol] 90.0 fL Normal 80.0-94.0 [facility] [facility] Comment on above: Performed By: #### C BC ####[facility] [address] [place], [place] [address]DrAron Treviño MONO # 0.3 103/ul Normal 0.3-0.8 [facility] Comment on above: Performed By: #### C BC ####[facility] [address] [place], [place] [address]Dr. Linda Treviño Monocytes/100 WBC (Bld) 3.9 % Normal 1.7-12.0 [facility] Comment on above: Performed By: #### C BC ####[facility] [address] [address]Dr. Linda Treviño NEUT # 6.6 103/ul Critically high 1.4-6.5 [facility] Comment on above: Performed By: #### C BC ####[facility] [address] [address]Dr. Linda Treviño Neutrophils/100 WBC (Bld) 81.1 % Critically high 43.0-75.0 [facility] Comment on above: Performed By: #### C BC ####[facility] [address] [address]Dr. Linda Treviño Platelet mean volume (Bld) [Entitic vol] 10.9 fL Normal 9.5-13.5 [facility] Comment on above: Performed By: #### C BC ####[facility] [address] [place], [place] [address]Dr. Linda Treviño PLT 232 103/ul Normal 150-450 [facility] Comment on above: Performed By: #### C BC ####[facility] [address] [place], [place] [address]Dr. Linda Treviño RBC 4.78 106/ul Normal 4.70-6.10 [facility] Comment on above: Performed By: #### C BC ####[facility] [address] [place], [place] [address]Dr. Linda Treviño WBC 8.1 103/ul Normal 4.0-11.0 [facility] Comment on above: Performed By: #### C BC ####[facility] [address] [place], [place] [address]Dr. Linda Treviño CT ABD/PELVIS WO CONon 09-28 [...] by: MELECIO RAMIREZ Date: 2021-09-28 11:27 Normal [facility] LIPASEon 09-28-2021 Lipase [Catalytic activity/Vol] 72.0 U/L Critically low 73.0-393.0 [facility] Comment on above: Performed By: #### L JAXSON MOORE CMP #### [facility] [address] [place] [address] Dr. Linda Treviño PROF 14(COMP METB)on 022 Albumin [Mass/Vol] 4.1 g/dL Normal 3.4-5.0 [facility] Comment on above: Performed By: #### L JAXSON MOORE CMP #### [facility] [address] [address] [address] Linda Treviño Albumin/Globulin [Mass ratio] 1.1 {ratio} Normal [facility] Comment on above: Performed By: #### L JAXSON MOORE CMP #### [facility] [address] [address] [address] Linda Treviño ALP [Catalytic activity/Vol] 56 U/L Normal 46-116 [facility] Comment on above: Performed By: #### L JAXSON MOORE, CMP #### [facility] [address] [address] [address] Linda Treviño ALT [Catalytic activity/Vol] 33 U/L Normal 16-63 [facility] Comment on above: Performed By: #### L OSCAR JAXSON, CMP #### [facility] [address] [address] [address] Linda Treviño Anion gap [Moles/Vol] 12.2 mmol/L Normal [facility] Comment on above: Performed By: #### L JAXSON MOORE, CMP #### [facility] [address] [place] [address] Dr. Linda Treviño AST [Catalytic activity/Vol] 22 U/L Normal 15-37 [facility] Comment on above: Performed By: #### L JAXSON MOORE, CMP #### [facility] [address] [place] [address] Dr. Linda Treviño Bilirubin [Mass/Vol] 0.7 mg/dL Normal 0.2-1.0 [facility] Comment on above: Performed By: #### L JAXSON MOORE, CMP #### [facility] [address] [place] [address] Dr. Linda Treviño Calcium [Mass/Vol] 9.4 mg/dL Normal 8.5-10.1 [facility] Comment on above: Performed By: #### L OSCAR JAXSON, CMP #### [facility] [address] [place] [address] Dr. Linda Treviño Chloride [Moles/Vol] 102 mmol/L Normal 98-107 [facility] Comment on above: Performed By: #### L JAXSON MOORE, CMP #### [facility] [address] [place] [address] Dr. Linda Treviño CO2 [Moles/Vol] 25.7 mmol/L Normal 21.0-32.0 [facility] Comment on above: Performed By: #### L IPA, JAXSON, CMP #### [facility] [address] [address] [address] Linda Treviño Creatinine [Mass/Vol] 1.74 mg/dL Critically high 0.70-1.30 [facility] Comment on above: Performed By: #### L IPA JAXSON, CMP #### [facility] [address] [address] [address] Linda Treviño EGFR-AF IVORIAN 45 mL/min/1.73m2 Critically low >=60 [facility] Comment on above: Performed By: #### L IPA JAXSON, CMP #### [facility] [address] [address] [address] Linda Treviño EGFR-NON AF IVORIAN 37 mL/min/1.73m2 Critically low >=60 [facility] Comment on above: Performed By: #### L OSCAR JAXSON, CMP #### [facility] [address] [address] [address] Linda Treviño Globulin (S) [Mass/Vol] 3.7 g/dL Normal [facility] Comment on above: Performed By: #### L JAXSON MOORE, CMP #### [facility] [address] [address] [address] Linda Treviño Glucose [Mass/Vol] 225 mg/dL Critically high 74-106 T [facility] Comment on above: Performed By: #### L JAXSON MOORE, CMP #### [facility] [address] [address] [address] Linda Treviño Potassium [Moles/Vol] 3.9 mmol/L Normal 3.5-5.1 [facility] Comment on above: Performed By: #### L JAXSON MOORE, CMP #### [facility] [address] [address] [address] Linda Treviño Protein [Mass/Vol] 7.8 g/dL Normal 6.4-8.2 [facility] Comment on above: Performed By: #### L IPA JAXSON, CMP #### [facility] [address] [address] [address] Linda Treviño Sodium [Moles/Vol] 136 mmol/L Normal 136-145 [facility] Comment on above: Performed By: #### L JAXSON MOORE, CMP #### [facility] [address] [address] [address] Linda Treviño Urea nitrogen [Mass/Vol] 30.0 mg/dL Critically high 7.0-18.0 [facility] Comment on above: Performed By: #### L JAXSON MOORE, CMP #### [facility] [address] [address] [address] Linda Treviño Urea nitrogen/Creatinine [Mass ratio] 17.2 mg/mg Normal [facility] Comment on above: Performed By: #### L JAXSON MOORE, CMP #### [facility] [address] [address] [address] Linda Treviño Superficial Wound Cultureon 05-18-2021 Superficial Wound Culture LEG AND TRUNK, IMPETIGO No Growth 2 Days PERFORMED BY: [facility] [address] [place] [address] PATHOLOGIST PHARMACEUTICAL LABORATORY TECHNICIAN EMILEE ROD M.D. Normal [facility] Comment on above: Performed By: #### C USUP #### [facility] [address] US EXT NON VASC LIMITED LTon [...] by: MELECIO RAMIREZ Date: 2021-05-17 11:01 Normal [facility] GLYCOHEMOGLOBIN A1Con 2020 ADA RECOMMENDATION ADA THERAPEUTIC TARGET 6.0 - 7.0 ACTION SUGGESTED > 7.0 Normal [facility] Comment on above: Performed By: #### A 1C ####[facility] [address] [place], [place] [address]CoDr. Linda Treviño Glucose [Mass/Vol] 174 mg/dL Normal [facility] Comment on above: Performed By: #### A 1C ####[facility] [address] [place], [place] [address]Of. Linda Treviño HbA1c (Bld) [Mass fraction] 7.7 % Critically high <=6.0 [facility] Comment on above: Performed By: #### A 1C ####[facility] [address] [place], [place] [address]Rg. Linda Treviño Vital Signs Date Time Vital Sign Value Performing Clinician Facility 12-11-2024 11:04-0400 Body height 170.2 cm Vern Littlejohn MD Work Phone: [facility] 12-11-2024 11:04-0400 Body mass index (BMI) [Ratio] 30.54 kg/m2 Vern Littlejohn MD Work Phone: [facility] 12-11-2024 11:04-0400 Body weight 88.45 kg Vern Littlejohn MD Work Phone: [facility] 12-11-2024 11:04-0400 Diastolic blood pressure 80 mm[Hg] Vern Littlejohn MD Work Phone: [facility] 12-11-2024 11:04-0400 Heart rate 60 /min Vern Littlejohn MD Work Phone: [facility] 12-11-2024 11:04-0400 SaO2% (BldA) [Mass fraction] 95 % Vern Littlejohn MD Work Phone: [facility] 12-11-2024 11:04-0400 Systolic blood pressure 126 mm[Hg] Vern Littlejohn MD Work Phone: [facility] 11-18-2024 08:50-0400 Body height 172.72 cm Dillon Maede MD Work Phone: [facility] 11-18-2024 08:50-0400 Body mass index (BMI) [Ratio] 29.9 kg/m2 Dillon Meade MD Work Phone: [facility] 11-18-2024 08:50-0400 Body weight 89.52 kg Dillon Meade MD Work Phone: [facility] 11-18-2024 08:50-0400 Diastolic blood pressure 85 mm[Hg] Dillon Meade MD Work Phone: [facility] 11-18-2024 08:50-0400 Heart rate 72 /min Dillon Meade MD Work Phone: [facility] 11-18-2024 08:50-0400 Respiratory rate 16 /min Dillon Meade MD Work Phone: [facility] 11-18-2024 08:50-0400 SaO2% (BldA) [Mass fraction] 96 % Dillon Meade MD Work Phone: [facility] 11-18-2024 08:50-0400 Systolic blood pressure 127 mm[Hg] Dillon Meade MD Work Phone: [facility] 10-09-2024 10:08-0400 Body height 172.7 cm Dillon Meade MD Work Phone: [facility] 10-09-2024 10:08-0400 Body mass index (BMI) [Ratio] 30.56 kg/m2 Dillon Meade MD Work Phone: [facility] 10-09-2024 10:08-0400 Body temperature 97.11 [degF] Dillon Meade MD Work Phone: [facility] 10-09-2024 10:08-0400 Body weight 91.17 kg Dillon Meade MD Work Phone: [facility] 10-09-2024 10:08-0400 Diastolic blood pressure 54 mm[Hg] Dillon Meade MD Work Phone: [facility] 10-09-2024 10:08-0400 Heart rate 83 /min Dillon Meade MD Work Phone: [facility] 10-09-2024 10:08-0400 Respiratory rate 18 /min Dillon Meade MD Work Phone: [facility] 10-09-2024 10:08-0400 SaO2% (BldA) [Mass fraction] 97 % Dillon Meade MD Work Phone: [facility] 10-09-2024 10:08-0400 Systolic blood pressure 92 mm[Hg] Dillon Meade MD Work Phone: [facility] 07-09-2024 13:58-0400 Body height 172.7 cm Dillon Meade MD Work Phone: [facility] 07-09-2024 13:58-0400 Body mass index (BMI) [Ratio] 30.41 kg/m2 Dillon Meade MD Work Phone: [facility] 07-09-2024 13:58-0400 Body temperature 97.11 [degF] Dillon Meade MD Work Phone: [facility] 07-09-2024 13:58-0400 Body weight 90.72 kg Dillon Meade MD Work Phone: [facility] 07-09-2024 13:58-0400 Diastolic blood pressure 92 mm[Hg] Dillon Meade MD Work Phone: [facility] 07-09-2024 13:58-0400 Heart rate 80 /min Dillon Meade MD Work Phone: [facility] 07-09-2024 13:58-0400 Respiratory rate 18 /min Dillon Meade MD Work Phone: [facility] 07-09-2024 13:58-0400 SaO2% (BldA) [Mass fraction] 97 % Dillon Meade MD Work Phone: [facility] 07-09-2024 13:58-0400 Systolic blood pressure 140 mm[Hg] Dillon Meade MD Work Phone: [facility] 06-17-2024 13:28-0500 Body height 172.7 cm Dillon Meade MD Work Phone: [facility] 06-17-2024 13:28-0500 Body mass index (BMI) [Ratio] 31.02 kg/m2 Dillon Meade MD Work Phone: [facility] 06-17-2024 13:28-0500 Body temperature 97.11 [degF] Dillon Meade MD Work Phone: [facility] 06-17-2024 13:28-0500 Body weight 92.53 kg Dillon Meade MD Work Phone: [facility] 06-17-2024 13:28-0500 Diastolic blood pressure 56 mm[Hg] Dillon Meade MD Work Phone: [facility] 06-17-2024 13:28-0500 Heart rate 84 /min Dillon Meade MD Work Phone: [facility] 06-17-2024 13:28-0500 Respiratory rate 18 /min Dillon Meade MD Work Phone: [facility] 06-17-2024 13:28-0500 SaO2% (BldA) [Mass fraction] 97 % Dillon Meade MD Work Phone: [facility] 06-17-2024 13:28-0500 Systolic blood pressure 104 mm[Hg] Dillon Meade MD Work Phone: [facility] 04-05-2024 09:10-0500 Body height 172.7 cm Dillon Meade MD Work Phone: [facility] 04-05-2024 09:10-0500 Body mass index (BMI) [Ratio] 29.65 kg/m2 Dillon Meade MD Work Phone: [facility] 04-05-2024 09:10-0500 Body temperature 97.11 [degF] Dillon Meade MD Work Phone: [facility] 04-05-2024 09:10-0500 Body weight 88.45 kg Dillon Meade MD Work Phone: [facility] 04-05-2024 09:10-0500 Diastolic blood pressure 62 mm[Hg] Dillon Meade MD Work Phone: [facility] 04-05-2024 09:10-0500 Heart rate 71 /min Dillon Meade MD Work Phone: [facility] 04-05-2024 09:10-0500 Respiratory rate 18 /min Dillon Meade MD Work Phone: [facility] 04-05-2024 09:10-0500 SaO2% (BldA) [Mass fraction] 99 % Dillon Meade MD Work Phone: [facility] 04-05-2024 09:10-0500 Systolic blood pressure 118 mm[Hg] Dillon Meade MD Work Phone: [facility] 03-25-2024 13:05-0500 Body height 170.2 cm Nimisha Ricketts MD Work Phone: [facility] 03-25-2024 13:05-0500 Body mass index (BMI) [Ratio] 31.95 kg/m2 Nimisha Ricketts MD Work Phone: [facility] 03-25-2024 13:05-0500 Body weight 92.53 kg Nimisha Ricketts MD Work Phone: [facility] 03-25-2024 13:05-0500 Diastolic blood pressure 80 mm[Hg] Nimisha Ricketts MD Work Phone: [facility] 03-25-2024 13:05-0500 Heart rate 46 /min Nimisha Ricketts MD Work Phone: [facility] 03-25-2024 13:05-0500 Systolic blood pressure 113 mm[Hg] Nimisha Ricketts MD Work Phone: [facility] 03-05-2024 11:32-0500 Body height 170.2 cm Carla PRASAD Work Phone: [facility] 03-05-2024 11:32-0500 Body mass index (BMI) [Ratio] 31.94 kg/m2 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 [employer]ILER HOUSE SUPERVISOR-MACHINIST [employer] Work Phone: [facility] 03-05-2024 11:32-0500 Body weight 92.53 kg 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 BOILER HOUSE SUPERVISOR-MACHINIST [employer]PER [employer] Work Phone: [facility] [employer] [facility] 03-05-2024 11:32-0500 Diastolic blood pressure 71 mm[Hg] 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 BOILER HOUSE SUPERVISOR-MACHINIST [employer]PER [employer]INE Work Phone: [facility] 03-05-2024 11:32-0500 Heart rate 87 /min 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 APRN-MACHINIST HELPER [employer] Work Phone: [facility] 03-05-2024 11:32-0500 Systolic blood pressure 116 mm[Hg] 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 BOILER HOUSE SUPERVISOR-MACHINIST [employer]PER [employer]INE Work Phone: [facility] 02-23-2024 09:22-0400 Body height 170.2 cm Abisai Katz MD Work Phone: [facility] [employer] [facility] 02-23-2024 09:22-0400 Body mass index (BMI) [Ratio] 31.98 kg/m2 Abisai Katz MD Work Phone: [facility] [employer] [facility] 02-23-2024 09:22-0400 Body weight 92.63 kg Abisai Katz MD Work Phone: [facility] [employer] [facility] 02-23-2024 09:22-0400 Diastolic blood pressure 96 mm[Hg] Abisai Katz MD Work Phone: [facility] [employer] [facility] 02-23-2024 09:22-0400 Heart rate 70 /min Abisai Katz MD Work Phone: [facility] [employer] [facility] 02-23-2024 09:22-0400 SaO2% (BldA) [Mass fraction] 99 % Abisai Katz MD Work Phone: [facility] [employer] [facility] 02-23-2024 09:22-0400 Systolic blood pressure 140 mm[Hg] Abisai Katz MD Work Phone: [facility] 02-14-2024 08:52-0400 Body height 170.2 cm [facility] 02-14-2024 08:52-0400 Body mass index (BMI) [Ratio] 32.11 kg/m2 [facility] 02-14-2024 08:52-0400 Body weight 92.99 kg [facility] 1 [facility] 02-09-2024 13:32-0400 Heart rate 90 /min Joseline Oleary MD Work Phone: [facility] 02-09-2024 13:32-0400 SaO2% (BldA) [Mass fraction] 98 % Joseline Oleary MD Work Phone: [facility] 02-09-2024 13:23-0400 Body height 172.7 cm Joseline Oleary MD Work Phone: [facility] 02-09-2024 13:23-0400 Body mass index (BMI) [Ratio] 31.18 kg/m2 Joseline Oleary MD Work Phone: [facility] 02-09-2024 13:23-0400 Body weight 92.99 kg Joseline Oleary MD Work Phone: [facility] 02-09-2024 13:23-0400 Diastolic blood pressure 82 mm[Hg] Joseline Oleary MD Work Phone: [facility] 02-09-2024 13:23-0400 Systolic blood pressure 132 mm[Hg] Joseline Oleary MD Work Phone: [facility] 01-31-2024 09:47-0400 Body height 172.7 cm Deon RODRIGUEZ Work Phone: [facility] 01-31-2024 09:47-0400 Body mass index (BMI) [Ratio] 31.93 kg/m2 Deon RODRIGUEZ Work Phone: [facility] 01-31-2024 09:47-0400 Body weight 95.25 kg Deon RODRIGUEZ Work Phone: [facility] 12-20-2023 09:59-0400 Body height 172.7 cm P[facility] 2 [facility] 12-20-2023 09:59-0400 Body mass index (BMI) [Ratio] 31.17 kg/m2 [facility] 12-20-2023 09:59-0400 Body weight 92.99 kg Pm 2 [facility] 10-18-2023 12:48-0400 Body height 172.7 cm Nimisha Ricketts MD Work Phone: [facility] 10-18-2023 12:48-0400 Body mass index (BMI) [Ratio] 31.63 kg/m2 Nimisha Ricketts MD Work Phone: [facility] 10-18-2023 12:48-0400 Body weight 94.35 kg Nimisha Ricketts MD Work Phone: [facility] 10-18-2023 12:48-0400 Diastolic blood pressure 74 mm[Hg] Nimisha Ricketts MD Work Phone: [facility] 10-18-2023 12:48-0400 Heart rate 48 /min Nimisha Ricketts MD Work Phone: [facility] 10-18-2023 12:48-0400 Systolic blood pressure 105 mm[Hg] Nimisha Ricketts MD Work Phone: [facility] Encounters Encounter Date Encounter Type Care Provider Facility Start: 12-11-2024 End: 12-11-2024 Office outpatient visit 25 minutes Tiera Montgomery [facility] Comment on above: Paroxysmal atrial fi brillation (CMS-HCC) (Primary Dx); Primary hypertension Start: 12-11-2024 End: 12-11-2024 ambulatory [facility] Start: 12-10-2024 End: 12-10-2024 Telephone encounter Jayne Russell CMA [facility] Start: 11-27-2024 End: 11-27-2024 Clinisync Result Encounter Generic External Data Provider [facility] External Department Unsolicited Start: 11-27-2024 End: 11-27-2024 Clinisync Result Encounter Generic External Data Provider [facility] External Department Unsolicited Start: 11-26-2024 End: 11-26-2024 Telephone encounter Nimisha Ricketts MD [facility] Start: 11-18-2024 End: 11-18-2024 ambulatory Dillon Meade MD Work Phone: [facility] Work Phone: Start: 11-18-2024 End: 11-18-2024 Patient encounter procedure Brittany Perez MD -[facility] Work Phone: Start: 11-14-2024 End: 11-14-2024 Refill Dillon Meade MD Work Phone: [facility] Comment on above: CKD (chronic kidney disease) stage 4, GFR 15-29 ml/min ([facility]); Type 2 diabetes mellitus with hyperglycemia, without long-term current use of insulin ([facility]) Start: 10-22-2024 ambulatory [facility] Start: 10-21-2024 ambulatory [facility] Start: 10-15-2024 End: 10-15-2024 ambulatory [facility] Start: 10-09-2024 End: 10-09-2024 Bamboo flowsheet Dillon Meade MD Work Phone: [facility] Start: 10-09-2024 End: 10-09-2024 Bamboo flowsdebby Meade MD Work Phone: [facility] [...] ratio less than 30 mg/g (H*; Dyslipidemia (CMS/[facility]); Class 1 obesity due to excess calories with serious comorbidity and body mass index (BMI) of 30.0 to 30.9 in adult; Encounter for long-term (current) use of medications Start: 10-09-2024 End: 10-09-2024 ambulatory DILLON MEADE Not Available Start: 07-09-2024 End: 07-09-2024 [employer] Dillon Meade MD Work Phone: [facility] Start: 07-09-2024 End: 07-09-2024 [facility] Dillon Meade MD Work Phone: [facility] Start: 07-09-2024 End: 07-09-2024 Patient encounter procedure Dillon Meade MD Work Phone: [facility] Work Phone: Start: 07-09-2024 End: 07-09-2024 Postop follow up visit related to original px Dillon Meade MD Work Phone: [facility] Comment on above: Medicare annual well ness visit, subsequent (Primary Dx); Type 2 diabetes mellitus with stage 3b chronic kidney disease, without long-term current use of insulin (HCC) ([facility]); Chronic kidney disease (CKD) stage G3b/A1, moderately [...] Start: 06-18-2024 End: 06-18-2024 ambulatory DILLON MEADE [facility] Start: 06-17-2024 End: 06-17-2024 Bamboo flowsheet Dillon [...] reduced ejection fraction) (CMS/HCC); Paroxysmal atrial fibrillation (CMS/HCC) Start: 04-05-2024 End: 04-05-2024 ambulatory DILLON MEADE Not Available Start: 03-25-2024 End: 03-25-2024 Postop follow up visit related to original px Nimisha Ricketts MD Work Phone: [facility] Comment on above: Encysted hydrocele ( Primary Dx); Prostate cancer ([facility]-HCC) Start: 03-25-2024 End: 03-25-2024 [facility] Start: 03-22-2024 End: 03-22-2024 ambulatory NIMISHA Forman [facility] Start: 03-22-2024 End: 03-22-2024 Telephone encounter Rachel Harkins LPN [facility] Start: 03-05-2024 End: 03-05-2024 Telephone encounter 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 APRN-MACHINIST [employer] Work Phone: [facility] Start: 03-05-2024 End: 03-06-2024 Postop follow up visit related to original px 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 BOILER HOUSE SUPERVISOR-MACHINIST [employer]PER [employer]INE Work Phone: [facility] Comment on above: Encysted hydrocele ( Primary Dx) Start: 03-05-2024 End: 03-06-2024 ambulatory [facility] Maty [facility] Start: 03-04-2024 End: 03-04-2024 Telephone encounter Cedrick Martines CMA [facility] Start: 02-29-2024 End: 02-29-2024 Clinical Support Hipolito Domingo MD Work Phone: [facility] Comment on above: Encysted hydrocele ( Primary Dx) Start: 02-29-2024 End: 02-29-2024 ambulatory HIPOLITO DOMINGO [facility] Start: 02-26-2024 End: 02-26-2024 Telephone encounter Nimisha Ricketts MD Work Phone: [facility] Start: 02-26-2024 End: 02-26-2024 Evaluation and management of inpatient VITA ANDERSON [facility] Start: 02-26-2024 End: 02-26-2024 Evaluation and management of inpatient NIMISHA RICKETTS [facility] Start: 02-23-2024 End: 02-23-2024 Office outpatient visit 15 minutes Bar Noble MD Work Phone: [facility] Comment on above: Prostate cancer ([facility] -HCC) (Primary Dx); Paroxysmal atrial fibrillation ([facility]) Start: 02-23-2024 End: 02-23-2024 [facility] Start: 02-22-2024 End: 02-22-2024 Telephone encounter Mahnaz Sky RN [facility] Start: 02-22-2024 End: 02-22-2024 ambulatory [facility] Start: 02-22-2024 Encounter for preprocedural cardiovascular examination [facility] Start: 02-16-2024 End: 02-16-2024 Bamboo flowsheet Deon RODRIGUEZ Work Phone: [facility] Start: 02-16-2024 End: 02-16-2024 Bamboo flowsheet Deon RODRIGUEZ Work Phone: [facility] Start: 02-16-2024 End: 02-16-2024 Office outpatient visit 10 minutes Deon RODRIGUEZ Work Phone: [facility] Comment on above: Acute pain of left w rist (Primary Dx); Sprain of left wrist, subsequent encounter Start: 02-16-2024 End: 02-16-2024 ambulatory DEON ROTH Not Available Start: 02-14-2024 End: 02-14-2024 Patient encounter procedure [facility] Pre-Admission Testing 1 [facility] - Pre Admit Comment on above: Preop examination (P rimary Dx); Hypertension, unspecified type; Type 2 diabetes mellitus without complication, without long-term current use of insulin ([facility]); Urinary frequency Start: 02-14-2024 End: 02-14-2024 Preprocedural examination done Pmh 1 [facility] Start: 02-14-2024 End: 02-14-2024 ambulatory NIMISHA RICKETTS [facility] Start: 02-09-2024 End: 02-09-2024 Office outpatient new 45 minutes Nimisha Ricketts MD Work Phone: [facility] Comment on above: Encounter for pre-op erative cardiovascular clearance (Primary Dx); Atrial fibrillation, unspecified type (CMS-HCC); Primary hypertension; Hyperlipidemia, unspecified hyperlipidemia type; Abnormal EKG Start: 02-09-2024 End: 02-09-2024 Preoperative state Nimisha Ricketts MD Work Phone: [facility] Work Phone: Start: 02-09-2024 End: 02-09-2024 ambulatory [facility] Start: 02-09-2024 Encounter for preprocedural cardiovascular examination [facility] Start: 02-08-2024 End: 02-08-2024 Telephone encounter Yoly Gama [facility] Start: 02-02-2024 End: 02-02-2024 Chart abstracting Joseline Oleary MD Work Phone: [facility] Start: 01-31-2024 End: 01-31-2024 Bamboo flowsheet Deon RODRIGUEZ Work Phone: [facility] Start: 01-31-2024 End: 01-31-2024 Bamboo flowsheet Deon RODRIGUEZ Work Phone: [facility] Start: 01-31-2024 End: 01-31-2024 Office outpatient new 30 minutes Deon RODRIGUEZ Work Phone: [facility] Comment on above: Acute pain of left w rist (Primary Dx); Left wrist sprain, initial encounter; Arthritis of left wrist Start: 01-31-2024 End: 01-31-2024 ambulatory DEON ROTH Not Available Start: 12-21-2023 End: 12-21-2023 Telephone encounter Kareen Browne [facility] Start: 12-20-2023 End: 12-20-2023 Patient encounter procedure Pmh Pre-Admission Testing 2 [facility] - Pre Admit Comment on above: Preop examination (P rimary Dx); Hypertension, unspecified type; Type 2 diabetes mellitus without complication, without long-term current use of insulin ([facility]) Start: 12-20-2023 End: 12-20-2023 Preprocedural examination done Pm 2 [facility] Start: 12-20-2023 End: 12-20-2023 ambulatory DILLON MEADE [facility] Start: 12-20-2023 Encounter for other preprocedural examination [facility] Start: 12-07-2023 End: 12-07-2023 ambulatory DILLON MEADE Not Available Start: 10-18-2023 End: 10-18-2023 Telephone encounter Nimisha Ricketts MD Work Phone: [facility] Start: 10-18-2023 End: 10-18-2023 Office outpatient visit 15 minutes Nimisha Ricketts MD Work Phone: [facility] Comment on above: Encysted hydrocele ( Primary Dx) Start: 10-18-2023 End: 10-18-2023 ambulatory NIMISHA Castaneda [facility] Start: 09-29-2021 End: 09-30-[address] DILLON MEADE Facility:[facility] Start: 09-28-2021 End: 09-28-[address] DILLON MEADE Facility:[facility] Start: 08-04-2021 End: 08-12-[address] DILLON MEADE Facility:[facility] Start: 05-17-2021 End: 05-18-2021 ambulatory SHAIKH Nadeen OQUENDO Facility:[facility] Start: 03-30-2021 End: 03-31-[address] DILLON MEADE Facility:[facility] Procedures Date Procedure Procedure Detail Performing Clinician Start: 11-27-2024 US RENAL BI Generic Ex ternal Data Provider Start: 06-18-2024 Hemoglobin glycosyla willard a1c Dillon Meade MD Work Phone: Start: 03-05-2024 Follow-up visit Follow-up CARLA TORRES Start: 02-09-2024 Ecg routine ecg w/le ast 12 lds w/i&r Joseline Oleary MD Work Phone: Start: 02-09-2024 Follow-up visit Follow-up COLLIN OLEARY Start: 10-18-2023 Follow-up visit Follow-up NIMISHA RICKETTS Plan of Treatment Date Care Activity Detail Author Start: 12-11-2025 Glaucoma screening Diabetes: Retinopathy Screening [facility] Start: 10-22-2025 Urine screening for protein Diabetes: Urine Protein Screening [facility] Start: 07-09-2025 Medicare Annual Wellness (AWV) Medicare Annual Wellness (AWV) [facility] Start: 04-23-2025 Hemoglobin A1c measurement Diabetes: Hemoglobin A1C [facility] Start: 04-10-2025 End: 04-10-2025 Patient encounter procedure 04/10/2025 10:30 AM EST Office Visit [facility] [address] [place] [address] Dillon Meade MD [address] [place] [address] [facility] Start: 04-02-2025 End: 04-02-2025 Patient encounter procedure 04/02/2025 2:15 PM EST Office Visit [facility] [address] [place] [address] [place] [phone] Nimisha Ricketts MD [facility] [place] [address] [facility] Start: 03-25-2025 Tobacco Screening Tobacco Screening [facility] Start: 03-24-2025 End: 03-24-2025 Patient encounter procedure 03/24/2025 1:15 PM EST Office Visit [facility] [address] [place] [address] [place] [address] Nimisha Ricketts MD [address] [place] [address] [facility] Start: 03-05-2025 Tobacco Screening Tobacco Screening [facility] Start: 02-25-2025 Adult BMI Screening Adult BMI Screening [facility] Start: 02-25-2025 Tobacco Screening Tobacco Screening [facility] Start: 02-22-2025 Adult BMI Screening Adult BMI Screening [facility] Start: 02-22-2025 Tobacco Screening [facility] Start: 02-21-2025 Adult BMI Screening Adult BMI Screening [facility] Start: 02-13-2025 Adult BMI Screening Adult BMI Screening [facility] Start: 02-13-2025 Tobacco Screening Tobacco Screening [facility] Start: 02-08-2025 Adult BMI Screening Adult BMI Screening [facility] Start: 02-08-2025 Tobacco Screening Tobacco Screening [facility] Start: 01-24-2025 Tobacco Screening Tobacco Screening [facility] Start: 12-30-2024 Influenza vaccination [facility] Start: 12-19-2024 Adult BMI Screening Adult BMI Screening [facility] Start: 12-19-2024 Tobacco Screening [facility]ening [facility] Start: 12-16-2024 Hemoglobin A1c measurement Diabetes: Hemoglobin A1C [facility] Start: 12-11-2024 End: 12-11-2024 Patient encounter procedure 12/11/2024 11:15 AM EDT Office Visit [facility] [address] [place] [phone] Tiera Montgomery MD [address] [place], [place] [address] Vern Littlejohn MD [address] [place] [address] [facility] Start: 10-17-2024 Adult BMI Screening Adult BMI Screening [facility] Start: 10-17-2024 Tobacco Screening Tobacco Screening [facility] Start: 10-09-2024 End: 10-09-2025 Basic metabolic 1998 panel - Serum or Plasma Basic metabolic panel Lab Routine Chronic kidney disease (CKD) stage G3b/A1, moderately decreased glomerular filtration rate (GFR) between 30-44 mL/min/1.73 square meter and albuminuria creatinine ratio less than 30 mg/g (H* Expected: 10/09/2024 (Approximate), Expires: 10/09/2025 [facility] Comment on above: Expected: 10/09/2024 (Approximate), Expi res: 10/09/2025 Start: 10-09-2024 End: 10-09-2025 CBC W Auto Differential panel - Blood CBC and differential Lab Routine Encounter for long-term (current) use of medications Expected: 10/09/2024 (Approximate), Expires: 10/09/2025 [facility] Comment on above: Expected: 10/09/2024 (Approximate), Expi res: 10/09/2025 Start: 10-09-2024 End: 10-09-2025 Hemoglobin A1c/Hemoglobin.total in Blood Hemoglobin A1c Lab Routine Type 2 diabetes mellitus with hyperglycemia, without long-term current use of insulin (CMS/HCC) Expected: 10/09/2024 (Approximate), Expires: 10/09/2025 [facility] Comment on above: Expected: 10/09/2024 (Approximate), Expi res: 10/09/2025 Start: 10-09-2024 End: 10-09-2025 Hepatic function 2000 panel - Serum or Plasma Hepatic function panel Lab Routine Encounter for long-term (current) use of medications Expected: 10/09/2024 (Approximate), Expires: 10/09/2025 [facility] Comment on above: Expected: 10/09/2024 (Approximate), Expi res: 10/09/2025 Start: 10-09-2024 End: 10-09-2025 Lipid 1996 panel - Serum or Plasma Lipid panel Lab Routine Dyslipidemia (CMS/HCC) Expected: 10/09/2024 (Approximate), Expires: 10/09/2025 [facility] Comment on above: Expected: 10/09/2024 (Approximate), Expi res: 10/09/2025 Start: 10-09-2024 End: 10-09-2025 Microalbumin/Creatinine panel in random Urine Microalbumin / creatinine, urine ratio Lab Routine Type 2 diabetes mellitus with hyperglycemia, without long-term current use of insulin ([facility]) Expected: 10/09/2024 (Approximate), Expires: 10/09/2025 [facility] Work Phone: Comment on above: Expected: 10/09/2024 (Approximate), Expi res: 10/09/2025 Start: 10-09-2024 End: 10-09-2025 Thyrotropin [Units/volume] in Serum or Plasma TSH Lab Routine Class 1 obesity due to excess calories with serious comorbidity and body mass index (BMI) of 30.0 to 30.9 in adult Expected: 10/09/2024 (Approximate), Expires: 10/09/2025 [facility] Comment on above: Expected: 10/09/2024 (Approximate), Expi res: 10/09/2025 Start: 10-09-2024 End: 10-09-2024 Patient encounter procedure [facility] Comment on above: Arrived Start: 10-08-2024 Urine screening for protein Diabetes: Urine Protein Screening [facility] Start: 07-09-2024 End: 07-09-2024 [facility] encounter [facility] Comment on above: Arrived Start: 07-08-2024 End: 07-08-2024 Patient encounter procedure 07/08/2024 11:30 AM EDT Office [facility] [address] [place] [address] Dillon Meade MD [address] [place] [phone] [facility] Start: 06-17-2024 End: 06-17-2024 Patient encounter procedure 06/17/2024 1:15 PM EST Office [facility] [address] [place] [address] Dillon Meade MD [address] [place] [address] Arrived [facility] Comment on above: Arrived Start: 05-27-2024 End: 05-27-2024 Patient encounter procedure 05/27/2024 9:30 AM EST Appointment [facility] - Cardiovascular [address] [place] [phone] Abisai Katz MD [address] [place] [facility] [place] [phone] [facility] Start: 05-25-2024 End: 02-22-2025 Echo limited W/O contrast Echo limited W/O contrast Echocardiography Routine Paroxysmal atrial fibrillation ([facility]) Expected: 05/25/2024 (Approximate), Expires: 02/22/2025 [facility] Work Phone: Comment on above: Expected: 05/25/2024 (Approximate), Expi res: 02/22/2025 Start: 04-09-2024 Hemoglobin A1c measurement Diabetes: Hemoglobin A1C [facility] Start: 04-05-2024 End: 04-05-2025 Hemoglobin A1c/Hemoglobin.total in Blood Hemoglobin A1c Lab Routine Type 2 diabetes mellitus with hyperglycemia, without long-term current use of insulin ([facility]) Expected: 04/05/2024 (Approximate), Expires: 04/05/2025 [facility] Work Phone: Comment on above: Expected: 04/05/2024 (Approximate), Expi res: 04/05/2025 Start: 04-05-2024 End: 04-05-2024 Patient encounter procedure [facility] Comment on above: Arrived Start: 03-25-2024 End: 03-25-2024 Patient encounter procedure 03/25/2024 1:00 PM EST Office Visit [facility] [address] [place] [address] [address] [facility] [place] [address] Nimisha Ricketts MD [address] [place] [address] [facility] Start: 03-20-2024 End: 03-20-2024 Patient encounter procedure 03/20/2024 1:45 PM EST Office Visit [facility] [address] [place] [address] [address] [facility] [place] [phone] Nimisha Ricketts MD [address] [place] [address] [facility] Start: 03-05-2024 End: 03-05-2024 Patient encounter procedure 03/05/2024 11:30 AM EST Office Visit [facility] [address] [place] [phone] 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 APRN-MACHINIST [employer] [address] [place] [address] [facility] Start: 02-26-2024 End: 02-26-2024 Admission to same day surgery center 02/26/2024 8:30 AM EDT - 02/26/2024 10:00 AM EDT Surgery [facility] Surgery [address] [place] [phone] Nimisha Ricketts MD [address] [place] [address] [facility] - Surgery Comment on above: HYDROCELECTOMY Start: 02-26-2024 End: 02-26-2024 Anesthesia consultation 02/26/2024 8:30 AM EDT Anesthesia Event [facility] Surgery [address] [place] [phone] Vita Anderson, DO [address] [facility] [place] [address] [facility] Surgery Start: 02-26-2024 Subsequent hospital visit by physician 02/26/2024 8:30 AM EDT Hospital Encounter [facility] Surgery [address] [place] [phone] Nimisha Ricketts MD [address] [place] [address] [facility] Surgery Start: 02-26-2024 End: 02-26-2024 HYDROCELECTOMY [facility] Start: 02-23-2024 End: 02-23-2024 Patient encounter procedure 02/23/2024 1:15 PM EDT Office Visit [facility] [address] [place] [phone] Bar Noble MD [address] [place], [place] [phone] [facility] Start: 02-22-2024 End: 02-22-2024 Patient encounter procedure 02/22/2024 9:00 AM EDT Appointment [facility] [address] [place] [phone] [facility] Start: 02-16-2024 End: 02-16-2024 Patient encounter procedure [facility] Comment on above: Acute pain of left wrist (Primary Dx); Sprain of left wrist, subsequent encounter Start: 02-14-2024 End: 02-14-2024 Patient encounter procedure 02/14/2024 9:00 AM EDT Procedure visit [facility] - Pre Admit [address] [place] [address] [facility] Pre Admit Start: 02-09-2024 End: 02-08-2025 Echo complete W/O contrast Echo complete W/O contrast Echocardiography Routine Encounter for pre-operative cardiovascular clearance Atrial fibrillation, unspecified type (CMS-HCC) Primary hypertension Abnormal EKG Expected: 02/09/2024, Expires: 02/08/2025 [facility] Work Phone: Comment on above: Expected: 02/09/2024, Expires: Start: 02-09-2024 End: 02-09-2024 Patient encounter procedure 02/09/2024 1:30 PM EDT Office Visit [facility] [address] [place] [phone] Nimisha Ricketts MD [address] [place] [address] Joseline Oleary MD [address] [place] [address] [facility] Start: 01-31-2024 End: 01-31-2024 Patient encounter procedure 01/31/2024 10:00 AM EDT Office Visit [facility] [address] [facility] [place] [phone] Deon Roth PA [address] [facility] [address] [place] [address] Acute pain of left wrist (Primary Dx) [facility] Comment on above: Acute pain of left wrist (Primary Dx) Start: 12-31-2023 COVID-19 Vaccine () COVID-19 Vaccine () [facility] Start: 12-31-2023 COVID-19 Vaccine ( season) COVID-19 Vaccine () [facility] Start: 12-31-2023 Influenza vaccination [facility] Start: 10-01-2023 Urine screening for protein Diabetes: Urine Protein Screening [facility] Start: 12-30-2022 COVID-19 Vaccine ( season) COVID-19 Vaccine () [facility] Start: 10-31-2014 Administration of varicella zoster vaccine Zoster (Shingles) Vaccine (1 of 2) [facility] Start: 10-31-2014 Pneumococcal Vaccine: 65+ Years (2 of 2 - PPSV23 or PCV20) Pneumococcal Vaccine: 65+ Years (2 of 2 - PPSV23 or PCV20) [facility] Start: 10-31-2014 Pneumococcal Vaccine: 65+ Years (2 of 2 - PPSV23) Pneumococcal Vaccine: 65+ Years (2 of 2 - PPSV23) [facility] Start: 01-03-2001 Fall Risk Screening Fall Risk Screening [facility] Start: 01-03-1955 DTaP,Tdap and Td Vaccines (1 - Tdap) DTaP,Tdap and Td Vaccines (1 - Tdap) [facility] Start: 01-03-1954 Adult BMI Follow Up Plan Adult BMI Follow Up Plan [facility] Start: 1948 Depression Screening Depression Screening [facility] Start: 1936 Hemoglobin A1c measurement Diabetes: Hemoglobin A1C [facility] Start: 1936 Medicare Annual Wellness (AWV) Medicare Annual Wellness (AWV) [facility] Start: 1936 Medicare Annual Wellness Visit Medicare Annual Wellness Visit [facility] Renal function 2000 panel - Serum or Plasma [facility] US Kidney - bilateral [facility] XR Wrist - left 3 Views XR wrist 3+ views left Imaging Routine Acute pain of left wrist 01/31/2024 10:02 AM EDT [facility] Work Phone: [facility] Immunizations Immunization Date Immunization Notes Care Provider Fa cility 02-05-2024 influenza virus vaccine, unspecified formulation Deon RODRIGUEZ Work Phone: [facility] 04-05-2023 influenza virus vaccine, unspecified formulation Nimisha Ricketts MD Work Phone: [facility] 01-31-2022 Moderna Bivalent Booster Vaccination Deon RODRIGUEZ Work Phone: [facility] 02-23-2021 Influenza, Seasonal, Quadrivalent, Adjuvanted Deon RODRIGUEZ Work Phone: [facility] 02-18-2020 Influenza, High-dose Seasonal, Quadrivalent, Preservative Free Deon RODRIGUEZ Work Phone: [facility] 02-15-2019 influenza, high dose seasonal, preservative-free Deon RODRIGUEZ Work Phone: [facility] 02-09-2018 Seasonal trivalent influenza vaccine, adjuvanted, preservative free Deon RODRIGUEZ Work Phone: [facility] 02-06-2017 influenza, high dose seasonal, preservative-free Deon RODRIGUEZ Work Phone: [facility] 09-05-2014 pneumococcal conjuga te vaccine, 13 valent Deon RODRIGUEZ Work Phone: [facility] 09-05-2014 zoster vaccine, live Deon RODRIGUEZ Work Phone: [facility] 09-05-2014 zoster vaccine, unspecified formulation Nimisha Ricketts MD Work Phone: [facility] 02-10-2010 influenza virus vaccine, whole virus Deon RODRIGUEZ Work Phone: [facility] Payers Date Payer Category Payer Unknown [facility] AARP [id number] 2022-Present [address] [place] [address] [id number] 2015 Managed Care Other (unspecified) [facility] [id number] 2015 Private Health Insurance [id number] .[id number] .[id number] 2000 Medicare [id number]. [id number] .[id number] 1959 Medicare [id number] 1959 Unknown [id number] 1936 Unknown [id number] 2.16.840.1.250111.3.579.2 .593 1936 Unknown [id number] 2.16.840.1.553575.3.579.2 .593 1936 Unknown [id number] 2.16.840.1.760503.3.579.2 .593 1936 Unknown [id number] 2.16.840.1.908517.3.579.2 .593 1936 Unknown [id number] 2.16.840.1.805761.3.579.2 .593 1936 Unknown [id number] 2.16.840.1.298640.3.579.2 .1286 1936 Unknown [id number] 2.16.840.1.557980.3.579.2 .1286 1936 Unknown [id number] 2.16.840.1.442578.3.579.2 .1286 1936 Unknown [id number] 2.16.840.1.367487.3.579.2 .1286 1936 Unknown [id number] 2.16.840.1.788833.3.579.2 .1286 1936 Unknown [id number] 2.16.840.1.278437.3.579.2 .1259 1936 Unknown [id number] 2.16.840.1.867385.3.579.2 .1259 1936 Unknown [id number] 2.16.840.1.603708.3.579.2 .1259 1936 Unknown [id number] 2.16.840.1.229540.3.579.2 .1258 1936 Unknown [id number] 2.16.840.1.824746.3.579.2 .1258 1936 Unknown [id number] 2.16.840.1.989794.3.579.2 .1258 1936 Unknown [id number] 2.16.840.1.440408.3.579.2 .1258 1936 Unknown [id number] 2.16.840.1.266196.3.579.2 .1258 1936 Unknown [id number] 2.16.840.1.302088.3.579.2 .1285 1936 Unknown [id number] 2.16.840.1.694211.3.579.2 .1285 1936 Unknown [id number] 2.16.840.1.538801.3.579.2 .1285 1936 Unknown [id number] 2.16.840.1.936692.3.579.2 .1285 1936 Unknown [id number] 2.16.840.1.266741.3.579.2 .1285 1936 Unknown [id number] 2.16.840.1.797282.3.579.2 .1285 1936 Unknown [id number] 2.16.840.1.045769.3.579.2 .1285 1936 Unknown [id number] 2.16.840.1.457020.3.579.2 .1285 1936 Unknown [id number] 2.16.840.1.523424.3.579.2 .1285 1936 Unknown [id number] 2.16.840.1.655809.3.579.2 .1285 1936 Unknown [id number] 2.16.840.1.751650.3.579.2 .1286 1936 Unknown [id number] 2.16.840.1.105907.3.579.2 .1286 1936 Unknown [id number] 2.16.840.1.078283.3.579.2 .1286 1936 Unknown [id number] 2.16.840.1.588676.3.579.2 .1286 1936 Unknown [id number] 2.16.840.1.272375.3.579.2 .1286 1936 Unknown [id number] 2.16.840.1.030565.3.579.2 .1286 Social History Date Type Detail Facility Start: 04-05-2023 Tobacco smoking stat [facility] Never smoked tobacco [facility] Start: 04-05-2023 End: 10-18-2023 Tobacco use and exposure Smokeless tobacco non-user [facility] Start: 12-07-2023 End: 10-09-2024 Alcoholic beverage intake Lifetime non-drinker (finding) [facility] Start: 06-11-2020 End: 12-07-2023 History of Social function [facility] Start: 06-11-2020 End: 12-07-2023 Tobacco use panel [facility] Start: 1935 Sex assigned at Not on file [facility] Start: 10-18-2023 End: 11-18-2024 Tobacco smoking status GAIS Ex-smoker [facility] History of tobacco use Current smoker [facility] History of tobacco use [facility] Start: 10-18-2023 End: 12-11-2024 Alcoholic beverage intake Current drinker of alcohol (finding) [facility] Childcare Unknown [facility] Start: 10-18-2023 Tobacco Comment quit [facility] Start: 05-22-2017 Alcohol Comment rare [facility] Start: 12-04-2014 Sex Male (finding) [facility] Start: 1935 Sex Assigned At Male F [facility] Clinical Notes 10-18-2023 to 12-11-2024 Vern Littlejohn MD - 12/11/2024 11:15 AM EDTPatient InstructionsTelephone Encounter - Jayne Russell, [facility] - 12/10/2024 3:32 PM EDTTelephone Encounter - Jayne Russell, [facility] - 12/10/2024 3:32 PM EDT Note Date & Type Note Facility 12-11-2024 History of Presen t illness Narrative Melecio Jackson Date of visit: 12/11/2024 Date of : 1935 Age: 89 y.o. Patient Active Problem List Diagnosis Prostate cancer ([facility]) Benign prostatic hyperplasia with urinary obstruction [...] mg total) before bedtime. 90 tablet 3 dupilumab (DUPIXENT SYRINGE) 300 mg/2 mL syringe SUBQ injection Inject under the skin every 14 (fourteen) days. hydroCHLOROthiazide (HYDRODIURIL) 25 mg tablet Take 1 tablet (25 mg total) by mouth daily. JARDIANCE 10 mg tablet tablet Take 1 tablet (10 mg total) by mouth in the morning. losartan (COZAAR) 100 mg tablet Take 1 [...] total) as needed before bedtime for dizziness. simvastatin (ZOCOR) 20 mg tablet Take 1 tablet (20 mg total) by mouth nightly. tamsulosin (FLOMAX) 0.4 mg capsule,extended release 24hr Take 1 capsule (0.4 mg total) by mouth nightly. cholecalciferol, vitamin D3, 5,000 units tablet Take 1 tablet (5,000 Units total) by mouth in the morning. (Patient not taking: Reported on 12/11/2024) metFORMIN XR (GLUCOPHAGE XR) 500 mg 24 hr tablet Take 1 tablet (500 mg total) by mouth in the morning and 1 tablet (500 mg total) before bedtime. (Patient not taking: Reported on 12/11/2024) traMADoL (ULTRAM) 50 mg tablet Take 1 tablet (50 mg total) by mouth every 12 (twelve) hours as needed for pain. (Patient not taking: Reported on 12/11/2024) No current facility-administered medications for this visit. Chief Complaint Patient presents with Follow-up EST PT FU LS TMP, ECHO DONE, SCHED W/PT History of Present Illness Very pleasant 89-year-old male who looks younger than his stated age is here in follow-up. This is the 1st time I meet him. He does have medical history of essential hypertension, undifferentiated cardiomyopathy longstanding persistent atrial fibrillation and chronic kidney disease. He was incidentally diagnosed with atrial fibrillation during his preoperative cardiovascular evaluation for hydrocele last year subsequently underwent an echocardiogram that demonstrated erqz-qr-xszhtxov cardiomyopathy. Patient is completely asymptomatic no chest pain no shortness of breath no lower extremity edema no orthopnea and has moderate functional activity without limitation Past Medical History: Diagnosis Date Atrial fibrillation ([facility]) Cataract Dental disease upper and lower partials Diabetes mellitus type 2, controlled ([facility]) Dizziness Eczema HL (hearing loss) bilateral aids Hydrocele Hyperlipidemia Hypertension Obesity Prostate cancer ([facility]) Urinary frequency Visual impairment No data recorded No data recorded No data recorded Past Surgical History: Procedure Laterality Date FINGER AMPUTATION Left HYDROCELECTOMY Left HYDROCELECTOMY Right 02/26/2024 Performed by Nimisha Ricketts MD at [facility] JOINT REPLACEMENT Bilateral knee TRANSURETHRAL RESECTION OF [...] on file Food Insecurity: No Food Insecurity (12/11/2024) Hunger Screening Food Insecurity - Worry: Never [...] Respiratory: Negative. Endocrine: Negative. Hematologic/Lymphatic: Negative. Skin: Positive for rash. Musculoskeletal: Negative. Gastrointestinal: Negative. Genitourinary: Negative. Neurological: Positive for dizziness, headaches and loss of balance. Psychiatric/Behavioral: Negative. Allergic/Immunologic: Positive for environmental allergies. Vascular: Negative. CARDIOVASCULAR: Please review HPI. Physical [...] bilaterally, no use of accessory muscles. Cardiovascular: Irregularly irregular rate and rhythm with normal S1 and S2 with no murmurs. Gastrointestinal: Soft, non-tender. Bowel sounds normal. Musculoskeletal: No peripheral edema. Neurologic: Oriented to time, person and place, affect appropriate. No focal/major motor defects noted. Psychiatric: Appropriate mood, memory and judgement. VITAL SIGNS: BP 126/80 Pulse 60 Ht 170.2 cm (5' 7 ) Wt 88.5 kg (195 lb) SpO2 95% BMI 30.54 kg/m Orders Placed or Reconciled This Encounter Medications JARDIANCE 10 mg tablet tablet Sig: Take 1 tablet (10 mg total) by mouth in the morning. There are no discontinued medications. IMPRESSIONS/PLAN There are no diagnoses linked to this encounter. 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 and cut losartan in half to 50 mg daily given his SAMUEL. There is no benefit in pursuing rhythm control in the absence of symptoms decompensated heart failure and the degree of atrial myopathy chances of him ever restoring normal sinus rhythm is very slim. I did talk to him about the etiology of his cardiomyopathy and ischemic workup possibility given his risk factor however given the absence of symptoms advanced age he elected conservative management which I agreed with. He is tolerating dose adjusted (for agent kidney function) Eliquis 2.5 mg daily without any bleeding issues, He does have an upcoming appointment with Nephrology I did keep his Jardiance 10 mg daily although eGFR is less than 30. - VERN LITTLEJOHN MD 12/11/24 11:38 AM TODAYS ORDERS No orders of the defined types were placed in this encounter. FOLLOW UP No follow-ups on file. PCP: DILLON MEADE MD Referring Physician: Dillon Meade MD [address] [place] [address] documented in this encounter [facility] 12-11-2024 Instructions Vern Littlejohn MD - 12/11/2024 11:15 AM EDT Cut cozaar in half 50 mg daily Add coreg 6.25 mg twice a day documented in this encounter [facility] 12-10-2024 Miscellaneous Notes Called patient to remind them to bring their most current copy of their medication list with them to their appt. Patient verbalizes understanding. documented in this encounter [facility] 12-10-2024 Telephone encounter Note Called patient to remind them to bring their most current copy of their medication list with them to their appt. Patient verbalizes understanding. [facility] 11-26-2024 Miscellaneous Notes 11-26-24 called and spoke with pt and he is ok with 04-02-25 appt r/s 03-24-25 appt anay documented in this encounter [facility] 11-26-2024 Telephone encounter Note 11-26-24 called and spoke with pt and he is ok with 04-02-25 appt r/s 03-24-25 appt anay [facility] 11-14-2024 Telephone encounter Note Insurance is asking for 90 day supply. [facility] 11-14-2024 Miscellaneous Notes Insurance is asking for 90 day supply. documented in this encounter [facility] 10-09-2024 History of Presen t illness Narrative [...] and stop norvasc. Monitor BP PRN. Dyslipidemia (CMS/HCC) Relevant Orders Lipid panel Chronic kidney disease (CKD) stage G3b/A1, moderately decreased glomerular filtration rate (GFR) between 30-44 mL/min/1.73 square meter and albuminuria creatinine ratio less than 30 mg/g (H* Relevant Orders Basic metabolic panel Type 2 diabetes mellitus with hyperglycemia, without long-term current use of insulin ([facility]) - Primary Reports BS controlled and due for A1C. Stick to ADA diet and limit carbs. Relevant Orders Microalbumin / creatinine, urine ratio Hemoglobin A1c Class 1 obesity due to excess calories with serious comorbidity and body mass index (BMI) of 30.0 to 30.9 in adult Relevant Orders TSH Paroxysmal atrial fibrillation ([facility]) In afib and continue Eliquis. Chronic HFrEF (heart failure with reduced ejection fraction) ([facility]) No edema and monitor. Follow up with cardiology. Encounter for long-term (current) use of medications Relevant Orders CBC and differential Hepatic function panel documented in this encounter [facility] 07-09-2024 History of Presen t illness Narrative [...] creatinine ratio less than 30 mg/g (H* ([facility]) Medicare annual wellness visit, subsequent - Primary [...] disease, without long-term current use of insulin ([facility]) ([facility]) documented in this encounter [facility] 06-17-2024 History of Presen t illness Narrative Associated Problem(s): Type 2 diabetes mellitus with hyperglycemia, without long-term current use of insulin ([facility]) Not checking BS and due for A1C. Stick to ADA diet and limit carbs. Associated Problem(s): Paroxysmal atrial fibrillation ([facility]) In afib and continue Eliquis. Associated Problem(s): Essential hypertension, benign ([facility]) BP controlled and monitor PRN. Associated Problem(s): Chronic HFrEF (heart failure with reduced ejection fraction) ([facility]) No edema and monitor. Follow up with [...] in few months. documented in this encounter [facility] 04-05-2024 History of Presen t illness Narrative [...] Relevant Orders Hemoglobin A1c Paroxysmal atrial fibrillation (CMS/HCC) In afib and add coreg for rate control. Continue Eliquis. Relevant Medications carvedilol (Coreg) 3.125 MG tablet Chronic HFrEF (heart failure with reduced ejection fraction) ([facility]) Recent Echo showed low EF. Add coreg and continue losartan. Follow up with cardiology and will have repeat echo in few months. Relevant Medications carvedilol (Coreg) 3.125 MG tablet documented in this encounter [facility] 03-25-2024 Evaluation + Plan note Associated Problem(s): Prostate cancer ([facility]) PSA 1 year [facility] 03-25-2024 Miscellaneous Notes Associated Problem(s): Prostate cancer ([facility]) PSA 1 year documented in this encounter [facility] 03-25-2024 History of Presen t illness Narrative Images from the original note were not included. [address] [place] [address] [address] [facility] [id number] Patient: Melecio Jackson Date of : 1935 [...] Past Medical History: Diagnosis Date Atrial fibrillation ([facility]) Cataract Dental disease upper and lower partials Diabetes mellitus type 2, controlled ([facility]) Dizziness Eczema HL (hearing loss) bilateral aids Hydrocele Hyperlipidemia Hypertension Obesity Prostate cancer ([facility]) Urinary frequency Visual impairment Past Surgical History: Procedure Laterality Date FINGER AMPUTATION Left HYDROCELECTOMY Left HYDROCELECTOMY Right 02/26/2024 Performed by Nimisha Ricketts MD at [facility] JOINT REPLACEMENT Bilateral knee TRANSURETHRAL RESECTION [...] for this visit: Encysted hydrocele Prostate cancer (CMS-HCC) Problem List High Prostate cancer (CMS-HCC) Overview ==== 03/25/2024 ==== PSA looks great [...] ALLSCRIPTS SUMMARY +++++++++++ Diagnosis March 2015 incidental [place] 3 + 3 equal 6 2/157 chips [...] for your understanding. documented in this encounter [facility] 03-22-2024 Miscellaneous Notes Pt. Was contacted to remind him to get his PSA drawn for his appt on Monday with Dr Ana MD. Pt. Stated he would go get it done right now. Nothing more at this time. documented in this encounter [facility] 03-22-2024 Telephone encounter Note Pt. Was contacted to remind him to get his PSA drawn for his appt on Monday with Dr Ana MD. Pt. Stated he would go get it done right now. Nothing more at this time. [facility] 03-05-2024 Miscellaneous Notes Just wanted to follow [...] additional? Nothing additional documented in this encounter [facility] 03-05-2024 Telephone encounter Note Just wanted to [...] already scheduled with you 03/25. Anything additional? [facility] 03-05-2024 Telephone encounter Note Nothing additional [facility] 03-05-2024 History of Presen t illness Narrative Images from the original note were not included. [address] [facility] [id number] Patient: Melecio Jackson Date of : 1935 [...] Past Medical History: Diagnosis Date Atrial fibrillation ([facility]) Cataract Dental disease upper and lower partials Diabetes mellitus type 2, controlled ([facility]) Dizziness Eczema HL (hearing loss) bilateral aids Hydrocele Hyperlipidemia Hypertension Obesity Prostate cancer ([facility]) Urinary frequency Visual impairment Past Surgical History: Procedure Laterality Date FINGER AMPUTATION Left HYDROCELECTOMY Left HYDROCELECTOMY Right 02/26/2024 Performed by Nimisha Ricketts MD at [facility] JOINT REPLACEMENT Bilateral knee TRANSURETHRAL RESECTION [...] Leo 03/06/24 1035 documented in this encounter [facility] [employer] 03-04-2024 Miscellaneous Notes Patient said he had procedure on 02/25 and he said today that he is having horrible swelling in his testicles and surrounding area. He said everything is just bad and he does not know what to do? Please advise Midlevel provider appointment or patient go to urgent care Patient is scheduled for tomorrow documented in this encounter [facility] 03-04-2024 Telephone encounter Note Patient said he had procedure on 02/25 and he said today that he is having horrible swelling in his testicles and surrounding area. He said everything is just bad and he does not know what to do? Please advise [facility] 03-04-2024 Telephone encounter Note Midlevel provider appointment or patient go to urgent care [facility] 03-04-2024 Telephone encounter Note Patient is scheduled for tomorrow [facility] 02-29-2024 History of Presen t illness Narrative [...] Dr. Thelma MD documented in this encounter [facility] 02-26-2024 Miscellaneous Notes Have patient return to [place] on Monday or for drain removal hemiscrotum. And then in 3 weeks follow up with midlevel provider. documented in this encounter [facility] 02-26-2024 Telephone encounter Note Have patient return to [place] on Monday or for drain removal hemiscrotum. And then in 3 weeks follow up with midlevel provider. [facility] 02-23-2024 History of Presen t illness Narrative Melecoi Jackson Date of visit: 02/23/2024 Date of [...] total) by mouth in the morning. dupilumab (Accipiter RadarIXENT SYRINGE) 300 mg/2 mL syringe SUBQ injection [...] EARLY PRE OP W/ DR RICKETTS FAX [phone] ECHO DONE SCHED W/P History of Present [...] with the surgery at this point at oji-tf-xwcojqrb risk as was graded before Past Medical History: Diagnosis Date Atrial fibrillation ([facility]) Cataract Dental disease upper and lower partials Diabetes mellitus type 2, controlled ([facility]) Dizziness Eczema HL (hearing loss) bilateral aids Hydrocele Hyperlipidemia Hypertension Obesity Prostate cancer ([facility]) Urinary frequency Visual impairment No data recorded [...] Referring Physician: Dillon Meade MD [address] [place] [facility] [place] [address] documented in this encounter [facility] 02-22-2024 Miscellaneous Notes ----- Message from Dr. Joseline Oleary MD sent at 02/22/2024 3:04 PM EDT ----- Reviewed. Patient at moderate risk for perioperative cardiovascular complications. Risk non prohibitive undergoing low risk procedure hydrocelectomy. Needs to come in his soon as possible to discuss results, optimizing GDMT. Thank you Results called to pt. Appt available in [place] tomorrow but not again for several weeks. [facility]. documented in this encounter [facility] 02-22-2024 Telephone encounter Note ----- Message from Dr. Joseline Oleary MD sent at 02/22/2024 3:04 PM EDT ----- Reviewed. Patient at moderate risk for perioperative cardiovascular complications. Risk non prohibitive undergoing low risk procedure hydrocelectomy. Needs to come in his soon as possible to discuss results, optimizing GDMT. Thank you [facility] 02-22-2024 Telephone encounter Note Results called to pt. Appt available in [place] tomorrow but not again for several weeks. Pt agreeable to [facility]. [facility] 02-16-2024 History of Presen t illness Narrative Images from the original note were not included. HISTORY OF PRESENT ILLNESS: EST PT Melecio Jackson is an 89 y.o. @ male. EST PT LT WRIST INJURY (01/25/24)-S/P SPLINT- DOING GREAT XRAY LT WRIST WITH SCAPHOID EPIC 01/31/24 XRAY LT WRIST/LT FOREARM 01/27/24 [facility] (PUSHED THRU TO CHANGE) DENIES PAIN- DENIES SWELLING- ABLE TO PLASTIC SHAPER WITHOUT ISSUES- NO PAIN MEDS- DISCONTINUED SPLINT- [...] Use - Medium Risk (02/14/2024) Received from [facility] Patient History Smoking Tobacco Use: Former Smokeless [...] requiring urgent evaluation. documented in this encounter [facility] 02-14-2024 Instructions Mariah Duval RN - 02/14/2024 9:00 AM EDT Preoperative Education Checklist- General Surgery date: 02/26/24 Surgery time: 830a Arrival time: 630a 1. Bring a photo ID and your insurance card with you the day of surgery. You will check in at the main lobby of the [facility]- registration desk is straight ahead as soon as you walk in. Tell them you are here for surgery. 2. If you have a Living Will/Durable Power of Pipe Supervisor for Health Care that is not on [...] after you have bathed. 5. NO nail mauritian/acrylic on at least one finger. If you are having a hand, wrist or foot surgery then all nail mauritian and artificial/acrylic nails must be removed from [...] please call the Preadmission Testing office at [phone], Mon.-Fri. 7 a.m.-3 p.m. Leave a voicemail [...] with your doctor. documented in this encounter [facility] 02-09-2024 History of Presen t illness Narrative Melecio Jackson Date of visit: 02/09/2024 Date of : 1935 Age: 89 y.o. Patient Active Problem List Diagnosis Prostate cancer ([facility]) Benign prostatic hyperplasia with urinary obstruction [...] any stroke or stroke-like symptoms. 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 Tobacco: Former smoker. Quit 10 yrs ago, smoked cigars for about 30 years, average 2 cigars per day, did not inhale. Alcohol: Occasional 1-2 glass of wine per week. Recreational drugs: None. EKG 12/20/23: Atrial fibrillation. EKG in the office today showing patient in atrial fibrillation. Rate controlled. Past Medical History: Diagnosis Date Cataract Dental disease upper and lower partials Diabetes mellitus ([facility]) Diabetes mellitus type 2, controlled ([facility]) Dizziness Eczema HL (hearing loss) bilateral aids Hydrocele Hyperlipidemia Hypertension Obesity Prostate cancer ([facility]) Urinary frequency Visual impairment No data recorded [...] cardiovascular clearance 2. Atrial fibrillation, unspecified type ([facility]) 3. Primary hypertension 4. Hyperlipidemia, unspecified hyperlipidemia [...] MEADE MD Referring Physician: Nimisha Ricketts MD [address] [place] [address] documented in this encounter [facility] 02-08-2024 Miscellaneous Notes Called patient to remind them to bring their most current copy of their medication list with them to their appt. Patient verbalizes understanding. documented in this encounter [facility] 02-08-2024 Telephone encounter Note Called patient to remind them to bring their most current copy of their medication list with them to their appt. Patient verbalizes understanding. [facility] 01-31-2024 History of Presen t illness Narrative Images from the original note were not included. HISTORY OF PRESENT ILLNESS: EST PT Melecio Jackson is an 89 y.o. @ male. EST PT WITH NEW C/O LT WRIST INJURY SUSTAINED 6DAYS AGO (01/25/24)- PT FELL OVER HIS DOG WHILE MOVING A BED- PT WENT TO [facility] ER TX; XRAY/TRAMADOL XRAY LT WRIST WITH SCAPHOID TODAY EPIC 01/31/24 XRAY LT WRIST/LT FOREARM 01/27/24 [facility] (PUSHED THRU TO CHANGE) PT STATES HE [...] Use - Medium Risk (01/25/2024) Received from [facility] Patient History Smoking Tobacco Use: Former Smokeless [...] more appreciated. Pt reports remote fall of gnosticist building during working years.. ? Rom my be chronically limited.. 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 May remove to shower, gentle rom.. recheck in 2 wks. Questions answered in laymen terms at the bedside. The diagnosis, home exercise plan and any ongoing restrictions/ recommendations reviewed. If unable to be reached in office, I recommend evaluation at nearest Emergency Room if any symptoms worsened or new symptoms develop for requiring urgent evaluation. documented in this encounter [facility] 12-21-2023 Miscellaneous Notes LMOM for the patient to call and schedule their new pt appointment with PPC. documented in this encounter [facility] 12-21-2023 Telephone encounter Note LMOM for the patient to call and schedule their new pt appointment with PPC. [facility] 12-20-2023 Instructions Josi Miranda RN - 12/20/2023 9:45 AM EDT Preoperative Education Checklist- General Surgery date: 01/03/24 Surgery time: 0830 a.m. Arrival time: 0630 a.m. 1. Bring a photo ID and your insurance card with you the day of surgery. You will check in at the main lobby of the [facility]- registration desk is straight ahead as soon as you walk in. Tell them you are here for surgery. 2. If you have a Living Will/Durable Power of Pipe Supervisor for Health Care that is not on [...] after you have bathed. 5. NO nail mauritian/acrylic on at least one finger. If you are having a hand, wrist or foot surgery then all nail mauritian and artificial/acrylic nails must be removed from [...] please call the Preadmission Testing office at [phone], Mon.-Fri. 7 a.m.-3 p.m. Leave a voicemail [...] with your doctor. documented in this encounter [email or web address] 12-20-2023 Miscellaneous Notes Preoperative Education Checklist- General Surgery date: 01/03/24 Surgery time: 0830 a.m. Arrival time: 0630 a.m. 1. Bring a photo ID and your insurance card with you the day of surgery. You will check in at the main lobby of the [facility]- registration desk is straight ahead as soon as you walk in. Tell them you are here for surgery. 2. If you have a Living Will/Durable Power of Pipe Supervisor for Health Care that is not on [...] after you have bathed. 5. NO nail mauritian/acrylic on at least one finger. If you are having a hand, wrist or foot surgery then all nail mauritian and artificial/acrylic nails must be removed from [...] please call the Preadmission Testing office at [phone], Mon.-Fri. 7 a.m.-3 p.m. Leave a voicemail [...] read by physician. documented in this encounter [facility] 12-20-2023 Nurse Note Preoperative Education Checklist- General Surgery date: 01/03/24 Surgery time: 0830 a.m. Arrival time: 0630 a.m. 1. Bring a photo ID and your insurance card with you the day of surgery. You will check in at the main lobby of the [facility]- registration desk is straight ahead as soon as you walk in. Tell them you are here for surgery. 2. If you have a Living Will/Durable Power of Pipe Supervisor for Health Care that is not on [...] after you have bathed. 5. NO nail mauritian/acrylic on at least one finger. If you are having a hand, wrist or foot surgery then all nail mauritian and artificial/acrylic nails must be removed from [...] please call the [facility] office at [phone], Mon.-Fri. 7 a.m.-3 p.m. Leave a voicemail [...] to the follow-up appointment with your doctor. [facility] 12-20-2023 Nurse Note Surgical instructions reviewed. Patient verbalized understanding. Preliminary EKG shows new onset Afib. Gilda at Dr Ricketts's office notified that patient will need cardio clearance if confirmed as Afib once read by physician. [facility] 10-18-2023 Miscellaneous Notes Right hydrocelectomy. Hold his aspirin. General anesthesia. [place]. Diagnosis bothersome right hydrocele. documented in this encounter [facility] 10-18-2023 Telephone encounter Note Right hydrocelectomy. Hold his aspirin. General anesthesia. [place]. Diagnosis bothersome right hydrocele. [facility] 10-18-2023 History of Presen t illness Narrative Images from the original note were not included. [address] [place] [address] [address] [facility] [id number] Patient: Melecio Jackson Date of : 1935 [...] Past Medical History: Diagnosis Date Diabetes mellitus ([facility]) Hyperlipidemia Hypertension Prostate cancer ([facility]) Past Surgical History: Procedure Laterality Date [...] for your understanding. documented in this encounter [facility] Evaluation note Diagnosis Acute pain of left wrist- Primary Left wrist sprain, initial encounter Arthritis of left wrist documented in this encounter [facility]* Diagnosis Type II or unspecified [...] wrist, subsequent encounter documented in this encounter [facility]* Diagnosis Type II or unspecified [...] without long-term current use of insulin (HCC) ([facility]) Vertigo- Primary Dizziness and giddiness Type 2 diabetes mellitus with hyperglycemia, without long-term current use of insulin ([facility])- Primary Essential hypertension, benign (CMS/HCC) Essential hypertension, benign Chronic HFrEF (heart failure with reduced ejection fraction) ([facility]) Paroxysmal atrial fibrillation ([facility]) Atrial fibrillation documented in this encounter [facility] HealthcareEvaluation [facility]* Diagnosis Encysted hydrocele- Primary [facility] Diagnosis Encysted hydrocele- Primary Preop examination- Primary Unspecified pre-operative examination Hypertension, unspecified type Type 2 diabetes mellitus without complication, without long-term current use of insulin ([facility]) Preop examination Unspecified pre-operative examination Hypertension, unspecified type Type 2 diabetes mellitus without complication, without long-term current use of insulin ([facility]) Encysted hydrocele documented in this encounter [facility]* Diagnosis Encysted hydrocele- Primary Encounter for pre-operative cardiovascular clearance- Primary Atrial fibrillation, unspecified type ([facility]) Primary hypertension Unspecified essential hypertension Hyperlipidemia, unspecified hyperlipidemia type Abnormal EKG Nonspecific abnormal electrocardiogram (ECG) (EKG) Preop examination- Primary Unspecified pre-operative examination Hypertension, unspecified type Type 2 diabetes mellitus without complication, without long-term current use of insulin (CMS-HCC) Urinary frequency Encysted hydrocele documented in this encounter [facility]* Diagnosis BPH (benign prostatic [...] frequency Encysted hydrocele documented in this encounter [facility]* Diagnosis BPH (benign prostatic [...] fibrillation Encysted hydrocele documented in this encounter [facility]* Diagnosis BPH (benign prostatic [...] Encysted hydrocele- Primary documented in this encounter [facility]* Diagnosis BPH (benign prostatic [...] Encysted hydrocele- Primary documented in this encounter [facility]* Diagnosis BPH (benign prostatic [...] urinary obstruction Encysted hydrocele- Primary Prostate cancer (CMS-HCC) Malignant neoplasm of prostate documented in this encounter [facility]* Diagnosis Type II or [...] without long-term current use of insulin (HCC) ([facility]) Vertigo- Primary Dizziness and giddiness Type 2 [...] HFrEF (heart failure with reduced ejection fraction) ([facility]) documented in this encounter [facility]* Diagnosis Type II or [...] hyperglycemia, without long-term current use of insulin ([facility])- Primary Essential hypertension, benign (CMS/HCC) Essential hypertension, [...] without long-term current use of insulin (HCC) ([facility]) Vertigo- Primary Dizziness and giddiness Type 2 diabetes mellitus with hyperglycemia, without long-term current use of insulin ([facility])- Primary Essential hypertension, benign (CMS/HCC) Essential hypertension, benign Chronic HFrEF (heart failure with reduced ejection fraction) ([facility]) Paroxysmal atrial fibrillation (CMS/HCC) Atrial fibrillation Type 2 diabetes mellitus with hyperglycemia, without long-term current use of insulin ([facility]/H[facility])- Primary Essential hypertension, benign (CMS/HCC) Essential hypertension, benign Paroxysmal atrial fibrillation (CMS/HCC) Atrial fibrillation Chronic HFrEF (heart failure with reduced ejection fraction) ([facility]) Medicare annual wellness visit, subsequent- Primary Type 2 diabetes mellitus with stage 3b chronic kidney disease, without long-term current use of insulin (HCC) ([facility]) Chronic kidney disease (CKD) stage G3b/A1, moderately decreased glomerular filtration rate (GFR) between 30-44 mL/min/1.73 square meter and albuminuria creatinine ratio less than 30 mg/g (H* ([facility]) documented in this encounter [facility]* Diagnosis Type II or unspecified type diabetes mellitus with renal manifestations, uncontrolled(250.42) ([facility])- Primary Type II or unspecified type diabetes [...] hyperglycemia, without long-term current use of insulin ([facility])- Primary Essential hypertension, benign (CMS/[facility]) Essential hypertension, benign Hydrocele, unspecified hydrocele type DDD (degenerative disc disease), lumbar Degeneration of lumbar or lumbosacral intervertebral disc Primary osteoarthritis of both knees Dyslipidemia ([facility]) Other and unspecified hyperlipidemia Chronic kidney disease [...] disease, without long-term current use of insulin ([facility]) ([facility]) Vertigo- Primary Dizziness and giddiness Type 2 diabetes mellitus with hyperglycemia, without long-term current use of insulin ([facility])- Primary Essential hypertension, benign ([facility]) Essential hypertension, benign Chronic HFrEF (heart failure with reduced ejection fraction) ([facility]) Paroxysmal atrial fibrillation ([facility]) Atrial fibrillation Type 2 diabetes mellitus with hyperglycemia, without long-term current use of insulin ([facility])- Primary Essential hypertension, benign ([facility]) Essential hypertension, benign Paroxysmal atrial fibrillation ([facility]) Atrial fibrillation Chronic HFrEF (heart failure with reduced ejection fraction) ([facility]) Medicare annual wellness visit, subsequent- Primary Type 2 diabetes mellitus with stage 3b chronic kidney disease, without long-term current use of insulin ([facility]) ([facility]) Chronic kidney disease (CKD) stage G3b/A1, moderately decreased glomerular filtration rate (GFR) between 30-44 mL/min/1.73 square meter and albuminuria creatinine ratio less than 30 mg/g (H* Type 2 diabetes mellitus with hyperglycemia, without long-term current use of insulin ([facility])- Primary Essential hypertension, benign ([facility]) Essential hypertension, benign Chronic HFrEF (heart failure with reduced ejection fraction) ([facility]) Paroxysmal atrial fibrillation ([facility]) Atrial fibrillation Chronic kidney disease (CKD) stage G3b/A1, moderately decreased glomerular filtration rate (GFR) between 30-44 mL/min/1.73 square meter and albuminuria creatinine ratio less than 30 mg/g (H* Dyslipidemia ([facility]) Other and unspecified hyperlipidemia Class 1 obesity due to excess calories with serious comorbidity and body mass index (BMI) of 30.0 to 30.9 in adult Encounter for long-term (current) use of medications Encounter for long-term (current) use of other medications documented in this encounter [facility]Evaluation note* Diagnosis Type II or unspecified type diabetes mellitus with renal manifestations, uncontrolled(250.42) ([facility])- Primary Type II or unspecified type diabetes [...] hyperglycemia, without long-term current use of insulin ([facility])- Primary Essential hypertension, benign Essential hypertension, benign Hydrocele, unspecified hydrocele type DDD (degenerative disc disease), lumbar Degeneration of lumbar or lumbosacral intervertebral disc Primary osteoarthritis of both knees Dyslipidemia Other and unspecified hyperlipidemia Chronic kidney disease (CKD) stage G3b/A1, moderately decreased glomerular filtration rate (GFR) between 30-44 mL/min/1.73 square meter and albuminuria creatinine ratio less than 30 mg/g (H* ([facility]) History of prostate cancer Personal history of malignant neoplasm of prostate Obesity (BMI 30-39.9) Encounter for long-term (current) use of medications Encounter for long-term (current) use of other medications Type 2 diabetes mellitus with stage 3b chronic kidney disease, without long-term current use of insulin ([facility]) Vertigo- Primary Dizziness and giddiness Type 2 diabetes mellitus with hyperglycemia, without long-term current use of insulin ([facility])- Primary Essential hypertension, benign Essential hypertension, benign Chronic HFrEF (heart failure with reduced ejection fraction) ([facility]) Paroxysmal atrial fibrillation ([facility]) Atrial fibrillation Type 2 diabetes mellitus with hyperglycemia, without long-term current use of insulin ([facility])- Primary Essential hypertension, benign Essential hypertension, benign Paroxysmal atrial fibrillation ([facility]) Atrial fibrillation Chronic HFrEF (heart failure with reduced ejection fraction) ([facility]) Medicare annual wellness visit, subsequent- Primary Type 2 diabetes mellitus with stage 3b chronic kidney disease, without long-term current use of insulin ([facility]) Chronic kidney disease (CKD) stage G3b/A1, moderately decreased glomerular filtration rate (GFR) between 30-44 mL/min/1.73 square meter and albuminuria creatinine ratio less than 30 mg/g (H* ([facility]) Type 2 diabetes mellitus with hyperglycemia, without long-term current use of insulin ([facility])- Primary Essential hypertension, benign Essential hypertension, benign Chronic HFrEF (heart failure with reduced ejection fraction) ([facility]) Paroxysmal atrial fibrillation ([facility]) Atrial fibrillation Chronic kidney disease (CKD) stage G3b/A1, moderately decreased glomerular filtration rate (GFR) between 30-44 mL/min/1.73 square meter and albuminuria creatinine ratio less than 30 mg/g (H* (CMS-HCC) Dyslipidemia Other and unspecified hyperlipidemia Class 1 [...] of insulin (HCC) documented in this encounter [facility] HealthcareEvaluation note* Diagnosis Onset Date Resolution Status Admit Date CKD (chronic kidney disease) stage 4, GFR 15-29 ml/min acute November 18, 025 8:35am HFrEF (heart failure with re duced ejection fraction) acute November 18 8:35am Hyperlipidemia acute November 18, 2024 8:35am Hypertensive chronic kidney disease with stage 1 through stage 4 chronic ki acute November 18, 2024 8:35am Secondary hyperparathyroidism acute November 18, 2024 8:35am Type 2 diabetes mellitus wit h diabetic chronic kidney disease acute November 18, 2024 8:35am [facility] Work Phone: Evaluation note* Diagnosis BPH (benign prostatic hypertrophy) with [...] urinary obstruction Encysted hydrocele- Primary Prostate cancer (CMS-HCC) Malignant neoplasm of prostate Paroxysmal atrial fibrillation (CMS-HCC)- Primary Atrial fibrillation Primary hypertension Unspecified essential hypertension [facility] [...] for referral (narrative)No reason for referral information availableC[facility] Work Phone: Summary Purpose Family History No Family History Records FoundNo Family History Records FoundNo Family History Records FoundNo Family History Records FoundNo Family History Records FoundNo Family History Records FoundNo Family History Records Found Advance Directives No Advanced Directives Records Found Advance Directive Response Recorded Date/ Time Advance Directives No May 21, 2021 5:16pm Reason for Referral Specialty Diagnoses / Procedures Referred By Jorge garrison Referred To Contact Diagnoses Preop examination Hypertension, unspecified type Type 2 diabetes mellitus without complication, without long-term current use of insulin ([facility]) Procedures ECG 12 lead Melecio Arellano MD [address] [place] [id number] Referral ID Status Reason Start Date Expiration Date V isits Requested Visits Authorized [id number] Pending Review 12/14/2023 12/13/2024 1 1 Specialty Diagnoses / Procedures Referred By Jorge garrison Referred To Contact Diagnoses Encounter for pre-operative cardiovascular clearance Atrial fibrillation, unspecified type ([facility]) Primary hypertension Abnormal EKG Procedures Echo complete W/O contrast Joseline Oleary MD [address] [place] [address] [address] Phone: [phone] Referral ID Status Reason Start Date Expiration Date V isits Requested Visits Authorized [id number] Pending Review 02/09/2024 02/08/2025 1 1 Chief [...] section and content) DATE CREATED AUTHOR 07/19/2021 [facility] DATE CREATED AUTHOR AUTHOR'S ORGANIZ ATION 10/07/2021 [facility] DATE CREATED AUTHOR AUTHOR'S ORGANIZ ATION 03/02/[address] [facility] DATE CREATED AUTHOR AUTHOR'S ORGANIZ ATION 03/06/2024 [facility] DATE CREATED AUTHOR AUTHOR'S ORGANIZ ATION 03/27/2024 [facility] DATE CREATED AUTHOR AUTHOR'S ORGANIZ ATION 10/11/2024 [facility] EPIC DATE CREATED AUTHOR AUTHOR'S ORGANIZ ATION 12/13/2024 [facility] Care Teams (unrecognized sec tion and content) Elderly Sitter Relationship Specialty Start Date End Date Dillon Meade MD [address] [place] [address] PCP - General Family Medicine 10/05/23 Elderly Sitter Relationship Specialty Start Date End Date Dillon Meade MD [address] [place] [address] PCP - General Family Medicine 10/05/23 Elderly Sitter Relationship Specialty Start Date End Date Dillon Meade MD [address] [place] [address] PCP - General [facility] 10/05/23 Elderly Sitter Relationship Specialty Start Date End Date Dillon Meade MD [address] [place] [address] PCP - General [facility] 10/05/23 Elderly Sitter Relationship Specialty Start Date End Date Dillon Meade MD [address] [place] [address] PCP - General [facility] 10/05/23 Elderly Sitter Relationship Specialty Start Date End Date Dillon Meade MD [address] [place] [place] [address] PCP - General [facility] 10/05/23 Elderly Sitter Relationship Specialty Start Date End Date Dillon Meade MD [address] [place] [address] PCP - General 10/12/16 Elderly Sitter Relationship Specialty Start Date End Date Dillon Meade MD [address] [place] [address] PCP - General 10/12/16 Elderly Sitter Relationship Specialty Start Date End Date Dillon Meade MD PCP - General 10/12/16 Elderly Sitter Relationship Specialty Start Date End Date Dillon Meade MD PCP - General 10/12/16 Elderly Sitter Relationship Specialty Start Date End Date Dillon Meade MD PCP - General 10/12/16 Elderly Sitter Relationship Specialty Start Date End Date Dillon Meade MD PCP - General 10/12/16 Elderly Sitter Relationship Specialty Start Date End Date Dillon Meade MD PCP - General 10/12/16 Elderly Sitter Relationship Specialty Start Date End Date Dillon Meade MD PCP - General 10/12/16 Elderly Sitter Relationship Specialty Start Date End Date Dillon Maede MD PCP - General 10/12/16 Elderly Sitter Relationship Specialty Start Date End Date Dillon Meade MD PCP - General 10/12/16 Elderly Sitter Relationship Specialty Start Date End Date Dillon Meade MD PCP - General 10/12/16 Elderly Sitter Relationship Specialty Start Date End Date Dillon Meade MD PCP - General 10/12/16 Elderly Sitter Relationship Specialty Start Date End Date Dillon Meade MD PCP - General 10/12/16 Elderly Sitter Relationship Specialty Start Date End Date Dillon Meade MD PCP - General 10/12/16 Elderly Sitter Relationship Specialty Start Date End Date Dillon Meade MD PCP - General 10/12/16 Elderly Sitter Relationship Specialty Start Date End Date Dillon Meade MD [address] [place] [address] PCP - General Family Medicine 10/05/23 Elderly Sitter Relationship Specialty Start Date End Date Dillon Meade MD [address] [place] [address] PCP - General Family Medicine 10/05/23 Elderly Sitter Relationship Specialty Start Date End Date Dillon Meade MD [address] [place] [address] PCP - General Family Medicine 10/05/23 Elderly Sitter Relationship Specialty Start Date End Date Dillon Meade MD [address] [place] [address] PCP - General Family Medicine 10/05/23 Elderly Sitter Relationship Specialty Start Date End Date Dillon Meade MD [address] [place] [address] PCP - General Family Medicine 10/05/23 Elderly Sitter Relationship Specialty Start Date End Date Dillon Meade MD [address] [place] [address] PCP - [facility] Medicine 10/05/23 Elderly Sitter Relationship Specialty Start Date End Date Dillon Meade MD [address] [place] [address] PCP - [facility] Medicine 10/05/23 Team Status: Active Member Role Status Dates Dillon Meade MD Primary Care Provider Active Team Status: Inactive Member Role Status Dates Brittany Perez MD Attending Provider Active Start : November 18, 2024 End: November 18, 2024 Dillon Meade MD Primary Care Provider Active S tart: November 18, 2024 End: November 18, 2024 Elderly Sitter Relationship Specialty Start Date End Date Dillon Meade MD PCP - [facility] Medicine 10/22/24 Elderly Sitter Relationship Specialty Start Date End Date Dillon Meade MD [address] [place] [address] PCP - [facility] Medicine 10/05/23 Elderly Sitter Relationship Specialty Start Date End Date Dillon Meade MD PCP - General [facility] 10/22/24 Reason for Visit (unrecogniz ed section and content) Reason Comments Pain Reason Comments Follow-up 6m f/u Reason Comments Follow-up procedure discussion Reason Comments Follow-up DB2 DEVELOPER PRE OP DR RICKETTS RT HYDROCELECTOMY SCHED W/ PT TESTS AT [facility] PT WANTS TO PUSH BACK SURG DATE AT WAIT FOR [facility] ONLY APPT New Patient Specialty Diagnoses / Procedures Referred By Contac t Referred To Contact Cardiology Diagnoses Atrial fibrillation, unspecified type ([facility]) Nimisha Ricketts MD [address] [place] [address] [facility] [address] [place] [address] Referral ID Status Reason Start Date Expiration Date Visits Requested Visits Authorized [id number] Pending Review Specialty Services Required 12/21/2023 12/20/2024 1 1 Reason Comments Pre-op Exam EST PT F/U EARLY PRE OP W/ DR RICKETTS FAX [phone] ECHO DONE SCHED W/P Reason Comments Post-Op Drain Removal Reason Comments Follow-up Reason Comments Follow-up Medication questions Reason Comments Medicare Annual Wellness Visit Subsequen t wellness Reason Comments Follow-up 3 m Reason Onset Date Comments Med Refill 11/14/2024 Reason Comments Follow-up EST PT FU LS TMP, EC HO DONE, SCHED W/PT Goals (unrecognized section and content) Goals may [...] BE BASED ON THE PRIMARY CLINICAL RECORDS. [email or web address] provides no warranty or guarantee of the accuracy or completeness of information in this document.
[2025-01-13 09:50] LABS: Hematocrit 44.1 % (42.0-54.0); Hemoglobin 14.9 g/dL (14.0-18.0); Mean Corpuscular HGB Conc 33.8 g/dL (29.9-35.2); Mean Corpuscular Hemoglobin 30.2 pg (25.9-34.0); Mean Corpuscular Volume 89.5 fL (80.0-94.0); Platelet Count 179 10^3/uL (150-450); Red Blood Count 4.93 10^6/uL (4.70-6.10); White Blood Count 7.2 10^3/uL (4.0-11.0)
[2025-01-13 09:51] LABS: Glucose Urine UA >=1000 mg/dL (NEGATIVE)
[2025-01-13 10:03] LABS: Cast Seen? NONE SEEN #/LPF (NONE SEEN); Crystals Seen? None Seen #/HPF (None Seen)
[2025-01-13 10:12] LABS: Albumin Level 3.6 g/dL (3.4-5.0); Anion Gap 16.2; Blood Urea Nitrogen 37.0 mg/dL (7.0-18.0); Calcium 9.0 mg/dL (8.5-10.1); Carbon Dioxide 22.7 mmol/L (21.0-32.0); Chloride 105 mmol/L (98-107); Estimated GFR (African America 31 (>=60 mL/min/1.73m^2); Estimated GFR (Non-African Ame 25 (>=60 mL/min/1.73m^2); Glucose 179 mg/dL (74-106); Magnesium 1.8 mg/dL (1.8-2.4); Potassium 3.9 mmol/L (3.5-5.1); Sodium 140 mmol/L (136-145); Uric Acid 7.6 mg/dL (3.5-7.2)
[2025-01-13 10:45] LABS: Protein Creatinine Ratio Urine 0.24; Total Protein Urine Random 15.5 mg/dL (<=11.9)
[2025-01-13 11:19] LABS: Iron 65.0 ug/dL (65.0-175.0); Percent Iron Saturation 23.4 %; Total Iron Binding Capacity 278.0 ug/dL (250.0-450.0)
[2025-01-13 13:14] LABS: Ferritin 176.0 ng/mL (26.0-388.0)
== END 2025-01-13 09:11 | disposition home or self-care (01) ==
PROVIDERS: PCP Family Medicine; Visit Provider Internal Medicine
DX: E78.5 Hyperlipidemia, unspecified (principal); I50.20 Unspecified systolic (congestive) heart failure; N25.81 Secondary hyperparathyroidism of renal origin; I12.9 Hypertensive chronic kidney disease with stage 1 through stage 4 chronic kidney disease, or unspecified chronic kidney disease; E11.22 Type 2 diabetes mellitus with diabetic chronic kidney disease; N18.4 Chronic kidney disease, stage 4 (severe)
CPT/HCPCS: 36415; 80069; 81001; 82306; 82570; 82728; 83540; 83550; 83735; 83970; 84156; 84550; 85027